=== PATIENT | male | born 1985 | race Native Hawaiian/Other Pacific Islander ===

== ENCOUNTER 2020-07-07 00:59 | Emergency (ER) | payer OTHER, SELFPAY ==
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
[2020-07-07 01:24] VITALS: BP 185/101; PULSE 97; RESP 20; TEMP 35.7; O2SAT 96; BMI 64.2
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
[2020-07-07] MEDS: Cyclobenzaprine HCl 10 MG TABLET PO (02:06)
[2020-07-07] MEDS: Ibuprofen 600 MG TABLET PO (02:06)
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
== END 2020-07-07 04:29 | disposition home or self-care (01) ==
PROVIDERS: Emergency Provider Emergency Medicine; PCP Internal Medicine
DX: S39.012A Strain of muscle, fascia and tendon of lower back, initial encounter (principal); M54.6 Pain in thoracic spine; M79.604 Pain in right leg; M25.551 Pain in right hip; V43.52XA Car driver injured in collision with other type car in traffic accident, initial encounter; Y93.9 Activity, unspecified; Y92.410 Unspecified street and highway as the place of occurrence of the external cause; Z79.899 Other long term (current) drug therapy
CPT/HCPCS: 71101; 72100; 73030; 73502; 99283

== ENCOUNTER 2021-08-22 18:08 | Emergency (ER) | payer OTHER, SELFPAY ==
--- NOTE | ~2021-08-22 | XR_ITS ---
EXAMINATION: XR KNEE, LEFT CLINICAL INFORMATION: Injury COMPARISON: None TECHNIQUE: 2 views submitted of the left knee. FINDINGS: There is seen. Possible trace effusion. There is no acute fracture or dislocation. Prepatellar soft tissue increase Dystrophic calcification anterior to the patella. XR/XR knee LT 2V IMPRESSION: No acute bony finding.
[2021-08-22 18:13] VITALS: BP 154/78; BP 157/72; PULSE 72; PULSE 74; RESP 18; TEMP 36.6; O2SAT 95; O2SAT 96; BMI 91.5
--- NOTE | 2021-08-22 23:08 | ED.LOWEXIN ---
HPI - Extremity Injury (Lower) General Chief Complaint: Extremity Injury, Lower Stated Complaint: l leg pain xweeks Time Seen by Provider: 08/22/21 23:03 Source: patient and EMS Mode of arrival: EMS Limitations: no limitations History of Present Illness HPI Narrative: 36 y/o male with history of morbid obesity, plaque psoriasis, ZAINA who presents to the ER with 2 months of left knee pain that comes and goes. It started after he fell outside [employer] [employer] 2 months ago. He never was evaluated and the pain improved with rest and time. He reports today when he was trying to ambulate he had immediate pain in his left knee any could have any pressure on his foot without extreme pain in the knee. Happy like his knee was going to give out. No new injury since the last 1 2 months ago. No swelling of the knee. No numbness or tingling. No weakness in the leg but just severe pain when trying to walk. MD complaint: knee injury Onset (ago): week(s) (8) Injury: Left: knee Type of Injury: blunt Place: street/outdoors Severity: severe Severity scale (1-10): 10 Relieving factors: immobilization and rest Exacerbating factors: weight bearing Context: fall Associated symptoms: able to partially bear weight Other symptoms: none Related Data Previous Rx's Medication Instructions Recorded cyclobenzaprine 10 mg tablet 10 mg PO TID PRN #14 tab 07/07/20 ibuprofen 600 mg tablet 600 mg PO Q6H PRN #30 tab 07/07/20 lidocaine 4 % topical patch 1 patch TOPICAL DAILY PRN #10 ea 07/07/20 naproxen 500 mg tablet 500 mg PO BID #20 tab 08/22/21 Allergies Allergy/AdvReac Type Severity Reaction Status Date / Time No Known Allergies Allergy Verified 07/07/20 01:26 Review of Systems Review of Systems: Constitutional: No Fever, No Chills Cardiovascular: No Chest Pain, No SOB Respiratory: No Cough, No Sputum Gastrointestinal: No Nausea, No Vomiting, No abdominal Pain Genitourinary: No Dysuria, No Urinary Frequency, No Hematuria Musculoskeletal: + joint pain, + Myalgias Skin: z= Skin Lesions, No rash Neuro: No Weakness, No Numbness Psych: + Anxiety/Panic, + Depression Heme/Lymph: No Bruising PMFSH Past Medical History Medical History (Updated 08/22/21 @ 23:37 by ADOLPH Sawyer) Obesity Social History Social History (Updated 07/07/20 @ 01:32 by Ashlee Calderón DO) Advance Directives: No Advance Directives Information Provided: Yes Physical Exam Vital Signs: Vital Signs: Last Vital Signs Temp 98 F 08/22/21 18:13 Pulse 74 08/22/21 18:13 Resp 18 08/22/21 18:13 BP 157/72 H 08/22/21 18:13 Pulse Ox 96 08/22/21 18:13 BMI result Body Mass Index 91.5 Appearance: Alert. Oriented X3. No acute distress. Morbidly obese HEENT: normal inspection CVS: Normal heart rate and rhythm. Pulses normal. Respiratory: No respiratory distress. Skin: Skin warm and dry. Normal skin color. Normal skin turgor. Multiple large plaques consistent with psoriasis Extremities: White scaly plaques scattered on the lower and upper extremities. Normal inspection of the left knee with normal active and passive range of motion. Difficult to assess joint laxity due to body habitus. No erythema or warmth of the knee. Neurovascularly intact distally. Neuro: Oriented X 3. No motor deficit. No sensory deficit. Ambulates with a limping gait. Course Course Course Narrative: 36 y/o male with history of morbid obesity, untreated plaque psoriasis who presents to with left knee pain after he fell about 8 weeks ago. He reports being unable to ambulate or put any pressure on the leg but he was seen taking a few steps here in the emergency room and EMS reports he was able to walk down a flight of stairs to get to the ambulance. He has been taking no medications for the pain. He has full range of motion on examination and pain is with weight-bearing. His x-ray is normal. Will plan to start him on NSAID for inflammation and refer to both Orthopedics Rheumatology for further workup. Crutches provided. Patient agreeable with plan. Critical Care Time Critical Care Time Critical Care Time: No Discharge Plan Discharge Clinical Impression: Left knee pain Qualifiers: Chronicity: chronic Qualified Code(s): M25.562 - Pain in left knee Patient Disposition: Home, Self-Care Instructions: Knee Pain (ED) Additional Instructions: Your knee x-ray was normal. Rest your knee and elevate your leg when possible. Recommend CHAPIS wrap for support and compression. Use ice several times per day for the next 48 hours. You may bear weight as tolerated. If pain is too severe, use crutches until better. Take the prescribed anti-inflammatory pain medication (with food) for the next 7 days. Recommend following up with orthopedics for further evaluation. Also recommend following up with rheumatology for further evaluation. Follow up with your doctor this week as well Prescriptions: New naproxen 500 mg tablet 500 mg PO BID Qty: 20 RF: 0 No Action cyclobenzaprine 10 mg tablet 10 mg PO TID PRN (Reason: muscle spasm) Qty: 14 RF: 0 lidocaine 4 % adhesive patch,medicated 1 patch topical DAILY PRN (Reason: pain) Qty: 10 RF: 0 ibuprofen 600 mg tablet 600 mg PO Q6H PRN (Reason: pain) Qty: 30 RF: 0 Referrals: Hyun Oakley PA-C [Physician Prop Sawyer] - 2 days (Left knee pain status post injury vs question psoriatic arthritis) Bobbi Bianchi NP [Nurse Practitioner] - 2 days (Psoriatic arthritis )
[2021-08-22] MEDS: Ibuprofen 800 MG TABLET PO (23:50)
[2021-08-22] MEDS: oxyCODONE HCl Immed Release 5 MG TABLET PO (23:51)
== END 2021-08-22 23:55 | disposition home or self-care (01) ==
PROVIDERS: Emergency Provider Emergency Medicine; PCP Internal Medicine
DX: M25.562 Pain in left knee (principal); L40.0 Psoriasis vulgaris; E66.01 Morbid (severe) obesity due to excess calories; Z68.45 Body mass index [BMI] 70 or greater, adult
CPT/HCPCS: 73560; 99283; 99284

== ENCOUNTER 2022-08-13 00:23 | Emergency (ER) | payer OTHER, SELFPAY ==
--- NOTE | ~2022-08-13 | XR_ITS ---
EXAMINATION: XR ANKLE, LEFT CLINICAL INFORMATION: Pain. COMPARISON: None TECHNIQUE: AP, lateral, and mortise views of the left ankle. FINDINGS: The cutaneous marker is directed towards the lateral malleolus. The talar dome is intact. Several well-corticated, chronic appearing ossific bodies measuring up to 2 mm diameter noted adjacent to the medial malleolus. Soft tissue prominence is present adjacent to the lateral malleolus. The base of the fifth metatarsal appears intact. The subtalar joints are normal in appearance. No soft tissue emphysematous changes. XR/XR ankle LT 2V IMPRESSION: 1. Soft tissue inflammatory changes adjacent to the lateral malleolus. 2. No acute fractures identified. 3. Chronic-appearing ossific bodies adjacent to the medial malleolus which may represent the sequela of remote trauma.
[2022-08-13 00:42] VITALS: BP 143/94; PULSE 90; RESP 16; TEMP 36.7; O2SAT 98; BMI 58.8
[2022-08-13 01:54] VITALS: BP 141/83; PULSE 73; RESP 18; TEMP 36.4; O2SAT 100
--- NOTE | 2022-08-13 02:10 | PC.NURSE ---
MD to bedside for primary eval.
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
[2022-08-13] MEDS: Ibuprofen 600 MG TABLET PO (02:25)
== END 2022-08-13 02:26 | disposition home or self-care (01) ==
PROVIDERS: Emergency Provider Emergency Medicine
DX: S93.402A Sprain of unspecified ligament of left ankle, initial encounter (principal); M25.572 Pain in left ankle and joints of left foot; W01.0XXA Fall on same level from slipping, tripping and stumbling without subsequent striking against object, initial encounter; Y93.9 Activity, unspecified; Y92.9 Unspecified place or not applicable; Y99.9 Unspecified external cause status
CPT/HCPCS: 73600; 99283; 99284

== ENCOUNTER 2022-09-07 08:34 | Inpatient (IN) | payer OTHER, SELFPAY ==
--- NOTE | ~2022-09-07 | CT_ITS ---
EXAMINATION: CT ABDOMEN AND PELVIS WITHOUT CONTRAST CLINICAL INFORMATION: Left lower quadrant abdominal pain radiating to testicle. History of stones. COMPARISON: None TECHNIQUE: Multidetector volumetric imaging was performed from the superior aspect of the liver through the pubic symphysis. Sagittal and coronal reformatted images were obtained on the technologist's workstation. This CT examination was performed using dose optimization techniques as appropriate, variously including the following: *Automated exposure control *Adjustment of mA and/or kV according to patient size (this includes techniques or standardized protocols for targeted exams where dose is matched to indication/reason for exam; i.e. extremities or head) *Use of iterative reconstruction technique DLP: 1469 mGy-cm FINDINGS: There are limitations to the scanning related to very large body habitus. LUNG BASES: The visualized lung bases are unremarkable. No pleural pericardial effusion. Heart normal size. LIVER, GALLBLADDER, AND BILIARY TREE: There is a small amount of increased density adjacent to the gallbladder with what appears to be some degree of fatty infiltration of the liver. No hepatomegaly.. No focal hepatic lesion or biliary ductal dilatation is present. The gallbladder is unremarkable with no evidence of radiopaque gallstones, gallbladder wall thickening, or obvious pericholecystic inflammatory changes. PANCREAS: Unremarkable. No abnormal mass or peripancreatic inflammatory change. There is some fatty involution seen involving the head of the pancreas. SPLEEN: Unremarkable. ADRENAL GLANDS: Unremarkable. KIDNEYS AND URETERS: Right kidney: 3 right renal calculi are seen which are nonobstructive. The largest is in the lower pole measuring 6 mm in diameter. No focal masses appreciated. No cortical thinning is seen. Visualized portions of the right ureter appear unremarkable. Left kidney: There appears be mild hydronephrosis of the left kidney with perinephric stranding being present. There are at least 2 renal calculi being seen with largest one in the area of the renal pelvis measuring 8 mm in diameter. There is some fat streaking seen adjacent to the left ureter which is mildly prominent down to the level of a 4 mm calculus at the left ureterovesical junction. BLADDER: Decompressed GASTROINTESTINAL TRACT: No dilated loops of large or small bowel are evident. No free air or free fluid is appreciated. No pericolonic inflammatory change. No evidence of acute appendicitis. ABDOMINAL WALL: No significant hernia is appreciated. LYMPH NODES: No lymphadenopathy appreciated. VASCULAR: Unremarkable. PELVIC VISCERA: Unremarkable. OSSEOUS STRUCTURES: No suspicious destructive bony lesion. CT/CT abdomen pelvis wo IV con IMPRESSION: Bilateral nephrolithiasis. Left ureteral obstructing 4 mm calculus at the ureterovesical junction. Fleischner guidelines were followed.
--- NOTE | ~2022-09-07 | FL_ITS ---
EXAMINATION: XR FLUOROSCOPY WITH IMAGES CLINICAL INFORMATION: Renal calculi. COMPARISON: None. TECHNIQUE: Fluoroscopy Supervised By: Dr. Fran Montoya. Fluoroscopy Time: 46.5. Cumulative Dose: 42.59 mGy. Images: 4. FINDINGS: Several digital images obtained reveal a left retrograde urogram in OR with contrast opacifying the left kidney pelvis and left distal ureter. No intraluminal filling defect seen. The final image reveals a left ureteral stent in place. FL/FL guidance in OR IMPRESSION: Fluoroscopy guidance was provided in OR to referring physician for cystoscopy and retrograde pyelogram.
[2022-09-07 08:39] VITALS: BP 151/68; PULSE 88; RESP 22; TEMP 36.2; O2SAT 99; BMI 57.5
--- NOTE | 2022-09-07 08:51 | ED.ABDPAIN ---
HPI - Abdominal Pain General Chief Complaint: Abdominal Pain Stated Complaint: kidney stones Time Seen by Provider: 09/07/22 08:47 Source: patient History of Present Illness HPI narrative: 37-year-old male with a past medical history of obesity, renal stones, presenting to the ED complaining of left-sided abdominal pain radiating to left groin/testicle with associated urinary hesitancy since 03:00AM. Reports similar symptoms in the past with his kidney stones. Admits to associated lightheadedness. Denies known fever, chills, nausea/vomiting, dysuria, hematuria MD elicited complaint: abdominal pain and flank pain Onset (ago): day(s) Related Data Home Medications Medication Instructions Recorded Confirmed albuterol sulfate 2.5 mg/3 mL 1 vial inhalation Q4H PRN wheezing 09/07/22 09/23/22 (0.083 %) solution for nebulization albuterol sulfate 90 mcg/actuation 2 puff inhalation Q4-6H PRN 09/07/22 09/23/22 aerosol inhaler (ProAir HFA) Shortness Of Breath Or Wheezing omeprazole 40 mg capsule,delayed 1 cap PO DAILY@0630 09/07/22 09/23/22 release ustekinumab 90 mg/mL subcutaneous See Rx Instructions .Route .COMPLEX 09/07/22 09/23/22 syringe (Stelara) cetirizine 10 mg tablet (Zyrtec) 10 mg PO DAILY 09/23/22 09/23/22 gabapentin 100 mg capsule 100 mg PO TID 09/26/22 lisinopril 10 mg tablet 10 mg PO DAILY 09/26/22 loratadine 10 mg tablet 10 mg PO DAILY 09/26/22 oxybutynin chloride 5 mg 5 mg PO DAILY PRN bladder muscle 09/26/22 tablet,extended release 24 hr dysfunction Previous Rx's Medication Instructions Recorded hydrocodone 5 mg-acetaminophen 325 1 tab PO Q4H PRN pain 7 days #8 09/23/22 mg tablet tabs phenazopyridine 100 mg tablet 100 mg PO TID PRN Spasm 4 days #12 09/23/22 (Pyridium) tabs sulfamethoxazole 400 1 tab PO DAILY #10 tabs 09/23/22 mg-trimethoprim 80 mg tablet (Bactrim) tamsulosin 0.4 mg capsule 0.4 mg PO BEDTIME 14 days #14 caps 09/23/22 hydrocodone 5 mg-acetaminophen 325 1 tab PO Q8H PRN pain #2 tabs 09/25/22 mg tablet oxybutynin chloride 5 mg 5 mg PO DAILY PRN bladder spasms 7 09/26/22 tablet,extended release 24 hr days #7 tabs Allergies Allergy/AdvReac Type Severity Reaction Status Date / Time ibuprofen [From Advil] Allergy Shortness Verified 09/26/22 11:00 of Breath aspirin AdvReac Headache Verified 09/26/22 11:00 etanercept [From Enbrel] AdvReac Dizziness Verified 09/26/22 11:00 NSAIDS (Non-Steroidal AdvReac Palpitation Verified 09/26/22 11:00 Anti-Inflamma s Review of Systems Review of Systems Constitutional: No Fever, No Chills, No Fatigue, No Malaise ENT/Mouth: No Hearing loss, No Ear Pain, No Nasal Congestion, No Sinus Pain, No Hoarseness, No sore throat, No Rhinorrhea, No Swallowing Difficulty Eyes: No Eye Pain, No Swelling, No Redness, No Vision Changes Cardiovascular: No Chest Pain, No SOB, No Edema, No Palpitations Respiratory: No Cough, No Sputum, No Dyspnea Gastrointestinal: No Nausea, No Vomiting, No Diarrhea, No Constipation, + Abdominal pain Genitourinary:No Dysuria, No Urinary Frequency, No Hematuria, No Urinary Incontinence/retention, No Urgency, No Flank Pain, No Urinary Flow Changes, + Hesitancy Musculoskeletal: No joint pain, No Myalgias, No Joint Swelling Skin: No Skin Lesions, No rash Neuro: No Weakness, No Dizziness, No Headache, +lightheaded Yes all other systems are reviewed and are negative Constitutional: Reports as per [facility] Past Medical History Attestation statement: The following information was validated with the patient. Medical History Asthma Habitual snoring Hx of fracture of femur Obesity Renal and ureteric calculus Sleep apnea Surgical History History of cystoscopy History of surgery on lower extremity S/P cystoscopy with ureteral stent placement [place] teeth extracted Social History Social History Household Members: Spouse Housing: House Do you presently have visiting nurse or other home services: No Patient Tobacco Use Status: Former Tobacco user Tobacco use type: Cigarette e-Cigarette/Vaping Use: Former Use Physical Exam ED Vital Signs: Vital Signs - 24 hr 09/07/22 08:39 09/07/22 10:04 09/07/22 12:00 Temperature 97.1 F 98.1 F 98.9 F Pulse Rate 88 70 110 H Respiratory Rate 22 H 18 18 Blood Pressure 151/68 H 150/87 H 144/87 H Pulse Oximetry 99 99 98 Oxygen Delivery Method Room Air Room Air Room Air BMI result Body Mass Index 57.5 Const General: cooperative, healthy appearing and no acute distress Orientation/consciousness: patient oriented x3 Limitations: no limitations HENMT Head: Yes normal to inspection and Yes atraumatic Ears: hearing grossly normal bilaterally General nose exam: Normal external nose present Face and sinus: Yes normal facial exam Eyes General: appearance normal, both eyes and all related structures EOM: EOMs intact bilaterally Neck Neck: Yes normal visual inspection and Yes no meningeal signs Resp Effort & Inspection: normal respiratory effort and no respiratory distress Cardio Rate: regular rate Heart sounds: S1 normal heart sound present and S2 normal heart sound present GI Inspection: Yes normal to inspection Palpation (GI): Soft to palpation, Tenderness to palpation present (GI) in the LLQ; with no rebound tenderness, no guarding, not rigid and no hernias General: Yes no CVA tenderness Testes: no epidiymal tenderness and no testicular swelling Back/Spine/Pelvis Back: no CVA tenderness Skin Rashes: no rashes Wounds: no wounds Neuro General: patient oriented x3, tone normal and no meningeal signs Gait exam (Neuro): Normal gait present Extrem General: Yes normal to inspection Course Course Course Narrative: -1040-leukocytosis of 14.7 likely reactive from pain. Low suspicion for severe sepsis at this time. Labs otherwise reassuring CT abdomen pelvis wo IV con IMPRESSION: Bilateral nephrolithiasis. ? Left ureteral obstructing 4 mm calculus at the ureterovesical junction. ? Fleischner guidelines were followed. 1106--patient is still in significant amount of pain and re-evaluation. Will consult Urology -spoke with Dr. Augustin recommended 2-3 L IVF, Toradol, and Flomax. Patient with allergy to Toradol. -patient's still without pain control after 0.5mg of Dilaudid > 1mg ordered -1248--on re-evaluation patient calm and comfortable, reports symptomatic relief after 1 mg of Dilaudid. Will give 3 L IVF and continue to reassess -1400--patient's pain relief was brief, now lying in stretcher, moaning in pain. Re- consulted urology > they will admit for pain control Medical Decision Making Medical Decision Making [facility] Narrative: 37-year-old male with a past medical history of obesity, renal stones, presenting to the ED complaining of left-sided abdominal pain radiating to left groin/testicle with associated urinary hesitancy since 03:00AM. On exam tachypneic, writhing around in pain, abdomen soft with +LLQ ttp, left testicle nontender without swelling, no appreciable CVA tenderness. Concern for renal stone vs diverticulitis vs UTI/pyelo. Lower suspicion for testicular torsion/epididymitis/orchitis Low suspicion for severe sepsis Plan: Labs, UA, IVF, pain control, CT AP Please refer to course for remaining clinical decision making, interpretation of labs/imaging results, and discussions with consultants and/or family members. Differential Diagnosis Differential Diagnoses: The differential diagnosis associated with the presentation includes as above Admission/Observation Consideration of admission/observation: Escalation of care including admission/observation considered Consult Healthcare Provider Management of the patient was discussed with: Licensed Investment Sales Assistant Lab Data [facility] Lab Attestation statement: I reviewed the patient's lab results. 09/08/22 06:25 09/08/22 06:25 Labs: Lab Results 09/07/22 09/07/22 09/07/22 Range/Units 09:07 09:07 09:07 WBC 14.7 H (4.8-10.8) X10*3/uL RBC 4.43 L (4.60-5.80) X10*6/uL Hgb 12.0 L (14.0-18.0) g/dl Hct 38.0 L (42.0-52.0) % MCV 85.8 (80.0-98.0) fL MCH 27.1 (27.0-33.0) pg MCHC 31.6 (31.0-36.0) g/dl RDW 15.1 (11.0-16.0) % Plt Count 348 (160-400) X10*3/uL MPV 9.7 (9.4-12.4) fL Immature Gran % (Auto) 0.7 H (0.0-0.4) % Neut % (Auto) 78.1 H (45-73) % Lymph % (Auto) 13.4 L (20-40) % [place] % (Auto) 6.4 (2-11) % Eos % (Auto) 1.1 (0-4) % Baso % (Auto) 0.3 (0-2) % Lymph # (Auto) 2.0 (1.2-4.9) X10*3/uL [place] # (Auto) 0.9 (0.1-1.2) X10*3/uL Eos # (Auto) 0.2 (0.0-0.4) X10*3/uL Baso # (Auto) 0.1 (0.0-0.2) X10*3/uL Abs Immat Gran (auto) 0.10 H (0.00-0.03) X10*3/uL Absolute Neuts (auto) 11.5 H (2.0-8.3) x10*3/uL Absolute Nucleated RBC 0.000 (0.0-0.012) X10*3/uL Nucleated RBC % (auto) 0.0 (0.0-0.2) /100WBC PT 12.0 (10.0-13.1) SEC INR 1.0 (0.9-1.1) Sodium 139 (135-145) mmol/L Potassium 4.1 (3.3-5.1) mmol/L Chloride 105 (96-108) mmol/L Carbon Dioxide 25 (22-29) mmol/L Anion Gap 13 (12-20) BUN 13 (9-16) mg/dL Creatinine 0.82 (0.5-1.4) mg/dL Estim Creat Clear Calc 232.2 Estimated GFR > 60 Random Glucose 132 H (60-115) mg/dL Calcium 8.8 (8.4-10.2) mg/dL Magnesium 1.8 (1.6-2.6) mg/dL Total Bilirubin 0.8 (0.0-1.0) mg/dL Direct Bilirubin 0.2 (0.0-0.5) mg/dL AST 17 (5-37) U/L ALT 26 (0-40) U/L Alkaline Phosphatase 91 (39-117) U/L Total Protein 6.8 (6.5-8.0) g/dL Albumin 3.8 (3.5-5.0) g/dL Lipase 6 L (8-78) U/L Urine Color Urine Appearance Urine pH (5.0-9.0) Ur Specific [place] (1.005-1.025) Urine Protein (Neg-Trace) mg/dL Urine Glucose (UA) (Negative) mg/dL Urine Ketones (Negative) mg/dL Urine Blood (Negative) Urine Nitrite (Negative) Ur Leukocyte Esterase (Negative) COVID-19 (KOREY) (Negative) COVID-19 Clin Com 09/07/22 09/07/22 Range/Units 09:07 13:31 WBC (4.8-10.8) X10*3/uL RBC (4.60-5.80) X10*6/uL Hgb (14.0-18.0) g/dl Hct (42.0-52.0) % MCV (80.0-98.0) fL MCH (27.0-33.0) pg MCHC (31.0-36.0) g/dl RDW (11.0-16.0) % Plt Count (160-400) X10*3/uL MPV (9.4-12.4) fL Immature Gran % (Auto) (0.0-0.4) % Neut % (Auto) (45-73) % Lymph % (Auto) (20-40) % [place] % (Auto) (2-11) % Eos % (Auto) (0-4) % Baso % (Auto) (0-2) % Lymph # (Auto) (1.2-4.9) X10*3/uL [place] # (Auto) (0.1-1.2) X10*3/uL Eos # (Auto) (0.0-0.4) X10*3/uL Baso # (Auto) (0.0-0.2) X10*3/uL Abs Immat Gran (auto) (0.00-0.03) X10*3/uL Absolute Neuts (auto) (2.0-8.3) x10*3/uL Absolute Nucleated RBC (0.0-0.012) X10*3/uL Nucleated RBC % (auto) (0.0-0.2) /100WBC PT (10.0-13.1) SEC INR (0.9-1.1) Sodium (135-145) mmol/L Potassium (3.3-5.1) mmol/L Chloride (96-108) mmol/L Carbon Dioxide (22-29) mmol/L Anion Gap (12-20) BUN (9-16) mg/dL Creatinine (0.5-1.4) mg/dL Estim Creat Clear Calc Estimated GFR Random Glucose (60-115) mg/dL Calcium (8.4-10.2) mg/dL Magnesium (1.6-2.6) mg/dL Total Bilirubin (0.0-1.0) mg/dL Direct Bilirubin (0.0-0.5) mg/dL AST (5-37) U/L ALT (0-40) U/L Alkaline Phosphatase (39-117) U/L Total Protein (6.5-8.0) g/dL Albumin (3.5-5.0) g/dL Lipase (8-78) U/L Urine Color Yellow Urine Appearance Clear Urine pH 6.5 (5.0-9.0) Ur Specific [place] 1.015 (1.005-1.025) Urine Protein Negative (Neg-Trace) mg/dL Urine Glucose (UA) Negative (Negative) mg/dL Urine Ketones Negative (Negative) mg/dL Urine Blood Negative (Negative) Urine Nitrite Negative (Negative) Ur Leukocyte Esterase Negative (Negative) COVID-19 (KOREY) Negative (Negative) COVID-19 Clin Com See Note Radiology Impression Discussion of test interpretation with radiology: I have reviewed the radiologist's reading. Prescription Management I considered prescription management with: Pain Medication and Antibiotic Medications Administered Discontinued Medications Generic Name Dose Route Start Last Admin Trade Name Freq PRN Reason Stop Dose Admin Acetaminophen 650 mg 09/07/22 14:47 09/10/22 08:51 Acetaminophen 325 Mg Tablet PO 650 mg Q6H PRN Administration Pain, Mild (Pain Scale 1-3) Albuterol Sulfate 2.5 mg 09/07/22 14:55 09/09/22 16:09 Albuterol Sulfate (0.083%) 2.5 Mg/3 Ml Vial.Neb INHALE 2.5 mg Q4H PRN Administration wheezing Docusate Sodium 100 mg 09/07/22 21:00 09/10/22 08:51 Docusate Sodium 100 Mg Capsule PO 100 mg BID SHANNA Administration Hydromorphone HCl 0.5 mg 09/07/22 11:08 09/07/22 11:25 Hydromorphone Hcl 0.5 Mg/0.5 Ml Syringe IVPUSH 09/07/22 11:09 0.5 mg ONCE ONE Administration Protocol Hydromorphone HCl 1 mg 09/07/22 12:05 09/07/22 12:28 Hydromorphone Hcl 1 Mg/Ml Syringe IVPUSH 09/07/22 12:06 1 mg ONCE ONE Administration Protocol Hydromorphone HCl 0.5 mg 09/07/22 14:47 09/10/22 08:50 Hydromorphone Hcl 1 Mg/Ml Syringe IVPUSH 0.5 mg Q3H PRN Administration Pain, Severe (Pain Scale 7-10) Protocol Sodium Chloride 1,000 mls @ 999 mls/hr 09/07/22 09:00 09/07/22 09:51 Ns IV 09/07/22 10:00 Infused .Q1H1M SHANNA Infusion Sodium Chloride 1,000 mls @ 999 mls/hr 09/07/22 11:30 09/07/22 12:28 Ns IV 09/07/22 12:30 Infused .Q1H1M SHANNA Infusion Sodium Chloride 1,000 mls @ 999 mls/hr 09/07/22 13:00 09/07/22 13:22 Ns IV 09/07/22 14:00 Infused .Q1H1M SHANNA Infusion Sodium Chloride 1,000 mls @ 125 mls/hr 09/07/22 15:00 09/09/22 17:42 Ns IVCONT Infused .Q8H SHANNA Infusion Cefazolin Sodium/Dextrose 2 gm in 50 mls @ 100 mls/hr 09/09/22 14:04 09/09/22 15:43 Ancef IV 09/09/22 14:33 Not Given PREOP ONE Acetaminophen 1,000 mg in 100 mls @ 400 mls/hr 09/09/22 14:44 09/09/22 15:43 Ofirmev IV 09/09/22 14:58 Not Given ONCE ONE Sodium Chloride 1,000 mls @ 100 mls/hr 09/09/22 19:15 09/10/22 04:54 Ns IVCONT 100 mls/hr .Q10H SHANNA Administration Morphine Sulfate 4 mg 09/07/22 08:55 09/07/22 09:07 Morphine Sulfate 4 Mg/Ml Cartridge IVPUSH 09/07/22 08:56 4 mg ONCE ONE Administration Protocol Morphine Sulfate 4 mg 09/07/22 09:43 09/07/22 09:51 Morphine Sulfate 2 Mg/Ml Cartridge IVPUSH 09/07/22 09:44 4 mg ONCE ONE Administration Protocol Omeprazole 40 mg 09/08/22 06:30 09/10/22 06:46 Omeprazole 40 Mg Capsule.Dr PO 40 mg DAILY@0630 SHANNA Administration Ondansetron HCl 4 mg 09/07/22 08:55 09/07/22 09:07 Ondansetron Hcl 4 Mg/2 Ml Vial IVPUSH 09/07/22 08:56 4 mg ONCE ONE Administration Ondansetron HCl 4 mg 09/09/22 14:44 09/09/22 16:25 Ondansetron Hcl 4 Mg/2 Ml Vial IVPUSH 4 mg ONCE PRN Administration Nausea and Vomiting Oxycodone HCl 5 mg 09/07/22 14:47 09/07/22 23:12 Oxycodone Hcl Immed Release 5 Mg Tablet PO 5 mg Q6H PRN Administration Pain, Moderate (Pain Scale 4-6 Sodium Chloride 3 ml 09/07/22 16:00 09/10/22 09:02 0.9 % Sodium Chloride Flush 3 Ml Syringe IVFLUSH 3 ml QSMNFT SHANNA Administration Sodium Chloride 3 ml 09/10/22 00:00 09/10/22 08:51 0.9 % Sodium Chloride Flush 3 Ml Syringe IVFLUSH 3 ml QSHIFT SHANNA Administration Tamsulosin HCl 0.4 mg 09/07/22 11:09 09/07/22 11:25 Tamsulosin Hcl 0.4 Mg Capsule PO 09/07/22 11:10 0.4 mg ONCE ONE Administration Tamsulosin HCl 0.4 mg 09/08/22 09:00 09/10/22 08:51 Tamsulosin Hcl 0.4 Mg Capsule PO 0.4 mg DAILY SHANNA Administration Critical Care Time Critical Care Time Critical Care Time: Yes Total Critical Care Time: 40 Attestation: I have personally provided critical care time exclusive of time spent on separately billable procedures. Time includes review of lab data, radiology results, discussion with consultants, and monitoring for potential decompensation. Intervention performed as documented. Discharge Plan Discharge Clinical Impression: Calculus of ureterovesical junction (UVJ) Patient Disposition: Admitted As Inpatient Interventions: Admission Worksheet (ED) Last Done: 09/08/22 16:51 Discharge Date/Time: 09/08/22 16:52
[2022-09-07] MEDS: Morphine Sulfate 4 MG/ML CARTRIDGE IVPUSH (09:07)
[2022-09-07] MEDS: 0.9 % Sodium Chloride 1,000 ML 999 ML IV ×3 (09:07→12:50)
[2022-09-07] MEDS: ondansetron HCL 4 MG/2 ML VIAL IVPUSH (09:07)
[2022-09-07 09:11] LABS: MANUAL DIFF FLAG NO
[2022-09-07 09:12] LABS: Basophils Absolute Auto 0.1 X10*3/uL (0.0-0.2); Basophils Percent Auto 0.3 % (0-2); Eosinophils Absolute Auto 0.2 X10*3/uL (0.0-0.4); Eosinophils Percent Auto 1.1 % (0-4); Imm Gran Pct Auto 0.7 % (0.0-0.4); Lymphocytes Percent Auto 13.4 % (20-40); Mean Corpuscular HGB Conc 31.6 g/dl (31.0-36.0); Mean Corpuscular Hemoglobin 27.1 pg (27.0-33.0); Mean Corpuscular Volume 85.8 fL (80.0-98.0); Mean Platelet Volume 9.7 fL (9.4-12.4); Monocytes Absolute Auto 0.9 X10*3/uL (0.1-1.2); Monocytes Percent Auto 6.4 % (2-11); Neutrophils Absolute Auto 11.5 x10*3/uL (2.0-8.3); Neutrophils Percent Auto 78.1 % (45-73); Platelet Count 348 X10*3/uL (160-400); Red Blood Count 4.43 X10*6/uL (4.60-5.80); Red Cell Distribution Width 15.1 % (11.0-16.0); White Blood Count 14.7 X10*3/uL (4.8-10.8)
--- NOTE | 2022-09-07 09:15 | PC.NURSE ---
37 y/o M pw severe abdominal pain 06/17. pt has had kidney stones in the past x2 and states that this feels similar. pt unable to sit still d/t pain. 18G IV in place, all labs drawn and sent, pt given IV morphine for pain and IV Zofran for nausea. plan for urology c/s and pain management.
[2022-09-07 09:30] LABS: Alanine Aminotransferase 26 U/L (0-40); Albumin Level 3.8 g/dL (3.5-5.0); Alkaline Phosphatase 91 U/L (39-117); Anion Gap 13 (12-20); Aspartate Amino Transferase 17 U/L (5-37); Bilirubin Direct 0.2 mg/dL (0.0-0.5); Bilirubin Total 0.8 mg/dL (0.0-1.0); Blood Urea Nitrogen 13 mg/dL (9-16); COVID-19 Test Negative (Negative); Calcium 8.8 mg/dL (8.4-10.2); Carbon Dioxide 25 mmol/L (22-29); Chloride 105 mmol/L (96-108); Creatinine Clr Calc Pharmacy 232.2; Estimated Glomerular Filt Rate > 60; Glucose Random 132 mg/dL (60-115); IDNOW Serial# 16C4AD1C; Lipase 6 U/L (8-78); Magnesium 1.8 mg/dL (1.6-2.6); Potassium 4.1 mmol/L (3.3-5.1); Sodium 139 mmol/L (135-145); Total Protein 6.8 g/dL (6.5-8.0)
[2022-09-07] MEDS: Morphine Sulfate 2 MG/ML CARTRIDGE 4 MG IVPUSH (09:51)
[2022-09-07 10:04] VITALS: BP 150/87; PULSE 70; RESP 18; TEMP 36.7; O2SAT 99
[2022-09-07] MEDS: Tamsulosin HCL 0.4 MG CAPSULE PO (11:25)
[2022-09-07] MEDS: HYDROmorphone HCl 0.5 MG/0.5 ML SYRINGE IVPUSH (11:25)
[2022-09-07 12:00] VITALS: BP 144/87; PULSE 110; RESP 18; TEMP 37.2; O2SAT 98
[2022-09-07] MEDS: HYDROmorphone HCl 1 MG/ML SYRINGE IVPUSH (12:28)
[2022-09-07 13:41] LABS: Appearance Urine Clear; Color Urine Yellow; Glucose Urine UA Negative (Negative); Leukocyte Esterase Urine Negative (Negative); Nitrite Urine Negative (Negative); PH 6.5 (5.0-9.0); Specific Gravity - Urine 1.015 (1.005-1.025); Urine Blood Negative (Negative); Urine Ketones Negative (Negative); Urine Protein Negative (Neg-Trace)
--- NOTE | 2022-09-07 14:56 | P.HPGS_ITS ---
History of Present Illness History of Present Illness Date of Service: 09/08/22 Chief complaint: pain, ureteral stone Narrative: Michael Ramirez is a 37 year old male with a past medical history of obesity, renal stones, presenting to the ED complaining of left-sided abdominal pain radiating to left groin/testicle with associated urinary hesitancy since 03:00AM.? Reports similar symptoms in the past with his kidney stones.? Admits to associated lightheadedness.? Denies known fever, chills, nausea/vomiting, dysuria, hematuria Review of Systems Review of Systems: 10 point ROS negative other than stated in the [facility] Past Medical History Medical History Obesity Social History Social History Household Members: Spouse Housing: House Do you presently have visiting nurse or other home services: No Patient Tobacco Use Status: Former Tobacco user Tobacco use type: Cigarette Smoked in Last 30 Days: No e-Cigarette/Vaping Use: Former Use Use of substances other than those prescribed or required for medical reasons: No Have you been hit, kicked, punched, or otherwise hurt by someone within the past year? If so, by whom?: No Do you feel safe in your current relationship?: Yes Is there a partner from a previous relationship who is making you feel unsafe now?: No Are you made to feel afraid or neglected: No Advance Directives: No Advance Directives Information Provided: No (Declined) Advance Directives on File: No Do you have thoughts of harming others: None Do you have a plan to hurt others: No Plan Recently lost weight without trying: No How much weight loss: Not applicable Eating poorly because of decreased appetite: No Nutrition screen score: 0 Nutrition Risks: No Nutritional Risk Poor oral hygiene: No Meds Allergies Allergy/AdvReac Type Severity Reaction Status Date / Time ibuprofen [From Advil] Allergy Shortness Verified 09/07/22 08:42 of Breath Active Medications: Current Medications Acetaminophen (Acetaminophen 325 Mg Tablet) 650 mg PO Q6H PRN PRN Reason: Pain, Mild (Pain Scale 1-3) Albuterol Sulfate (Albuterol Sulfate (0.083%) 2.5 Mg/3 Ml Vial.Neb) mg INHALE Q4H PRN PRN Reason: wheezing Albuterol Sulfate (Albuterol Sulfate 90 Mcg 8 Gm Inhaler) 2 puff INHALE Q4-6H PRN PRN Reason: Shortness Of Breath Or Wheezing Docusate Sodium (Docusate Sodium 100 Mg Capsule) 100 mg PO BID SHANNA Hydromorphone HCl (Hydromorphone Hcl 1 Mg/Ml Syringe) 0.5 mg IVPUSH Q3H PRN; Protocol PRN Reason: Pain, Severe (Pain Scale 7-10) Sodium Chloride (Ns) 1,000 mls @ 125 mls/hr IVCONT .Q8H SHANNA Magnesium Hydroxide (Milk Of Magnesia 30 Ml Oral.Susp) 30 ml PO DAILY PRN PRN Reason: Constipation Omeprazole (Omeprazole 40 Mg Capsule.Dr) 40 mg PO DAILY@06 [facility] Oxycodone HCl (Oxycodone Hcl Immed Release 5 Mg Tablet) 5 mg PO Q6H PRN PRN Reason: Pain, Moderate (Pain Scale 4-6 Pharmacy Consult (Consult Rx Perform Med Rec) 1 each MISCELLANE ONCE STA Stop: 09/07/22 14:00 Sodium Chloride (0.9 % Sodium Chloride Flush 3 Ml Syringe) 3 ml IVFLUSH QSHIFT [facility] Home Medications Medication Instructions Recorded Confirmed Last Taken Type albuterol sulfate 2.5 mg/3 mL 1 vial inhalation Q4H PRN wheezing 09/07/22 09/07/22 09/06/22 History (0.083 %) solution for nebulization albuterol sulfate 90 mcg/actuation 2 puff inhalation Q4-6H PRN 09/07/22 09/07/22 09/06/22 History aerosol inhaler (ProAir HFA) Shortness Of Breath Or Wheezing omeprazole 40 mg capsule,delayed 1 cap PO DAILY@0630 09/07/22 09/07/22 08/10/22 History release ustekinumab 90 mg/mL subcutaneous See Rx Instructions .Route .COMPLEX 09/07/22 09/07/22 09/05/22 History syringe (Stelara) Physical Exam Vital Signs: Vital Signs: Last Vital Signs Temp 98.9 F 09/07/22 12:00 Pulse 110 H 09/07/22 12:00 Resp 18 09/07/22 12:00 BP 144/87 H 09/07/22 12:00 Pulse Ox 98 09/07/22 12:00 O2 Del Method 09/07/22 12:00 BMI result Body Mass Index 57.5 Const: General: no acute distress Orientation/consciousness: patient oriented x3 HEENT: Head: Yes normocephalic and Yes atraumatic Eyes: Conjunctivae: conjunctivae normal Neck: Neck: Yes normal visual inspection Chest: Chest palpation & inspection: normal inspection of the chest Resp: Effort & Inspection: normal respiratory effort Cardio: Rate: regular rate GI: Inspection: Yes normal to inspection Palpation (GI): Soft to palpation : General: Yes CVA tenderness (left) Back/Spine/Pelvis: Back: CVA tenderness (left) Skin: General skin exam: no rashes or lesions noted Neuro: General: patient oriented x3 Extrem: General: No pedal edema Psych: Appearance: grossly normal Affect: normal affect Results Results Labs: Short CBC 09/07/22 Range/Units 09:07 WBC 14.7 H (4.8-10.8) X10*3/uL Hgb 12.0 L (14.0-18.0) g/dl Hct 38.0 L (42.0-52.0) % Plt Count 348 (160-400) X10*3/uL BMP 09/07/22 09:07 Sodium 139 Potassium 4.1 Chloride 105 Carbon Dioxide 25 BUN 13 Creatinine 0.82 Calcium 8.8 Liver Function 09/07/22 Range/Units 09:07 Total Bilirubin 0.8 (0.0-1.0) mg/dL Direct Bilirubin 0.2 (0.0-0.5) mg/dL AST 17 (5-37) U/L ALT 26 (0-40) U/L Alkaline Phosphatase 91 (39-117) U/L Albumin 3.8 (3.5-5.0) g/dL Urine 09/07/22 Range/Units 13:31 Urine Color Yellow Urine Appearance Clear Urine pH 6.5 (5.0-9.0) Ur Specific [place] 1.015 (1.005-1.025) Urine Protein Negative (Neg-Trace) mg/dL Urine Glucose (UA) Negative (Negative) mg/dL Additional studies: Date of Service: 09/07/22 EXAMINATION: CT ABDOMEN AND PELVIS WITHOUT CONTRAST? CLINICAL INFORMATION: Left lower quadrant abdominal pain radiating to testicle. History of stones.? COMPARISON: None? FINDINGS: There are limitations to the scanning related to very large body habitus. LUNG BASES: The visualized lung bases are unremarkable. No pleural pericardial effusion. Heart normal size. LIVER, GALLBLADDER, AND BILIARY TREE: There is a small amount of increased density adjacent to the gallbladder with what appears to be some degree of fatty infiltration of the liver. No hepatomegaly.. No focal hepatic lesion or biliary ductal dilatation is present. The gallbladder is unremarkable with no evidence of radiopaque gallstones, gallbladder wall thickening, or obvious pericholecystic inflammatory changes.? PANCREAS: Unremarkable. No abnormal mass or peripancreatic inflammatory change. There is some fatty involution seen involving the head of the pancreas. SPLEEN: Unremarkable.? ADRENAL GLANDS: Unremarkable.? KIDNEYS AND URETERS: Right kidney: 3 right renal calculi are seen which are nonobstructive. The largest is in the lower pole measuring 6 mm in diameter. No focal masses appreciated. No cortical thinning is seen. Visualized portions of the right ureter appear unremarkable. Left kidney: There appears be mild hydronephrosis of the left kidney with perinephric stranding being present. There are at least 2 renal calculi being seen with largest one in the area of the renal pelvis measuring 8 mm in diameter. There is some fat streaking seen adjacent to the left ureter which is mildly prominent down to the level of a 4 mm calculus at the left ureterovesical junction. BLADDER: Decompressed? GASTROINTESTINAL TRACT: No dilated loops of large or small bowel are evident. No free air or free fluid is appreciated. No pericolonic inflammatory change. No evidence of acute appendicitis.? ABDOMINAL WALL: No significant hernia is appreciated.? LYMPH NODES: No lymphadenopathy appreciated. VASCULAR: Unremarkable. PELVIC VISCERA: Unremarkable.? OSSEOUS STRUCTURES: No suspicious destructive bony lesion.? IMPRESSION: Bilateral nephrolithiasis.? Left ureteral obstructing 4 mm calculus at the ureterovesical junction. Assessment and Plan (1) Calculus of ureterovesical junction (UVJ): Status: Acute (2) Renal stones: Status: Acute (3) Renal and ureteric calculus: Status: Acute (4) Left flank pain: Status: Acute Plan Pain management IVF Hydration strain urine Time Spent With Patient Time: Total time managing care of this patient today ____ minutes. Quality Stroke Does the patient have a stroke diagnosis?: No VTE Prior VTE?: No VTE Risk Level:: Medical - low VTE Device Contraindication: Treatment Not Indicated VTE Drug Contraindication: Treatment Not Indicated Procedures Date of Service Date of Service: 09/07/22
--- NOTE | 2022-09-07 14:57 | PHA.MEDREC ---
Pharmacy Consult ? Medication Reconciliation Pharmacy has completed the medication reconciliation. Patient reports to have stopped taking alclometasone dipro cream and triamcinolone cream because they didn't work. Patient reports to have stopped taking lisinopril 10mg 2 months ago because of heart palpitations when taking them . Patient reports stopping gabapentin 100mg 2 months ago because it made them numb . Patient stopped taking loratadine 10mg because it gave them diarrhea .
[2022-09-07] MEDS: Acetaminophen 325 MG TABLET 650 MG PO ×2 (15:07→23:11)
[2022-09-07] MEDS: oxyCODONE HCl Immed Release 5 MG TABLET PO ×2 (15:07→23:12)
[2022-09-07] MEDS: 0.9 % Sodium Chloride 1,000 ML 125 ML IVCONT ×2 (15:08→22:51)
[2022-09-07 18:58] VITALS: BP 121/64; PULSE 74; RESP 20; O2SAT 96
[2022-09-07] MEDS: Docusate Sodium 100 MG CAPSULE PO (21:48)
[2022-09-07 21:54] VITALS: RESP 25
[2022-09-07] MEDS: HYDROmorphone HCl 1 MG/ML SYRINGE 0.5 MG IVPUSH (21:54)
[2022-09-07 22:11] VITALS: BP 149/77; PULSE 91; RESP 16; TEMP 36.8; O2SAT 94
[2022-09-08 00:28] VITALS: BP 173/68; PULSE 77; RESP 17; TEMP 36.4; O2SAT 96
[2022-09-08 05:51] VITALS: RESP 16
[2022-09-08] MEDS: Omeprazole 40 MG CAPSULE.DR PO (05:51)
[2022-09-08] MEDS: HYDROmorphone HCl 1 MG/ML SYRINGE 0.5 MG IVPUSH ×4 (05:51→22:28)
[2022-09-08 06:39] LABS: MANUAL DIFF FLAG NO
[2022-09-08 07:00] LABS: Anion Gap 9 (12-20); Blood Urea Nitrogen 10 mg/dL (9-16); Calcium 8.4 mg/dL (8.4-10.2); Carbon Dioxide 29 mmol/L (22-29); Chloride 107 mmol/L (96-108); Creatinine Clr Calc Pharmacy 183.1; Estimated Glomerular Filt Rate > 60; Glucose Random 117 mg/dL (60-115); Potassium 4.1 mmol/L (3.3-5.1); Sodium 141 mmol/L (135-145)
[2022-09-08] MEDS: 0.9 % Sodium Chloride 1,000 ML 125 ML IVCONT ×2 (07:15→17:21)
[2022-09-08 07:19] LABS: Basophils Percent Auto 0.3 % (0-2); Eosinophils Absolute Auto 0.2 X10*3/uL (0.0-0.4); Eosinophils Percent Auto 1.8 % (0-4); Hematocrit 35.5 % (42.0-52.0); Hemoglobin 11.3 g/dl (14.0-18.0); Imm Gran Abs Auto 0.09 X10*3/uL (0.00-0.03); Imm Gran Pct Auto 0.8 % (0.0-0.4); Lymphocytes Absolute Auto 1.6 X10*3/uL (1.2-4.9); Lymphocytes Percent Auto 13.6 % (20-40); Mean Corpuscular HGB Conc 31.8 g/dl (31.0-36.0); Mean Corpuscular Hemoglobin 27.5 pg (27.0-33.0); Mean Corpuscular Volume 86.4 fL (80.0-98.0); Monocytes Percent Auto 8.5 % (2-11); Neutrophils Absolute Auto 8.8 x10*3/uL (2.0-8.3); Platelet Count 323 X10*3/uL (160-400); Red Blood Count 4.11 X10*6/uL (4.60-5.80); Red Cell Distribution Width 15.2 % (11.0-16.0); White Blood Count 11.7 X10*3/uL (4.8-10.8)
[2022-09-08 08:29] VITALS: BP 173/81; PULSE 80; RESP 16; TEMP 36; O2SAT 95
[2022-09-08] MEDS: Tamsulosin HCL 0.4 MG CAPSULE PO (08:44)
[2022-09-08] MEDS: Docusate Sodium 100 MG CAPSULE PO ×2 (08:44→20:07)
--- NOTE | 2022-09-08 10:03 | PC.NURSE ---
pt alert and oriented, denies pain, vss. pt reported that he will be having surgery today per a doctor that spoke to him in the er yesterday around 2 pm . this rn clarified with Dr. Montoya, no surgery scheduled for today, he will be in to see the pt sometime today. pt updated with plan. no complaints, pt's sister at his bedside.
--- NOTE | 2022-09-08 11:58 | PM.UROPN ---
Subjective Subjective Date of Service: 09/08/22 Patient reports: still having pain Interval history: 37 year old male with left flank pain secondary to obstructive left ureteral stone, the patient continues to have pain Physical Exam Vital Signs: Vital Signs: Last Vital Signs Temp 96.8 F 09/08/22 08:29 Pulse 80 09/08/22 08:29 Resp 16 09/08/22 08:29 BP 173/81 H 09/08/22 08:29 Pulse Ox 95 09/08/22 08:29 O2 Del Method 09/08/22 08:29 BMI result Body Mass Index 57.5 Const: General: no acute distress Orientation/consciousness: patient oriented x3 HEENT: Head: Yes normocephalic and Yes atraumatic Eyes: Conjunctivae: conjunctivae normal Neck: Neck: Yes normal visual inspection Chest: Chest palpation & inspection: normal inspection of the chest Resp: Effort & Inspection: normal respiratory effort Cardio: Rate: regular rate GI: Inspection: Yes normal to inspection Palpation (GI): Soft to palpation : General: Yes CVA tenderness (left) Back/Spine/Pelvis: Back: CVA tenderness (left) Skin: General skin exam: no rashes or lesions noted Neuro: General: patient oriented x3 Extrem: General: No pedal edema Psych: Appearance: grossly normal Affect: normal affect Urology Results Labs CBC & Chem 7: 09/08/22 06:25 09/08/22 06:25 Labs: Laboratory Results - last 24 hr 09/07/22 09/08/22 09/08/22 13:31 06:25 06:25 WBC 11.7 H RBC 4.11 L Hgb 11.3 L Hct 35.5 L MCV 86.4 MCH 27.5 MCHC 31.8 RDW 15.2 Plt Count 323 MPV 10.0 Immature Gran % (Auto) 0.8 H Neut % (Auto) 75.0 H Lymph % (Auto) 13.6 L [place] % (Auto) 8.5 Eos % (Auto) 1.8 Baso % (Auto) 0.3 Lymph # (Auto) 1.6 [place] # (Auto) 1.0 Eos # (Auto) 0.2 Baso # (Auto) 0.0 Abs Immat Gran (auto) 0.09 H Absolute Neuts (auto) 8.8 H Absolute Nucleated RBC 0.000 Nucleated RBC % (auto) 0.0 Sodium 141 Potassium 4.1 Chloride 107 Carbon Dioxide 29 Anion Gap 9 L BUN 10 Creatinine 1.04 Estim Creat Clear Calc 183.1 Estimated GFR > 60 Random Glucose 117 H Calcium 8.4 Urine Color Yellow Urine Appearance Clear Urine pH 6.5 Ur Specific [place] 1.015 Urine Protein Negative Urine Glucose (UA) Negative Urine Ketones Negative Urine Blood Negative Urine Nitrite Negative Ur Leukocyte Esterase Negative Progress Note: A&P Assessment and plan (1) Left flank pain: Status: Acute (2) Renal and ureteric calculus: Status: Acute (3) Renal stones: Status: Acute (4) Calculus of ureterovesical junction (UVJ): Status: Acute Plan Left flank pain - persistent pt has not passed stone Cont IVF flomax NPO past MN Plan for Cystoscopy, Left ureteroscopy, possible laser lithotripsy, possible ureteral stent. Risks discussed included but not limited to, possible need to repeat procedure if stone is not completely fragmented, Irritative voiding symptoms, bladder spasms, urgency, blood in urine. Time Spent With Patient Time: Total time managing care of this patient today ____ minutes.
[2022-09-08 16:57] VITALS: BP 142/71; PULSE 79; RESP 18; TEMP 36.9; O2SAT 98; BMI 61.9
[2022-09-08 17:20] VITALS: RESP 20
[2022-09-08 20:00] VITALS: BP 139/68; PULSE 91; RESP 18; TEMP 36.7; O2SAT 98
[2022-09-08] MEDS: 0.9 % Sodium Chloride Flush 3 ML SYRINGE IVFLUSH (22:29)
[2022-09-09] VITALS (13 sets, daily range): BP systolic 136–180; BP diastolic 58–99; PULSE 67–99; RESP 15–22; TEMP 36.3–37.3; O2SAT 82–99
[2022-09-09] MEDS: 0.9 % Sodium Chloride 1,000 ML 125 ML IVCONT ×2 (00:23→08:59)
[2022-09-09] MEDS: Omeprazole 40 MG CAPSULE.DR PO (05:45)
[2022-09-09] MEDS: Tamsulosin HCL 0.4 MG CAPSULE PO (09:21)
[2022-09-09] MEDS: Docusate Sodium 100 MG CAPSULE PO ×2 (09:21→20:04)
[2022-09-09] MEDS: HYDROmorphone HCl 1 MG/ML SYRINGE 0.5 MG IVPUSH ×2 (11:49→17:33)
--- NOTE | 2022-09-09 14:05 | MHC.SHP ---
Pre-Procedural Eval Section A Date of Service: 09/09/22 The patient is an INPATIENT: Yes Section B Chief Complaint: pain, ureteral stone Allergies: Allergies Allergy/AdvReac Type Severity Reaction Status Date / Time ibuprofen [From Advil] Allergy Shortness Verified 09/07/22 08:42 of Breath Plan Diagnosis/Plan: Unchanged I have reviewed the history and physical and performed a pertinent physical examination on my patient. No changes have occurred unless specified. Plan for Cystoscopy, Left ureteroscopy, possible laser lithotripsy, possible ureteral stent. Risks discussed included but not limited to, possible need to repeat procedure if stone is not completely fragmented, Irritative voiding symptoms, bladder spasms, urgency, blood in urine. Time Spent With Patient Time: Total time managing care of this patient today ____ minutes.
--- NOTE | 2022-09-09 14:42 | HO.ANESPROP2 ---
[facility] Active Problems Active Problems: All Active Problems (Updated 09/07/22 @ 15:01 by Fran Montoya MD) Left flank pain (Acute) Renal and ureteric calculus (Acute) Renal stones (Acute) Calculus of ureterovesical junction (UVJ) (Acute) Past Medical History Medical History Obesity Family History Family history of problems with anesthesia: No Surgical History History of Problems with Anesthesia: No Social History Social History Household Members: Spouse Housing: House Do you presently have visiting nurse or other home services: No Patient Tobacco Use Status: Former Tobacco user Tobacco use type: Cigarette Smoked in Last 30 Days: No e-Cigarette/Vaping Use: Former Use Use of substances other than those prescribed or required for medical reasons: No Currently Displaying Signs/Symptoms of Drug Intoxication Withdrawal: No Have you been hit, kicked, punched, or otherwise hurt by someone within the past year? If so, by whom?: No Do you feel safe in your current relationship?: Yes Is there a partner from a previous relationship who is making you feel unsafe now?: No Are you made to feel afraid or neglected: No Advance Directives: No Advance Directives Information Provided: No Advance Directives on File: No Do you have thoughts of harming others: None Do you have a plan to hurt others: No Plan Recently lost weight without trying: No How much weight loss: Not applicable Eating poorly because of decreased appetite: No Nutrition screen score: 0 Nutrition Risks: No Nutritional Risk Poor oral hygiene: No Meds Allergies Allergy/AdvReac Type Severity Reaction Status Date / Time ibuprofen [From Advil] Allergy Shortness Verified 09/07/22 08:42 of Breath Active Medications: Current Medications Acetaminophen (Acetaminophen 325 Mg Tablet) 650 mg PO Q6H PRN PRN Reason: Pain, Mild (Pain Scale 1-3) Last Admin: 09/07/22 23:11 Dose: 650 mg Albuterol Sulfate (Albuterol Sulfate (0.083%) 2.5 Mg/3 Ml Vial.Neb) 2.5 mg INHALE Q4H PRN PRN Reason: wheezing Albuterol Sulfate (Albuterol Sulfate 90 Mcg 8 Gm Inhaler) 2 puff INHALE Q4H PRN PRN Reason: Shortness Of Breath Or Wheezing Docusate Sodium (Docusate Sodium 100 Mg Capsule) 100 mg PO BID [facility] Last Admin: 09/09/22 09:21 Dose: 100 mg Hydromorphone HCl (Hydromorphone Hcl 1 Mg/Ml Syringe) 0.5 mg IVPUSH Q3H PRN; Protocol PRN Reason: Pain, Severe (Pain Scale 7-10) Last Admin: 09/09/22 11:49 Dose: 0.5 mg Sodium Chloride (Ns) 1,000 mls @ 125 mls/hr IVCONT .Q8H [facility] Last Admin: 09/09/22 08:59 Dose: 125 mls/hr Magnesium Hydroxide (Milk Of Magnesia 30 Ml Oral.Susp) 30 ml PO DAILY PRN PRN Reason: Constipation Omeprazole (Omeprazole 40 Mg Capsule.Dr) 40 mg PO DAILY@0630 [facility] Last Admin: 09/09/22 05:45 Dose: 40 mg Oxycodone HCl (Oxycodone Hcl Immed Release 5 Mg Tablet) 5 mg PO Q6H PRN PRN Reason: Pain, Moderate (Pain Scale 4-6 Last Admin: 09/07/22 23:12 Dose: 5 mg Sodium Chloride (0.9 % Sodium Chloride Flush 3 Ml Syringe) 3 ml IVFLUSH QSHIFT [facility] Last Admin: 09/09/22 09:08 Dose: Not Given Tamsulosin HCl (Tamsulosin Hcl 0.4 Mg Capsule) 0.4 mg PO DAILY [facility] Last Admin: 09/09/22 09:21 Dose: 0.4 mg Home Medications Medication Instructions Recorded Confirmed Last Taken Type albuterol sulfate 2.5 mg/3 mL 1 vial inhalation Q4H PRN wheezing 09/07/22 09/07/22 09/06/22 History (0.083 %) solution for nebulization albuterol sulfate 90 mcg/actuation 2 puff inhalation Q4-6H PRN 09/07/22 09/07/22 09/06/22 History aerosol inhaler (ProAir HFA) Shortness Of Breath Or Wheezing omeprazole 40 mg capsule,delayed 1 cap PO DAILY@0630 09/07/22 09/07/22 08/10/22 History release ustekinumab 90 mg/mL subcutaneous See Rx Instructions .Route .COMPLEX 09/07/22 09/07/22 09/05/22 History syringe ([place]) Exam Exam Date and Time: September 09, 2022 144 Height,Weight and Vital Signs: Height 6 ft 2 in Weight 219 kg Last Vital Signs Temp 98.6 F 09/09/22 07:59 Pulse 67 09/09/22 07:59 Resp 20 09/09/22 07:59 BP 137/81 09/09/22 07:59 Pulse Ox 95 09/09/22 07:59 O2 Del Method 09/09/22 07:59 Pertinent Lab Results Pertinent Lab Results: Laboratory Tests 09/07/22 09/07/22 09/07/22 09:07 09:07 09:07 WBC 14.7 H RBC 4.43 L Hgb 12.0 L Hct 38.0 L MCV 85.8 MCH 27.1 MCHC 31.6 RDW 15.1 Plt Count 348 MPV 9.7 Immature Gran % (Auto) 0.7 H Neut % (Auto) 78.1 H Lymph % (Auto) 13.4 L [place] % (Auto) 6.4 Eos % (Auto) 1.1 Baso % (Auto) 0.3 Lymph # (Auto) 2.0 [place] # (Auto) 0.9 Eos # (Auto) 0.2 Baso # (Auto) 0.1 Abs Immat Gran (auto) 0.10 H Absolute Neuts (auto) 11.5 H Absolute Nucleated RBC 0.000 Nucleated RBC % (auto) 0.0 PT 12.0 INR 1.0 Sodium 139 Potassium 4.1 Chloride 105 Carbon Dioxide 25 Anion Gap 13 BUN 13 Creatinine 0.82 Estim Creat Clear Calc 232.2 Estimated GFR > 60 Random Glucose 132 H Calcium 8.8 Magnesium 1.8 Total Bilirubin 0.8 Direct Bilirubin 0.2 AST 17 ALT 26 Alkaline Phosphatase 91 Total Protein 6.8 Albumin 3.8 Lipase 6 L Urine Color Urine Appearance Urine pH Ur Specific [place] Urine Protein Urine Glucose (UA) Urine Ketones Urine Blood Urine Nitrite Ur Leukocyte Esterase COVID-19 ([facility]) COVID-19 Clin Com 09/07/22 09/07/22 09/08/22 09:07 13:31 06:25 WBC 11.7 H RBC 4.11 L Hgb 11.3 L Hct 35.5 L MCV 86.4 MCH 27.5 MCHC 31.8 RDW 15.2 Plt Count 323 MPV 10.0 Immature Gran % (Auto) 0.8 H Neut % (Auto) 75.0 H Lymph % (Auto) 13.6 L [place] % (Auto) 8.5 Eos % (Auto) 1.8 Baso % (Auto) 0.3 Lymph # (Auto) 1.6 [place] # (Auto) 1.0 Eos # (Auto) 0.2 Baso # (Auto) 0.0 Abs Immat Gran (auto) 0.09 H Absolute Neuts (auto) 8.8 H Absolute Nucleated RBC 0.000 Nucleated RBC % (auto) 0.0 PT INR Sodium Potassium Chloride Carbon Dioxide Anion Gap BUN Creatinine Estim Creat Clear Calc Estimated GFR Random Glucose Calcium Magnesium Total Bilirubin Direct Bilirubin AST ALT Alkaline Phosphatase Total Protein Albumin Lipase Urine Color Yellow Urine Appearance Clear Urine pH 6.5 Ur Specific [place] 1.015 Urine Protein Negative Urine Glucose (UA) Negative Urine Ketones Negative Urine Blood Negative Urine Nitrite Negative Ur Leukocyte Esterase Negative COVID-19 ([facility]) Negative COVID-19 [facility] Com See Note 09/08/22 06:25 WBC RBC Hgb Hct MCV MCH MCHC RDW Plt Count MPV Immature Gran % (Auto) Neut % (Auto) Lymph % (Auto) [place] % (Auto) Eos % (Auto) Baso % (Auto) Lymph # (Auto) [place] # (Auto) Eos # (Auto) Baso # (Auto) Abs Immat Gran (auto) Absolute Neuts (auto) Absolute Nucleated RBC Nucleated RBC % (auto) PT INR Sodium 141 Potassium 4.1 Chloride 107 Carbon Dioxide 29 Anion Gap 9 L BUN 10 Creatinine 1.04 Estim Creat Clear Calc 183.1 Estimated GFR > 60 Random Glucose 117 H Calcium 8.4 Magnesium Total Bilirubin Direct Bilirubin AST ALT Alkaline Phosphatase Total Protein Albumin Lipase Urine Color Urine Appearance Urine pH Ur Specific [place] Urine Protein Urine Glucose (UA) Urine Ketones Urine Blood Urine Nitrite Ur Leukocyte Esterase COVID-19 ([facility]) COVID-19 Clin Com Airway Mallampati Class: IV TM Dist: >3cm Neck ROM: Full Assessment and Plan Assessment Anesthesia Assessment: Anesthesia Plan Discussed and Chart Reviewed Final Anesthetic Review Family History of Problems with Anesthesia: No History of Problems with Anesthesia: No NPO: Yes ASA Class: III Final Preanesthetic Review: No Changes in Pt Med Stat, Meds/Allgs Chart Reviewed, Consent Obtained/Reviewed and Anes Risks/Benef Reviewed Patient Risk: Intermediate Procedure Risk: Low Anesthetic Plan Anesthetic Plan: GA Disposition: Standard PACU
--- NOTE | 2022-09-09 15:45 | W.PM.OPN ---
Operative Note Operative Note Date of Service: 09/09/22 Narrative: PreOperative Diagnosis:?? Left ureteral stone left hydronephrosis Post Operative Diagnosis:?? Left ureteral stone left hydronephrosis Procedure: - cystoscopy, left retrograde, left ureteroscopy, 6 [place] by 26 cm Surgeon:?Dr Fran Montoya Anesthesia:? General Indications for procedure: Clifton wray is a 37-year-old gentleman with nephrolithiasis admitted with intractable left flank pain secondary to obstructing left distal ureteral stone 4 mm, he was given IV fluid hydration and pain management orders to strain urine with no reports of passing the stone. The patient continued to complain of pain. He is being brought in for further evaluation. Procedure: After informed consent was verified the patient was brought to the operating placed on the OR table in supine position.? General Anesthesia was administered per protocol.? The patient was placed in lithotomy position, prepped and draped in the usual sterile fashion.? Safety pause time-out and side of surgery confirmed.? Antibiotics confirmed. A 22 [place]ic cystoscope was inserted transurethrally, the bulbous urethra was within normal limits. The prostatic urethra was nonobstructive. The bladder was visualized.? Both ureteric orifices were in normal position. The left ureteral orifice was edematous. An open-ended ureteral catheter was passed into the left ureteral orifice and a retrograde examination was performed. There was dilatation of the distal and mid ureter. A guidewire was passed through the ureteral catheter into the kidney. The balloon dilator 15 fr with passed over the guide - the balloon was dilated in the intramural ureter to 8 mmHg for 45 seconds. The balloon was deflated and removed. After removing the balloon dilator a 2nd guidewire was then passed into the kidney to use as a safety. The cystoscope was removed, leaving both guidewires in place. One guidewire was used as the safety and was attached to the draping. The semi rigid ureteroscope was passed over one of the guidewires, the distal, mid to proximal ureter was visualized no stone was seen. The ureteroscope was removed. The cystoscope was passed over the safety guidewire. A? 6 [place] by 26 cm stent was placed into the ureter and renal pelvis under a combination of fluoroscopy and direct visualization. The bladder was emptied.? The rigid cystoscope was removed. ? 2% lidocaine jelly 10 mL was passed transurethrally. The patient tolerated the procedure well and was brought to the recovery room in stable condition. Complications: None Drains: Ureteral stent as dictated above
[2022-09-09] MEDS: Albuterol Sulfate (0.083%) 2.5 MG/3 ML VIAL.NEB INHALE (16:09)
[2022-09-09] MEDS: ondansetron HCL 4 MG/2 ML VIAL IVPUSH (16:25)
[2022-09-09] MEDS: 0.9 % Sodium Chloride Flush 3 ML SYRINGE IVFLUSH (19:29)
[2022-09-09] MEDS: 0.9 % Sodium Chloride 1,000 ML 100 ML IVCONT (19:30)
[2022-09-10] MEDS: HYDROmorphone HCl 1 MG/ML SYRINGE 0.5 MG IVPUSH ×2 (01:58→08:50)
[2022-09-10 04:00] VITALS: BP 148/71; PULSE 57; RESP 18; TEMP 36.8; O2SAT 95
[2022-09-10] MEDS: 0.9 % Sodium Chloride 1,000 ML 100 ML IVCONT (04:54)
[2022-09-10] MEDS: Omeprazole 40 MG CAPSULE.DR PO (06:46)
[2022-09-10 07:55] VITALS: BP 154/86; PULSE 58; RESP 19; TEMP 37; O2SAT 98
[2022-09-10] MEDS: Tamsulosin HCL 0.4 MG CAPSULE PO (08:51)
[2022-09-10] MEDS: Docusate Sodium 100 MG CAPSULE PO (08:51)
[2022-09-10] MEDS: Acetaminophen 325 MG TABLET 650 MG PO (08:51)
[2022-09-10] MEDS: 0.9 % Sodium Chloride Flush 3 ML SYRINGE IVFLUSH ×2 (08:51→09:02)
--- NOTE | 2022-09-10 09:17 | P.CDIC_ITS ---
CDI Concurrent Query Documentation Clarification: PHYSICIAN'S DOCUMENTATION REQUEST Date of Query: 09/10/22 0917 Patient Name: Michael Ramirez Admit Date: 09/07/22 Dear Doctor, A review of the medical record indicates additional documentation may be needed. Please review below and update the documentation accordingly. Clinical Indicators: A diagnosis of obesity was documented in the patient's PMH. Is there further specificity that correlates with the findings below: Risk Factors/Clinical Indicators/Treatments -BMI: 62.0 -Height: 6ft 2in -Weight: 219kg -PMH of obesity -Patient experiencing poor oxygenation a nd requiring supplemental O2 If possible, please provide an associated diagnosis related to the abnormal BMI, such as: For a BMI >= 40: * Severe or Morbid Obesity * With alveolar hypoventilation * Without alveolar hypoventilation Or: * BMI is not significant * Other (please specify) * Unable to determine Use of terms such as suspected, likely, concern for, or probable (associated with a specific diagnosis that is being evaluated, monitored, or treated as if it exists) are acceptable and can be coded in the inpatient setting, when do cumented at the time of discharge. Thank you, Shila Calderon MS, RN, CCRN Extension: [phone] Please use your independent medical judgment in providing your response. THIS QUERY IS PART OF THE PERMANENT MEDICAL RECORD Provider Response: Other Other Diagnosis: BMI >40, Severe or Morbid Obesity
--- NOTE | 2022-09-10 09:23 | P.CDIC_ITS ---
CDI Concurrent Query Documentation Clarification: PHYSICIAN'S DOCUMENTATION REQUEST Date of Query: 09/10/2224 Patient Name: Michael Ramirez Admit Date: 09/07/22 Dear Doctor, A review of the medical record indicates additional documentation may be needed. Please review below and update the documentation accordingly. Clinical Indicators: Is there a diagnosis that correlates with the findings below: Risk Factors/Clinical Indicators/Treatments Vitals & labs: -Patient with tachypnea RR on 09/08: 25 RR on 09/09: 22 -Patient requiring supplemental O2 (NC & CPAP) O2 on 09/09: 82% Other indicators: -Patient requiring albuterol nebulizers Clarify which of the following accurately represents the patient's respiratory status: * Acute respiratory failure * Other (please specify) * Unable to determine Please include type if known: * Hypoxic * Hypercapnic * Hypoxic and hypercapnic * Unable to determine Use of terms such as suspected, likely, concern for, or probable (associated with a specific diagnosis that is being evaluated, monitored, or treated as if it exists) are acceptable and can be coded in the inpatient setting, when documented at the time of discharge. Thank you, Shila Calderon MS, RN, CCRN Extension: [phone] Please use your independent medical judgment in providing your response. THIS QUERY IS PART OF THE PERMANENT MEDICAL RECORD Provider Response: Other Other Diagnosis: Unable to determine
--- NOTE | 2022-09-10 09:49 | P.CDIC_ITS ---
CDI Concurrent Query Documentation Clarification: PHYSICIAN'S DOCUMENTATION REQUEST Date of Query: 09/10/22 0950 Patient Name: Michael Ramirez Admit Date: 09/07/22 Dear Doctor, A review of the medical record indicates additional documentation may be needed. Please review below and update the documentation accordingly. Clinical Indicators: Is there a diagnosis that correlates with the findings below: Risk Factors/Clinical Indicators/Treatments POA/RESOLVED/TREAT/RULE OUT Labs & vitals: -Patient with tachypnea RR on 09/08: 25 RR on 09/09: 22 -Patient with tachycardia HR on 09/07: 110 -Patient with leukocytosis WBCs on 09/07: 14.7 Other indicators: -Patient requiring supplemental O2 albut ronak nebulizers (NC & CPAP) O2 on 09/09: 82% Recognized standard criteria for this condition and other infectious definitions includes: Sepsis Systemic manifestations of infection, with 2 or more SIRS criteria which include: * Fever > 100.4?F or hypothermia < 96.8?F * Leukocytosis ? WBC > 12,000 or leukopenia, WBC < 4,000, or > 10% bands * Tachycardia- > 90 beats/minute * Tachypnea- RR > 20 breaths/minute or PaCO2 < 32mmHg Source: Merck Manual 2013 Documentation should include the known or suspected organism, and the underlying infection, such as UTI or pneumonia Severe Sepsis Sepsis with associated acute organ dysfunction, such as renal or respiratory failure Documentation should indicate the association between the sepsis and the organ dysfunction Septic Shock Severe sepsis with associated with circulatory failure, evidenced by hypotension and hypoperfusion Based on the above information and the recognized standard for sepsis, could you please clarify in the Progress Notes if this diagnoses is still accurate and reflective of the patient's condition to ensure quality of the medical record. * Sepsis is/was present and is a clinical diagnosis based on (please include this additional support in the medical record) * After study (the condition) has been ruled out * Other (please specify) * Unable to determine Use of terms such as suspected, likely, concern for, or probable (associated with a specific diagnosis that is being evaluated, monitored, or treated as if it exists) are acceptable and can be coded in the inpatient setting, when documented at the time of discharge. Thank you, Shila Calderon MS, RN, CCRN Extension: [phone] Please use your independent medical judgment in providing your response. THIS QUERY IS PART OF THE PERMANENT MEDICAL RECORD Provider Response: Other Other Diagnosis: After study the condition has been ruled out
--- NOTE | 2022-09-10 10:14 | PM.DS ---
DS: Providers Provider Date of Service: 09/10/22 Date of admission: 09/07/22 14:42 Date of discharge: 09/10/22 Primary care physician: Unknown Physician Admitting clinician: Fran Montoya Attending physician on admission: Fran Montoya Attending physician on discharge: Fran Montoya Discharging clinician: Fran Montoya DS: Diagnosis Discharge Diagnosis (1) Left flank pain: Status: Acute (2) Renal and ureteric calculus: Status: Acute (3) Renal stones: Status: Acute (4) Calculus of ureterovesical junction (UVJ): Status: Acute DS: Summary Hospital Course Hospital Course: Michael is a 37 year old male admitted with left flank pain secondary to left ureteral stone. CT Abd/pelvis - findings: Nonobstructive renal stones, 4 mm left distal ureteral stone with hydronephrosis. The patient was treated with IVF hydration and pain management, s/p left ureteral stent 09/09/2022. Status at Discharge Cognitive/behavioral status at discharge: at baseline Functional status at discharge: independent ambulation Time Spent with Patient Time attestation: Total time managing care of this patient today ____ minutes. Discharge coordination time: Greater than 30 minutes Quality: Safe Use of Opioids Does Pt have an Active Cancer Diagnosis on the Problem List?: No Quality: Stroke Does the patient have a stroke diagnosis?: No Physical Exam Vital Signs: Vital Signs: Last Vital Signs Temp 98.6 F 09/10/22 07:55 Pulse 58 09/10/22 07:55 Resp 19 09/10/22 07:55 BP 154/86 H 09/10/22 07:55 Pulse Ox 98 09/10/22 07:55 O2 Del Method 09/10/22 07:55 O2 Flow Rate 3 09/09/22 18:36 BMI result Body Mass Index 61.9 DS: Data Imaging CT scan - abdomen: Radiologist's impression: ITS Impressions Abdomen/Pelvis CT 09/07/22 09:40 IMPRESSION: Bilateral nephrolithiasis. Left ureteral obstructing 4 mm calculus at the ureterovesical junction. Fleischner guidelines were followed. Discharge Plan Discharge Anticipated Discharge Date/Time: 09/10/22 15:06 Patient Disposition: Home, Self-Care Discharge Diagnosis: left ureteral stone, left hydronephrosis Referrals: Physician,Unknown J [Primary Care Provider] - 1 Week Discharge Medications: New hydrocodone-acetaminophen 7.5-325 mg tablet 1 tab PO Q8H PRN (Reason: pain) Qty: 10 0RF Rx Instructions: Partial Fill upon patient request. cephalexin 500 mg capsule 500 mg PO BID PRN (Reason: prophylaxis, prevent urinary infection) 3 Days Qty: 6 0RF No Action omeprazole 40 mg capsule,delayed release(DR/EC) 1 cap PO DAILY@0630 albuterol sulfate 2.5 mg /3 mL (0.083 %) solution for nebulization 1 vial inhalation Q4H PRN (Reason: wheezing) albuterol sulfate [ProAir HFA] 90 mcg/actuation HFA aerosol inhaler 2 puff INHALATION Q4-6H PRN (Reason: Shortness Of Breath Or Wheezing) Stelara 90 mg/mL syringe See Rx Instructions .ROUTE .COMPLEX Rx Instructions: 90 mg subcutaneously on WEEK 0, WEEK 4, AND THEN EVERY 12 WEEKS THEREAFTER. WEEK 0 - Starts 09/05/22 Discharge Orders: Discharge Order (Routine); Ordered 09/10/22 Ordered By: Fran Montoya Diet: Advance to usual diet Activity on Discharge: As tolerated Stand Alone Forms: Patient Portal Discharge page Care Plan Goals: Follow up with urology office to have left ureteral stent removed in 5-7 days Health Concerns: Drink 6-8 glasses of eight ounces of water, lower the sodium in your diet Plan of Treatment: Follow up with Urology out patient Assessment: Stable
--- NOTE | 2022-09-10 11:58 | HO.POSTANES ---
Post Anesthesia Evaluation Post Anesthesia Evaluation Vital Signs: Vital Signs Temp Pulse Resp BP Pulse Ox O2 Del Method 09/10/22 07:55 98.6 F 58 19 154/86 H 98 Room Air 09/10/22 04:00 98.2 F 57 18 148/71 H 95 Room Air Anesthesia: General Mental Status: Awake Pain Control: Satisfactory Nausea/Vomiting: None Hydration: Adequate Anesthesia-Related Issues: No Anes. Related Issues
== END 2022-09-10 12:21 | disposition home or self-care (01) | DRG 463 ==
LOC: HO.ED 14:02 → HO.EDOVER 18:33 → HO.S3 09-08 15:44
PROVIDERS: Physician Assistant; Admitting Provider Urology; Emergency Provider Emergency Medicine; Visit Provider Urology
PROC: 0T778DZ Dilation of Left Ureter with Intraluminal Device, Via Natural or Artificial Opening Endoscopic (ICD-10-PCS; principal; 2022-09-09 12:30)
DX: N13.6 Pyonephrosis (principal); Z68.44 Body mass index [BMI] 60.0-69.9, adult; E66.01 Morbid (severe) obesity due to excess calories; Z20.822 Contact with and (suspected) exposure to COVID-19; Z87.442 Personal history of urinary calculi; Z87.891 Personal history of nicotine dependence; Z88.6 Allergy status to analgesic agent; Z79.899 Other long term (current) drug therapy
CPT/HCPCS: 36415; 74176; 80048; 80076; 81003; 83690; 83735; 85025; 85610; 87635; 94660; 99285; C1726; C1769; C2617; J1100; J1170; J2250; J2270; J2405; J3010; Q9967

== ENCOUNTER → 2022-09-13 15:19 | Outpatient (BNVA) | payer OTHER, SELFPAY ==
--- NOTE | 2022-09-16 10:17 | P.CDIR_ITS ---
Documented by User: Shila Calderon RN 09/16/22 10:19 Retrospective Query PHYSICIAN'S DOCUMENTATION REQUEST Date of Query: 09/16/22 1018 Patient Name: Michael Ramirez Admit Date: Dear Doctor, A review of the medical record indicates additional documentation may be needed. Please review below and?update the documentation accordingly. Clinical Indicators: A diagnosis of obesity was documented in the patient's PMH. Is there further specificity that correlates with the findings below: Risk Factors/Clinical Indicators/Treatments -BMI:?62.0 -Height:?6ft 2in -Weight:?219kg -PMH of obesity -Patient experiencing poor oxygenation a ndrequiring supplemental O2 ? If possible, please provide an associated diagnosis related to the abnormal BMI, such as: ? For a BMI >= 40: * Severe or Morbid Obesity * With alveolar hypoventilation * Without alveolar hypoventilation Or: * BMI is not significant * Other?(please specify) * Unable to determine? Use of terms such as suspected, likely, concern for, or probable (associated with a specific diagnosis that is being evaluated, monitored, or treated as if it exists) are acceptable and can be coded in the inpatient setting, when documented at the time of discharge. Thank you, Shila Calderon, , RN, CCRN Extension: [phone] Please use your independent medical judgment in providing your response. THIS QUERY IS PART OF THE PERMANENT MEDICAL RECORD Documented by User: Fran Montoya MD 10/18/22 09:06 Retrospective Query Provider Response: Morbid Obesity
--- NOTE | 2022-09-16 10:19 | P.CDIR_ITS ---
Retrospective Query PHYSICIAN'S DOCUMENTATION REQUEST Date of Query: 09/16/22 1019 Patient Name: Michael Ramirez Admit Date: Dear Doctor, A review of the medical record indicates additional documentation may be needed. Please review below and?update the documentation accordingly. Clinical Indicators: Is there a diagnosis that correlates with the findings below: Risk Factors/Clinical Indicators/Treatments Vitals & labs: -Patient with tachypnea RR on 09/08: 25 RR on 09/09: 22 -Patient requiring supplemental O2 (NC & CPAP) O2 on 09/09: 82% Other indicators: -Patient requiring albuterol nebulizers ? Clarify which of the following accurately represents the patient's respiratory status: ? * Acute respiratory failure * Other?(please specify) * Unable to determine? Please include type if known: * Hypoxic * Hypercapnic * Hypoxic and hypercapnic * Unable to determine? Use of terms such as suspected, likely, concern for, or probable (associated with a specific diagnosis that is being evaluated, monitored, or treated as if it exists) are acceptable and can be coded in the inpatient setting, when documented at the time of discharge. Thank you, Shila Calderon MS, RN, CCRN Extension: [phone] Please use your independent medical judgment in providing your response. THIS QUERY IS PART OF THE PERMANENT MEDICAL RECORD
--- NOTE | 2022-09-16 10:20 | P.CDIR_ITS ---
Retrospective Query PHYSICIAN'S DOCUMENTATION REQUEST Date of Query: 09/16/22 1020 Patient Name: Michael Ramirez Admit Date: Dear Doctor, A review of the medical record indicates additional documentation may be needed. Please review below and?update the documentation accordingly. Clinical Indicators: Is there a diagnosis that correlates with the findings below: Risk Factors/Clinical Indicators/Treatments G ?? ? POA/RESOLVED/TREAT/RULE OUT Labs & vitals: -Patient with tachypnea RR on 09/08: 25 RR on 09/09: 22 -Patient with tachycardia HR on 09/07: 110 -Patient with leukocytosis WBCs on 09/07: 14.7 Other indicators: -Patient requiring supplemental O2 albut erolnebulizers (NC & CPAP) O2 on 09/09: 82% ? Recognized standard criteria for this condition and other infectious definitions includes: Sepsis ?? Systemic manifestations of infection, with 2 or more SIRS criteria which include: * Fever > 100.4?F or hypothermia < 96.8?F * Leukocytosis ? WBC > 12,000 or leukopenia, WBC < 4,000, or > 10% bands * Tachycardia- > 90 beats/minute * Tachypnea- RR > 20 breaths/minute or PaCO2 < 32mmHg Source: Merck Manual 2013 ?? Documentation should include the known or suspected organism, and the underlying ? ? infection, such as UTI or pneumonia N Severe Sepsis ?? Sepsis with associated acute organ dysfunction, such as renal or respiratory failure ?? Documentation should indicate the association between the sepsis and the organ dysfunction Septic Shock ?? Severe sepsis with associated with circulatory failure, evidenced by hypotension and hypoperfusion Based on the above information and the recognized standard for sepsis, could you please clarify?in the Progress Notes? if this diagnoses is still accurate and reflective of the patient's condition to ensure quality of the medical record. ? * Sepsis is/was present and is a clinical diagnosis based on (please include this additional support in the medical record) * After study (the condition) has been ruled out * Other?(please specify) * Unable to determine? Use of terms such as suspected, likely, concern for, or probable (associated with a specific diagnosis that is being evaluated, monitored, or treated as if it exists) are acceptable and can be coded in the inpatient setting, when documented at the time of discharge. Thank you, Shila Calderon MS, RN, CCRN Extension: [phone] Please use your independent medical judgment in providing your response. THIS QUERY IS PART OF THE PERMANENT MEDICAL RECORD
== END ==
PROVIDERS: Visit Provider Urology
DX: N20.2 Calculus of kidney with calculus of ureter (principal)
CPT/HCPCS: 52310; 99212

== ENCOUNTER 2022-09-23 11:18 | Day surgery (SDC) | payer OTHER, SELFPAY ==
[2022-09-23] VITALS (9 sets, daily range): BP systolic 132–168; BP diastolic 60–92; PULSE 81–101; RESP 16–20; TEMP 36.3–36.9; O2SAT 95–98; BMI 61.6
--- NOTE | ~2022-09-23 | FL_ITS ---
EXAMINATION: XR FL WITH IMAGES CLINICAL INFORMATION: Cystoscopy with ureteroscopy. COMPARISON: CT abdomen of 09/07/2022. TECHNIQUE: Fluoroscopy Supervised By: Dr. Nirav Juarez. Fluoroscopy Time: 19.8 seconds. Cumulative Dose: 19.58 mGy. Images: 3. FINDINGS: Three C-arm images demonstrate superior portion of a left ureteral stent. FL/FL guidance in OR IMPRESSION: Intraoperative fluoroscopy for urologic procedure.
[2022-09-23] MEDS: Lactated Ringers 1,000 ML 50 ML IVCONT (13:36)
[2022-09-23] MEDS: Acetaminophen 325 MG TABLET 975 MG PO (15:12)
--- NOTE | 2022-09-23 15:50 | MHC.SHP ---
Pre-Procedural Eval Section A Date of Service: 09/23/22 The patient is an INPATIENT: No Changes since office visit: No Cold of Flu in the past 2 weeks, No New Medical Problems, No Changes in Medication and No Patient answered all questions The History & Physical has been completed within 30 days and I have reviewed it.: Yes Section B Chief Complaint: Calculus of kidney Allergies: Allergies Allergy/AdvReac Type Severity Reaction Status Date / Time ibuprofen [From Advil] Allergy Shortness Verified 09/07/22 08:42 of Breath aspirin AdvReac Headache Verified 09/23/22 13:18 etanercept [From Enbrel] AdvReac Dizziness Verified 09/23/22 13:03 NSAIDS (Non-Steroidal AdvReac Palpitation Verified 09/23/22 13:19 Anti-Inflamma s Plan Diagnosis/Plan: Unchanged ( cystoscopy, left retrograde, left flexible ureteroscopy with laser lithotripsy and stent placed) I have reviewed the history and physical and performed a pertinent physical examination on my patient. No changes have occurred unless specified. Time Spent With Patient Time: Total time managing care of this patient today ____ minutes.
--- NOTE | 2022-09-23 16:36 | HO.ANESPROP2 ---
HPI - Anesthesia Eval Consult details Narrative: 37 yo male patient PMFSH Active Problems Active Problems: All Active Problems (Updated 09/23/22 @ 13:30 by Tereza Barahona RN) Renal stones (Acute) Left flank pain (Acute) Past Medical History Medical History Asthma Habitual snoring Hx of fracture of femur Obesity Renal and ureteric calculus Sleep apnea Family History Family history of problems with anesthesia: No Surgical History Surgical History History of cystoscopy History of surgery on lower extremity S/P cystoscopy with ureteral stent placement [place] teeth extracted History of Problems with Anesthesia: No Social History Social History Household Members: Spouse Housing: House Do you presently have visiting nurse or other home services: No Patient Tobacco Use Status: Former Tobacco user Tobacco use type: Cigarette e-Cigarette/Vaping Use: Former Use Are you DNR?: No Advance Directives: No Advance Directives Information Provided: Yes Recently lost weight without trying: No Nutrition Risks: No Nutritional Risk Meds Allergies Allergy/AdvReac Type Severity Reaction Status Date / Time ibuprofen [From Advil] Allergy Shortness Verified 09/07/22 08:42 of Breath aspirin AdvReac Headache Verified 09/23/22 13:18 etanercept [From Enbrel] AdvReac Dizziness Verified 09/23/22 13:03 NSAIDS (Non-Steroidal AdvReac Palpitation Verified 09/23/22 13:19 Anti-Inflamma s Active Medications: Current Medications Lactated Ringer's (Lr) 1,000 mls @ 50 mls/hr IVCONT .Q20H SHANNA Last Admin: 09/23/22 13:36 Dose: 50 mls/hr Home Medications Medication Instructions Recorded Confirmed Last Taken Type albuterol sulfate 2.5 mg/3 mL 1 vial inhalation Q4H PRN wheezing 09/07/22 09/23/22 09/21/22 History (0.083 %) solution for nebulization albuterol sulfate 90 mcg/actuation 2 puff inhalation Q4-6H PRN 09/07/22 09/23/22 09/23/22 History aerosol inhaler (ProAir HFA) Shortness Of Breath Or Wheezing omeprazole 40 mg capsule,delayed 1 cap PO DAILY@0630 09/07/22 09/23/22 09/22/22 History release ustekinumab 90 mg/mL subcutaneous See Rx Instructions .Route .COMPLEX 09/07/22 09/23/22 09/05/22 History syringe (Stelara) cetirizine 10 mg tablet (Zyrtec) 10 mg PO DAILY 09/23/22 09/23/22 09/22/22 History Exam Exam Date and Time: September 23, 2022 1636 Height,Weight and Vital Signs: Height 6 ft 2 in Weight 217.765 kg Last Vital Signs Temp 97.4 F 09/23/22 13:16 Pulse 81 09/23/22 13:16 Resp 18 09/23/22 13:16 BP 139/60 09/23/22 13:16 Pulse Ox 97 09/23/22 13:16 O2 Del Method 09/23/22 13:16 Airway Mallampati Class: IV TM Dist: >3cm Neck ROM: Full (Short fat neck. Bearded) Loose/Missing/Broken Teeth: No (Denies broken, loose teeth. Missing wisdom teeth) Heart: RRR. Distant Lungs: CTAB. Distant Assessment and Plan Assessment Anesthesia Assessment: Anesthesia Plan Discussed and Chart Reviewed Final Anesthetic Review Family History of Problems with Anesthesia: No History of Problems with Anesthesia: No NPO: Yes ASA Class: IV Final Preanesthetic Review: No Changes in Pt Med Stat, Meds/Allgs Chart Reviewed, Consent Obtained/Reviewed and Anes Risks/Benef Reviewed Patient Risk: High Procedure Risk: Low Assessment/Block/Sedation in SS: Assess/Block/Sedation-SS Anesthetic Plan Anesthetic Plan: GA Disposition: Standard PACU
--- NOTE | 2022-09-23 17:37 | P.OP_ITS ---
Operative Note Operative Note Date of Service: 09/23/22 Narrative: PreOperative Diagnosis: left lower pole stone Post Operative Diagnosis: left lower pole kidney stone Procedure: - cystoscopy, dilatation of mid urethral stricture - left retrograde - left dilatation of ureteric orifice under fluoroscopy - left ureteroscopy, laser lithotripsy, stone basketing - left stent placement Surgeon: Dr Nirav Juarez Anesthesia: General Indications for procedure: left lower pole kidney stone. Also noted to have weakness of stream at urination. 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 Height 6 ft 2 weight 480 lb Procedure: After informed consent was verified patient was brought to the operating placed in supine position. Anesthesia was administered per protocol. Patient was placed in modified dorsal lithotomy position and prepped and draped in a sterile fashion. Safety pause time-out and side of surgery confirmed. Antibiotics confirmed. Cystoscopy was performed. We were unable to advance a 22 [place] cystoscope beyond the midportion of the urethra. There was a tight stricture approximately 1 cm cm long that was present. Sensor guidewire was placed into the pelvis. The urethral dilator set was then used to dilate the urethra up to 24 Gu[place]ian. 22 [place]ian cystoscope was inserted per urethra. Bladder was normal in its entirety. Both ureteric orifices were in normal position. The Left ureteric orifice was cannulated and a retrograde examination was performed. no filling defect was seen of the left ureter or within the left renal pelvis that was clearly visible.. A Sensor guidewire was placed up to the level of the renal pelvis under fluoroscopy. The rigid cystoscope was removed and the inner cannula of ureteric access sheath was used under fluoroscopy to dilate the ureteric orifice. The ureteric access sheath was placed and the inner cannula with access wire removed. The digital flexible ureteral scope was placed. The flexible ureteral scope was passed. A stone was encountered in the mid lower pole region. A 272 micron holmium laser fiber was used. The stone was broken into small fragments. The largest fragment was then encircled with the 0 tip basket and brought out for analysis. All other calices were examined. At the completion of the stone procedure a Sensor wire was placed back into the renal pelvis. The rigid cystoscope was backloaded over the wire and advanced into the bladder. A 6 [place]ian by variable length 32 cm double-J stent was placed into the renal pelvis and bladder under a combination of fluoroscopy and direct visualization. The bladder was emptied. The patient tolerated the procedure well and was extubated in the operating room, and transferred in stable condition to the recovery area. Pathology: stone Drains: stents above
[2022-09-23] MEDS: Phenazopyridine HCL 100 MG TABLET PO (18:15)
[2022-09-23] MEDS: oxyCODONE HCl Immed Release 5 MG TABLET PO (18:23)
[2022-09-30 14:48] LABS: Stone Source LEFT URETERAL STONE
== END 2022-09-23 17:50 | disposition home or self-care (01) ==
PROVIDERS: Visit Provider Urology
PROC: (CPT 52356; principal; 2022-09-23 13:40)
DX: N20.2 Calculus of kidney with calculus of ureter (principal); J45.909 Unspecified asthma, uncomplicated; G47.30 Sleep apnea, unspecified; E66.9 Obesity, unspecified; Z88.8 Allergy status to other drugs, medicaments and biological substances; Z87.891 Personal history of nicotine dependence; Z79.899 Other long term (current) drug therapy
CPT/HCPCS: 52356; 82365; 88300; C1758; C1769; C2617; J0330; J1100; J1956; J2250; J2405; J3010; Q9967

== ENCOUNTER 2022-09-25 11:18 | Emergency (ER) | payer OTHER, SELFPAY ==
[2022-09-25 11:27] VITALS: BP 148/68; PULSE 78; RESP 18; TEMP 36.7; O2SAT 97; BMI 66.3
[2022-09-25 11:39] VITALS: PULSE 79; RESP 18; O2SAT 97
[2022-09-25] MEDS: HYDROcodone Bit/Acetam 7.5/325 TABLET 1 TAB PO (14:20)
[2022-09-25] MEDS: Acetaminophen 325 MG TABLET 650 MG PO (14:20)
--- NOTE | 2022-09-25 14:24 | ED_ITS ---
HPI - Abdominal Pain General Chief Complaint: Abdominal Pain Stated Complaint: LOW ABD/BACK PAIN,S/P KIDNEY STONE SURGERY PER EMS Time Seen by Provider: 09/25/22 12:29 Source: patient and family Mode of arrival: ambulatory Limitations: no limitations History of Present Illness HPI narrative: 37-year-old past medical history of renal stones, recent cystoscopy with stent placement, and laser lithotripsy done on 09/23/2022 presents the emergency department with complaints of left flank pain extending into his left abdomen. He states he had laser lithotripsy under anesthesia, on Friday and was discharged home with antibiotics,Pyridium, Flomax, and a 2 day supply of hydrocodone /acetaminophen. Patient describes his pain as sharp and feels similar to when he was passing a kidney stone, 8/ pain. He reports no improvement with prescribed medication. He denies any fever, chills, hematuria, difficulty with urination, nausea, vomiting, diarrhea, constipation. MD elicited complaint: abdominal pain and flank pain Pertinent past history: kidney stones and other ( lithotripsy and ureteral stent) Onset (ago): minute(s) Pain Consistency: constant Location: L flank Severity: similar to previous episodes Quality: sharp Radiation: LLQ Migration to: no migration Exacerbating factors: movement Relieving factors: nothing Associated symptoms: denies other symptoms Related Data Home Medications Medication Instructions Recorded Confirmed albuterol sulfate 2.5 mg/3 mL 1 vial inhalation Q4H PRN wheezing 09/07/22 09/23/22 (0.083 %) solution for nebulization albuterol sulfate 90 mcg/actuation 2 puff inhalation Q4-6H PRN 09/07/22 09/23/22 aerosol inhaler (ProAir HFA) Shortness Of Breath Or Wheezing omeprazole 40 mg capsule,delayed 1 cap PO DAILY@0630 09/07/22 09/23/22 release ustekinumab 90 mg/mL subcutaneous See Rx Instructions .Route .COMPLEX 09/07/22 09/23/22 syringe (Stelara) cetirizine 10 mg tablet (Zyrtec) 10 mg PO DAILY 09/23/22 09/23/22 Previous Rx's Medication Instructions Recorded hydrocodone 5 mg-acetaminophen 325 1 tab PO Q4H PRN pain 7 days #8 09/23/22 mg tablet tabs phenazopyridine 100 mg tablet 100 mg PO TID PRN Spasm 4 days #12 09/23/22 (Pyridium) tabs sulfamethoxazole 400 1 tab PO DAILY #10 tabs 09/23/22 mg-trimethoprim 80 mg tablet (Bactrim) tamsulosin 0.4 mg capsule 0.4 mg PO BEDTIME 14 days #14 caps 09/23/22 hydrocodone 5 mg-acetaminophen 325 1 tab PO Q8H PRN pain #2 tabs 09/25/22 mg tablet Allergies Allergy/AdvReac Type Severity Reaction Status Date / Time ibuprofen [From Advil] Allergy Shortness Verified 09/07/22 08:42 of Breath aspirin AdvReac Headache Verified 09/23/22 13:18 etanercept [From Enbrel] AdvReac Dizziness Verified 09/23/22 13:03 NSAIDS (Non-Steroidal AdvReac Palpitation Verified 09/23/22 13:19 Anti-Inflamma s Review of Systems Review of Systems In addition to documented HPI above, the additional ROS was obtained: Constitutional: No Weight loss, No Fever, No Chills ENT/Mouth: No Ear Pain, No Nasal Congestion, No Sinus Pain, No Hoarseness, No sore throat, No Rhinorrhea, No Swallowing Difficulty Cardiovascular: No Chest Pain, No SOB Respiratory: No Cough, No Sputum, No Wheezing Gastrointestinal: No Nausea, No Vomiting, No Diarrhea, No Constipation, No Abdominal pain Genitourinary: No Dysuria, No Urinary Frequency, No Hematuria, No Urinary Incontinence/retention, No Urgency Musculoskeletal: No joint pain, No Myalgias, No Joint Swelling Skin: No Skin Lesions, No rash Neuro: No Weakness, No Numbness, No Paresthesias Yes all other systems are reviewed and are negative [facility] Past Medical History Attestation statement: The following information was validated with the patient. Source: old records reviewed and obtained from family Medical History Asthma Habitual snoring Hx of fracture of femur Obesity Renal and ureteric calculus Sleep apnea Surgical History History of cystoscopy History of surgery on lower extremity S/P cystoscopy with ureteral stent placement [place] teeth extracted Social History Social History Household Members: Spouse Housing: House Do you presently have visiting nurse or other home services: No Patient Tobacco Use Status: Former Tobacco user Tobacco use type: Cigarette Smoked in Last 30 Days: Yes e-Cigarette/Vaping Use: Former Use Advance Directives: No Advance Directives Information Provided: Yes Physical Exam ED Vital Signs: Vital Signs - 24 hr 09/25/22 11:27 09/25/22 11:39 Temperature 98.0 F Pulse Rate 78 79 Respiratory Rate 18 18 Blood Pressure 148/68 H Pulse Oximetry 97 97 Oxygen Delivery Method Room Air Room Air BMI result Body Mass Index 66.3 Nursing notes and vital signs reviewed. GENERAL APPEARANCE: A&0 x 4, generally well appearing, appears uncomfortable HENMT: Normal to inspection, atraumatic, face symmetrical. Normal external ears, nose, and oropharynx clear. EYE: PERRLA, EOM intact, structures appear normal NECK: Supple without lymphadenopathy. No stiffness or restricted ROM. CHEST: Normal to inspection HEART: Normal rate and regular rhythm, normal S1/S2, no M/R/G LUNGS: LS CTA, moving air well. Able to speak in complete sentences. No crackles, wheezes, or rhonchi auscultated ABDOMEN: Soft, nontender, nondistended. Normal bowel sounds noted BACK: Lt CVA tenderness, no obvious deformity EXTREMITIES: Moving all extremities without difficulty. No cyanosis, clubbing, or edema. Normal capillary refill. NEUROLOGICAL: Alert and oriented, moving all 4 extremities with equal strength. CN not formally tested but appearing grossly intact. Observed to ambulate with normal gait. Cognition normal SKIN: Warm and dry without any lesions, rash, or visible sores PSYCH: Cooperative, normal affect, normal thought process Course Course Course Narrative: 1315: Spoke with Dr Juarez regarding pt. Plan for pain managment as pt is scheduled for ureteral stent removal tomorrow. Medical Decision Making Medical Decision Making MDM Narrative: 37-year-old past medical history of renal stones, recent cystoscopy with stent placement, and laser lithotripsy done on 09/23/2022 presents the emergency department with complaints of left flank pain extending into his left abdomen. Patient able to urinate without issue, with orange urine due to Pyridium, and tolerating PO fluids. Hydrocodone/ acetaminophen provided in the emergency department for treatment left flank/abdominal pain. Spoke with patient's urologist, Dr. Juarez, with recommendation for pain management as patient's ureteral stent is being removed in office tomorrow. Patient's presentation consistent with pain related to laser lithotripsy and stent spasm. Low suspicion for hydronephrosis, renal obstruction. Patient is safe for discharge at this time with plan to manage discomfort with prescribe narcotic, [id number] Tylenol, and NSAIDs with dosing as per packaging. HPI, PE, diagnostics, and plan discussed with patient and family with no unanswered questions at this time. Patient educated to return to the emergency department with new, worsening, or concerning emergent symptoms. Recommended to follow-up with his primary care provider and urologist for further treatment and management. *Refer to Course for additional information on consultations, diagnostic interpretation, consultations, emergency department stay, conversations with patient and family, shared decision making with patient, and more information on medical decision making* Medications Administered Discontinued Medications Generic Name Dose Route Start Last Admin Trade Name Freq PRN Reason Stop Dose Admin Acetaminophen 650 mg 09/25/22 13:17 09/25/22 14:20 Acetaminophen 325 Mg Tablet PO 09/25/22 13:18 650 mg ONCE ONE Administration Hydrocodone Bitart/Acetaminophen 1 tab 09/25/22 13:17 09/25/22 14:20 Hydrocodone Bit/Acetam 7.5/325 Tablet PO 09/25/22 13:18 1 tab ONCE ONE Administration Discharge Plan Discharge Clinical Impression: Ureteral stent present, Left flank pain, Renal stones Patient Disposition: Home, Self-Care Instructions: Acute Low Back Pain (ED), How to Strain Your Urine (ED) Additional Instructions: You have been given 2 additional doses of pain medication. You last dose was taken at 1:30 p.m. Your next dose to be due after 9:30 p.m. You may take 1-2 325 mg tablets of Tylenol every 8 hours in addition to the narcotic pain medication. Please take medicines as directed. Do not take more than 4000 mg of Tylenol in a 24 hour period. You have an appointment scheduled tomorrow with Dr. Juarez to remove your stent which is the cause of your discomfort. Prescriptions: New hydrocodone-acetaminophen 5-325 mg tablet 1 tab PO Q8H PRN (Reason: pain) Qty: 2 0RF Rx Instructions: Partial Fill upon patient request. Last dose given at 1:30 p.m. on 09/25/2021. Next dose due after 9:30 p.m. No Action omeprazole 40 mg capsule,delayed release(DR/EC) 1 cap PO DAILY@0630 albuterol sulfate 2.5 mg /3 mL (0.083 %) solution for nebulization 1 vial inhalation Q4H PRN (Reason: wheezing) albuterol sulfate [ProAir HFA] 90 mcg/actuation HFA aerosol inhaler 2 puff INHALATION Q4-6H PRN (Reason: Shortness Of Breath Or Wheezing) Stelara 90 mg/mL syringe See Rx Instructions .ROUTE .COMPLEX Rx Instructions: 90 mg subcutaneously on WEEK 0, WEEK 4, AND THEN EVERY 12 WEEKS THEREAFTER. WEEK 0 - Starts 09/05/22 cetirizine [Zyrtec] 10 mg Tablet 10 mg PO DAILY sulfamethoxazole-trimethoprim [Bactrim] 400-80 mg tablet 1 tab PO DAILY Qty: 10 0RF hydrocodone-acetaminophen 5-325 mg tablet 1 tab PO Q4H PRN (Reason: pain) 7 Days Qty: 8 0RF Rx Instructions: Partial Fill upon patient request. tamsulosin 0.4 mg capsule 0.4 mg PO BEDTIME 14 Days Qty: 14 0RF phenazopyridine [Pyridium] 100 mg tablet 100 mg PO TID PRN (Reason: Spasm) 4 Days Qty: 12 0RF Referrals: Nirav Juarez MD [Physician] - Kevin Lake MD [Primary Care Provider] - Interventions: ED Discharge Assessment Last Done: 09/25/22 14:29 Discharge Date/Time: 09/25/22 14:42 Print Language: Divehi
== END 2022-09-25 14:42 | disposition home or self-care (01) ==
PROVIDERS: Emergency Provider Emergency Medicine; PCP Internal Medicine
DX: R10.9 Unspecified abdominal pain (principal); N20.0 Calculus of kidney; Z96.0 Presence of urogenital implants; E66.9 Obesity, unspecified; Z68.44 Body mass index [BMI] 60.0-69.9, adult
CPT/HCPCS: 99283; 99284

== ENCOUNTER → 2022-09-26 10:46 | Outpatient (BNVA) | payer OTHER, SELFPAY | PROVIDERS: PCP Internal Medicine; Visit Provider Urology | DX: N20.0 Calculus of kidney (principal) | CPT/HCPCS: 52310; 99212 ==

== ENCOUNTER 2022-11-12 02:18 | Inpatient (IN) | payer OTHER, SELFPAY ==
[2022-11-12] VITALS (7 sets, daily range): BP systolic 110–147; BP diastolic 54–88; PULSE 67–125; RESP 15–20; TEMP 36.6–37.1; O2SAT 95–99; BMI 57.5
--- NOTE | 2022-11-12 | ECG_ITS ---
Test Reason : CHEST PAIN Blood Pressure : / mmHG Vent. Rate : 070 BPM Atrial Rate : 070 BPM P-R Int : 134 ms QRS Dur : 086 ms QT Int : 376 ms P-R-T Axes : 070 054 054 degrees QTc Int : 406 ms Normal sinus rhythm Normal ECG When compared with ECG of 12-NOV-2022 04:39, No significant change was found Referred By: Shruthi Em Electronically Signed By:SAE MORGAN
--- NOTE | ~2022-11-12 | CT_ITS ---
EXAMINATION: CT ANGIOGRAM OF THE CHEST WITH CONTRAST (CT PULMONARY ANGIOGRAM FOR PE) CT ABDOMEN/PELVIS WITHOUT CONTRAST CLINICAL INFORMATION: Reason for Exam flank pain COMPARISON: CT abdomen/pelvis dated 09/07/2022 TECHNIQUE: Prior to contrast administration, noncontrast localization images were obtained. Separate CT acquisitions of the chest, abdomen and pelvis performed. The CT examination of the abdomen was performed initially, without intravenous contrast. Subsequently, CT pulmonary angiogram of the chest was performed after the administration of 100 mL Omnipaque 350 intravenous contrast. No contrast reaction reported Sagittal, coronal, and MIP oblique sagittal reformatted images were obtained on the CT workstation, uploaded to PACS, and reviewed. This CT examination was performed using dose optimization techniques as appropriate, variously including the following: *Automated exposure control *Adjustment of mA and/or kV according to patient size (this includes techniques or standardized protocols for targeted exams where dose is matched to indication/reason for exam; i.e. extremities or head) *Use of iterative reconstruction technique Total exam dose-length product 1941 mGy-cm FINDINGS: QUALITY OF STUDY/CONTRAST BOLUS: Satisfactory. PULMONARY ARTERIES: No central or segmental pulmonary emboli. THORACIC AORTA: No aneurysm or dissection. LUNG: No focal consolidation, nodules or masses. Diffuse mild bronchial thickening without bronchiectasis. PLEURA: No pleural effusion or pneumothorax. MEDIASTINUM: Normal heart size. No pericardial effusion. No hilar or mediastinal lymphadenopathy. No evidence of septal bowing or right heart strain. CHEST WALL/AXILLA: No axillary or internal mammary lymphadenopathy. HEPATOBILIARY: Liver normal in size, contour and morphology. No suspicious lesions. No intra or extrahepatic biliary dilation. Gallbladder unremarkable. PANCREAS: Unremarkable. SPLEEN: Unremarkable. ADRENAL GLANDS: Unremarkable. morphology. There are at least 3 nonobstructing calculi in the right kidney measuring between 3 and 6 mm. No suspicious renal cysts or masses. No hydronephrosis or perinephric abnormality.. GASTROINTESTINAL TRACT: No bowel related abnormalities. PELVIC VISCERA: Unremarkable. LYMPH NODES: No lymphadenopathy. PERITONEUM/BODY WALL: Unremarkable. VASCULAR STRUCTURES: Unremarkable. OSSEOUS STRUCTURES: No acute or suspicious osseous abnormalities. CT/CT abdomen pelvis wo IV con IMPRESSION: * No evidence of pulmonary embolism. * No aortic aneurysm or dissection. * No pneumonitis or parenchymal consolidation. * Diffuse mild bronchial thickening suggestive of bronchitis or asthma. * Nonobstructive right intrarenal calculi. * No ureteral calculi or hydronephrosis VTE: negative
--- NOTE | 2022-11-12 02:25 | ECG_ITS ---
Test Reason : chest pain Blood Pressure : / mmHG Vent. Rate : 124 BPM Atrial Rate : 000 BPM P-R Int : 000 ms QRS Dur : 088 ms QT Int : 314 ms P-R-T Axes : 000 042 038 degrees QTc Int : 451 ms Atrial fibrillation with rapid ventricular response Abnormal ECG No previous ECGs available Referred By: Karina Layton Electronically Signed By:SAE MORGAN
[2022-11-12] MEDS: Metoprolol Tartrate 5 MG/5 ML VIAL IVPUSH (02:53)
--- NOTE | 2022-11-12 02:54 | ED.ARRPALP ---
HPI - Arrhythmia/Palpitations General Chief Complaint: Arrhythmia/Palpitations Stated Complaint: chest palpations Time Seen by Provider: 11/12/22 02:24 Source: patient Mode of arrival: EMS History of Present Illness HPI narrative: 37-year-old male presents via EMS with an unusual feeling in this chest, palpitations and shortness of breath and when he checked his heart with his watch it noted that he had atrial fibrillation with a fast heart rate. Patient states that since his last urologic intervention he has had intermittent shortness of breath with strange feeling in his chest?. He otherwise denies any fever, chills, nausea, vomiting but states he has continued to have intermittent flank pain. Related Data Home Medications Medication Instructions Recorded Confirmed albuterol sulfate 2.5 mg/3 mL 1 vial inhalation Q4H PRN wheezing 09/07/22 09/23/22 (0.083 %) solution for nebulization albuterol sulfate 90 mcg/actuation 2 puff inhalation Q4-6H PRN 09/07/22 09/23/22 aerosol inhaler (ProAir HFA) Shortness Of Breath Or Wheezing omeprazole 40 mg capsule,delayed 1 cap PO DAILY@0630 09/07/22 09/23/22 release ustekinumab 90 mg/mL subcutaneous See Rx Instructions .Route .COMPLEX 09/07/22 09/23/22 syringe (Stelara) cetirizine 10 mg tablet (Zyrtec) 10 mg PO DAILY 09/23/22 09/23/22 gabapentin 100 mg capsule 100 mg PO TID 09/26/22 lisinopril 10 mg tablet 10 mg PO DAILY 09/26/22 loratadine 10 mg tablet 10 mg PO DAILY 09/26/22 oxybutynin chloride 5 mg 5 mg PO DAILY PRN bladder muscle 09/26/22 tablet,extended release 24 hr dysfunction Previous Rx's Medication Instructions Recorded hydrocodone 5 mg-acetaminophen 325 1 tab PO Q4H PRN pain 7 days #8 09/23/22 mg tablet tabs phenazopyridine 100 mg tablet 100 mg PO TID PRN Spasm 4 days #12 09/23/22 (Pyridium) tabs sulfamethoxazole 400 1 tab PO DAILY #10 tabs 09/23/22 mg-trimethoprim 80 mg tablet (Bactrim) tamsulosin 0.4 mg capsule 0.4 mg PO BEDTIME 14 days #14 caps 09/23/22 hydrocodone 5 mg-acetaminophen 325 1 tab PO Q8H PRN pain #2 tabs 09/25/22 mg tablet oxybutynin chloride 5 mg 5 mg PO DAILY PRN bladder spasms 7 09/26/22 tablet,extended release 24 hr days #7 tabs Allergies Allergy/AdvReac Type Severity Reaction Status Date / Time ibuprofen [From Advil] Allergy Shortness Verified 09/26/22 11:00 of Breath aspirin AdvReac Headache Verified 09/26/22 11:00 etanercept [From Enbrel] AdvReac Dizziness Verified 09/26/22 11:00 NSAIDS (Non-Steroidal AdvReac Palpitation Verified 09/26/22 11:00 Anti-Inflamma s Review of Systems Review of Systems: Pertinent positives and negatives as stated in [facility] Past Medical History Source: nursing notes reviewed Medical History Asthma Habitual snoring Hx of fracture of femur Obesity Renal and ureteric calculus Sleep apnea Surgical History History of cystoscopy History of surgery on lower extremity S/P cystoscopy with ureteral stent placement [place] teeth extracted Social History Social History Household Members: Spouse Housing: House Do you presently have visiting nurse or other home services: No Patient Tobacco Use Status: Former Tobacco user Tobacco use type: Cigarette e-Cigarette/Vaping Use: Former Use Advance Directives: No Advance Directives Information Provided: Yes Physical Exam Vital Signs: Vital Signs: Last Vital Signs Temp 97.8 F 11/12/22 03:08 Pulse 106 H 11/12/22 03:08 Resp 16 11/12/22 03:08 BP 127/65 11/12/22 03:08 Pulse Ox 99 11/12/22 03:08 O2 Del Method 11/12/22 03:08 BMI result Body Mass Index 57.5 VITAL SIGNS: Reviewed. GENERAL: Elevated BMI, Well developed, well nourished, in no acute distress. HEAD: Normocephalic/atraumatic EYES: PERRLA, EOMI LUNGS: Normal breath sounds. No adventitious sounds or accessory muscle use. SpO2<99> room air CARDIOVASCULAR: IRR/IRR tachycardic rate and rhythm without noted murmurs ABDOMEN: Soft, non-tender, non-distended with bowel sounds. MUSCULOSKELETAL: No tenderness, deformities, or effusions noted on gross inspection. EXTREMITIES: No cyanosis, clubbing or edema. SKIN: Inspection of the skin reveals no rashes NEUROLOGIC: Alert and oriented x 4. Strength and sensation to light touch were grossly intact x 4. Medications Administered Discontinued Medications Generic Name Dose Route Start Last Admin Trade Name Christen PRN Reason Stop Dose Admin Iohexol 100 ml 11/12/22 04:05 11/12/22 04:05 Iohexol 350 Mg/Ml 100 Ml Infus..Btl IV 11/12/22 04:06 100 ml ONCE ONE Administration Metoprolol Tartrate 5 mg 11/12/22 02:47 11/12/22 02:53 Metoprolol Tartrate 5 Mg/5 Ml Vial IVPUSH 11/12/22 02:48 5 mg ONCE ONE Administration Medical Decision Making Medical Decision Making MDM Narrative: 37-year-old male with atrial fibrillation with RVR, new onset atrial fibrillation and will evaluate for etiologies. I reviewed all investigations and my interpretation is that patient is likely going in out of atrial fibrillation, although there is a noted leukocytosis, there is no identifiable source at this time. There is no significant electrolyte abnormalities, and at 04:39 12 lead EKG demonstrates normal sinus rhythm. I discussed all results and findings at the bedside with the patient. Differential Diagnosis Please see the discussion above Consult Healthcare Provider Management of the patient was discussed with: Hospitalist I discussed the case with the inpatient hospitalist who accepts admission. Lab Data Please see the discussion above 11/12/22 03:01 11/12/22 03:01 Labs: Lab Results 11/12/22 11/12/22 11/12/22 Range/Units 03:01 03:01 03:01 WBC 13.9 H (4.8-10.8) X10*3/uL RBC 4.37 L (4.60-5.80) X10*6/uL Hgb 12.0 L (14.0-18.0) g/dl Hct 37.3 L (42.0-52.0) % MCV 85.4 (80.0-98.0) fL MCH 27.5 (27.0-33.0) pg MCHC 32.2 (31.0-36.0) g/dl RDW 14.7 (11.0-16.0) % Plt Count 324 (160-400) X10*3/uL MPV 9.6 (9.4-12.4) fL Immature Gran % (Auto) 0.5 H (0.0-0.4) % Neut % (Auto) 67.6 (45-73) % Lymph % (Auto) 22.5 (20-40) % [place] % (Auto) 6.0 (2-11) % Eos % (Auto) 3.1 (0-4) % Baso % (Auto) 0.3 (0-2) % Lymph # (Auto) 3.1 (1.2-4.9) X10*3/uL [place] # (Auto) 0.8 (0.1-1.2) X10*3/uL Eos # (Auto) 0.4 (0.0-0.4) X10*3/uL Baso # (Auto) 0.0 (0.0-0.2) X10*3/uL Abs Immat Gran (auto) 0.07 H (0.00-0.03) X10*3/uL Absolute Neuts (auto) 9.4 H (2.0-8.3) x10*3/uL Absolute Nucleated RBC 0.000 (0.0-0.012) X10*3/uL Nucleated RBC % (auto) 0.0 (0.0-0.2) /100WBC PT 13.3 H (10.0-13.1) SEC INR 1.2 H (0.9-1.1) APTT 35.3 (26.0-36.4) SEC Sodium 140 (135-145) mmol/L Potassium 3.7 (3.3-5.1) mmol/L Chloride 104 (96-108) mmol/L Carbon Dioxide 26 (22-29) mmol/L Anion Gap 14 (12-20) BUN 10 (9-16) mg/dL Creatinine 0.69 (0.5-1.4) mg/dL Estim Creat Clear Calc 276.0 Estimated GFR > 60 Random Glucose 130 H (60-115) mg/dL Calcium 8.7 (8.4-10.2) mg/dL Total Bilirubin 0.6 (0.0-1.0) mg/dL AST 14 (5-37) U/L ALT 21 (0-40) U/L Alkaline Phosphatase 95 (39-117) U/L Total Protein 6.2 L (6.5-8.0) g/dL Albumin 3.5 (3.5-5.0) g/dL Urine Color Urine Appearance Urine pH (5.0-9.0) Ur Specific [place] (1.005-1.025) Urine Protein (Neg-Trace) mg/dL Urine Glucose (UA) (Negative) mg/dL Urine Ketones (Negative) mg/dL Urine Blood (Negative) Urine Nitrite (Negative) Ur Leukocyte Esterase (Negative) 11/12/22 Range/Units 04:12 WBC (4.8-10.8) X10*3/uL RBC (4.60-5.80) X10*6/uL Hgb (14.0-18.0) g/dl Hct (42.0-52.0) % MCV (80.0-98.0) fL MCH (27.0-33.0) pg MCHC (31.0-36.0) g/dl RDW (11.0-16.0) % Plt Count (160-400) X10*3/uL MPV (9.4-12.4) fL Immature Gran % (Auto) (0.0-0.4) % Neut % (Auto) (45-73) % Lymph % (Auto) (20-40) % [place] % (Auto) (2-11) % Eos % (Auto) (0-4) % Baso % (Auto) (0-2) % Lymph # (Auto) (1.2-4.9) X10*3/uL [place] # (Auto) (0.1-1.2) X10*3/uL Eos # (Auto) (0.0-0.4) X10*3/uL Baso # (Auto) (0.0-0.2) X10*3/uL Abs Immat Gran (auto) (0.00-0.03) X10*3/uL Absolute Neuts (auto) (2.0-8.3) x10*3/uL Absolute Nucleated RBC (0.0-0.012) X10*3/uL Nucleated RBC % (auto) (0.0-0.2) /100WBC PT (10.0-13.1) SEC INR (0.9-1.1) APTT (26.0-36.4) SEC Sodium (135-145) mmol/L Potassium (3.3-5.1) mmol/L Chloride (96-108) mmol/L Carbon Dioxide (22-29) mmol/L Anion Gap (12-20) BUN (9-16) mg/dL Creatinine (0.5-1.4) mg/dL Estim Creat Clear Calc Estimated GFR Random Glucose (60-115) mg/dL Calcium (8.4-10.2) mg/dL Total Bilirubin (0.0-1.0) mg/dL AST (5-37) U/L ALT (0-40) U/L Alkaline Phosphatase (39-117) U/L Total Protein (6.5-8.0) g/dL Albumin (3.5-5.0) g/dL Urine Color Yellow Urine Appearance Clear Urine pH 6.0 (5.0-9.0) Ur Specific [place] 1.015 (1.005-1.025) Urine Protein Negative (Neg-Trace) mg/dL Urine Glucose (UA) Negative (Negative) mg/dL Urine Ketones Negative (Negative) mg/dL Urine Blood Negative (Negative) Urine Nitrite Negative (Negative) Ur Leukocyte Esterase Negative (Negative) Independent Interpretation I performed an independent interpretation of an: EKG Interpretation: Atrial fibrillation with RVR, HR-124, no STEMI, QRS/QTC is within normal limits 0439: Of sinus rhythm, HR-82, no STEMI, NH/QRS/QTC is within normal limits. External Record Review External record reviewed: Outpatient record and Prior outpatient labs Critical Care Time Critical Care Time Critical Care Time: Yes Total Critical Care Time: 30 Attestation: I personally attest to this time spent taking care of the patient. Discharge Plan Discharge Clinical Impression: New onset a-fib, Atrial fibrillation with RVR Patient Disposition: Admitted As Inpatient Prescriptions: No Action oxybutynin chloride 5 mg tablet extended release 24hr 5 mg PO DAILY PRN (Reason: bladder spasms) 7 Days Qty: 7 0RF omeprazole 40 mg capsule,delayed release(DR/EC) 1 cap PO DAILY@0630 albuterol sulfate 2.5 mg /3 mL (0.083 %) solution for nebulization 1 vial inhalation Q4H PRN (Reason: wheezing) albuterol sulfate [ProAir HFA] 90 mcg/actuation HFA aerosol inhaler 2 puff INHALATION Q4-6H PRN (Reason: Shortness Of Breath Or Wheezing) Stelara 90 mg/mL syringe See Rx Instructions .ROUTE .COMPLEX Rx Instructions: 90 mg subcutaneously on WEEK 0, WEEK 4, AND THEN EVERY 12 WEEKS THEREAFTER. WEEK 0 - Starts 09/05/22 cetirizine [Zyrtec] 10 mg Tablet 10 mg PO DAILY sulfamethoxazole-trimethoprim [Bactrim] 400-80 mg tablet 1 tab PO DAILY Qty: 10 0RF hydrocodone-acetaminophen 5-325 mg tablet 1 tab PO Q4H PRN (Reason: pain) 7 Days Qty: 8 0RF Rx Instructions: Partial Fill upon patient request. tamsulosin 0.4 mg capsule 0.4 mg PO BEDTIME 14 Days Qty: 14 0RF phenazopyridine [Pyridium] 100 mg tablet 100 mg PO TID PRN (Reason: Spasm) 4 Days Qty: 12 0RF hydrocodone-acetaminophen 5-325 mg tablet 1 tab PO Q8H PRN (Reason: pain) Qty: 2 0RF Rx Instructions: Partial Fill upon patient request. Last dose given at 1:30 p.m. on 09/25/2021. Next dose due after 9:30 p.m. loratadine 10 mg tablet 10 mg PO DAILY gabapentin 100 mg capsule 100 mg PO TID lisinopril 10 mg tablet 10 mg PO DAILY oxybutynin chloride 5 mg tablet extended release 24hr 5 mg PO DAILY PRN (Reason: bladder muscle dysfunction)
[2022-11-12 03:06] LABS: Basophils Percent Auto 0.3 % (0-2); Eosinophils Absolute Auto 0.4 X10*3/uL (0.0-0.4); Eosinophils Percent Auto 3.1 % (0-4); Hematocrit 37.3 % (42.0-52.0); Imm Gran Abs Auto 0.07 X10*3/uL (0.00-0.03); Imm Gran Pct Auto 0.5 % (0.0-0.4); Lymphocytes Absolute Auto 3.1 X10*3/uL (1.2-4.9); Lymphocytes Percent Auto 22.5 % (20-40); MANUAL DIFF FLAG NO; Mean Corpuscular HGB Conc 32.2 g/dl (31.0-36.0); Mean Corpuscular Hemoglobin 27.5 pg (27.0-33.0); Mean Corpuscular Volume 85.4 fL (80.0-98.0); Mean Platelet Volume 9.6 fL (9.4-12.4); Monocytes Absolute Auto 0.8 X10*3/uL (0.1-1.2); Neutrophils Absolute Auto 9.4 x10*3/uL (2.0-8.3); Neutrophils Percent Auto 67.6 % (45-73); Platelet Count 324 X10*3/uL (160-400); Red Blood Count 4.37 X10*6/uL (4.60-5.80); Red Cell Distribution Width 14.7 % (11.0-16.0); White Blood Count 13.9 X10*3/uL (4.8-10.8)
[2022-11-12 03:12] LABS: INTERNATIONAL NORM RATIO 1.2 (0.9-1.1); Prothrombin Time 13.3 SEC (10.0-13.1)
[2022-11-12 03:15] LABS: Partial Thromboplastin Time 35.3 SEC (26.0-36.4)
[2022-11-12 03:28] LABS: Alanine Aminotransferase 21 U/L (0-40); Albumin Level 3.5 g/dL (3.5-5.0); Alkaline Phosphatase 95 U/L (39-117); Anion Gap 14 (12-20); Aspartate Amino Transferase 14 U/L (5-37); Bilirubin Total 0.6 mg/dL (0.0-1.0); Blood Urea Nitrogen 10 mg/dL (9-16); Calcium 8.7 mg/dL (8.4-10.2); Carbon Dioxide 26 mmol/L (22-29); Chloride 104 mmol/L (96-108); Estimated Glomerular Filt Rate > 60; Glucose Random 130 mg/dL (60-115); Potassium 3.7 mmol/L (3.3-5.1); Sodium 140 mmol/L (135-145); Total Protein 6.2 g/dL (6.5-8.0)
[2022-11-12] MEDS: iohexoL 350 MG/ML 100 ML INFUS..BTL IV (04:05)
[2022-11-12 04:18] LABS: Appearance Urine Clear; Color Urine Yellow; Glucose Urine UA Negative (Negative); Leukocyte Esterase Urine Negative (Negative); Nitrite Urine Negative (Negative); Specific Gravity - Urine 1.015 (1.005-1.025); Urine Blood Negative (Negative); Urine Ketones Negative (Negative); Urine Protein Negative (Neg-Trace)
--- NOTE | 2022-11-12 04:38 | ECG_ITS ---
Test Reason : afib Blood Pressure : / mmHG Vent. Rate : 082 BPM Atrial Rate : 082 BPM P-R Int : 144 ms QRS Dur : 084 ms QT Int : 346 ms P-R-T Axes : 062 039 045 degrees QTc Int : 404 ms Normal sinus rhythm Normal ECG When compared with ECG of 12-NOV-2022 02:29, Sinus rhythm has replaced Atrial fibrillation Vent. rate has decreased BY 42 BPM Referred By: Karina Layton Electronically Signed By:SAE MORGAN
--- NOTE | 2022-11-12 04:52 | PM.IMHP ---
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 pt mentions that while he was driving; he noticed palpitations associated with chest tightness and SOB; lasted for some time and not improving; hence presented to ER for eval. Reports that he still feels Palpitations at the time of my interview but chest tightness and SOB resolved. Denies any signs of infection. Denies Long travel but his work involves driving more often. denies leg pain. ROS negative. ER course: per ER physician : pt was noted to be in Afib with RVR in presentation with HR in 140s; Received Metoprolol IV; BP stable. EKG non ischemic; Troponin negative. CT PE - negative study. After some time in ER- pt converted to Sinus. Admitted for observation. [facility] Medical History Asthma Habitual snoring Hx of fracture of femur Obesity Renal and ureteric calculus Sleep apnea Surgical History History of cystoscopy History of surgery on lower extremity S/P cystoscopy with ureteral stent placement [place] teeth extracted Social History Household Members: Spouse Housing: House Do you presently have visiting nurse or other home services: No Patient Tobacco Use Status: Former Tobacco user Tobacco use type: Cigarette e-Cigarette/Vaping Use: Former Use Advance Directives: No Advance Directives Information Provided: Yes Meds Allergies Allergy/AdvReac Type Severity Reaction Status Date / Time ibuprofen [From Advil] Allergy Shortness Verified 09/26/22 11:00 of Breath aspirin AdvReac Headache Verified 09/26/22 11:00 etanercept [From Enbrel] AdvReac Dizziness Verified 09/26/22 11:00 NSAIDS (Non-Steroidal AdvReac Palpitation Verified 09/26/22 11:00 Anti-Inflamma s Home Medications Medication Instructions Recorded Confirmed Last Taken Type albuterol sulfate 2.5 mg/3 mL 1 vial inhalation Q4H PRN wheezing 09/07/22 09/23/22 09/21/22 History (0.083 %) solution for nebulization albuterol sulfate 90 mcg/actuation 2 puff inhalation Q4-6H PRN 09/07/22 09/23/22 09/23/22 History aerosol inhaler (ProAir HFA) Shortness Of Breath Or Wheezing omeprazole 40 mg capsule,delayed 1 cap PO DAILY@0630 09/07/22 09/23/22 09/22/22 History release ustekinumab 90 mg/mL subcutaneous See Rx Instructions .Route .COMPLEX 09/07/22 09/23/22 09/05/22 History syringe (Stelara) cetirizine 10 mg tablet (Zyrtec) 10 mg PO DAILY 09/23/22 09/23/22 09/22/22 History gabapentin 100 mg capsule 100 mg PO TID 09/26/22 Unknown History lisinopril 10 mg tablet 10 mg PO DAILY 09/26/22 Unknown History loratadine 10 mg tablet 10 mg PO DAILY 09/26/22 Unknown History oxybutynin chloride 5 mg 5 mg PO DAILY PRN bladder muscle 09/26/22 Unknown History tablet,extended release 24 hr dysfunction Physical Exam Vital Signs and Narrative: Vital Signs: Last Vital Signs Temp 97.8 F 11/12/22 03:08 Pulse 106 H 11/12/22 03:08 Resp 16 11/12/22 03:08 BP 127/65 11/12/22 03:08 Pulse Ox 99 11/12/22 03:08 O2 Del Method 11/12/22 03:08 BMI result Body Mass Index 57.5 GENERAL:? Elevated BMI, Well developed, well nourished, in no acute distress. LUNGS: Clear CVS: normal s1,s2 Abd: sfot, non-tender, non-distended with bowel sounds. EXT: No cyanosis, clubbing or edema. SKIN: Inspection of the skin reveals no rashes PRODUCTION FLOATER: Alert and oriented x 2. Strength and sensation to light touch were grossly intact. Results Labs 11/12/22 03:01 11/12/22 03:01 Labs: Laboratory Results - last 24 hr 11/12/22 11/12/22 11/12/22 03:01 03:01 03:01 MCV 85.4 MCH 27.5 MCHC 32.2 RDW 14.7 Plt Count 324 MPV 9.6 Immature Gran % (Auto) 0.5 H Neut % (Auto) 67.6 Lymph % (Auto) 22.5 [facility] % (Auto) 6.0 Eos % (Auto) 3.1 Baso % (Auto) 0.3 Lymph # (Auto) 3.1 [facility] # (Auto) 0.8 Eos # (Auto) 0.4 Baso # (Auto) 0.0 Abs Immat Gran (auto) 0.07 H Absolute Neuts (auto) 9.4 H Absolute Nucleated RBC 0.000 Nucleated RBC % (auto) 0.0 PT 13.3 H INR 1.2 H APTT 35.3 Anion Gap 14 Estim Creat Clear Calc 276.0 Estimated GFR > 60 Random Glucose 130 H Calcium 8.7 Total Bilirubin 0.6 AST 14 ALT 21 Alkaline Phosphatase 95 Total Protein 6.2 L Albumin 3.5 Urine Color Urine Appearance Urine pH Ur Specific [place] Urine Protein Urine Glucose (UA) Urine Ketones Urine Blood Urine Nitrite Ur Leukocyte Esterase 11/12/22 04:12 MCV MCH MCHC RDW Plt Count MPV Immature Gran % (Auto) Neut % (Auto) Lymph % (Auto) [facility] % (Auto) Eos % (Auto) Baso % (Auto) Lymph # (Auto) [facility] # (Auto) Eos # (Auto) Baso # (Auto) Abs Immat Gran (auto) Absolute Neuts (auto) Absolute Nucleated RBC Nucleated RBC % (auto) PT INR APTT Anion Gap Estim Creat Clear Calc Estimated GFR Random Glucose Calcium Total Bilirubin AST ALT Alkaline Phosphatase Total Protein Albumin Urine Color Yellow Urine Appearance Clear Urine pH 6.0 Ur Specific [place] 1.015 Urine Protein Negative Urine Glucose (UA) Negative Urine Ketones Negative Urine Blood Negative Urine Nitrite Negative Ur Leukocyte Esterase Negative Imaging Radiologist's Impressions: Impressions Abdomen/Pelvis CT 11/12/22 04:00 IMPRESSION: * No evidence of pulmonary embolism. * No aortic aneurysm or dissection. * No pneumonitis or parenchymal consolidation. * Diffuse mild bronchial thickening suggestive of bronchitis or asthma. * Nonobstructive right intrarenal calculi. * No ureteral calculi or hydronephrosis VTE: negative Chest CTA 11/12/22 04:00 IMPRESSION: * No evidence of pulmonary embolism. * No aortic aneurysm or dissection. * No pneumonitis or parenchymal consolidation. * Diffuse mild bronchial thickening suggestive of bronchitis or asthma. * Nonobstructive right intrarenal calculi. 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 New Onset Afib with RVR: Received metoprolol in ER. Now converted to Sinus CT chest: negative for PE or acute lung pathology. Troponin pending. TSH pending Cardiology consult Echocardiogram. Telemetry Elevated BMI: Recommended out pt wt mngt clinic follow up. HTN: reports lately his BP is on normal side and he has not been taking lisinopril for few days. Hx Poriatic arthritis: pt on Stelara DVT ppx: lovenox BID Full code. Time Spent With Patient Time: Total time managing care of this patient today ____ minutes. Quality Stroke Does the patient have a stroke diagnosis?: No VTE Prior VTE?: No VTE Risk Level:: Medical - moderate - high VTE Device Contraindication: Treatment Not Indicated VTE Drug Contraindication: N/A - Med Ordered
[2022-11-12 06:01] LABS: Alanine Aminotransferase 19 U/L (0-40); Albumin Level 3.3 g/dL (3.5-5.0); Alkaline Phosphatase 81 U/L (39-117); Anion Gap 12 (12-20); Aspartate Amino Transferase 13 U/L (5-37); Bilirubin Total 0.5 mg/dL (0.0-1.0); Blood Urea Nitrogen 10 mg/dL (9-16); Calcium 8.2 mg/dL (8.4-10.2); Carbon Dioxide 28 mmol/L (22-29); Chloride 105 mmol/L (96-108); Creatinine Clr Calc Pharmacy 284.2; Estimated Glomerular Filt Rate > 60; Glucose Random 126 mg/dL (60-115); Potassium 3.8 mmol/L (3.3-5.1); Sodium 141 mmol/L (135-145); Total Protein 5.9 g/dL (6.5-8.0)
[2022-11-12 06:08] LABS: Troponin-I High Sensitivity < 3.5 ng/L (<3.5-35.0)
[2022-11-12] MEDS: Enoxaparin Sodium 40 MG/0.4 ML SYRINGE SUBCUT (06:19)
[2022-11-12 06:22] LABS: Thyroid Stimulating Hormone 1.74 uIU/mL (0.32-4.0)
--- NOTE | 2022-11-12 06:23 | PC.NURSE ---
pt alert and oriented, skin appropriate for ethnicity, respirations even and unlabored, pt has a intermittent dry cough, pt sneezed few mins ago and since then he reports midsternal chest pain and some sob, pain at 7/10. pt is currently in ns on the monitor with a rate of low 80'.
[2022-11-12 06:26] LABS: COVID-19 Test Negative (Negative); IDNOW Serial# 16C4AD1C
--- NOTE | 2022-11-12 07:00 | CA_ITS ---
Transthoracic Echocardiogram Patient (Last, First, Middle): Michael Ramirez A Gender: Male Date of : 1985 Age: 37 Procedure Date: 11/12/2022 Procedure Type: Transthoracic Echocardiogram Location: [facility] Height: 187.96 cm Weight: 203.21 kg BSA: 3.06 m2 Heart Rate: bpm BP: 127 / 54 mmHg Campaign Marketing Manager: Referring MD: Hermann Marcos MD Symptoms: afib Study Quality: Adequate, good with Definity ECG Rhythm: Sinus Conclusions: - The left ventricular systolic function is normal. The calculated ejection fraction is 67% by biplane method. - No obvious valvular pathology seen on this study. Findings Left Ventricle Normal left ventricular cavity size. There is moderately increased left ventricular wall thickness. The left ventricular systolic function is normal. The calculated ejection fraction is 67% by biplane method. There is no evidence of regional wall motion abnormalities. Diastolic function is normal for age. Right Ventricle Normal right ventricular cavity size and systolic function. Atria Both atria are normal in size. Aortic Valve There is a normal trileaflet aortic valve. There is no aortic valve stenosis. There is no aortic valve regurgitation. Mitral Valve The mitral valve appears normal. There is trace mitral valve regurgitation. There is no mitral valve stenosis. Pulmonic Valve The pulmonic valve is likely normal. Tricuspid Valve There is trace tricuspid valve regurgitation. There is no evidence of pulmonary hypertension. Great Vessels The asc aorta is normal in size. Venous The inferior vena cava was not well visualized. The inferior vena cava is normal in size. Pericardium/Pleural There is no evidence of pericardial effusion. Prior Study Comparison No prior study available for comparison. Recommendations, Care & Conclusions No obvious valvular pathology seen on this study. Measurements 2D Linear Measurements IVSd: 1.56 0.6-0.9/0.6-1.0 cm LVIDd: 5.64 3.9-5.3/4.2-5.9 cm LVIDd Index: 1.84 2.4-3.2/2.2-3.1 cm/m2 LVIDs: 3.43 2.0-3.6 cm LVPWd: 1.57 0.7-1.1 cm Ao Root: 3.40 2.1-3.5 cm LA Diam: 4.50 2.7-3.8/3.0-4.0 cm LAIDs Index: 1.47 1.5-2.3 cm/m2 LV Mass: 514.92 67-162/88-224 g LV Mass Index: 168.28 43-95/49-115 g/m2 LVOT Diam: 2.50 3.0+(-)1.3 cm 2D Systolic Function EF 4C: 70.90 >55% EF 2C: 64.00 >55% EF BiP: 66.90 >55% Mitral Valve MV Pk E: 1.05 MV PK A: 0.63 MV Decel Time: 142.00 E/A: 1.70 E'Lateral: 12.70 E'Medial: 11.90 E/E' Med: 8.80 E/E' Lat: 8.30 PHT: 42.00 MVA PHT: 5.24 Decel Dawson: 7.34 Aortic Valve AoV Pk Jerod: 1.73 AoV Mn Jerod: 1.10 AoV VTI: 0.32 AoV Pk Grad: 12.00 Aov Mn Grad: 6.00 CHULA Cont.VTI: 3.44 LVOT LVOT Pk Jerod: 1.17 LVOT Mn Jerod: 0.72 LVOT VTI: 0.22 LVOT Pk Grad: 5.00 LVOT Mn Grad: 3.00 LVOT Diam: 2.50 LVOT Area: 4.91 Diastolic Function MV Pk E: 1.05 MV Pk A: 0.63 E/A: 1.70 E'Medial: 11.90 E/E' Med: 8.80 E' Laterial: 12.70 E/E' Lat: 8.30 Right Ventricle TAPSE (mm): 33.00 TVS' Jerod: 19.00 Tricuspid Valve TR Pk Jerod: 2.65 TR Pk Grad: 28.00 RA Press: 3.00 RVSP: 31.00 Great Vessels Aorta Ao Root-2D: 3.40 2.0-3.7 cm Ao Asc: 3.40 2.1-3.4 cm Pulmonary Valve PV Pk Jerod: 1.14 Peak PV Grad: 5.00 Updated in Other Vendor System with Status of Final Emanuel Toscano MD electronically signed on 11/12/2022 3:40:57 PM with status of Final
--- NOTE | 2022-11-12 07:31 | PC.NURSE ---
report given to imc rn
--- NOTE | 2022-11-12 08:08 | PHA.MEDREC ---
Pharmacy Consult ? Medication Reconciliation Pharmacy has completed the medication reconciliation. Patient stated that he takes his gabapentin only as needed as he does not like the side effects. He also stated he switches around his allergy medications as they dont always work .
[2022-11-12] MEDS: 0.9 % Sodium Chloride Flush 3 ML SYRINGE IVFLUSH (08:23)
--- NOTE | 2022-11-12 09:34 | PM.CNCAR ---
History of Present Illness History of Present Illness Date of Service: 11/12/22 Chief complaint: Afib Narrative: This is a cardiology consultation regarding atrial fibrillation. Patient is morbidly obese. He states that he was even more obese the past reaching as much as 600 lb. Then with exercise, he was able to lose a lot of weight. He denies any history of coronary disease, myocardial infarction or in fact any other cardiac issues at all. 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 Patient states that yesterday he was lying down in bed and at that time, he did not feel good. Sensations of heart racing and some discomfort. He also has needs to apparently and after that developed chest discomfort. Then he was evaluated in the ER and that showed atrial fibrillation and he was subsequently admitted. Per admission documentation, had IV metoprolol. Then converted to sinus rhythm. He is remaining in sinus rhythm. He states he is feeling okay. Generally healthy according to him apart from weight. He also has obstructive sleep apnea on CPAP. Review of Systems Review of Systems: Yes all other systems are reviewed and are negative Constitutional: Constitutional: Reports as per HPI and Reports no additional constitutional complaints Eyes: Eyes: Reports as per HPI and Denies no additional eye complaints ENT: Denies system reviewed and no additional complaints, except as documented and Reports as per HPI Cardiovascular: Cardiovascular: Reports as per HPI, Reports no additional cardiovascular complaints, Denies acrocyanosis, Denies cool extremities, Denies chest pain, Denies leg edema, Denies lightheadedness, Denies palpitations and Denies dyspnea Respiratory: Respiratory: Reports as per HPI, Denies no additional respiratory complaints and Denies dyspnea Gastrointestinal: Gastrointestinal: Reports as per HPI and Denies no additional gastrointestinal complaints Genitourinary: Genitourinary: Reports no additional male genitourinary complaints and Reports as per HPI Musculoskeletal: Musculoskeletal: Reports no additional musculoskeletal complaints and Reports as per HPI Integumentary/Breasts: Skin/Breast: Reports system reviewed and no additional complaints, except as docu Neurologic: Reports system reviewed and no additional complaints, except as documented and Reports as per HPI Psychiatric: Psychiatric: Reports no additional psychiatric complaints and Reports as per HPI Endocrine: Endocrine: Reports no additional endocrine complaints, Reports as per HPI and Denies palpitations Hematologic/Lymphatic: Hematologic/Lymphatic: Reports no additional hematologic/lymphatic complaints and Reports as per HPI Allergic/Immunologic: Allergic/Immunologic: Reports no additional allergic/immunologic complaints and Reports as per HPI [facility] Past Medical History Medical History Asthma Habitual snoring Hx of fracture of femur Obesity Renal and ureteric calculus Sleep apnea Family History Family History (Updated 11/12/22 @ 09:38 by Emanuel Toscano MD) Mother Family history of thyroid problem Surgical History Surgical History History of cystoscopy History of surgery on lower extremity S/P cystoscopy with ureteral stent placement [place] teeth extracted Social History Social History Household Members: Spouse and Family Housing: House Do you presently have visiting nurse or other home services: No Patient Tobacco Use Status: Former Tobacco user Tobacco use type: Cigarette Smoked in Last 30 Days: Yes e-Cigarette/Vaping Use: Former Use Use of substances other than those prescribed or required for medical reasons: No Currently Displaying Signs/Symptoms of Drug Intoxication Withdrawal: No Any prior treatment program specific to substance use: No Have you been hit, kicked, punched, or otherwise hurt by someone within the past year? If so, by whom?: No Do you feel safe in your current relationship?: Yes Is there a partner from a previous relationship who is making you feel unsafe now?: No Are you made to feel afraid or neglected: No Advance Directives: No Advance Directives Information Provided: Yes Do you have thoughts of harming others: None Do you have a plan to hurt others: No Plan Recently lost weight without trying: No Nutrition Risks: No Nutritional Risk Meds Allergies Allergy/AdvReac Type Severity Reaction Status Date / Time ibuprofen [From Advil] Allergy Shortness Verified 09/26/22 11:00 of Breath aspirin AdvReac Headache Verified 09/26/22 11:00 etanercept [From Enbrel] AdvReac Dizziness Verified 09/26/22 11:00 NSAIDS (Non-Steroidal AdvReac Palpitation Verified 09/26/22 11:00 Anti-Inflamma s Active Medications: Current Medications Acetaminophen (Acetaminophen 325 Mg Tablet) 650 mg PO Q6H PRN PRN Reason: Pain, Mild (Pain Scale 1-3) Enoxaparin Sodium (Enoxaparin Sodium 40 Mg/0.4 Ml Syringe) 40 mg SUBCUT Q12H [facility] Last Admin: 11/12/22 06:19 Dose: 40 mg Melatonin (Melatonin 3 Mg Tablet) 6 mg PO BEDTIME PRN PRN Reason: Insomnia Nitroglycerin (Nitroglycerin 0.4 Mg Tab.Subl) 0.4 mg SUBLINGUAL Q5MX3 PRN PRN Reason: Chest Pain Pharmacy Consult (Consult Rx Perform Med Rec) 1 each MISCELLANE ONCE PRN PRN Reason: Consult order Sodium Chloride (0.9 % Sodium Chloride Flush 3 Ml Syringe) 3 ml IVFLUSH QSHIFT [facility] Last Admin: 11/12/22 08:23 Dose: 3 ml Home Medications Medication Instructions Recorded Confirmed Last Taken Type albuterol sulfate 2.5 mg/3 mL 1 vial inhalation Q4H PRN wheezing 09/07/22 11/12/22 09/21/22 History (0.083 %) solution for nebulization albuterol sulfate 90 mcg/actuation 2 puff inhalation Q4-6H PRN 09/07/22 11/12/22 09/23/22 History aerosol inhaler (ProAir HFA) Shortness Of Breath Or Wheezing omeprazole 40 mg capsule,delayed 1 cap PO DAILY@0630 PRN Heartburn 09/07/22 11/12/22 09/22/22 History release ustekinumab 90 mg/mL subcutaneous See Rx Instructions .Route .COMPLEX 09/07/22 11/12/22 09/05/22 History syringe (Stelara) gabapentin 100 mg capsule 100 mg PO TID PRN Pain 09/26/22 11/12/22 Unknown History alclometasone 0.05 % topical cream 1 appl topical DAILY 11/12/22 11/12/22 Unknown History cetirizine 5 mg tablet 5 mg PO DAILY PRN Allergic Reaction 11/12/22 11/12/22 Unknown History ferrous sulfate 325 mg (65 mg 1 tab PO DAILY 11/12/22 11/12/22 Unknown History iron) tablet folic acid 1 mg tablet 1 tab PO DAILY 11/12/22 11/12/22 Unknown History loratadine 10 mg tablet 1 tab PO DAILY PRN Allergy Symptoms 11/12/22 11/12/22 Unknown History tramadol 50 mg tablet 1 tab PO DAILY PRN pain 11/12/22 11/12/22 Unknown History triamcinolone acetonide 0.1 % 1 appl topical DAILY 11/12/22 11/12/22 Unknown History topical cream Physical Exam Vital Signs: Vital Signs: Last Vital Signs Temp 98.0 F 11/12/22 07:59 Pulse 72 11/12/22 07:59 Resp 20 11/12/22 07:59 BP 131/88 11/12/22 07:59 Pulse Ox 96 11/12/22 07:59 O2 Del Method 11/12/22 07:59 BMI result Body Mass Index 57.5 Const: General: comfortable and no acute distress Orientation/consciousness: patient oriented x3 HEENT: Other: Unremarkable Head: Yes normal to inspection Neck: Neck: Yes normal visual inspection Chest: Chest palpation & inspection: normal inspection of the chest Resp: Auscultation: clear to auscultation bilaterally Cardio: Palpation: normal PMI Heart sounds: S1 normal heart sound present, S2 normal heart sound present, no gallops, no murmurs and no rubs GI: Palpation (GI): Soft to palpation Back/Spine/Pelvis: Other: unremarkable Skin: General skin exam: no rashes or lesions noted Neuro: General: patient oriented x3 Extrem: General: Yes normal to inspection Psych: Mental Status: mental status grossly normal Objective Labs and Meds 11/12/22 03:01 11/12/22 05:31 Lab results: Laboratory Results - last 24 hr 11/12/22 11/12/22 11/12/22 03:01 03:01 03:01 WBC 13.9 H RBC 4.37 L Hgb 12.0 L Hct 37.3 L MCV 85.4 MCH 27.5 MCHC 32.2 RDW 14.7 Plt Count 324 MPV 9.6 Immature Gran % (Auto) 0.5 H Neut % (Auto) 67.6 Lymph % (Auto) 22.5 [place] % (Auto) 6.0 Eos % (Auto) 3.1 Baso % (Auto) 0.3 Lymph # (Auto) 3.1 [place] # (Auto) 0.8 Eos # (Auto) 0.4 Baso # (Auto) 0.0 Abs Immat Gran (auto) 0.07 H Absolute Neuts (auto) 9.4 H Absolute Nucleated RBC 0.000 Nucleated RBC % (auto) 0.0 PT 13.3 H INR 1.2 H APTT 35.3 Sodium 140 Potassium 3.7 Chloride 104 Carbon Dioxide 26 Anion Gap 14 BUN 10 Creatinine 0.69 Estim Creat Clear Calc 276.0 Estimated GFR > 60 Random Glucose 130 H Calcium 8.7 Total Bilirubin 0.6 AST 14 ALT 21 Alkaline Phosphatase 95 Troponin I High Sens Total Protein 6.2 L Albumin 3.5 TSH Urine Color Urine Appearance Urine pH Ur Specific Bond Urine Protein Urine Glucose (UA) Urine Ketones Urine Blood Urine Nitrite Ur Leukocyte Esterase COVID-19 ([facility]) COVID-19 Clin Com 11/12/22 11/12/22 11/12/22 04:12 05:31 05:31 WBC RBC Hgb Hct MCV MCH MCHC RDW Plt Count MPV Immature Gran % (Auto) Neut % (Auto) Lymph % (Auto) [place] % (Auto) Eos % (Auto) Baso % (Auto) Lymph # (Auto) [place] # (Auto) Eos # (Auto) Baso # (Auto) Abs Immat Gran (auto) Absolute Neuts (auto) Absolute Nucleated RBC Nucleated RBC % (auto) PT INR APTT Sodium 141 Potassium 3.8 Chloride 105 Carbon Dioxide 28 Anion Gap 12 BUN 10 Creatinine 0.67 Estim Creat Clear Calc 284.2 Estimated GFR > 60 Random Glucose 126 H Calcium 8.2 L Total Bilirubin 0.5 AST 13 ALT 19 Alkaline Phosphatase 81 Troponin I High Sens Total Protein 5.9 L Albumin 3.3 L TSH 1.74 Urine Color Yellow Urine Appearance Clear Urine pH 6.0 Ur Specific Bond 1.015 Urine Protein Negative Urine Glucose (UA) Negative Urine Ketones Negative Urine Blood Negative Urine Nitrite Negative Ur Leukocyte Esterase Negative COVID-19 ([facility]) COVID-19 Clin Com 11/12/22 11/12/22 05:31 06:07 WBC RBC Hgb Hct MCV MCH MCHC RDW Plt Count MPV Immature Gran % (Auto) Neut % (Auto) Lymph % (Auto) [place] % (Auto) Eos % (Auto) Baso % (Auto) Lymph # (Auto) [place] # (Auto) Eos # (Auto) Baso # (Auto) Abs Immat Gran (auto) Absolute Neuts (auto) Absolute Nucleated RBC Nucleated RBC % (auto) PT INR APTT Sodium Potassium Chloride Carbon Dioxide Anion Gap BUN Creatinine Estim Creat Clear Calc Estimated GFR Random Glucose Calcium Total Bilirubin AST ALT Alkaline Phosphatase Troponin I High Sens < 3.5 Total Protein Albumin TSH Urine Color Urine Appearance Urine pH Ur Specific Bond Urine Protein Urine Glucose (UA) Urine Ketones Urine Blood Urine Nitrite Ur Leukocyte Esterase COVID-19 ([facility]) Negative COVID-19 Clin Com See Note ECG Interpretation: EKG with atrial fibrillation with rate of 124/Min. Repeat with sinus rhythm. Telemetry shows sinus rhythm. Imaging Radiologist's impression: Impressions Abdomen/Pelvis CT 11/12/22 04:00 IMPRESSION: * No evidence of pulmonary embolism. * No aortic aneurysm or dissection. * No pneumonitis or parenchymal consolidation. * Diffuse mild bronchial thickening suggestive of bronchitis or asthma. * Nonobstructive right intrarenal calculi. * No ureteral calculi or hydronephrosis VTE: negative Chest CTA 11/12/22 04:00 IMPRESSION: * No evidence of pulmonary embolism. * No aortic aneurysm or dissection. * No pneumonitis or parenchymal consolidation. * Diffuse mild bronchial thickening suggestive of bronchitis or asthma. * Nonobstructive right intrarenal calculi. * No ureteral calculi or hydronephrosis VTE: negative Assessment and Plan (1) Atrial fibrillation with RVR: Status: Acute (2) Severe obesity (BMI >= 40): Status: Acute Plan Troponin less than 3.5. Thyroid function is okay. Atrial fibrillation rapid rate likely related to his morbid obesity and obstructive sleep apnea. Can start him on a small dose of diltiazem. Due to asthma, we will hold off on beta-blockers. No absolute need for anticoagulation at this time. Echocardiogram can be obtained. His obesity will be a major issue leading to recurrent arrhythmias. Hence weight loss strongly recommended and we had a long discussion about this. Consider bariatric surgery consultation. Otherwise, regular CPAP use for his ZAINA. Discussed with Dr. Salinas. Time Spent With Patient Time: Total time managing care of this patient today ____ minutes. Procedures Date of Service Date of Service: 11/12/22
--- NOTE | 2022-11-12 09:47 | MHC.CM.PN ---
CM MET WITH PT AT BEDSIDE. PT LIVES IN A [facility] WITH FAMILY. 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 NO COVID VAX. NO HCP BUT WILLING TO COMPLETE ONE WHILE HERE. PCP AT [facility] IN [place]. DP: HOME, NO SERVICES ANTICIPATED. FAMILY WILL TRANSPORT. CM WILL CONTINUE TO FOLLOW.
[2022-11-12] MEDS: Nitroglycerin 0.4 MG TAB.SUBL SUBLINGUAL (10:47)
[2022-11-12 11:38] LABS: Troponin-I High Sensitivity 3.5 ng/L (<3.5-35.0)
--- NOTE | 2022-11-12 11:59 | P.DS_ITS ---
DS: Providers Provider Date of Service: 11/12/22 Date of admission: 11/12/22 04:50 Primary care physician: Kevin Lake MD Consults: 11/12/22 04:50 Consult to Cardiology Routine Consulting Provider: [facility] Cardiovascular Services Reason for consultation: afib Attending physician on discharge: Jose Ramon Nicolas Discharging clinician: Shruthi Em DS: Diagnosis Discharge Diagnosis (1) Atrial fibrillation with RVR: Status: Acute (2) Severe obesity (BMI >= 40): Status: Acute DS: Summary Hospital Course Hospital Course: History and physical as per admitting provider 37 M with HX Psoriatic arthritis; Elevated BMI; 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 pt mentions that while he was driving; he noticed palpitations associated with chest tightness and SOB; lasted for some time and not improving; hence presented to ER for eval. Reports that he still feels Palpitations at the time of my interview but chest tightness and SOB resolved. Denies any signs of infection. Denies Long travel but his work involves driving more often. denies leg pain. ROS negative. ER course: per ER physician pt was noted to be in Afib with RVR in presentation with HR in 140s; Received Metoprolol IV; BP stable. EKG non ischemic; Troponin negative. CT PE - negative study. After some time in ER- pt converted to Sinus.?Admitted for observation . New Onset Afib with RVR Likely secondary to obesity and ZAINA Received metoprolol in ER. converted to Sinus rhythm CT chest: negative for PE or acute lung pathology. Troponin normal TSH 1.74 seen evaluated by Cardiology normal echocardiogram Home with diltiazem 120 mg daily No need for anticoagulation at this time, no beta-chica with history of asthma Morbid obesity Encouraged to follow-up with a weight management provider for consideration of bariatric surgery Obstructive sleep apnea Continue CPAP Hypertension Continue home medications Hx Poriatic arthritis pt on Stelara Time Spent with Patient Time attestation: Total time managing care of this patient today ____ minutes. Discharge coordination time: Greater than 30 minutes Quality: Safe Use of Opioids Does Pt have an Active Cancer Diagnosis on the Problem List?: No Quality: Stroke Does the patient have a stroke diagnosis?: No Physical Exam Vital Signs: Vital Signs: Last Vital Signs Temp 98.1 F 11/12/22 11:04 Pulse 67 11/12/22 11:04 Resp 20 11/12/22 11:04 BP 125/62 11/12/22 11:04 Pulse Ox 97 11/12/22 11:04 O2 Del Method 11/12/22 11:04 BMI result Body Mass Index 57.5 Appearing in no acute distress head is normocephalic atraumatic eyes pupils are PERRLA sclera is anicteric mouth throat mucous membranes are intact and moist neck is supple no lymphadenopathy, no JVD noted lung sounds are clear to auscultation heart regular rate rhythm, clear S1, S2 positive bowel sounds, abdomen is soft, nontender neuro patient is alert x3, no focal deficits obesity DS: Data Data Completed and Pending Completed studies during hospitalization [Text1]: Procedures Dilation of Left Ureter with Intraluminal Device, Via Natural or Artificial Opening Endoscopic (09/07/22) Fluoroscopy of Left Kidney, Ureter and Bladder (09/07/22) Labs on day of discharge: Laboratory Results - last 24 hr 11/12/22 11/12/22 11/12/22 03:01 03:01 03:01 WBC 13.9 H RBC 4.37 L Hgb 12.0 L Hct 37.3 L MCV 85.4 MCH 27.5 MCHC 32.2 RDW 14.7 Plt Count 324 MPV 9.6 Immature Gran % (Auto) 0.5 H Neut % (Auto) 67.6 Lymph % (Auto) 22.5 [place] % (Auto) 6.0 Eos % (Auto) 3.1 Baso % (Auto) 0.3 Lymph # (Auto) 3.1 [place] # (Auto) 0.8 Eos # (Auto) 0.4 Baso # (Auto) 0.0 Abs Immat Gran (auto) 0.07 H Absolute Neuts (auto) 9.4 H Absolute Nucleated RBC 0.000 Nucleated RBC % (auto) 0.0 PT 13.3 H INR 1.2 H APTT 35.3 Sodium 140 Potassium 3.7 Chloride 104 Carbon Dioxide 26 Anion Gap 14 BUN 10 Creatinine 0.69 Estim Creat Clear Calc 276.0 Estimated GFR > 60 Random Glucose 130 H Calcium 8.7 Total Bilirubin 0.6 AST 14 ALT 21 Alkaline Phosphatase 95 Troponin I High Sens Total Protein 6.2 L Albumin 3.5 TSH Urine Color Urine Appearance Urine pH Ur Specific [place] Urine Protein Urine Glucose (UA) Urine Ketones Urine Blood Urine Nitrite Ur Leukocyte Esterase COVID-19 ([facility]) COVID-19 [place] [employer] [facility] 11/12/22 11/12/22 11/12/22 04:12 05:31 05:31 WBC RBC Hgb Hct MCV MCH MCHC RDW Plt Count MPV Immature Gran % (Auto) Neut % (Auto) Lymph % (Auto) [place] % (Auto) Eos % (Auto) Baso % (Auto) Lymph # (Auto) [place] # (Auto) Eos # (Auto) Baso # (Auto) Abs Immat Gran (auto) Absolute Neuts (auto) Absolute Nucleated RBC Nucleated RBC % (auto) PT INR APTT Sodium 141 Potassium 3.8 Chloride 105 Carbon Dioxide 28 Anion Gap 12 BUN 10 Creatinine 0.67 Estim Creat Clear Calc 284.2 Estimated GFR > 60 Random Glucose 126 H Calcium 8.2 L Total Bilirubin 0.5 AST 13 ALT 19 Alkaline Phosphatase 81 Troponin I High Sens Total Protein 5.9 L Albumin 3.3 L TSH 1.74 Urine Color Yellow Urine Appearance Clear Urine pH 6.0 Ur Specific [place] 1.015 Urine Protein Negative Urine Glucose (UA) Negative Urine Ketones Negative Urine Blood Negative Urine Nitrite Negative Ur Leukocyte Esterase Negative COVID-19 ([facility]) COVID-19 [facility] 11/12/22 11/12/22 11/12/22 05:31 06:07 11:10 WBC RBC Hgb Hct MCV MCH MCHC RDW Plt Count MPV Immature Gran % (Auto) Neut % (Auto) Lymph % (Auto) [place] % (Auto) Eos % (Auto) Baso % (Auto) Lymph # (Auto) [place] # (Auto) Eos # (Auto) Baso # (Auto) Abs Immat Gran (auto) Absolute Neuts (auto) Absolute Nucleated RBC Nucleated RBC % (auto) PT INR APTT Sodium Potassium Chloride Carbon Dioxide Anion Gap BUN Creatinine Estim Creat Clear Calc Estimated GFR Random Glucose Calcium Total Bilirubin AST ALT Alkaline Phosphatase Troponin I High Sens < 3.5 3.5 Total Protein Albumin TSH Urine Color Urine Appearance Urine pH Ur Specific [place] Urine Protein Urine Glucose (UA) Urine Ketones Urine Blood Urine Nitrite Ur Leukocyte Esterase COVID-19 ([facility]) Negative COVID-19 [facility] See Note Discharge Plan Discharge Anticipated Discharge Date/Time: 11/12/22 11:39 Patient Disposition: Home, Self-Care Discharge Diagnosis: Afib RVR Referrals: Kevin Lake MD [Primary Care Provider] - 1 Week En Lim MD [Physician] - 1 Week (weight loss surgeon ) Emanuel Toscano MD [Physician] - 1 Week Discharge Medications: New diltiazem HCl 120 mg capsule,extended release 24hr 120 mg PO DAILY Qty: 30 0RF Continued omeprazole 40 mg capsule,delayed release(DR/EC) 1 cap PO DAILY@0630 PRN (Reason: Heartburn) albuterol sulfate 2.5 mg /3 mL (0.083 %) solution for nebulization 1 vial inhalation Q4H PRN (Reason: wheezing) albuterol sulfate [ProAir HFA] 90 mcg/actuation HFA aerosol inhaler 2 puff INHALATION Q4-6H PRN (Reason: Shortness Of Breath Or Wheezing) Stelara 90 mg/mL syringe See Rx Instructions .ROUTE .COMPLEX Rx Instructions: 90 mg subcutaneously on WEEK 0, WEEK 4, AND THEN EVERY 12 WEEKS THEREAFTER. WEEK 0 - Starts 09/05/22 ferrous sulfate 325 mg (65 mg iron) tablet 1 tab PO DAILY folic acid 1 mg tablet 1 tab PO DAILY alclometasone 0.05 % cream 1 appl topical DAILY triamcinolone acetonide 0.1 % cream 1 appl topical DAILY cetirizine 5 mg Tablet 5 mg PO DAILY PRN (Reason: Allergic Reaction) tramadol 50 mg tablet 1 tab PO DAILY PRN (Reason: pain) loratadine 10 mg tablet 1 tab PO DAILY PRN (Reason: Allergy Symptoms) gabapentin 100 mg capsule 100 mg PO TID PRN (Reason: Pain) Discharge Orders: Discharge Order (Routine); Ordered 11/12/22 Ordered By: Shruthi Em Diet: Advance to usual diet Activity on Discharge: As tolerated Stand Alone Forms: Patient Portal Discharge page Care Plan Goals: complete resolution of symptoms Health Concerns: new onset atrial fibrillation Plan of Treatment: Follow-up with primary care provider as needed Take all medications as prescribed Follow-up with bariatric surgery for consideration of weight loss surgery Assessment: see discharge summary
== END 2022-11-12 17:35 | disposition home or self-care (01) | DRG 201 ==
LOC: HO.ED 04:57 → HO.EDOVER 05:09 → HO.IMC 07:09
PROVIDERS: Admitting Provider Hospitalist; Emergency Provider Student in an Organized Health Care Education/Training Program; PCP Internal Medicine; Visit Provider Nurse Practitioner Acute Care
DX: I48.91 Unspecified atrial fibrillation (principal); L40.50 Arthropathic psoriasis, unspecified; G47.33 Obstructive sleep apnea (adult) (pediatric); I10 Essential (primary) hypertension; E66.01 Morbid (severe) obesity due to excess calories; Z68.43 Body mass index [BMI] 50.0-59.9, adult; Z20.822 Contact with and (suspected) exposure to COVID-19; Z87.442 Personal history of urinary calculi; Z87.891 Personal history of nicotine dependence; Z88.6 Allergy status to analgesic agent; Z88.8 Allergy status to other drugs, medicaments and biological substances; Z79.899 Other long term (current) drug therapy
CPT/HCPCS: 36415; 71275; 74176; 80053; 81003; 84443; 84484; 85025; 85610; 85730; 87635; 93005; 93306; 96374; 99222; 99285; J1650; Q9957; Q9967

== ENCOUNTER 2023-12-11 21:51 | Emergency (ER) | payer MEDICAID, SELFPAY ==
--- NOTE | ~2023-12-11 | XR_ITS ---
EXAMINATION: XR CHEST CLINICAL INFORMATION: Shortness of breath. COMPARISON: 07/07/2020. TECHNIQUE: 2 views of the chest were obtained. FINDINGS: No significant abnormality is noted involving the heart, lungs, mediastinum, bony thorax or soft tissues. XR/XR chest 2V IMPRESSION: Unremarkable examination.
--- NOTE | 2023-12-11 21:54 | ECG_ITS ---
Test Reason : CHEST PAIN Blood Pressure : / mmHG Vent. Rate : 093 BPM Atrial Rate : 093 BPM P-R Int : 136 ms QRS Dur : 086 ms QT Int : 358 ms P-R-T Axes : 055 041 044 degrees QTc Int : 445 ms Normal sinus rhythm Normal ECG When compared with ECG of 12-NOV-2022 11:30, No significant change was found Referred By: Generic ED Physician Electronically Signed By:TORI KIM MD
[2023-12-11 22:00] VITALS: BP 177/68; PULSE 81; RESP 20; TEMP 36.5; O2SAT 97; BMI 69.2
[2023-12-11 22:07] LABS: MANUAL DIFF FLAG NO
[2023-12-11 22:08] LABS: Basophils Percent Auto 0.2 % (0-2); Eosinophils Absolute Auto 0.2 X10*3/uL (0.0-0.4); Eosinophils Percent Auto 1.5 % (0-4); Hematocrit 37.9 % (42.0-52.0); Hemoglobin 12.2 g/dl (14.0-18.0); Imm Gran Abs Auto 0.09 X10*3/uL (0.00-0.03); Imm Gran Pct Auto 0.6 % (0.0-0.4); Lymphocytes Absolute Auto 2.9 X10*3/uL (1.2-4.9); Lymphocytes Percent Auto 19.7 % (20-40); Mean Corpuscular HGB Conc 32.2 g/dl (31.0-36.0); Mean Corpuscular Hemoglobin 27.3 pg (27.0-33.0); Mean Corpuscular Volume 84.8 fL (80.0-98.0); Mean Platelet Volume 9.9 fL (9.4-12.4); Monocytes Percent Auto 6.6 % (2-11); Neutrophils Absolute Auto 10.4 x10*3/uL (2.0-8.3); Neutrophils Percent Auto 71.4 % (45-73); Platelet Count 360 X10*3/uL (160-400); Red Blood Count 4.47 X10*6/uL (4.60-5.80); Red Cell Distribution Width 15.4 % (11.0-16.0); White Blood Count 14.6 X10*3/uL (4.8-10.8)
[2023-12-11 22:23] LABS: Alanine Aminotransferase 23 U/L (0-40); Albumin Level 3.7 g/dL (3.5-5.0); Alkaline Phosphatase 84 U/L (39-117); Anion Gap 13 (12-20); Aspartate Amino Transferase 13 U/L (5-37); Bilirubin Total 0.7 mg/dL (0.0-1.0); Blood Urea Nitrogen 11 mg/dL (9-16); Carbon Dioxide 26 mmol/L (22-29); Chloride 107 mmol/L (96-108); Creatinine Clr Calc Pharmacy 262.2; Estimated Glomerular Filt Rate > 60; Glucose Random 113 mg/dL (60-115); Potassium 3.5 mmol/L (3.3-5.1); Sodium 142 mmol/L (135-145); Total Protein 7.2 g/dL (6.5-8.0)
[2023-12-11 22:30] LABS: Troponin-I High Sensitivity 3.5 ng/L (<3.5-35.0)
[2023-12-11 23:51] VITALS: BP 134/52; PULSE 75; RESP 20; TEMP 36.6; O2SAT 98
--- NOTE | 2023-12-11 23:52 | MHC.EDTECH ---
THIS PCT JUST ASSUMED CARE OF PATIENT ,VITALS TAKEN ,AND PATIENT WAS HOOKED UP TO FIRESTOP/CONTAINMENT WORKER ,PT DAUGHTER AT BEDSIDE .
[2023-12-12 00:02] VITALS: PULSE 82
[2023-12-12 00:15] VITALS: BP 126/64; PULSE 79
[2023-12-12 00:17] VITALS: BP 138/57; PULSE 84
[2023-12-12 00:18] VITALS: BP 179/114; PULSE 89
--- NOTE | 2023-12-12 00:32 | MHC.EDTECH ---
PATIENT 2ND TROP DRAWN AND SENT TO LAB ,ORTHOSTATICS VITALS TAKEN .
[2023-12-12 00:40] LABS: Troponin-I High Sensitivity < 2.7 ng/L (<3.5-35.0)
--- NOTE | 2023-12-12 00:53 | ED_ITS ---
HPI - Chest Pain General Chief Complaint: Chest Pain Stated Complaint: fell lightheaded sob chest pain Time Seen by Provider: 12/12/23 00:06 Source: patient Limitations: no limitations History of Present Illness HPI narrative: Patient comes to the emergency room complaining of 3 days of shortness of breath, chest pressure. Patient states that he has history of atrial fibrillation, believes he has been in and out of AFib. At this time, patient has no chest pain, no shortness of breath, no dizziness or lightheadedness, no palpitations. Patient states that he has noted over the last few weeks that when he stands up or urinates, he is palpitations and sometimes feels dizzy, patient does not experience chest pain or shortness of breath. Related Data Home Medications ?Medication ?Instructions ?Recorded ?Confirmed albuterol sulfate 2.5 mg/3 mL 1 vial inhalation Q4H PRN wheezing 09/07/22 11/12/22 (0.083 %) solution for nebulization albuterol sulfate 90 mcg/actuation 2 puff inhalation Q4-6H PRN 09/07/22 11/12/22 aerosol inhaler (ProAir HFA) Shortness Of Breath Or Wheezing omeprazole 40 mg capsule,delayed 1 cap PO DAILY@0630 PRN Heartburn 09/07/22 11/12/22 release ustekinumab 90 mg/mL subcutaneous See Rx Instructions .Route .COMPLEX 09/07/22 11/12/22 syringe (Rosara) gabapentin 100 mg capsule 100 mg PO TID PRN Pain 09/26/22 11/12/22 alclometasone 0.05 % topical cream 1 appl topical DAILY 11/12/22 11/12/22 cetirizine 5 mg tablet 5 mg PO DAILY PRN Allergic Reaction 11/12/22 11/12/22 ferrous sulfate 325 mg (65 mg 1 tab PO DAILY 11/12/22 11/12/22 iron) tablet folic acid 1 mg tablet 1 tab PO DAILY 11/12/22 11/12/22 loratadine 10 mg tablet 1 tab PO DAILY PRN Allergy Symptoms 11/12/22 11/12/22 tramadol 50 mg tablet 1 tab PO DAILY PRN pain 11/12/22 11/12/22 triamcinolone acetonide 0.1 % 1 appl topical DAILY 11/12/22 11/12/22 topical cream Previous Rx's ?Medication ?Instructions ?Recorded diltiazem HCl 120 mg 120 mg PO DAILY #30 caps 11/12/22 capsule,extended release 24 hr Allergies Allergy/AdvReac Type Severity Reaction Status Date / Time ibuprofen [From Advil] Allergy Shortness Verified 12/11/23 22:05 of Breath aspirin AdvReac Headache Verified 12/11/23 22:05 etanercept [From Enbrel] AdvReac Dizziness Verified 12/11/23 22:05 NSAIDS (Non-Steroidal AdvReac Palpitation Verified 12/11/23 22:05 Anti-Inflamma s Review of Systems 2 Review of Systems: Constitutional : No Weight loss, No Fever, No Chills, No Night Sweats, No Fatigue, No Malaise ENT/Mouth : No Hearing loss, No Ear Pain, No Nasal Congestion, No Sinus Pain, No Hoarseness, No sore throat, No Rhinorrhea, No Swallowing Difficulty Eyes: No Eye Pain, No Swelling, No Redness, No Foreign Body, No Discharge, No Vision Changes Cardiovascular : Complaining of chest pressure for 3 days, No Chest Pain, No SOB, No Dyspnea on Exertion, No Orthopnea, No Edema, complaining of Palpitations Respiratory : No Cough, No Sputum, No Wheezing, No Smoke Exposure, No Dyspnea Gastrointestinal : No Nausea, No Vomiting, No Diarrhea, No Constipation, No abdominal Pain, No Hematochezia, No Melena Genitourinary : no irregular bleeding, No Dysuria, No Urinary Frequency, No Hematuria, No Urinary Incontinence, No Urgency, No Flank Pain, No Urinary Flow Changes, No Hesitancy Musculoskeletal : No joint pain, No Myalgias, No Joint Swelling Skin : No Skin Lesions, No rash Neuro : No Weakness, No Numbness, No Paresthesias, No Loss of Consciousness, No Dizziness, No Headache Psych : No Anxiety/Panic, No Depression, No SI/HI/AH/VH, No Social Issues, Heme/Lymph: No Bruising, No Bleeding,No Lymphadenopathy Endocrine : No Polyuria, No Polydipsia, No Temperature Intolerance [facility] Past Medical History Medical History Severe obesity (BMI >= 40) New onset a-fib Hx of fracture of femur Sleep apnea Habitual snoring Asthma Renal and ureteric calculus Obesity Surgical History History of cystoscopy History of surgery on lower extremity S/P cystoscopy with ureteral stent placement [place] teeth extracted Family History Family History (Updated 11/12/22 @ 09:38 by Emanuel Toscano MD) Mother Family history of thyroid problem Social History Social History Household Members: Spouse and Family Housing: House Do you presently have visiting nurse or other home services: No Patient Tobacco Use Status: Former Tobacco user Tobacco use type: Cigarette e-Cigarette/Vaping Use: Former Use service: No Current occupational status: employed Physical Exam 2 Vital Signs: Vital Signs: Last Vital Signs Temp 97.9 F 12/11/23 23:51 Pulse 89 12/12/23 00:18 Resp 20 12/11/23 23:51 BP 179/114 H 12/12/23 00:18 Pulse Ox 98 12/11/23 23:51 O2 Del Method Room Air 12/11/23 23:51 BMI result Body Mass Index 69.2 Const: Other: Appearance: Alert. Oriented X3. No acute distress. Well-appearing, morbidly obese, 244 kg, BMI 69.2 Eyes: Pupils equal, round and reactive to light. ENT: Pharynx normal. Neck: Normal inspection. Neck supple. No lymph nodes noted. No crepitus CVS: Normal heart rate and rhythm. Pulses normal. Normal S1 and S2 Respiratory: No respiratory distress. Breath sounds normal. No Wheezing. No rales Abdomen: Soft and nontender. No rigidity. No distention. Skin: Skin warm and dry. Normal skin color. Normal skin turgor. Extremities: No lower extremity edema. No Lacerations. No Rash, walks with a walker Neuro: Oriented X 3. No motor deficit. No sensory deficit. Moving all extremities. No slurred speech. CN 2 through 12 grossly intact Psych: calm, cooperative, normal affect Medical Decision Making Medical Decision Making MDM Narrative: -my interpretation of EKG: Normal sinus rhythm, heart rate 93, no ST segment depression or elevation, no T-wave inversion, QTC 445 -my interpretation of chest x-ray: No acute abnormalities. -my interpretation: Hematology at baseline, chemistry within normal limits, LFTs normal, troponin x2 negative -orthostatic vitals negative -I discussed with the patient that given that he has history of atrial fibrillation, he may be going in and out of AFib. Since patient has been here in the emergency room, patient has been in sinus rhythm. Patient no longer symptomatic. Patient states that his insurance just started after being without insurance for several months. Patient waiting to be seen by Cardiology. Patient states that he has several appointments pending including weight management, nutrition, and Cardiology Differential Diagnosis Differential Diagnoses: The differential diagnosis associated with the presentation includes (Atrial fibrillation, atrial flutter, anxiety, orthostatic hypotension, vasovagal near-syncope) Admission/Observation Consideration of admission/observation: Escalation of care including admission/observation considered (Given patient's symptoms and past medical history, admission was considered) Lab Data MDM Lab Attestation statement: I reviewed the patient's lab results. 12/11/23 21:59 12/11/23 21:59 Labs: Lab Results 12/11/23 12/12/23 Range/Units 21:59 00:11 WBC 14.6 H (4.8-10.8) X10*3/uL RBC 4.47 L (4.60-5.80) X10*6/uL Hgb 12.2 L (14.0-18.0) g/dl Hct 37.9 L (42.0-52.0) % MCV 84.8 (80.0-98.0) fL MCH 27.3 (27.0-33.0) pg MCHC 32.2 (31.0-36.0) g/dl RDW 15.4 (11.0-16.0) % Plt Count 360 (160-400) X10*3/uL MPV 9.9 (9.4-12.4) fL Immature Gran % (Auto) 0.6 H (0.0-0.4) % Neut % (Auto) 71.4 (45-73) % Lymph % (Auto) 19.7 L (20-40) % [place] % (Auto) 6.6 (2-11) % Eos % (Auto) 1.5 (0-4) % Baso % (Auto) 0.2 (0-2) % Lymph # (Auto) 2.9 (1.2-4.9) X10*3/uL [place] # (Auto) 1.0 (0.1-1.2) X10*3/uL Eos # (Auto) 0.2 (0.0-0.4) X10*3/uL Baso # (Auto) 0.0 (0.0-0.2) X10*3/uL Abs Immat Gran (auto) 0.09 H (0.00-0.03) X10*3/uL Absolute Neuts (auto) 10.4 H (2.0-8.3) x10*3/uL Absolute Nucleated RBC 0.000 (0.0-0.012) X10*3/uL Nucleated RBC % (auto) 0.0 (0.0-0.2) /100WBC Sodium 142 (135-145) mmol/L Potassium 3.5 (3.3-5.1) mmol/L Chloride 107 (96-108) mmol/L Carbon Dioxide 26 (22-29) mmol/L Anion Gap 13 (12-20) BUN 11 (9-16) mg/dL Creatinine 0.81 (0.5-1.4) mg/dL Estim Creat Clear Calc 262.2 Estimated GFR > 60 Random Glucose 113 (60-115) mg/dL Calcium 9.0 D (8.4-10.2) mg/dL Total Bilirubin 0.7 (0.0-1.0) mg/dL AST 13 (5-37) U/L ALT 23 (0-40) U/L Alkaline Phosphatase 84 (39-117) U/L Troponin I High Sens 3.5 < 2.7 (<3.5-35.0) ng/L Total Protein 7.2 (6.5-8.0) g/dL Albumin 3.7 (3.5-5.0) g/dL Independent Interpretation I performed an independent interpretation of an: EKG and Plain X-Ray Radiology Impression Discussion of test interpretation with radiology: I have reviewed the radiologist's reading. Radiologist Impression: FINDINGS: No significant abnormality is noted involving the heart, lungs, mediastinum, bony thorax or soft tissues. XR/XR chest 2V IMPRESSION: Unremarkable examination. Chronic Conditions Patient?s care impacted by: Other (Morbid obesity) Critical Care Time Critical Care Time Critical Care Time: Yes Total Critical Care Time: 35 Attestation: I have personally provided critical care time. Time includes review of lab data, radiology results, discussion with consultants, and monitoring for potential decompensation. Intervention performed as documented. Discharge Plan Discharge Clinical Impression: Dizziness, Palpitations Patient Disposition: Home, Self-Care Instructions: Heart Palpitations (ED), Dizziness (ED) Additional Instructions: Please follow-up with your primary care physician tomorrow. If you have any worsening or new symptoms, please return to the emergency room or call 911 Prescriptions: No Action omeprazole 40 mg capsule,delayed release(DR/EC) 1 cap PO DAILY@0630 PRN (Reason: Heartburn) albuterol sulfate 2.5 mg /3 mL (0.083 %) solution for nebulization 1 vial inhalation Q4H PRN (Reason: wheezing) albuterol sulfate [ProAir HFA] 90 mcg/actuation HFA aerosol inhaler 2 puff INHALATION Q4-6H PRN (Reason: Shortness Of Breath Or Wheezing) Stelara 90 mg/mL syringe See Rx Instructions .ROUTE .COMPLEX Rx Instructions: 90 mg subcutaneously on WEEK 0, WEEK 4, AND THEN EVERY 12 WEEKS THEREAFTER. WEEK 0 - Starts 09/05/22 ferrous sulfate 325 mg (65 mg iron) tablet 1 tab PO DAILY folic acid 1 mg tablet 1 tab PO DAILY alclometasone 0.05 % cream 1 appl topical DAILY triamcinolone acetonide 0.1 % cream 1 appl topical DAILY cetirizine 5 mg Tablet 5 mg PO DAILY PRN (Reason: Allergic Reaction) tramadol 50 mg tablet 1 tab PO DAILY PRN (Reason: pain) loratadine 10 mg tablet 1 tab PO DAILY PRN (Reason: Allergy Symptoms) diltiazem HCl 120 mg capsule,extended release 24hr 120 mg PO DAILY Qty: 30 0RF gabapentin 100 mg capsule 100 mg PO TID PRN (Reason: Pain) Referrals: León James MD [Physician] - 12/15/23 (Atrial fibrillation, morbid obesity) Print Language: Israeli
[2023-12-12 01:28] VITALS: BP 108/75; PULSE 76; RESP 16; TEMP 36.6; O2SAT 98
== END 2023-12-12 01:30 | disposition home or self-care (01) ==
PROVIDERS: Emergency Provider Emergency Medicine; PCP Internal Medicine
DX: R42 Dizziness and giddiness (principal); R00.2 Palpitations; I48.91 Unspecified atrial fibrillation; J45.909 Unspecified asthma, uncomplicated
CPT/HCPCS: 36415; 71046; 80053; 84484; 85025; 93005; 99283; 99285

== ENCOUNTER → 2023-12-11 21:54 | Outpatient (BNV) | payer MEDICAID, SELFPAY | PROVIDERS: Emergency Provider Emergency Medicine; PCP Internal Medicine; Visit Provider Internal Medicine Cardiovascular Disease | DX: R07.9 Chest pain, unspecified (principal) | CPT/HCPCS: 93010 ==

== ENCOUNTER 2024-01-05 12:45 | Outpatient (AMB) | payer OTHER, SELFPAY ==
--- NOTE | 2024-01-05 12:46 | A.OFFVIS_ITS ---
Vital Signs 01/05/24 12:49 Height 6 ft 2 in Weight 535 lb BMI 68.7 BMI Reason not done Patient refused/unable BP 140/78 H Blood Pressure Location Lt brachial Position Sitting Pulse 89 Pulse Source Pulse Oximeter Pulse Oximetry (%) 99 Oxygen Delivery Method Room Air Intake Visit Reasons: [facility] [facility] fu- afib Allergies ibuprofen [From Advil] Allergy (Verified 12/11/23 22:05) Shortness of Breath aspirin Adverse Reaction (Verified 12/11/23 22:05) Headache etanercept [From Enbrel] Adverse Reaction (Verified 12/11/23 22:05) Dizziness NSAIDS (Non-Steroidal Anti-Inflamma Adverse Reaction (Verified 12/11/23 22:05) Palpitations Medication List - Last Reconciled 01/05/24 by Emanuel Toscano MD acetaminophen 160 mg PO Q6H PRN albuterol sulfate 1 vial inhalation Q4H PRN albuterol sulfate 90 mcg/actuation (ProAir HFA) 2 puffs inhalation Q4-6H PRN alclometasone 0.05% 1 appl topical DAILY bupropion HCl XL 150 mg PO QAM cetirizine 5 mg PO DAILY PRN cholecalciferol (vitamin D3) 1,250 mcg PO QWEEK clonidine HCl 0.1 mg PO BID cyclobenzaprine 10 mg PO BID PRN cyclobenzaprine 7.5 mg PO TID PRN dextroamphetamine-amphetamine 20 mg 1 tab PO DAILY dicyclomine 10 mg PO TID PRN diltiazem HCl CD 120 mg PO DAILY ergocalciferol (vitamin D2) 1,250 mcg PO QWEEK ferrous sulfate 1 tab PO DAILY folic acid 1 tab PO DAILY gabapentin 100 mg PO TID PRN hydroxyzine HCl 12.5 - 25 mg PO BID PRN lidocaine 5% 1 patch topical DIRECTED loratadine 1 tab PO DAILY PRN meclizine 25 mg PO BID PRN melatonin 5 mg PO BEDTIME PRN mirtazapine 3.75 - 7.5 mg PO BEDTIME PRN omeprazole 1 cap PO DAILY@0630 PRN prednisone mg PO sennosides-docusate sodium 8.6-50 mg (Senexon-S) 1 tab PO BID PRN tramadol 1 tab PO DAILY PRN trazodone 50 - 100 mg PO BEDTIME PRN triamcinolone acetonide 0.1% 1 appl topical DAILY ustekinumab (Stelara) 90 mg subcutaneously on WEEK 0, WEEK 4, AND THEN EVERY 12 WEEKS THEREAFTER. WEEK 0 - Starts 09/05/22 HPI Comments Details: Michael is here for evaluation regarding atrial fibrillation. He was seen in consultation about an year ago but did not keep any follow-up. Morbidly obese. In the past, almost more than 600 lb. He still quite obese at well over 500 lb. About 1 year ago, he was admitted to the hospital with atrial fibrillation that resolved with beta-blockers. He was discharged on diltiazem. Not on any anticoagulation. After that episode, we have not seen him. He states that he still gets some chest fluttering off and on but not clear what that is. He also gets short of breath with activity. Has obstructive sleep apnea on CPAP. He seems to be on polypharmacy as listed, but he can not clarify any of them. Also call the pharmacy and they state that he has not picked up medications for a long time. Hence not clear. [facility] Medical History Severe obesity (BMI >= 40) New onset a-fib Hx of fracture of femur Sleep apnea Habitual snoring Asthma Renal and ureteric calculus Obesity Surgical History History of surgery on lower extremity S/P cystoscopy with ureteral stent placement History of cystoscopy [place] teeth extracted Family History (Updated 11/12/22 @ 09:38 by Emanuel Toscano MD) Mother Family history of thyroid problem Social History Household Members: Spouse and Family Housing: House Do you presently have visiting nurse or other home services: No Patient Tobacco Use Status: Former Tobacco user Tobacco use type: Cigarette e-Cigarette/Vaping Use: Former Use service: No Current occupational status: employed Review of Systems Const Denies weakness ENT Denies dizziness Card Denies chest pain, Denies chest pain with activity, Denies syncope, Denies rapid heart rate, Denies pedal edema, Denies edema, Denies leg edema, Denies lightheadedness, Denies palpitations, Denies dyspnea, Denies dyspnea on exertion and Denies orthopnea Resp Denies cough, Denies dyspnea and Denies dyspnea on exertion GI Denies hematochezia and Denies change in stool character Musc Denies abnormal gait, Denies muscle cramps, Denies muscle weakness, Denies numbness, Denies radiating pain into limb and Denies tingling Neuro Denies abnormal gait, Denies dizziness, Denies syncope, Denies numbness, Denies tingling and Denies weakness Endo Denies palpitations Physical Exam Vital Signs: Last Vital Signs Pulse 89 01/05/24 12:49 BP 140/78 H 01/05/24 12:49 Pulse Ox 99 01/05/24 12:49 Oxygen Delivery Method Room Air 01/05/24 12:49 BMI result Body Mass Index 68.7 Const General: comfortable and no acute distress Orientation/consciousness: patient oriented x3 HEENT Other: Unremarkable Head: Yes normal to inspection Neck Neck: Yes normal visual inspection Chest Chest palpation & inspection: normal inspection of the chest Resp Auscultation: clear to auscultation bilaterally Cardio Palpation: normal PMI Heart sounds: S1 normal heart sound present, S2 normal heart sound present, no gallops, no murmurs and no rubs GI Palpation (GI): Soft to palpation Back/Spine/Pelvis Other: unremarkable Skin General skin exam: no rashes or lesions noted Neuro General: patient oriented x3 Extrem General: Yes normal to inspection Psych Mental Status: mental status grossly normal Assessment & Plan Assessment & Plan (1) PAF (paroxysmal atrial fibrillation): Code(s): I48.0 - Paroxysmal atrial fibrillation Category: Medical Plan: In the most recent EKG from earlier this month, normal sinus rhythm. Otherwise, unremarkable. Last year, EKG showed atrial fibrillation with rapid rate. Unclear with the palpitations he is having is atrial fibrillation or something else like ectopy. Recommend getting Holter monitor. Repeat echocardiogram. In the past, preserved LVEF. (2) Morbid obesity: Code(s): E66.01 - Morbid (severe) obesity due to excess calories Category: Medical Plan: His weight will be a major source of recurrent atrial fibrillation, other arrhythmias as well as overall cardiovascular morbidity/mortality. Discussed this in detail and recommend seeing bariatric. He is willing. Orders: Orders CA echo transthorac w con Today I48.0 - Paroxysmal atrial fibrillation, R06.02 - Shortness of breath ECG 14 day holter monitor Today I48.0 - Paroxysmal atrial fibrillation, R00.2 - Palpitations Referrals Bariatric Surgery Referral E66.01 - Morbid (severe) obesity due to excess calories Coding Level of Care Code Est Pt Level 4 (34316) Diagnoses PAF (paroxysmal atrial fibrillation) I48.0 Morbid obesity E66.01
[2024-01-05 12:49] VITALS: BP 140/78; PULSE 89; O2SAT 99; BMI 68.7
== END 2024-01-05 13:11 | disposition home or self-care (01) ==
PROVIDERS: PCP Internal Medicine; Visit Provider Internal Medicine
DX: I48.0 Paroxysmal atrial fibrillation (principal); E66.01 Morbid (severe) obesity due to excess calories
CPT/HCPCS: 99214

== ENCOUNTER → 2024-01-05 12:45 | Outpatient (BNVA) | payer OTHER, SELFPAY | PROVIDERS: PCP Internal Medicine; Visit Provider Internal Medicine | DX: I48.0 Paroxysmal atrial fibrillation (principal); E66.9 Obesity, unspecified; R06.02 Shortness of breath; R00.2 Palpitations; E66.01 Morbid (severe) obesity due to excess calories | CPT/HCPCS: 99212 ==

== ENCOUNTER → 2024-01-23 10:08 | Outpatient (REF) | payer OTHER, SELFPAY ==
--- NOTE | 2024-01-23 10:18 | HM_ITS ---
Conclusion: 1. Patient was monitored for total period of 2 days and 20 hours 2. Baseline was normal sinus rhythm with average heart rate of 77 beats per minute 3. No significant pauses noted 4. Rare ectopy noted 5. No patient reported events MTDD
--- NOTE | 2024-01-23 10:18 | CA_ITS ---
Transthoracic Echocardiogram Patient (Last, First, Middle): Michael Ramirez A Gender: Male Date of : 1985 Age: 38 Procedure Date: 01/23/2024 Procedure Type: Transthoracic Echocardiogram Location: OP Height: 187.96 cm Weight: 247.21 kg BSA: 3.33 m2 Heart Rate: bpm BP: 130 / 70 mmHg Communication Spec: TO Referring MD: Emanuel Toscano MD Lap Runner: León James MD Symptoms: R06.02 - Shortness of breath Study Quality: Technically Difficult/Contrast ECG Rhythm: Sinus Conclusions: - 1. Technically limited study 2. Normal LV ejection fraction 55-60% with mild LVH with impaired relaxation filling pattern 3. Limited visualization of cardiac valve with normal cardiac valvular Doppler 4. Upper limits of normal ascending aortic size 5. No gross pericardial effusion Findings Procedure Information Contrast agent, definity, is being given per protocol without apparent complications. Left Ventricle Normal left ventricular size and systolic function. There is mildly increased left ventricular wall thickness. The visually estimated ejection fraction is between 55-60%. Spectral Doppler is indicative of an impaired relaxation filling pattern. E/E prime ratio is between 8 and 15 consistent with indeterminate filling pressures. Right Ventricle The right ventricle was not well visualized. Atria The left atrium is mildly dilated. Interatrial shunt cannot be excluded. The right atrium was not well visualized. Aortic Valve The aortic valve was not well visualized. There is no aortic valve stenosis. There is no aortic valve regurgitation. Mitral Valve The mitral valve was not well visualized. There is no mitral valve regurgitation. There is no mitral valve stenosis. Pulmonic Valve The pulmonic valve was not well visualized. Tricuspid Valve The tricuspid valve was not well visualized. Tricuspid regurgitation envelope is inadequate for calculation of right ventricular systolic pressure. Normal right atrial pressure. Great Vessels The aorta was not well visualized. The pulmonary artery was not well visualized. Venous The inferior vena cava is normal in size and collapses greater than 50% with inspiration. Pericardium/Pleural The pericardium was not well visualized. Measurements 2D Linear Measurements IVSd: 1.39 0.6-0.9/0.6-1.0 cm LVIDd: 5.94 3.9-5.3/4.2-5.9 cm LVIDd Index: 1.78 2.4-3.2/2.2-3.1 cm/m2 LVIDs: 3.75 2.0-3.6 cm LVPWd: 1.25 0.7-1.1 cm LA Diam: 4.90 2.7-3.8/3.0-4.0 cm LAIDs Index: 1.47 1.5-2.3 cm/m2 LV Mass: 438.93 67-162/88-224 g LV Mass Index: 131.81 43-95/49-115 g/m2 LVOT Diam: 2.40 3.0+(-)1.3 cm 2D Systolic Function EF 4C: 56.90 >55% Mitral Valve MV Pk E: 0.95 MV PK A: 0.35 MV Decel Time: 218.00 E/A: 2.70 E'Lateral: 11.90 E'Medial: 7.40 E/E' Med: 12.90 E/E' Lat: 8.00 PHT: 64.00 MVA PHT: 3.44 Decel Bailey: 4.37 Aortic Valve AoV Pk Jerod: 1.40 AoV Mn Jerod: 1.01 AoV VTI: 0.30 AoV Pk Grad: 8.00 Aov Mn Grad: 5.00 CHLUA Cont.VTI: 2.69 LVOT LVOT Pk Jerod: 0.85 LVOT Mn Jerod: 0.53 LVOT VTI: 0.18 LVOT Pk Grad: 3.00 LVOT Mn Grad: 1.00 LVOT Diam: 2.40 LVOT Area: 4.52 Diastolic Function MV Pk E: 0.95 MV Pk A: 0.35 E/A: 2.70 E'Medial: 7.40 E/E' Med: 12.90 E' Laterial: 11.90 E/E' Lat: 8.00 Right Ventricle TAPSE (mm): 24.60 TVS' Jerod: 13.30 Great Vessels Aorta Sinus of Valsalva: 3.43 2.0-3.5 cm Ao Asc: 3.50 2.1-3.4 cm Updated in Other Vendor System with Status of Final León James MD electronically signed on 01/24/2024 3:52:59 PM with status of Final
== END ==
LOC: HO.CARD 10:08
PROVIDERS: PCP Internal Medicine; Visit Provider Internal Medicine
DX: R06.02 Shortness of breath (principal); R00.2 Palpitations; I48.0 Paroxysmal atrial fibrillation
CPT/HCPCS: 93246; 93306; Q9957

== ENCOUNTER → 2024-01-23 10:18 | Outpatient (BNV) | payer OTHER, SELFPAY | PROVIDERS: PCP Internal Medicine; Visit Provider Internal Medicine Cardiovascular Disease | DX: I48.0 Paroxysmal atrial fibrillation (principal) | CPT/HCPCS: 93244; 93306 ==

== ENCOUNTER 2024-03-04 09:32 | Outpatient (AMB) | payer OTHER, SELFPAY ==
--- NOTE | 2024-03-04 09:33 | A.OFFVIS_ITS ---
Vital Signs 03/04/24 09:34 Height 6 ft 2 in Weight 541 lb 14.339 oz BMI 69.6 BP 140/80 H Blood Pressure Location Lt radial Position Sitting Pulse 78 Pulse Source Pulse Oximeter Intake Visit Reasons: 2 mth f/up echo/ holter/ HS Electrical Line Splicer Required: No Accompanied by: Self / Same As Patient Allergies ibuprofen [From Advil] Allergy (Verified 12/11/23 22:05) Shortness of Breath aspirin Adverse Reaction (Verified 12/11/23 22:05) Headache etanercept [From Enbrel] Adverse Reaction (Verified 12/11/23 22:05) Dizziness NSAIDS (Non-Steroidal Anti-Inflamma Adverse Reaction (Verified 12/11/23 22:05) Palpitations Medication List - Last Reconciled 03/04/24 by OLGA LIDIA Peñaloza acetaminophen 160 mg PO Q6H PRN albuterol sulfate 1 vial inhalation Q4H PRN albuterol sulfate 90 mcg/actuation (ProAir HFA) 2 puffs inhalation Q4-6H PRN alclometasone 0.05% 1 appl topical DAILY bupropion HCl XL 150 mg PO QAM cetirizine 5 mg PO DAILY PRN cholecalciferol (vitamin D3) 1,250 mcg PO QWEEK clonidine HCl 0.1 mg PO BID cyclobenzaprine 10 mg PO BID PRN cyclobenzaprine 7.5 mg PO TID PRN dextroamphetamine-amphetamine 20 mg 1 tab PO DAILY dicyclomine 10 mg PO TID PRN diltiazem HCl CD 120 mg PO DAILY ergocalciferol (vitamin D2) 1,250 mcg PO QWEEK ferrous sulfate 1 tab PO DAILY folic acid 1 tab PO DAILY gabapentin 100 mg PO TID PRN hydroxyzine HCl 12.5 - 25 mg PO BID PRN lidocaine 5% 1 patch topical DIRECTED loratadine 1 tab PO DAILY PRN meclizine 25 mg PO BID PRN melatonin 5 mg PO BEDTIME PRN mirtazapine 3.75 - 7.5 mg PO BEDTIME PRN omeprazole 1 cap PO DAILY@0630 PRN prednisone mg PO sennosides-docusate sodium 8.6-50 mg (Senexon-S) 1 tab PO BID PRN tramadol 1 tab PO DAILY PRN trazodone 50 - 100 mg PO BEDTIME PRN triamcinolone acetonide 0.1% 1 appl topical DAILY HPI HPI 2 mth f/up echo/ holter/ HS: Details: Michael is a 38-year-old male with past medical history of super morbid obesity, obstructive sleep apnea with CPAP use, paroxysmal atrial fibrillation who presents for follow-up after recent echocardiogram and Holter monitor. Today he reports that he will feel heart palpitations proximally every other day lasting seconds to minutes. He describes it as a more rapid, strong, irregular beating pattern that occurs randomly. He will notice some discomfort in his chest at that time. No chest discomfort at other times. He does get short of breath with activity which he relates to his weight. He has sleep apnea and reports compliance with his mask. No dizziness, presyncope, syncope, falls. He has chronic issues with back pain and left leg pain from a prior accident. He ambulates with a cane. Admits to taking multiple medications daily to help manage his discomfort. He is not able to work. He tells me he is interested in the bariatric program however the referrals have never gone through. He has not received any calls from that department. [facility] Medical History (Updated 03/04/24 @ 10:21 by Urszula May NP-C) Severe obesity (BMI >= 40) New onset a-fib Hx of fracture of femur Sleep apnea Habitual snoring Asthma Renal and ureteric calculus Obesity Surgical History History of surgery on lower extremity S/P cystoscopy with ureteral stent placement History of cystoscopy [place] teeth extracted Family History Mother Family history of thyroid problem Social History Household Members: Spouse and Family Housing: House Do you presently have visiting nurse or other home services: No Patient Tobacco Use Status: Former Tobacco user Tobacco use type: Cigarette e-Cigarette/Vaping Use: Former Use service: No Current occupational status: employed Review of Systems Const All systems reviewed & are unremarkable except as noted in HPI and below Denies chills, Denies fatigue, Denies fever(s), Denies frequent falls, Denies weakness, Reports weight gain and Denies weight loss ENT Denies dizziness Card Details: heart palpitations Denies chest pain, Reports rapid heart rate, Reports irregular heart rhythm, Denies leg edema, Denies lightheadedness, Denies palpitations, Denies dyspnea and Reports dyspnea on exertion Resp Denies cough, Denies dyspnea and Reports dyspnea on exertion GI Reports abdominal pain (upper abdominal discomfort - he relates to possible gall stones) and Denies hematochezia Musc Details: Chronic low back/ hip discomfort Reports abnormal gait (uses cane), Reports back pain, Reports myalgias, Denies muscle weakness, Denies numbness, Denies radiating pain into limb and Denies tingling Neuro Reports abnormal gait (uses cane), Denies dizziness, Denies frequent falls, Denies numbness, Denies tingling and Denies weakness Endo Denies fatigue and Denies palpitations Physical Exam Vital Signs: Last Vital Signs Pulse 78 03/04/24 09:34 BP 140/80 H 03/04/24 09:34 BMI result Body Mass Index 69.6 Const Other: super mobid obesity General: cooperative and no acute distress Orientation/consciousness: patient oriented x3 Resp Other: lung sounds diminished Effort & Inspection: normal respiratory effort Auscultation: clear to auscultation bilaterally, no rales, no rhonchi and no wh eezes Cardio Other: heart tones distant Rate: regular rate Rhythm: regular rhythm Heart sounds: S1 normal heart sound present, S2 normal heart sound present, no murmurs and no rubs Neuro General: patient oriented x3 Extrem Other: 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 He was put on low-dose diltiazem for heart rate control. He was not put on anticoagulation as CHADS- VASc score was 0. He was seen in cardiology consultation but did not present for follow-up again until recently. He does report having heart palpitations lasting seconds to minutes approximately every other day, with a discomfort in his chest causing concern. Holter monitor was done on 01/23/2024 for 3 days showing sinus rhythm with average heart rate 77, rare ectopy. An echocardiogram done 01/23/2024 shows technically limited study, EF 55-60%, mild LVH. His blood pressure today is mildly elevated. He does have sleep apnea and reports co mpliance with his mask. His description of palpitations do sound like PAF. His super morbid obesity is likely a contributing factor to his AFib. He would benefit from significant weight loss. His BMI is currently 69.6. He says he is interested in the bariatric program but referrals have not gone through for unclear reason. His PCP is outside of our system. I will take the liberty to refer him [place] [facility] at his request. His blood pressure is mildly elevated. With his age, weight and symptoms of palpitations I will increase his diltiazem dose up to 240 mg daily from 120 mg daily with the intent of improving blood pressure and heart palpitations. Instructed to call if he has any new or concerning symptoms. Emergency care if ever needed for sustained rapid heart palpitations. Cardiology follow-up 3 months, sooner if needed. (2) Palpitations: Code(s): R00.2 - Palpitations Category: Medical Plan: As above (3) Severe obesity (BMI >= 40): Code(s): E66.01 - Morbid (severe) obesity due to excess calories Category: Medical Plan: Referring to bariatric program (4) Sleep apnea: Comment: emanuel uses cpap Code(s): G47.30 - Sleep apnea, unspecified Category: Medical Plan: As above Plan Time spent on chart review, documentation, interview and assessment Orders: Referrals Bariatric Surgery Referral E66.01 - Morbid (severe) obesity due to excess calories Medications: New diltiazem HCl CD Dose increase 240 mg PO DAILY 30 caps 5RF Discontinued diltiazem HCl CD Discontinued Reason: Doctor's Order 120 mg PO DAILY 30 caps 0RF Coding Level of Care Code Est Pt Level 4 (00208) Diagnoses PAF (paroxysmal atrial fibrillation) I48.0 Palpitations R00.2 Severe obesity (BMI >= 40) E66.01 Sleep apnea G47.30 Time Spent (min) 30
[2024-03-04 09:34] VITALS: BP 140/80; PULSE 78; BMI 69.6
== END 2024-03-04 10:02 | disposition home or self-care (01) ==
PROVIDERS: PCP Internal Medicine; Visit Provider Nurse Practitioner Family
DX: I48.0 Paroxysmal atrial fibrillation (principal); R00.2 Palpitations; E66.01 Morbid (severe) obesity due to excess calories; G47.30 Sleep apnea, unspecified
CPT/HCPCS: 99214

== ENCOUNTER → 2024-03-04 09:32 | Outpatient (BNVA) | payer OTHER, SELFPAY | PROVIDERS: PCP Internal Medicine; Visit Provider Nurse Practitioner Family | DX: I48.0 Paroxysmal atrial fibrillation (principal); R00.2 Palpitations; G47.30 Sleep apnea, unspecified; E66.01 Morbid (severe) obesity due to excess calories; Z68.44 Body mass index [BMI] 60.0-69.9, adult | CPT/HCPCS: 99212 ==

== ENCOUNTER → 2024-03-10 08:07 | Outpatient (BNVA) | payer OTHER, SELFPAY | PROVIDERS: PCP Internal Medicine; Visit Provider Surgery ==

== ENCOUNTER 2024-04-22 09:07 | Outpatient (AMB) | payer OTHER, SELFPAY ==
--- NOTE | 2024-04-22 09:09 | A.OFFVIS_ITS ---
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: No Allergies ibuprofen [From Advil] Allergy (Verified 04/22/24 09:21) Shortness of Breath aspirin Adverse Reaction (Verified 04/22/24 09:21) Headache etanercept [From Enbrel] Adverse Reaction (Verified 04/22/24 09:21) Dizziness NSAIDS (Non-Steroidal Anti-Inflamma Adverse Reaction (Verified 04/22/24 09:21) Palpitations Medication List - Last Reconciled 04/22/24 by ADOLPH Rooney acetaminophen ER 650 mg PO Q8H albuterol sulfate 1 vial inhalation Q4H PRN albuterol sulfate 90 mcg/actuation (ProAir HFA) 2 puffs inhalation Q4-6H PRN alclometasone 0.05% 1 appl topical DAILY bupropion HCl XL 150 mg PO QAM cholecalciferol (vitamin D3) 1,250 mcg PO QWEEK clonidine HCl 0.1 mg PO BID cyclobenzaprine 10 mg PO BID PRN cyclobenzaprine 7.5 mg PO TID PRN dexamethasone 4 mg PO DAILY dextroamphetamine-amphetamine 10 mg (Adderall) 10 mg PO DAILY dextroamphetamine-amphetamine 15 mg ER (Adderall XR) 1 cap PO DAILY dextroamphetamine-amphetamine 20 mg 1 tab PO DAILY dextroamphetamine-amphetamine 20 mg ER (Adderall XR) 1 cap PO QAM dicyclomine 10 mg PO TID PRN diltiazem HCl CD 240 mg PO DAILY ergocalciferol (vitamin D2) 1,250 mcg PO QWEEK famotidine 20 mg PO DAILY ferrous sulfate 1 tab PO DAILY folic acid 1 tab PO DAILY hydrochlorothiazide 12.5 mg PO DAILY hydroxyzine HCl 12.5 - 25 mg PO BID PRN lidocaine 5% 1 patch topical DIRECTED loratadine 1 tab PO DAILY PRN meclizine 25 mg PO BID PRN melatonin 5 mg PO BEDTIME PRN metoprolol succinate ER 25 mg PO DAILY mirtazapine 3.75 - 7.5 mg PO BEDTIME PRN omeprazole 1 cap PO DAILY@0630 PRN sennosides-docusate sodium 8.6-50 mg (Senexon-S) 1 tab PO BID PRN tramadol 1 tab PO DAILY PRN trazodone 50 - 100 mg PO BEDTIME PRN triamcinolone acetonide 0.1% 1 appl topical DAILY HPI Comments Details: Pt is here to start the [facility] Weight Management surgical weight loss program. His goal is to lose weight and achieve a healthy lifestyle as well as to improve, if not resolve, obesity related medical conditions, including emanuel, htn. He reports first being concerned about his weight 10 + years, highest weight to date was 545. Current weight is 545 pounds with a BMI of 70. He has tried multiple methods of weight loss including fad diets without permanent results. He lives with his and kids. He does not work. He wakes at:?5 am, and goes to bed at?10 pm. Dinner is at 6 pm. Breakfast: egg and bread, coffee 3 sugar, 3 cream, 3 pump caramel AM snack: donut Lunch: HB eggs, sandwich PM snack: salad Dinner: rice beans, meat, mac and cheese, pork shoulder, mashed potato After dinner: chips, Other snacks: little daniela Liquids: 160 oz water, 36 oz fadia preet, or orange, jody, or marina, 24 oz juice Alcohol/marijuana/tobacco intake: rare etoh, no cannabis, no tobacco Exercise: [employer] swimming 1 x per week GERD score: 45 CHAPIS score: 24 ESS score: 0 QOL score: 111 PFSH Medical History Severe obesity (BMI >= 40) New onset a-fib Hx of fracture of femur Sleep apnea Habitual snoring Asthma Renal and ureteric calculus Obesity Surgical History History of surgery on lower extremity S/P cystoscopy with ureteral stent placement History of cystoscopy [place] teeth extracted Family History Mother Family history of thyroid problem Social History Household Members: Spouse and Family Housing: House Do you presently have visiting nurse or other home services: No Alcohol intake: never Patient Tobacco Use Status: Former Tobacco user Tobacco use type: Cigarette e-Cigarette/Vaping Use: Former Use service: No Current occupational status: employed Physical Exam Const General: cooperative, healthy appearing and no acute distress Orientation/consciousness: patient oriented x3 HEENT Head: Yes normal to inspection Ears: hearing grossly normal bilaterally General nose exam: Normal external nose present Face and sinus: Yes normal facial exam Eyes General: appearance normal, both eyes and all related structures Resp Effort & Inspection: normal respiratory effort Auscultation: clear to auscultation bilaterally Cardio Rate: regular rate Rhythm: regular rhythm Heart sounds: S1 normal heart sound present and S2 normal heart sound present GI Inspection: Yes normal to inspection, No distended and Yes obesity Palpation (GI): Soft to palpation, nontender and no guarding Auscultation: normal bowel sounds Skin General skin exam: no rashes or lesions noted Neuro General: patient oriented x3 Extrem General: Yes edema and Yes venous stasis dermatitis Psych Appearance: grossly normal Mental Status: mental status grossly normal Speech and movement: Normal speech and movement present Affect: normal affect Attitude: cooperative Assessment & Plan Assessment & Plan (1) Morbid obesity: Code(s): E66.01 - Morbid (severe) obesity due to excess calories Category: Medical Plan: This is a?38 yo male who will start our SWL program to prepare for bariatric surgery.? Blood work, CXR, ECG, Abd US and UGI have been ordered. She is being scheduled for initial consultations. She will start SWL classes and watch the first three videos before her next appointment. 1. You have been given a paper with a link to our software brown (The [employer]) to generate an individualized nutritional and exercise plan specific for you. Please send me a screenshot of the plans you will generate Meal to include lean meat (beef, fish, pork, turkey, chicken), or azeri yogurt, or egg whites, or beans with a salad with olive oil and fruits (berries, pears, apples, kiwi). Avoid salt, breads, potatoes, rice, pasta, desserts. 2. If you choose shakes, each shake would be drunk slowly, like coffee over a period of 2 hours. 3. If you choose bars, cut each bar in 4 pieces and eat each piece in 30 min to make each bar last 2 hours. 4. I emphasized the importance of measuring accurately the food portion and measure it when serving the food on a plate 5. The meal portions include a specific number of forks of meat (protein) and salad. You always eat the meat portion but you can replace up to half of salad/vegetables portion with rice, potatoes or pasta, or a fruit ?if you like. The less you do it the better weight loss will be. 6. One full-size fork is what can be scooped on the fork without falling aside and not what can be bit with the fork. Use regular forks like those you find in a typical restaurant. 7.? Please call the office to arrange for a time to come in to get weighed once every 2 weeks. 8. The best choice for exercise would be walking in the pool and treadmill at [facility]. Alternatively start walking outside daily, tracking calories with a goal of 300 calories per day, daily. You can download the brown [employer] which can track your time, distance and calories while walking outside. You press start in the brown when you start and then stop when you are finished. 9.?Goal is to lose at least 2-3 lbs per week, and about 145 pounds before surgery. 10. Please follow the diet plan exactly without any change. If you don't like something about the plan or you feel hungry you need to communicate with me so I can help you revise the plan. My cell phone number to communicate with me by text is [phone] Patient is morbidly obese and is not considered stable at this time.?I spent a total of 70 minutes reviewing/updating records, examining the patient and counseling the patient on weight management as detailed above. Orders: Orders Insulin Today E66.01 - Morbid (severe) obesity due to excess calories, I10 - Essential (primary) hypertension Complete Blood Count Auto Diff Today E66.01 - Morbid (severe) obesity due to excess calories, I10 - Essential (primary) hypertension IRON PROFILE Today E66.01 - Morbid (severe) obesity due to excess calories, I10 - Essential (primary) hypertension Zinc Today E66.01 - Morbid (severe) obesity due to excess calories, I10 - Essential (primary) hypertension Vitamin B1 Today E66.01 - Morbid (severe) obesity due to excess calories, I10 - Essential (primary) hypertension Vitamin A Today E66.01 - Morbid (severe) obesity due to excess calories, I10 - Essential (primary) hypertension TSH reflex Free T4 Today E66.01 - Morbid (severe) obesity due to excess calories, I10 - Essential (primary) hypertension Vitamin D 25-OH Total Today E66.01 - Morbid (severe) obesity due to excess calories, I10 - Essential (primary) hypertension US abdomen comp w elastography Today E66.01 - Morbid (severe) obesity due to excess calories, I10 - Essential (primary) hypertension XR chest 2V Today E66.01 - Morbid (severe) obesity due to excess calories, I10 - Essential (primary) hypertension ECG 12 lead EKG Today E66.01 - Morbid (severe) obesity due to excess calories, I10 - Essential (primary) hypertension Hemoglobin A1c Today E66.01 - Morbid (severe) obesity due to excess calories, I10 - Essential (primary) hypertension H Pylori Breath Test Today E66.01 - Morbid (severe) obesity due to excess calories, I10 - Essential (primary) hypertension Lipid Panel Today E66.01 - Morbid (severe) obesity due to excess calories, I10 - Essential (primary) hypertension Comprehensive Met. Panel Today E66.01 - Morbid (severe) obesity due to excess calories, I10 - Essential (primary) hypertension Vitamin B12 and Folate Today E66.01 - Morbid (severe) obesity due to excess calories, I10 - Essential (primary) hypertension C Reactive Protein Today E66.01 - Morbid (severe) obesity due to excess calories, I10 - Essential (primary) hypertension Ferritin Today E66.01 - Morbid (severe) obesity due to excess calories, I10 - Essential (primary) hypertension FL upper GI w air Today E66.01 - Morbid (severe) obesity due to excess calories, I10 - Essential (primary) hypertension Referrals Behavioral Health Referral E66.01 - Morbid (severe) obesity due to excess calories, I10 - Essential (primary) hypertension
[2024-04-22 09:19] VITALS: PULSE 83; TEMP 35.7; O2SAT 91; BMI 70.0
== END 2024-04-22 09:57 | disposition home or self-care (01) ==
PROVIDERS: PCP Internal Medicine; Visit Provider Physician Assistant Surgical
DX: E66.01 Morbid (severe) obesity due to excess calories (principal); Z68.45 Body mass index [BMI] 70 or greater, adult
CPT/HCPCS: 99205

== ENCOUNTER 2024-04-22 09:07 | Outpatient (REF) | payer OTHER, SELFPAY ==
--- NOTE | ~2024-04-22 | XR_ITS ---
EXAMINATION: XR CHEST 2 VIEWS CLINICAL INFORMATION: Morbid obesity. COMPARISON: Chest radiographs dated 12/11/2023; CTA chest dated 11/12/2022. TECHNIQUE: Frontal and lateral views of the chest were obtained. FINDINGS: The heart, great vessels, pulmonary vasculature and mediastinum are normal. The lungs show no focal infiltrate, effusion or pneumothorax. There is no acute osseous abnormality. XR/XR chest 2V IMPRESSION: No active cardiopulmonary disease. Electronically signed by: Drew Ndiaye MD 05/19/2024 02:59 PM EDT
--- NOTE | 2024-04-22 10:04 | ECG_ITS ---
Test Reason : e66.01 Blood Pressure : / mmHG Vent. Rate : 061 BPM Atrial Rate : 061 BPM P-R Int : 130 ms QRS Dur : 086 ms QT Int : 370 ms P-R-T Axes : 064 050 048 degrees QTc Int : 372 ms Normal sinus rhythm Normal ECG When compared with ECG of 11-DEC-2023 21:55, Vent. rate has decreased BY 32 BPM QT has shortened Referred By: Julio Sidhu Electronically Signed By:SAE MORGAN
[2024-04-22 10:17] LABS: MANUAL DIFF FLAG NO
[2024-04-22 10:51] LABS: Basophils Percent Auto 0.3 % (0-2); Eosinophils Absolute Auto 0.3 X10*3/uL (0.0-0.4); Hematocrit 36.2 % (42.0-52.0); Hemoglobin 11.5 g/dl (14.0-18.0); Imm Gran Abs Auto 0.09 X10*3/uL (0.00-0.03); Imm Gran Pct Auto 0.7 % (0.0-0.4); Lymphocytes Absolute Auto 2.6 X10*3/uL (1.2-4.9); Lymphocytes Percent Auto 21.3 % (20-40); Mean Corpuscular HGB Conc 31.8 g/dl (31.0-36.0); Monocytes Absolute Auto 0.8 X10*3/uL (0.1-1.2); Monocytes Percent Auto 6.5 % (2-11); Neutrophils Absolute Auto 8.6 x10*3/uL (2.0-8.3); Neutrophils Percent Auto 69.2 % (45-73); Platelet Count 317 X10*3/uL (160-400); Red Blood Count 4.26 X10*6/uL (4.60-5.80); Red Cell Distribution Width 15.5 % (11.0-16.0); White Blood Count 12.4 X10*3/uL (4.8-10.8)
[2024-04-22 11:11] LABS: Estimated Average Glucose 111 mg/dL; Hemoglobin A1c % 5.5 % (<6.0)
[2024-04-22 12:01] LABS: Alanine Aminotransferase 23 U/L (0-40); Albumin Level 3.6 g/dL (3.5-5.0); Alkaline Phosphatase 85 U/L (39-117); Anion Gap 10 (12-20); Aspartate Amino Transferase 12 U/L (5-37); Bilirubin Total 0.6 mg/dL (0.0-1.0); Blood Urea Nitrogen 13 mg/dL (9-16); C Reactive Protein 5.01 mg/dL (< or = 0.50); Carbon Dioxide 28 mmol/L (22-29); Chloride 108 mmol/L (96-108); Cholesterol 155 mg/dL (<200); Estimated Glomerular Filt Rate > 60; Glucose Random 117 mg/dL (60-115); HDL Cholesterol 48 mg/dL (>40); Iron 37 mcg/dL (45-160); LDL Cholesterol Calculated 94 mg/dL (<100); Percent Iron Saturation 15 % (15-50); Potassium 3.9 mmol/L (3.3-5.1); Sodium 142 mmol/L (135-145); Total Iron Binding Capacity 243 mcg/dL (228-428); Total Protein 7.1 g/dL (6.5-8.0); Triglycerides 66 mg/dL (<150); Unsaturated Iron Binding 206 ug/dL
[2024-04-22 12:25] LABS: Ferritin 221 ng/mL (20-250); TSH reflex Free T4 1.43 uIU/mL (0.32-4.0); Vitamin D 25-OH Total 11.6 ng/mL (>30)
[2024-04-22 12:30] LABS: Folate 4.2 ng/mL (> or = 4.0); Vitamin B12 390 pg/mL (200-900)
[2024-04-22 12:41] LABS: Insulin 72 uU/mL (2-29)
[2024-04-27 09:29] LABS: Zinc 55 mcg/dL (60-130)
== END 2024-04-22 09:08 | disposition home or self-care (01) ==
LOC: HO.XRAY 09:07
PROVIDERS: PCP Internal Medicine; Visit Provider Physician Assistant Surgical
DX: Z01.818 Encounter for other preprocedural examination (principal); E66.01 Morbid (severe) obesity due to excess calories; I10 Essential (primary) hypertension
CPT/HCPCS: 36415; 71046; 80053; 80061; 82306; 82607; 82728; 82746; 83036; 83525; 83540; 84425; 84443; 84590; 84630; 85025; 86140; 93005; 99202

== ENCOUNTER → 2024-04-22 10:04 | Outpatient (BNV) | payer OTHER, SELFPAY | PROVIDERS: PCP Internal Medicine; Visit Provider Internal Medicine | DX: E66.01 Morbid (severe) obesity due to excess calories (principal) | CPT/HCPCS: 93010 ==

== ENCOUNTER → 2024-05-11 10:27 | Outpatient (BNVA) | payer OTHER, SELFPAY | PROVIDERS: PCP Internal Medicine; Visit Provider Physician Assistant Surgical ==

== ENCOUNTER 2024-05-11 13:11 | Outpatient (AMB) | payer OTHER, SELFPAY ==
--- NOTE | 2024-05-11 13:12 | A.OFFWM_ITS ---
Intake Intake Visit Reasons: VIDEO Intake Allergies ibuprofen [From Advil] Allergy (Verified 04/22/24 09:21) Shortness of Breath aspirin Adverse Reaction (Verified 04/22/24 09:21) Headache etanercept [From Enbrel] Adverse Reaction (Verified 04/22/24 09:21) Dizziness NSAIDS (Non-Steroidal Anti-Inflamma Adverse Reaction (Verified 04/22/24 09:21) Palpitations PFSH Medical History Severe obesity (BMI >= 40) New onset a-fib Hx of fracture of femur Sleep apnea Habitual snoring Asthma Renal and ureteric calculus Obesity Surgical History History of surgery on lower extremity S/P cystoscopy with ureteral stent placement History of cystoscopy [place] teeth extracted Family History Mother Family history of thyroid problem Social History Household Members: Spouse and Family Housing: House Do you presently have visiting nurse or other home services: No Alcohol intake: never Patient Tobacco Use Status: Former Tobacco user Tobacco use type: Cigarette e-Cigarette/Vaping Use: Former Use service: No Current occupational status: employed Behavioral Health Assessment Weight Management Therapy Therapy Notes Details PT is a 38 years old male, who presents for a visit to complete assessment as part of surgical weight loss program. PT reports he is interested in weight-loss surgery as this is the biggest he has been and in 2022 he injured while working and since then he is dealing with limited mobility due to pain, leading to more weight gain and more medical issues. He hopes to get his life back by accessing bariatric surgery surgery, and physical functioning and to be and feel healthier. PT not cleared today, as assessment was not finished. Presenting Concerns Referral Source P Provider. Reason for referral Completion of behavioral health assessment as part of process for weight-loss surgery. Precipitating Event Obesity and mobility impaired due to back injury that might need surgery but doctor won't operate due to weight. Living Situation Current Living Situation Rent At risk of losing current housing? No Satisfied with current living situation? No Comments PT lives with his and 5 children. Social History Family history and relationship PT is for 18 years. They have 5 children. Parents alive. PT has 4 sisters. PT reports good communication but not a relationship with them. 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 Developmental history and status Diagnosed with ADHD in childhood. He had an IEP for behavioral issues. Social support , children. 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 Cultural/Ethnic information PT was both in [place]. Moved [place] at age 9. Legal Involvement and History Current or historical involvement with the legal system? None reported. Education Highest grade completed HS Preferred learning style Auditory, Verbal, Written, Learn by doing and Visual Currently enrolled in educational program? No Interested in further educational program? 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 Employment Employment Status Unemployed (Injured in February/2023 and has been unemployeed since them. ) Wants help to find employment? No Meaningful activities Fishing, going out with friends/family, outdoor activities, video games and board games with family. Financial Situation Describe current financial situation Often struggles with finance (Applied for SSDI due to injury and physical issues. ) Financial assistance? Food [place] and Other ([employer] Service Service? No Mental Health and Addiction Treatment Current/Past substance abuse? No Comments Alcohol: None Cigarettes/Tobacco: None Cannabis/Edibles: None. Current/Past addictive behavior concerns? No Psychiatric history PT attended counseling while in school as he had an IEP for ADHD and was prescribed Adderall, Risperdal and other meds. Then, since he injured in 2022, he had a concussion and after that he has a hard time concentrating and has been forgetful. HE has been diagnosed with adult ADHD, anxiety and depression. He sees a therapist on a weekly basis and prescriber every month at [facility]. Symptom presentation ADHD: memory loss, unable to focus, feeling lost an unable to do things Anxiety: build up angry, being around people, has had panic-like symptoms, sensation of being overwhelmed. Pt states his symptoms and emotional health worsened after getting injured and had to be out of work. Current/active Psych meds: Melatonin 5mg, for sleep. Hydroxyzine 25mg for anxiety Adderall XR 20mg 1 in the morning for ADHD Adderall 20mg 1 in the afternoon. Klonopin 1mg 1 at day as needed. (unsure of dosage) PT denies ever been in crisis or inpatient for . Denies any risk concern aroind self-harm and/or other-harm. Pain Screening Current pain? Yes Pain in the last few months? Yes Comments PT has back and leg pain. Pain is from the time he wakes up until bedtime. Has a hard time to standing and with personal care due to pain and his weight. Assessment & Plan Assessment & Plan (1) Adjustment disorder with anxious mood: Code(s): F43.22 - Adjustment disorder with anxiety (2) ADHD (attention deficit hyperactivity disorder): Code(s): F90.9 - Attention-deficit hyperactivity disorder, unspecified type Plan Meet again on 05/31/24 at 1pm to continue assessment. PT will need a letter from providers with list of medication, diagnosis and prognosis as he was not sure of this. Telehealth Telehealth Telehealth Platform: [facility] Location of provider rendering services: other (home office. [place], [place]) Location of patient: address on file Patient Identification confirmed using: Name, : Yes Telehealth method: video Patient verbally consented to treatment: Yes Patient verbally consented to billing insurance company: Yes Patient informed of any privacy concerns related to visit: No Minutes spent on Phone/Video with Pt.: 65 Coding Level of Care Code New Pt Tele Psy Diag Russell ([id number]) Patient Type New Diagnoses Adjustment disorder with anxious mood F43.22 ADHD (attention deficit hyperactivity disorder) F90.9 Time Spent (min) 65
== END 2024-05-11 15:14 | disposition home or self-care (01) ==
LOC: HO.HBST 13:12
PROVIDERS: PCP Internal Medicine; Visit Provider Counselor Mental Health
DX: F43.22 Adjustment disorder with anxiety (principal); F90.9 Attention-deficit hyperactivity disorder, unspecified type
CPT/HCPCS: 90791

== ENCOUNTER 2024-05-28 10:00 | Outpatient (AMB) | payer OTHER, SELFPAY ==
--- NOTE | 2024-05-28 10:20 | A.OFFVIS_ITS ---
Intake Visit Reasons: TV F/U SWL Allergies ibuprofen [From Advil] Allergy (Verified 04/22/24 09:21) Shortness of Breath aspirin Adverse Reaction (Verified 04/22/24 09:21) Headache etanercept [From Enbrel] Adverse Reaction (Verified 04/22/24 09:21) Dizziness NSAIDS (Non-Steroidal Anti-Inflamma Adverse Reaction (Verified 04/22/24 09:21) Palpitations HPI Comments Details: Patient is a 38-year-old male who returns to the office in follow-up for surgical weight loss management. He was initially seen on 04/22/2024 with a weight of 545 lb and a BMI of 70. Weight today is 522.8 lb with a BMI of 67.2. This corresponds to 22.2 lb weight loss or 4.07% total body weight loss. Using [employer] BMI brown, he has been using celebrate 4 in 1. shakes and a meal 4 shakes with celebrate 4 in 1, 2.5 scoops in 8 oz of low-fat coconut milk Meal with 20 forks protein and 20 forks veggies Another shake Exercise, walking w use of walker and cane going to driveway and then back into house 3 x per day swim at [facility] Medical History Severe obesity (BMI >= 40) New onset a-fib Hx of fracture of femur Sleep apnea Habitual snoring Asthma Renal and ureteric calculus Obesity Surgical History History of surgery on lower extremity S/P cystoscopy with ureteral stent placement History of cystoscopy [place] teeth extracted Family History Mother Family history of thyroid problem Social History Household Members: Spouse and Family Housing: House Do you presently have visiting nurse or other home services: No Alcohol intake: never Patient Tobacco Use Status: Former Tobacco user Tobacco use type: Cigarette e-Cigarette/Vaping Use: Former Use service: No Current occupational status: employed Telehealth Telehealth Telehealth Platform: Telephone Location of provider rendering services: practice address Location of patient: address on file Patient Identification confirmed using: Name, : Yes Telehealth method: voice only Patient verbally consented to treatment: Yes Patient verbally consented to billing insurance company: Yes Patient informed of any privacy concerns related to visit: Yes Minutes spent on Phone/Video with Pt.: 15 Assessment & Plan Assessment & Plan (1) Morbid obesity: Code(s): E66.01 - Morbid (severe) obesity due to excess calories Category: Medical Plan: Discussed not using celebrate 4 in 1 as he is having too much product given the vitamins and minerals that are in the supplement. Recommend switching to either celebrate rebuild or Premier protein or Atkins + ready to drink shakes. He states that he will look into this. At the very least switching away from the celebrate 4 in . Additionally, discussed the importance of increasing exercise. He is using his cane or walker to go from his house to his driveway and back, 3 times daily. Recommend increasing this to at least 6 times daily. He additionally reports going to the [facility] to swim. He has only done this twice this week as he has not been feeling very well. Encouraged to increase this time and frequency. We will have him follow-up in the office in approximately 3-4 weeks
== END 2024-05-28 13:50 | disposition home or self-care (01) ==
LOC: HO.HBS 10:30
PROVIDERS: PCP Internal Medicine; Visit Provider Physician Assistant Surgical
DX: E66.01 Morbid (severe) obesity due to excess calories (principal)
CPT/HCPCS: 99213

== ENCOUNTER → 2024-05-28 10:00 | Outpatient (BNVA) | payer OTHER, SELFPAY | PROVIDERS: PCP Internal Medicine; Visit Provider Physician Assistant Surgical ==

== ENCOUNTER 2024-06-08 07:03 | Day surgery (SDC) | payer OTHER, SELFPAY ==
--- NOTE | 2024-06-04 14:17 | HO.ANESPROP2 ---
Documented by User: Anupama Conner NP 06/04/24 14:23 HPI - Anesthesia Eval Consult details Narrative: 38yo M for Upper Endoscopy BMI 70 Hx afib, no OAC - seen as new patient to [facility] cardiology 12/2023 with testing done [facility] Active Problems Active Problems: All Active Problems Adjustment disorder with anxious mood (Acute) HTN (hypertension) (Acute) Sleep apnea (Acute) Severe obesity (BMI >= 40) (Acute) Morbid obesity (Acute) PAF (paroxysmal atrial fibrillation) (Acute) Renal stones (Acute) Left flank pain (Acute) Past Medical History Medical History Severe obesity (BMI >= 40) New onset a-fib Hx of fracture of femur Sleep apnea Habitual snoring Asthma Renal and ureteric calculus Obesity Family History Family History Mother Family history of thyroid problem Family history of problems with anesthesia: No Surgical History Surgical History History of surgery on lower extremity S/P cystoscopy with ureteral stent placement History of cystoscopy [place] teeth extracted History of Problems with Anesthesia: No Social History Social History Household Members: Spouse and Family Housing: House Are you a primary memory care program director to a significant other at home: No Do you presently have visiting nurse or other home services: No Alcohol intake: never Patient Tobacco Use Status: Former Tobacco user Tobacco use type: Cigarette Cigarette Packs Per Day: 1 Cigarettes Per Day: 20.0 Smoked in Last 30 Days: No e-Cigarette/Vaping Use: Former Use Use of substances other than those prescribed or required for medical reasons: No Have you been hit, kicked, punched, or otherwise hurt by someone within the past year? If so, by whom?: No Are you DNR?: No Advance Directives: No Advance Directives Information Provided: Yes Recently lost weight without trying: No How much weight loss: Not applicable Eating poorly because of decreased appetite: No Nutrition screen score: 0 Nutrition Risks: No Nutritional Risk Poor oral hygiene: No service: No Current occupational status: employed Meds Allergies Allergy/AdvReac Type Severity Reaction Status Date / Time ibuprofen [From Advil] Allergy Shortness Verified 06/08/24 07:39 of Breath aspirin AdvReac Headache Verified 06/08/24 07:39 etanercept [From Enbrel] AdvReac Dizziness Verified 06/08/24 07:39 NSAIDS (Non-Steroidal AdvReac Palpitation Verified 06/08/24 07:39 Anti-Inflamma s Home Medications ?Medication ?Instructions ?Recorded ?Confirmed ?Last Taken ?Type albuterol sulfate 2.5 mg/3 mL 1 vial inhalation Q4H PRN wheezing 09/07/22 06/08/24 09/21/22 History (0.083 %) solution for nebulization albuterol sulfate 90 mcg/actuation 2 puff inhalation Q4-6H PRN 09/07/22 06/08/24 09/23/22 History aerosol inhaler (ProAir HFA) Shortness Of Breath Or Wheezing omeprazole 40 mg capsule,delayed 1 cap PO DAILY@0630 PRN Heartburn 09/07/22 06/08/24 09/22/22 History release alclometasone 0.05 % topical cream 1 appl topical DAILY 11/12/22 06/08/24 Unknown History folic acid 1 mg tablet 1 tab PO DAILY 11/12/22 06/08/24 Unknown History loratadine 10 mg tablet 1 tab PO DAILY PRN Allergy Symptoms 11/12/22 06/08/24 Unknown History triamcinolone acetonide 0.1 % 1 appl topical DAILY 11/12/22 06/08/24 Unknown History topical cream bupropion HCl 150 mg 24 hr tablet, 150 mg PO QAM depressive disorder 01/05/24 06/08/24 Unknown History extended release clonidine HCl 0.1 mg tablet 0.1 mg PO BID anxiety 01/05/24 06/08/24 Unknown History cyclobenzaprine 5 mg tablet 10 mg PO BID PRN muscle spasm 01/05/24 06/08/24 Unknown History cyclobenzaprine 7.5 mg tablet 7.5 mg PO TID PRN muscle spasm 01/05/24 06/08/24 Unknown History dextroamphetamine-amphetamine 20 1 tab PO DAILY 01/05/24 06/08/24 Unknown History mg tablet dicyclomine 10 mg capsule 10 mg PO TID PRN abdominal pain 01/05/24 06/08/24 Unknown History ergocalciferol (vitamin D2) 1,250 1,250 mcg PO QWEEK 01/05/24 06/08/24 Unknown History mcg (50,000 unit) capsule hydroxyzine HCl 25 mg tablet 12.5 - 25 mg PO BID PRN anxiety 01/05/24 06/08/24 Unknown History lidocaine 5 % topical patch 1 patch topical DIRECTED 01/05/24 06/08/24 Unknown History meclizine 25 mg tablet 25 mg PO BID PRN dizziness 01/05/24 06/08/24 Unknown History melatonin 5 mg tablet 5 mg PO BEDTIME PRN insomnia 01/05/24 06/08/24 Unknown History sennosides 8.6 mg-docusate sodium 1 tab PO BID PRN constipation 01/05/24 06/08/24 Unknown History 50 mg tablet (Senexon-S) acetaminophen 650 mg 650 mg PO Q8H 03/10/24 06/08/24 Unknown History tablet,extended release dexamethasone 4 mg tablet 4 mg PO DAILY 03/10/24 06/08/24 Unknown History dextroamphetamine-amphetamine 10 10 mg PO DAILY 03/10/24 06/08/24 Unknown History mg tablet (Adderall) dextroamphetamine-amphetamine ER 1 cap PO DAILY 03/10/24 06/08/24 Unknown History 15 mg 24hr capsule,extend release (Adderall XR) dextroamphetamine-amphetamine ER 1 cap PO QAM 03/10/24 06/08/24 Unknown History 20 mg 24hr capsule,extend release (Adderall XR) famotidine 20 mg tablet 20 mg PO DAILY 03/10/24 06/08/24 Unknown History hydrochlorothiazide 12.5 mg tablet 12.5 mg PO DAILY 03/10/24 06/08/24 05/10/24 History metoprolol succinate 25 mg 25 mg PO DAILY 03/10/24 06/08/24 Unknown History tablet,extended release 24 hr oxycodone 06/08/24 06/08/24 Unknown History Exam Pertinent Lab Results Pertinent Lab Results: Laboratory Tests 04/22/24 10:15 WBC 12.4 H Hgb 11.5 L Hct 36.2 L Plt Count 317 Sodium 142 Potassium 3.9 Chloride 108 Carbon Dioxide 28 BUN 13 Creatinine 0.77 Narrative Narrative: EKG 02/2024 Vent. Rate : 061 BPM Atrial Rate : 061 BPM P-R Int : 130 ms QRS Dur : 086 ms QT Int : 370 ms P-R-T Axes : 064 050 048 degrees QTc Int : 372 ms Normal sinus rhythm Normal ECG When compared with ECG of 11-DEC-2023 21:55, Vent. rate has decreased BY 32 BPM QT has shortened ECHO 01/2024 Conclusions: - 1. Technically limited study 2. Normal LV ejection fraction 55-60% with mild LVH with impaired relaxation filling pattern 3. Limited visualization of cardiac valve with normal cardiac valvular Doppler 4. Upper limits of normal ascending aortic size 5. No gross pericardial effusion Holter 01/2024 1. Patient was monitored for total period of 2 days and 20 hours 2. Baseline was normal sinus rhythm with average heart rate of 77 beats per minute 3. No significant pauses noted 4. Rare ectopy noted 5. No patient reported events Assessment and Plan Assessment Anesthesia Assessment: Chart Reviewed Final Anesthetic Review Family History of Problems with Anesthesia: No History of Problems with Anesthesia: No Documented by User: Karina Tony MD 06/08/24 07:59 PMFSH Past Medical History Medical History Severe obesity (BMI >= 40) New onset a-fib Hx of fracture of femur Sleep apnea Habitual snoring Asthma Renal and ureteric calculus Obesity Family History Family History Mother Family history of thyroid problem Surgical History Surgical History History of surgery on lower extremity S/P cystoscopy with ureteral stent placement History of cystoscopy [place] teeth extracted Social History Social History Household Members: Spouse and Family Housing: House Are you a primary memory care program director to a significant other at home: No Do you presently have visiting nurse or other home services: No Alcohol intake: never Patient Tobacco Use Status: Former Tobacco user Tobacco use type: Cigarette Cigarette Packs Per Day: 1 Cigarettes Per Day: 20.0 Smoked in Last 30 Days: No e-Cigarette/Vaping Use: Former Use Use of substances other than those prescribed or required for medical reasons: No Have you been hit, kicked, punched, or otherwise hurt by someone within the past year? If so, by whom?: No Are you DNR?: No Advance Directives: No Advance Directives Information Provided: Yes Recently lost weight without trying: No How much weight loss: Not applicable Eating poorly because of decreased appetite: No Nutrition screen score: 0 Nutrition Risks: No Nutritional Risk Poor oral hygiene: No service: No Current occupational status: employed Meds Allergies Allergy/AdvReac Type Severity Reaction Status Date / Time ibuprofen [From Advil] Allergy Shortness Verified 06/08/24 07:39 of Breath aspirin AdvReac Headache Verified 06/08/24 07:39 etanercept [From Enbrel] AdvReac Dizziness Verified 06/08/24 07:39 NSAIDS (Non-Steroidal AdvReac Palpitation Verified 06/08/24 07:39 Anti-Inflamma s Home Medications ?Medication ?Instructions ?Recorded ?Confirmed ?Last Taken ?Type albuterol sulfate 2.5 mg/3 mL 1 vial inhalation Q4H PRN wheezing 09/07/22 06/08/24 09/21/22 History (0.083 %) solution for nebulization albuterol sulfate 90 mcg/actuation 2 puff inhalation Q4-6H PRN 09/07/22 06/08/24 09/23/22 History aerosol inhaler (ProAir HFA) Shortness Of Breath Or Wheezing omeprazole 40 mg capsule,delayed 1 cap PO DAILY@0630 PRN Heartburn 09/07/22 06/08/24 09/22/22 History release alclometasone 0.05 % topical cream 1 appl topical DAILY 11/12/22 06/08/24 Unknown History folic acid 1 mg tablet 1 tab PO DAILY 11/12/22 06/08/24 Unknown History loratadine 10 mg tablet 1 tab PO DAILY PRN Allergy Symptoms 11/12/22 06/08/24 Unknown History triamcinolone acetonide 0.1 % 1 appl topical DAILY 11/12/22 06/08/24 Unknown History topical cream bupropion HCl 150 mg 24 hr tablet, 150 mg PO QAM depressive disorder 01/05/24 06/08/24 Unknown History extended release clonidine HCl 0.1 mg tablet 0.1 mg PO BID anxiety 01/05/24 06/08/24 Unknown History cyclobenzaprine 5 mg tablet 10 mg PO BID PRN muscle spasm 01/05/24 06/08/24 Unknown History cyclobenzaprine 7.5 mg tablet 7.5 mg PO TID PRN muscle spasm 01/05/24 06/08/24 Unknown History dextroamphetamine-amphetamine 20 1 tab PO DAILY 01/05/24 06/08/24 Unknown History mg tablet dicyclomine 10 mg capsule 10 mg PO TID PRN abdominal pain 01/05/24 06/08/24 Unknown History ergocalciferol (vitamin D2) 1,250 1,250 mcg PO QWEEK 01/05/24 06/08/24 Unknown History mcg (50,000 unit) capsule hydroxyzine HCl 25 mg tablet 12.5 - 25 mg PO BID PRN anxiety 01/05/24 06/08/24 Unknown History lidocaine 5 % topical patch 1 patch topical DIRECTED 01/05/24 06/08/24 Unknown History meclizine 25 mg tablet 25 mg PO BID PRN dizziness 01/05/24 06/08/24 Unknown History melatonin 5 mg tablet 5 mg PO BEDTIME PRN insomnia 01/05/24 06/08/24 Unknown History sennosides 8.6 mg-docusate sodium 1 tab PO BID PRN constipation 01/05/24 06/08/24 Unknown History 50 mg tablet (Senexon-S) acetaminophen 650 mg 650 mg PO Q8H 03/10/24 06/08/24 Unknown History tablet,extended release dexamethasone 4 mg tablet 4 mg PO DAILY 03/10/24 06/08/24 Unknown History dextroamphetamine-amphetamine 10 10 mg PO DAILY 03/10/24 06/08/24 Unknown History mg tablet (Adderall) dextroamphetamine-amphetamine ER 1 cap PO DAILY 03/10/24 06/08/24 Unknown History 15 mg 24hr capsule,extend release (Adderall XR) dextroamphetamine-amphetamine ER 1 cap PO QAM 03/10/24 06/08/24 Unknown History 20 mg 24hr capsule,extend release (Adderall XR) famotidine 20 mg tablet 20 mg PO DAILY 03/10/24 06/08/24 Unknown History hydrochlorothiazide 12.5 mg tablet 12.5 mg PO DAILY 03/10/24 06/08/24 05/10/24 History metoprolol succinate 25 mg 25 mg PO DAILY 03/10/24 06/08/24 Unknown History tablet,extended release 24 hr oxycodone 06/08/24 06/08/24 Unknown History Exam Airway Mallampati Class: IV TM Dist: >3cm Neck ROM: Limited Loose/Missing/Broken Teeth: No Heart: RRR Lungs: CTA Assessment and Plan Assessment Anesthesia Assessment: Anesthesia Plan Discussed Final Anesthetic Review NPO: Yes ASA Class: IV Final Preanesthetic Review: Meds/Allgs Chart Reviewed, Consent Obtained/Reviewed and Anes Risks/Benef Reviewed Patient Risk: High Procedure Risk: Intermediate Anesthetic Plan Anesthetic Plan: GA Disposition: Standard PACU
[2024-06-08 07:29] VITALS: BP 146/69; PULSE 64; RESP 16; TEMP 37.2; O2SAT 97; BMI 67.0
--- NOTE | 2024-06-08 07:40 | MHC.SHP ---
Pre-Procedural Eval Section A - 24 Hr Update-Section A only Date of Service: 06/08/24 The patient is an INPATIENT: No The patient has been examined within 24 hours of the surgical procedure. The History & Physical has been completed within 30 days and I have reviewed it.: Yes Section B - Complete if H&P > 30 days Chief Complaint: Morbid (severe) obesity due to excess calories Relevant Family History (Specify if Yes): No Relevant Social History: None Present Medications: None Medical History: No relevant PMH History of Previous Operations: No relevant previous surgery Allergies: Allergies Allergy/AdvReac Type Severity Reaction Status Date / Time ibuprofen [From Advil] Allergy Shortness Verified 06/08/24 07:39 of Breath aspirin AdvReac Headache Verified 06/08/24 07:39 etanercept [From Enbrel] AdvReac Dizziness Verified 06/08/24 07:39 NSAIDS (Non-Steroidal AdvReac Palpitation Verified 06/08/24 07:39 Anti-Inflamma s Review of Systems Sugical H&P ROS: Negative: Constitution, Cardiovascular, Respiratory, Neurological, Psychiatric, Hem-Onc, Allergic/Immunologic, Gastrointestinal, Genitourinary, Musculoskeletal, Integumentary, Endocrine and Eyes/Ears/Nose/Throat Exam Surgical H&P Exam: Normal: HEENT, Normal: Heart, Normal: Lungs, Normal: Extremities, Normal: Abdomen, Normal: Skin and Normal: Neurological Plan Diagnosis/Plan: Unchanged (EGD to assess etiology of anemia. Risks of bleeding and perforation were discussed with the patient and he is in agreement with the plan.) I have reviewed the history and physical and performed a pertinent physical examination on my patient. No changes have occurred unless specified. Time Spent With Patient Time: Total time managing care of this patient today ____ minutes.
[2024-06-08] MEDS: Lactated Ringers 1,000 ML 80 ML IVCONT (07:54)
[2024-06-08] MEDS: Albuterol Sulfate (0.083%) 2.5 MG/3 ML VIAL.NEB INHALE (07:59)
--- NOTE | 2024-06-08 08:11 | PC.NURSE ---
Patient in preop. During med rec patient states he stopped most meds, including cardiac meds, about a week ago. Per him he was told by [facility] pharmacy they interfere with oxycodone so he stopped taking them . Dr. Tony at bedside and made aware. VSS. Okay to proceed per her.
--- NOTE | 2024-06-08 08:20 | P.BOP_ITS ---
Brief Operative Note Date of Service: 06/08/24 Pre-op diagnosis: Anemia Post-op diagnosis: same Procedure: PROCEDURE DATE: 06/08/2024 PREOPERATIVE DIAGNOSIS: GERD POSTOPERATIVE DIAGNOSIS: ?Same as above. 1) normal endoscopy PROCEDURE: [id number] with biopsies Surgeon: Rao Lim M.D.. Ph.D. Pressure Supervisor: None ? Anesthesia: IV sedation Estimated blood loss: ?Minimal FINDINGS AND PROCEDURE: ? OPERATIVE INDICATIONS: ?The patient is a 38 year old male known to me who is interested in bariatric surgery. The patient has anemia. Based on this information I recommended an upper endoscopy to evaluate the patient's anemia. Risks and complications of the surgery were discussed with the patient in advance particularly the possibility of perforation or bleeding that may require surgical intervention. The patient understood the risks and was in agreement with the plan. ? PROCEDURE: After informed consent was obtained by the patient, the patient was ?transferred to the Operating Room and was placed in the supine position.? After successful induction of IV sedation, a mouth block was inserted and the patient was placed in the left lateral decubitus position. An upper endoscopy was performed next, the oropharynx and esophagus appeared within the normal limits. There was no hiatal hernia. The z-line was smooth. Two biopsies were obtained from the distal esophagus 2-3 cm proximal to the GE junction and two additional biopsies from the GE junction. The stomach was entered and it appeared to be of normal size. There was no gastritis. There was no stricture or ulcer. A biopsy was obtained from the gastric fundus and antrum. No significant bleeding was noted from any of the biopsy sites. Retroflexion of the scope revealed a normal GE junction. The scope was then advanced into the duodenum which appeared to be normal as well. At that point the duodenum ?and the stomach were decompressed and the scope was withdrawn from the patient's mouth. The patient extubated and was transferred in stable condition to the Recovery Room for further care. I was present and performed all steps of the procedure. There were no residents to assist with this case. Ousmane Lim M.D., Ph.D. Surgeon: En Lim MD Anesthesia: GETA Was an Pressure Supervisor used for this Procedure?: No Estimated blood loss (mL): 0 IV fluids (mL): 400 Urine output (mL): 0 (No Fermin to record output) Pathology: other (1) antrum x1, 2) fundus x1, 3) GE junction x2, 4) distal esophagus x2) Condition: stable Disposition: PACU
[2024-06-08 08:54] VITALS: BP 152/77; PULSE 99; RESP 16; TEMP 36.6; O2SAT 98
[2024-06-08 08:59] VITALS: BP 148/81; PULSE 98; RESP 16; O2SAT 97
[2024-06-08 09:04] VITALS: BP 146/83; PULSE 95; RESP 18; O2SAT 95
[2024-06-08 09:09] VITALS: BP 164/82; PULSE 91; RESP 18; O2SAT 94
[2024-06-08] MEDS: Acetaminophen 1,000 MG/100 ML PIGGYBACK 400 MG IV (09:23)
[2024-06-08 09:24] VITALS: BP 163/88; PULSE 83; RESP 20; TEMP 36.3; O2SAT 94
== END 2024-06-08 10:02 | disposition home or self-care (01) ==
PROVIDERS: PCP Internal Medicine; Visit Provider Surgery
PROC: 0DJ08ZZ Inspection of Upper Intestinal Tract, Via Natural or Artificial Opening Endoscopic (ICD-10-PCS; CPT 43235; principal; 2024-06-08 08:10)
DX: D64.9 Anemia, unspecified (principal); E66.01 Morbid (severe) obesity due to excess calories; Z68.44 Body mass index [BMI] 60.0-69.9, adult; I10 Essential (primary) hypertension; I48.91 Unspecified atrial fibrillation; K21.9 Gastro-esophageal reflux disease without esophagitis; G47.30 Sleep apnea, unspecified; J45.909 Unspecified asthma, uncomplicated; N20.0 Calculus of kidney; Z79.899 Other long term (current) drug therapy; Z88.6 Allergy status to analgesic agent; Z88.8 Allergy status to other drugs, medicaments and biological substances; Z98.890 Other specified postprocedural states; Z87.891 Personal history of nicotine dependence
CPT/HCPCS: 43239; 88305; 88313; 88342; J0131; J0330; J1100; J1596; J2704

== ENCOUNTER → 2024-06-08 07:03 | Outpatient (BNV) | payer OTHER, SELFPAY | PROVIDERS: PCP Internal Medicine; Visit Provider Surgery | DX: K21.9 Gastro-esophageal reflux disease without esophagitis (principal) | CPT/HCPCS: 43239 ==

== ENCOUNTER 2024-06-11 14:04 | Outpatient (AMB) | payer OTHER, SELFPAY ==
--- NOTE | 2024-06-11 14:06 | MHC.OFFVIS ---
Vital Signs 06/11/24 14:07 Height 6 ft 2 in Weight 520 lb 4.655 oz BMI 66.8 BP 138/68 Blood Pressure Location Lt brachial Position Sitting Pulse 88 Pulse Source Pulse Oximeter Intake Visit Reasons: 3 mnth f/up Allergies ibuprofen [From Advil] Allergy (Verified 06/08/24 07:39) Shortness of Breath aspirin Adverse Reaction (Verified 06/08/24 07:39) Headache etanercept [From Enbrel] Adverse Reaction (Verified 06/08/24 07:39) Dizziness NSAIDS (Non-Steroidal Anti-Inflamma Adverse Reaction (Verified 06/08/24 07:39) Palpitations Medication List - Last Reconciled 06/11/24 by OLGA LIDIA Peñaloza albuterol sulfate 1 vial inhalation Q4H PRN albuterol sulfate 90 mcg/actuation (ProAir HFA) 2 puffs inhalation Q4-6H PRN alclometasone 0.05% 1 appl topical DAILY bupropion HCl XL 150 mg PO QAM cholecalciferol (vitamin D3) 125 mcg PO DAILY 90 days clonidine HCl 0.1 mg PO BID cyclobenzaprine 10 mg PO BID PRN cyclobenzaprine 7.5 mg PO TID PRN dexamethasone 4 mg PO DAILY dextroamphetamine-amphetamine 10 mg (Adderall) 10 mg PO DAILY dextroamphetamine-amphetamine 15 mg ER (Adderall XR) 1 cap PO DAILY dextroamphetamine-amphetamine 20 mg ER (Adderall XR) 1 cap PO QAM dicyclomine 10 mg PO TID PRN diltiazem HCl CD 240 mg PO DAILY ergocalciferol (vitamin D2) 1,250 mcg PO QWEEK famotidine 20 mg PO DAILY ferrous sulfate 325 mg PO DAILY 90 days folic acid 1 tab PO DAILY hydrochlorothiazide 12.5 mg PO DAILY hydroxyzine HCl 12.5 - 25 mg PO BID PRN lidocaine 5% 1 patch topical DIRECTED loratadine 1 tab PO DAILY PRN meclizine 25 mg PO BID PRN melatonin 5 mg PO BEDTIME PRN metoprolol succinate ER 25 mg PO DAILY omeprazole 1 cap PO DAILY@0630 PRN [oxycodone ] sennosides-docusate sodium 8.6-50 mg (Senexon-S) 1 tab PO BID PRN triamcinolone acetonide 0.1% 1 appl topical DAILY zinc gluconate 30 mg PO DAILY HPI HPI 3 mnth f/up: Details: Michael is a 38-year-old male with past medical history of super morbid obesity, obstructive sleep apnea with CPAP use, paroxysmal atrial fibrillation who presents for follow-up. Today he reports that he has been following the bariatric program and is starting to lose weight. He is very motivated to get his body in shape as he has lots of back and leg discomfort. He has not felt any recent heart palpitations. He does get short of breath with activity which he relates to his weight. He has sleep apnea and reports compliance with his mask. No dizziness, presyncope, syncope, falls. He ambulates with a cane. Admits to taking multiple medications daily to help manage his discomfort. He is not able to work. He says he has to lose about 100 lb and then he may be able to undergo bariatric surgery. [facility] Medical History Severe obesity (BMI >= 40) New onset a-fib Hx of fracture of femur Sleep apnea Habitual snoring Asthma Renal and ureteric calculus Obesity Surgical History History of surgery on lower extremity S/P cystoscopy with ureteral stent placement History of cystoscopy [place] teeth extracted Family History Mother Family history of thyroid problem Social History Household Members: Spouse and Family Housing: House Are you a primary hearing healthcare practitioner to a significant other at home: No Do you presently have visiting nurse or other home services: No Alcohol intake: never Patient Tobacco Use Status: Former Tobacco user Tobacco use type: Cigarette Cigarette Packs Per Day: 1 Cigarettes Per Day: 20.0 e-Cigarette/Vaping Use: Former Use service: No Current occupational status: employed Review of Systems Const All systems reviewed & are unremarkable except as noted in HPI and below Denies weakness ENT Denies dizziness Card Details: No palpitations Denies chest pain, Denies chest pain with activity, Denies syncope, Denies rapid heart rate, Denies pedal edema, Denies edema, Reports leg edema, Denies lightheadedness, Denies palpitations, Reports dyspnea, Reports dyspnea on exertion and Reports orthopnea Resp Denies cough, Reports dyspnea and Reports dyspnea on exertion GI Denies hematochezia and Denies change in stool character Musc Reports abnormal gait (uses cane), Reports back pain, Reports myalgias, Denies muscle weakness, Denies numbness, Denies radiating pain into limb and Denies tingling Neuro Reports abnormal gait (uses cane), Denies dizziness, Denies syncope, Denies numbness, Denies tingling and Denies weakness Endo Denies palpitations Physical Exam Vital Signs: Last Vital Signs Pulse 88 06/11/24 14:07 BP 138/68 06/11/24 14:07 BMI result Body Mass Index 66.8 Const Other: super mobid obesity General: cooperative and no acute distress Orientation/consciousness: patient oriented x3 Resp Other: lung sounds diminished Effort & Inspection: normal respiratory effort Auscultation: clear to auscultation bilaterally, no rales, no rhonchi and no wheezes Cardio Other: heart tones distant Rate: regular rate Rhythm: regular rhythm Heart sounds: S1 normal heart sound present, S2 normal heart sound present, no murmurs and no rubs Neuro General: patient oriented x3 Extrem Other: 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 He was put on diltiazem for heart rate control. He was not put on anticoagulation as CHADS-VASc score was 0. Holter monitor was done on 01/23/2024 for 3 days showing sinus rhythm with average heart rate 77, rare ectopy. An echocardiogram done 01/23/2024 shows technically limited study, EF 55-60%, mild LVH. On last visit he reported heart palpitations and his diltiazem dose was increased. He does have known sleep apnea and reports compliance with his mask. He is currently enrolled in the bariatric program. Today he denies any recent heart palpitations. His pulse is regular on examination. Diagnosis of paroxysmal AFib reviewed with him. Emergency care if ever needed for sustained rapid heart palpitations. Cardiology follow-up 6 months, sooner if needed. (2) Severe obesity (BMI >= 40): Code(s): E66.01 - Morbid (severe) obesity due to excess calories Category: Medical Plan: He is now following with the bariatric program. He says he has to lose approximately 100 lb and he may be cleared for bariatric surgery. At present his activity level is likely less than 4 Mets. As he loses weight and is able to increase his activity will be able to better determine his cardiac risk for surgery. Unable to do any stress test at this time as he can not walk on a treadmill effectively and our scanner will not accommodate his size. Plan to readdress next visit. (3) Sleep apnea: Comment: emanuel uses cpap Code(s): G47.30 - Sleep apnea, unspecified Category: Medical Plan: As above Plan Time spent on chart review, documentation, interview and assessment Coding Level of Care Code Est Pt Level 4 (08795) Complex EM visit Add On G2211 Diagnoses PAF (paroxysmal atrial fibrillation) I48.0 Severe obesity (BMI >= 40) E66.01 Sleep apnea G47.30 Time Spent (min) 32
[2024-06-11 14:07] VITALS: BP 138/68; PULSE 88; BMI 66.8
== END 2024-06-11 14:44 | disposition home or self-care (01) ==
PROVIDERS: PCP Internal Medicine; Visit Provider Nurse Practitioner Family
DX: I48.0 Paroxysmal atrial fibrillation (principal); E66.01 Morbid (severe) obesity due to excess calories; G47.30 Sleep apnea, unspecified
CPT/HCPCS: 99214; G2211

== ENCOUNTER → 2024-06-11 14:04 | Outpatient (BNVA) | payer OTHER, SELFPAY | PROVIDERS: PCP Internal Medicine; Visit Provider Nurse Practitioner Family | DX: I48.0 Paroxysmal atrial fibrillation (principal); E66.09 Other obesity due to excess calories; G47.33 Obstructive sleep apnea (adult) (pediatric); Z99.89 Dependence on other enabling machines and devices; Z87.891 Personal history of nicotine dependence; Z68.44 Body mass index [BMI] 60.0-69.9, adult | CPT/HCPCS: 99212 ==

== ENCOUNTER → 2024-06-18 14:46 | Outpatient (BNVA) | payer OTHER, SELFPAY | PROVIDERS: PCP Internal Medicine; Visit Provider Physician Assistant Surgical ==

== ENCOUNTER 2024-07-02 11:30 | Outpatient (AMB) | payer OTHER, SELFPAY ==
--- NOTE | 2024-07-02 11:10 | A.OFFVIS_ITS ---
Intake Visit Reasons: TV F/U SWL [employer] Required: No Allergies ibuprofen [From Advil] Allergy (Verified 06/08/24 07:39) Shortness of Breath aspirin Adverse Reaction (Verified 06/08/24 07:39) Headache etanercept [From Enbrel] Adverse Reaction (Verified 06/08/24 07:39) Dizziness NSAIDS (Non-Steroidal Anti-Inflamma Adverse Reaction (Verified 06/08/24 07:39) Palpitations Medication List - Last Reconciled 07/02/24 by ADOLPH Rooney albuterol sulfate 1 vial inhalation Q4H PRN albuterol sulfate 90 mcg/actuation (ProAir HFA) 2 puffs inhalation Q4-6H PRN alclometasone 0.05% 1 appl topical DAILY bupropion HCl XL 150 mg PO QAM cholecalciferol (vitamin D3) 125 mcg PO DAILY 90 days clonidine HCl 0.1 mg PO BID cyclobenzaprine 10 mg PO BID PRN cyclobenzaprine 7.5 mg PO TID PRN dexamethasone 4 mg PO DAILY dextroamphetamine-amphetamine 10 mg (Adderall) 10 mg PO DAILY dextroamphetamine-amphetamine 15 mg ER (Adderall XR) 1 cap PO DAILY dextroamphetamine-amphetamine 20 mg ER (Adderall XR) 1 cap PO QAM dicyclomine 10 mg PO TID PRN diltiazem HCl CD 240 mg PO DAILY ergocalciferol (vitamin D2) 1,250 mcg PO QWEEK famotidine 20 mg PO DAILY ferrous sulfate 325 mg PO DAILY 90 days folic acid 1 tab PO DAILY hydrochlorothiazide 12.5 mg PO DAILY hydroxyzine HCl 12.5 - 25 mg PO BID PRN lidocaine 5% 1 patch topical DIRECTED loratadine 1 tab PO DAILY PRN meclizine 25 mg PO BID PRN melatonin 5 mg PO BEDTIME PRN metoprolol succinate ER 25 mg PO DAILY omeprazole 1 cap PO DAILY@0630 PRN [oxycodone ] sennosides-docusate sodium 8.6-50 mg (Senexon-S) 1 tab PO BID PRN triamcinolone acetonide 0.1% 1 appl topical DAILY zinc gluconate 30 mg PO DAILY HPI Comments Details: Patient is a 38-year-old male who returns to the office in follow-up for surgical weight loss management. He was initially seen on 04/22/2024 with a weight of 545 lb and a BMI of 70. Weight today is 509.8 lb with a BMI of 65.4. This corresponds to 35.2 lb weight loss or 6.4% total body weight loss. Using [employer] brown, he has been using shakes and a meal 4 shakes with premier protein, 2 scoops in 8 oz of low-fat coconut milk Meal with 7 forks protein and 7 forks veggies Another shake Exercise, walking w use of walker and cane going to driveway and then back into house 4-5 x per day swim at [facility] 1-2 days [facility] Medical History Severe obesity (BMI >= 40) New onset a-fib Hx of fracture of femur Sleep apnea Habitual snoring Asthma Renal and ureteric calculus Obesity Surgical History History of surgery on lower extremity S/P cystoscopy with ureteral stent placement History of cystoscopy [place] teeth extracted Family History Mother Family history of thyroid problem Social History Household Members: Spouse and Family Housing: House Are you a primary child care cook to a significant other at home: No Do you presently have visiting nurse or other home services: No Alcohol intake: never Patient Tobacco Use Status: Former Tobacco user Tobacco use type: Cigarette Cigarette Packs Per Day: 1 Cigarettes Per Day: 20.0 e-Cigarette/Vaping Use: Former Use service: No Current occupational status: employed Telehealth Telehealth Telehealth Platform: Telephone Location of provider rendering services: practice address Location of patient: address on file Patient Identification confirmed using: Name, : Yes Telehealth method: voice only Patient verbally consented to treatment: Yes Patient verbally consented to billing insurance company: Yes Patient informed of any privacy concerns related to visit: Yes Minutes spent on Phone/Video with Pt.: 15 Assessment & Plan Assessment & Plan (1) Morbid obesity: Code(s): E66.01 - Morbid (severe) obesity due to excess calories Category: Medical Plan: Patient is making steady progress. He has lost 35 lb. He has increased his ambulatory frequency although still can not increase his distance. I have encouraged him to increase swimming at the [facility] as this will have no significant impact on his joints. Additionally, try to continue to increase his ambulation distance and frequency. Continue to follow the recommendations on the right BMI brown. Encouraged to update the brown with his new weight. Encouraged to continue to text weekly and follow-up in 1 month.
== END 2024-07-02 12:10 | disposition home or self-care (01) ==
LOC: HO.HBS 11:42
PROVIDERS: PCP Internal Medicine; Visit Provider Physician Assistant Surgical
DX: E66.813 Obesity, class 3 (principal); Z68.44 Body mass index [BMI] 60.0-69.9, adult
CPT/HCPCS: 99213; G2211

== ENCOUNTER → 2024-07-02 11:30 | Outpatient (BNVA) | payer OTHER, SELFPAY | PROVIDERS: PCP Internal Medicine; Visit Provider Physician Assistant Surgical | DX: E66.01 Morbid (severe) obesity due to excess calories (principal) ==

== ENCOUNTER 2024-07-07 09:17 | Outpatient (REF) | payer OTHER, SELFPAY ==
--- NOTE | ~2024-07-07 | FL_ITS ---
EXAMINATION: XR FLUOROSCOPY UPPER GI WITH AIR CLINICAL INFORMATION: Preoperative evaluation prior to bariatric surgery. COMPARISON: None TECHNIQUE: Fluoroscopic air contrast upper GI examination was performed utilizing standard techniques with thin and thick barium and effervescent granules. Numerous spot images were obtained. FINDINGS: Dual and single contrast images of the esophagus demonstrate normal caliber, contour, and mucosal pattern. No evidence of stricture, mass, or ulcerations identified. Esophageal peristalsis is mildly disorganized. A very small type I hiatal hernia is present. No significant gastroesophageal reflux was seen during the course of the examination and on reflux views. Dual contrast and single contrast images of the stomach demonstrated a normal contour. Evaluation of the gastric mucosa is limited due to patient's body habitus. No obvious masses or ulcerations are seen. Contrast freely passed into the gastric antrum and duodenal bulb without delay. Single and air-contrast images of the duodenal bulb demonstrate no abnormality. The duodenal sweep has a normal appearance, course, and mucosal fold appearance. The imaged proximal jejunum has a normal fold pattern and caliber. FLUOROSCOPY TIME: 4 minutes 11 seconds Number of Spot Images: 4 Number of Cine: 11 DOSE AREA PRODUCT: [id number] uGy-m2 (microgray-meter squared) FL/FL upper GI w air IMPRESSION: 1. Mildly organized esophageal peristalsis. 2. Very small type I hiatal hernia. 3. Limited evaluation of the gastric mucosa due to the patient's body habitus. No obvious masses or ulcerations are seen. This procedure was performed by Nathan Valdez PA-C, and supervised by Dr. Art Electronically signed by: Linden Art MD 07/08/2024 04:25 PM EDT
== END 2024-07-07 09:18 | disposition home or self-care (01) ==
LOC: HO.XRAY 09:17
PROVIDERS: PCP Internal Medicine; Visit Provider Physician Assistant Surgical
DX: E66.01 Morbid (severe) obesity due to excess calories (principal); I10 Essential (primary) hypertension
CPT/HCPCS: 74246

== ENCOUNTER → 2024-07-07 09:20 | Outpatient (BNV) | payer OTHER, SELFPAY | PROVIDERS: PCP Internal Medicine; Visit Provider Physician Assistant Surgical | DX: E66.01 Morbid (severe) obesity due to excess calories (principal); Z01.818 Encounter for other preprocedural examination | CPT/HCPCS: 74246 ==

== ENCOUNTER → 2024-07-27 11:10 | Outpatient (BNVA) | payer OTHER, SELFPAY | PROVIDERS: PCP Internal Medicine; Visit Provider Physician Assistant Surgical ==

== ENCOUNTER 2024-08-02 11:28 | Outpatient (AMB) | payer OTHER, SELFPAY ==
--- NOTE | 2024-08-02 11:44 | A.OFFVIS_ITS ---
VS Expanded 08/02/24 11:51 BP 175/84 H Blood Pressure Location Rt radial Blood Pressure Position Sitting Pulse 78 Pulse Source Pulse Oximeter Temp 95.8 F L Temperature Source Temporal Artery Scan Pulse Oximetry 96 Oxygen Delivery Method Room Air Height 6 ft 2 in Weight 501 lb BMI 64.3 Body Fat % 51.8 Body Fat Mass 259.4 Fat Free Mass 241.4 Visceral Fat Rating 44.0 Body Water % 37.9 Body Water Mass 189.8 Muscle Mass/Score 229.8 Basal Metabolic Rate/Score 3,729 Intake Visit Reasons: OV Follow Up SWL/Consult Julio Allergies ibuprofen [From Advil] Allergy (Verified 08/02/24 14:11) Shortness of Breath aspirin Adverse Reaction (Verified 08/02/24 14:11) Headache etanercept [From Enbrel] Adverse Reaction (Verified 08/02/24 14:11) Dizziness NSAIDS (Non-Steroidal Anti-Inflamma Adverse Reaction (Verified 08/02/24 14:11) Palpitations Medication List - Last Reconciled 08/02/24 by En Lim MD albuterol sulfate 1 vial inhalation Q4H PRN albuterol sulfate 90 mcg/actuation (ProAir HFA) 2 puffs inhalation Q4-6H PRN alclometasone 0.05% 1 appl topical DAILY bupropion HCl XL 150 mg PO QAM cholecalciferol (vitamin D3) 125 mcg PO DAILY 90 days clonidine HCl 0.1 mg PO BID cyclobenzaprine 10 mg PO BID PRN cyclobenzaprine 7.5 mg PO TID PRN dexamethasone 4 mg PO DAILY dextroamphetamine-amphetamine 10 mg (Adderall) 10 mg PO DAILY dextroamphetamine-amphetamine 15 mg ER (Adderall XR) 1 cap PO DAILY dextroamphetamine-amphetamine 20 mg ER (Adderall XR) 1 cap PO QAM dicyclomine 10 mg PO TID PRN diltiazem HCl CD 240 mg PO DAILY ergocalciferol (vitamin D2) 1,250 mcg PO QWEEK famotidine 20 mg PO DAILY ferrous sulfate 325 mg PO DAILY 90 days folic acid 1 tab PO DAILY hydrochlorothiazide 12.5 mg PO DAILY hydroxyzine HCl 12.5 - 25 mg PO BID PRN lidocaine 5% 1 patch topical DIRECTED loratadine 1 tab PO DAILY PRN meclizine 25 mg PO BID PRN melatonin 5 mg PO BEDTIME PRN metoprolol succinate ER 25 mg PO DAILY omeprazole 1 cap PO DAILY@0630 PRN [oxycodone ] sennosides-docusate sodium 8.6-50 mg (Senexon-S) 1 tab PO BID PRN tirzepatide (weight loss) (Zepbound) 2.5 mg (0.5 mL) subcut QWEEK triamcinolone acetonide 0.1% 1 appl topical DAILY zinc gluconate 30 mg PO DAILY HPI Comments Details: Overall weight loss: 44lbs, or 8.1% TBWL Using Right BMI brown, he has been using shakes and a meal 4 shakes with premier protein, 2 scoops in 8 oz of low-fat coconut milk Meal with 7 forks protein and 7 forks veggies Another shake Exercise, walking w use of walker and cane going to driveway and then back into house 4-5 x per day swim [facility]-2 days [facility] Medical History Severe obesity (BMI >= 40) New onset a-fib Hx of fracture of femur Sleep apnea Habitual snoring Asthma Renal and ureteric calculus Obesity Surgical History History of surgery on lower extremity S/P cystoscopy with ureteral stent placement History of cystoscopy [place] teeth extracted Family History Mother Family history of thyroid problem Social History Household Members: Spouse and Family Housing: House Are you a primary healthcare liaison to a significant other at home: No Do you presently have visiting nurse or other home services: No Alcohol intake: never Patient Tobacco Use Status: Former Tobacco user Tobacco use type: Cigarette Cigarette Packs Per Day: 1 Cigarettes Per Day: 20.0 e-Cigarette/Vaping Use: Former Use service: No Current occupational status: employed Physical Exam Vital Signs: Last Vital Signs Temp 95.8 F L 08/02/24 11:51 Pulse 78 08/02/24 11:51 BP 175/84 H 08/02/24 11:51 Pulse Ox 96 11/25/24 11:51 Oxygen Delivery Method Room Air 08/02/24 11:51 BMI result Body Mass Index 64.3 GI Inspection: Yes normal to inspection and Yes obesity Palpation (GI): Firmness to palpation present (GI) Extrem Right lower extremity: normal to inspection (psoriasis) and edema Left lower extremity: normal to inspection (psoriasis) and edema Assessment & Plan Assessment & Plan (1) Morbid obesity: Code(s): E66.01 - Morbid (severe) obesity due to excess calories Category: Medical Plan: 1.? Plan for lap sleeve gastrectomy. If diaphragmatic or ventral hernias are present at time of surgery, these will be repaired laparoscopically as well. Risks and complications include possible conversion to an open procedure, anastomotic leak, bleeding requiring transfusion, small bowel obstruction, , DVT and pulmonary embolism, cardiac, or pulmonary complications, as correction complications such as anastomotic ulcer, insufficient weight loss and vitamin deficiencies. I emphasized the importance of close follow-up, adherence to instructions and good communication. 2. I ordered a medication to help you with the weight loss which is called Zepbound. My office will try to authorize it. Please let me know when you receive it so I can give you a meal and exercise plan. 3. Continue using the [employer] brown for your meal and exercise plan 4. Send me your weight measurements weekly Medications: New tirzepatide (weight loss) (Zepbound) for 4 weeks 2.5 mg (0.5 mL) subcut QWEEK 2 mL 0RF E66.01 - Morbid (severe) obesity due to excess calories
[2024-08-02 11:51] VITALS: BP 175/84; PULSE 78; TEMP 35.4; O2SAT 96; BMI 64.3
== END 2024-08-02 14:26 | disposition home or self-care (01) ==
PROVIDERS: PCP Internal Medicine; Visit Provider Surgery
DX: E66.01 Morbid (severe) obesity due to excess calories (principal); E66.813 Obesity, class 3; Z68.44 Body mass index [BMI] 60.0-69.9, adult
CPT/HCPCS: 99214

== ENCOUNTER → 2024-08-02 11:28 | Outpatient (BNVA) | payer OTHER, SELFPAY | PROVIDERS: PCP Internal Medicine; Visit Provider Surgery | DX: E66.01 Morbid (severe) obesity due to excess calories (principal); Z68.44 Body mass index [BMI] 60.0-69.9, adult | CPT/HCPCS: 99212 ==

== ENCOUNTER 2024-08-18 08:35 | Outpatient (REF) | payer OTHER, SELFPAY | END 2024-08-18 08:36 | disposition home or self-care (01) | LOC: HO.US 08:35 | PROVIDERS: PCP Internal Medicine; Visit Provider Physician Assistant Surgical | DX: E66.01 Morbid (severe) obesity due to excess calories (principal); I10 Essential (primary) hypertension | CPT/HCPCS: 76700; 76981 ==

== ENCOUNTER → 2024-08-20 11:13 | Outpatient (AMB) | payer OTHER, MEDICAID, SELFPAY ==
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
== END ==
PROVIDERS: PCP Internal Medicine; Visit Provider Counselor Mental Health
DX: F43.22 Adjustment disorder with anxiety (principal); F90.9 Attention-deficit hyperactivity disorder, unspecified type
CPT/HCPCS: 90834

== ENCOUNTER → 2024-09-15 12:58 | Outpatient (BNVA) | payer OTHER, SELFPAY | PROVIDERS: PCP Internal Medicine; Visit Provider Surgery ==

== ENCOUNTER 2024-10-22 00:56 | Emergency (ER) | payer OTHER, SELFPAY ==
[2024-10-22 01:16] VITALS: BP 178/91; PULSE 61; RESP 18; TEMP 36.4; O2SAT 98; BMI 62.9
[2024-10-22 03:59] VITALS: BP 157/80; PULSE 75; RESP 18; TEMP 36.8; O2SAT 99
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
[2024-10-22] MEDS: Cyclobenzaprine HCl 10 MG TABLET PO (05:50)
[2024-10-22] MEDS: oxyCODONE HCl Immed Release 5 MG TABLET 10 MG PO (05:55)
[2024-10-22 06:00] VITALS: BP 173/86; PULSE 72; RESP 18; TEMP 36.3; O2SAT 94
[2024-10-22 06:31] VITALS: BP 173/86; PULSE 72; RESP 18; TEMP 36.3; O2SAT 94
== END 2024-10-22 06:32 | disposition home or self-care (01) ==
PROVIDERS: Emergency Provider Emergency Medicine
DX: S16.1XXA Strain of muscle, fascia and tendon at neck level, initial encounter (principal); V43.52XA Car driver injured in collision with other type car in traffic accident, initial encounter; Y93.89 Activity, other specified; Y92.481 Parking lot as the place of occurrence of the external cause; Y99.9 Unspecified external cause status
CPT/HCPCS: 90471; 96372; 99283; 99284

== ENCOUNTER → 2024-11-10 13:10 | Outpatient (BNVA) | payer OTHER, SELFPAY | PROVIDERS: Visit Provider Surgery ==

== ENCOUNTER 2024-11-11 10:14 | Outpatient (AMB) | payer OTHER, SELFPAY ==
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
--- OUTSIDE RECORDS SUMMARY | 2024-11-11 12:04 | XMS_ITS | Encounter Summary ---
Author Organization [facility] Address [address] [place] [address] Care Team Providers Care Fine Jewelry Sales Associate Name Role Phone Kevin Lake MD Primary Care Provider [phone]- [phone] Reason for Visit * Reason Onset Date Comments Fitting for DME 11/02/2024 Faxed request fr [facility] for cpap supplies Encounter Details Date Type Department Care Team (Late st Contact Info) Description 11/02/2024 Telephone Adult Medicine [address] [phone] Annalisa Best LPN Fitting for DME (Faxed request from [facility] for cpap supplies /) Social History Tobacco Use Types Packs/Day Years Used Date Smoking Tobacco: Former Cigarettes Q uit: 11/03/2012 Smokeless Tobacco: Never Alcohol Use Standard Drinks/Week Comments No 0 (1 standard drink = 0.6 oz pur e alcohol) Sex and Gender Information Value Date Recorded Sex Assigned at Not on file Legal Sex Male 1:46 AM EST Gender Identity Not on file Sexual Orientation Not on file documented as of this encounter Progress Notes * Annalisa Best LPN - 11/02/2024 10:45 AM EST For cpap supplies A referral was placed to pulmonary on 12/10/2023 to pulmonary I called Dr Alvarez's office and he has not been seen there Called pt to see if he does see pulmonary provider He states that he was told by the pulmonary office that he needed a sleep study done before they would see him ,he had the sleep study done @ [facility] but no one ever got back to him I called sleep medicine services and they have a sleep study that was done on 2022 and was ordered by Mallika Thompson The sleep study is in old epic I called Dr Terrazas office to see if I can send over the referral to them Asked to fax over the referral ,demographics ,sleep study to [phone] And she will review and call pt Alsi faxed over the supplies request documented in this encounter Plan of Treatment Upcoming Encounters Date Type Department Care Team (Late st Contact Info) Description 12/01/2024 11:00 AM EDT Office Visit Adult Medicine [address] [phone] Kevin Lake MD [address] [place] [address] 12/03/2024 10:00 AM EDT Office Visit [facility] Hematology Oncology [address] [place] [phone] Danitza Storey PA [address] [place] [address] documented as of this encounter Visit Diagnoses Not on filedocumented in this encounter Additional Health Concerns Assessment Noted Time PHQ-9 Depression Total Score: 0 09/02/20 24 9:44 AM EST documented as of this encounter Care Teams Fine Jewelry Sales Associate Relationship Specialty Start Date End Date Kevin Lake MD [address] [place] [address] PCP - General Internal Medicine 11/16/21 documented as of this encounter
--- OUTSIDE RECORDS SUMMARY | 2024-11-11 12:04 | XMS_ITS | Patient Health Record ---
Author Organization Brody Willis MD Address [address] [facility] [address] [place] [address] Care Team Providers Care Solder Sprayer Name Role Phone Brody Willis Unavailable [phone] REASON FOR REFERRAL No Information Encounters Encounter Location Date Provider Diagnosis Brody Willis MD [address] [facility] [place] [address] [place] [address] 11/02/2024 Brody Willis PLAN OF TREATMENT No Information
--- OUTSIDE RECORDS SUMMARY | 2024-11-11 12:04 | XMS_ITS ---
Author Organization Brody Willis MD Address [address] [facility] [address] [place] [address] Care Team Providers Care Sales Service Supervisor Name Role Phone Brody Willis Unavailable [phone] REASON FOR VISIT JONES PADILLA Encounters Encounter Location Date Provider Diagnosis Brody Willis MD [address] [facility] [place] [address] [place] [address] 11/02/2024 Brody Willis PLAN OF TREATMENT No Information
--- OUTSIDE RECORDS SUMMARY | 2024-11-11 12:04 | XMS_ITS | Clinical Summary ---
Author Organization [facility] Address [address] [place] [address] Care Team Providers Care Perinatal Breastfeeding Assistant Name Role Phone Kevin Lake MD Primary Care Provider Allergies Active Allergy Reactions Criticality Noted Date Comments Dust 05/19/2024 Dust Mite Extract 05/19/2024 Gabapentin 05/20/2024 Naproxen 05/19/2024 Medications Medication Sig Dispensed Refills Start Date End Date Status amitriptyline (ELAVIL) 10 MG tablet Take 1 tablet (10 mg total) by mouth every night at bedtime. 0 Active cyclobenzaprine (FLEXERIL) 5 MG tablet Take 1 tablet (5 mg total) by mouth 3 (three) times a day as needed for muscle spasms. 0 Active dicyclomine (BENTYL) 10 MG capsule Take 1 capsule (10 mg total) by mouth 4 (four) times a day before meals and at bedtime. 0 Active traMADol (ULTRAM) 50 MG tablet Take 50 mg by mouth every 6 (six) hours as needed for pain. 0 Active hydroCHLOROthiazide (MICROZIDE) 12.5 MG capsule Take 1 capsule (12.5 mg total) by mouth daily. 0 Active bisacodyl (DULCOLAX) 5 MG EC tablet Take 1 tablet (5 mg total) by mouth daily as needed for constipation. 0 Active cyclobenzaprine (FLEXERIL) 10 MG tablet Take 1 tablet (10 mg total) by mouth 3 (three) times a day as needed for muscle spasms. 0 Active dexamethasone (DECADRON) 4 MG tablet Take 1 tablet (4 mg total) by mouth 2 (two) times a day with meals. 0 Active gabapentin (NEURONTIN) 100 MG capsule Take 1 capsule (100 mg total) by mouth 3 (three) times a day. 0 Active hydrOXYzine (ATARAX) 25 MG tablet Take 1 tablet (25 mg total) by mouth. 0 Active mirtazapine (REMERON) 7.5 MG tablet Take 1 tablet (7.5 mg total) by mouth every night at bedtime. 0 Active amphetamine-dextroamp hetamine (ADDERALL) 10 MG tablet Take 1 tablet (10 mg total) by mouth daily. 0 Active senna-docusate (PERICOLACE) 8.6-50 MG Take 1 tablet by mouth daily. 0 Active meclizine (ANTIVERT) 25 MG tablet Take 1 tablet (25 mg total) by mouth 3 (three) times a day as needed. 0 Active Loratadine 10 MG CAPS Take by mouth. 0 Active Melatonin 5 MG TABS Take by mouth. 0 A ctive acetaminophen (Acetaminophen 8 Hour) 650 MG CR tablet Take 1 tablet (650 mg total) by mouth every 8 (eight) hours as needed for pain. 0 Active Albuterol Sulfate 108 (90 Base) MCG/ACT AEPB Inhale into the lungs. 0 Active famotidine (PEPCID) 20 MG tablet Take 1 tablet (20 mg total) by mouth 2 (two) times a day. 0 Active Vitamin D, Cholecalciferol, 50 MCG (2000 UT) CAPS Take by mouth. 0 Ac tive amphetamine-dextroamp hetamine (ADDERALL, 20MG,) 20 MG tablet Take 1 tablet (20 mg total) by mouth daily. 0 Active cloNIDine (CATAPRES) tablet 0.1 mg Take 1 tablet (0.1 mg total) by mouth 2 (two) times a day. 0 Active metoprolol succinate (TOPROL-XL) 24 hr tablet 25 mg Take 1 tablet (25 mg total) by mouth daily. 0 Active omeprazole (PriLOSEC) 40 MG capsule Take 1 capsule (40 mg total) by mouth daily. 0 Active oxyCODONE (ROXICODONE) 5 MG immediate release tablet Take 1 tablet (5 mg total) by mouth every 12 (twelve) hours as needed for pain. 0 Active folic acid (FOLVITE) tablet 1 mg Take 1 tablet (1 mg total) by mouth daily. 90 tablet 0 06/04/2024 Active Social History Tobacco Use Types Packs/Day Years Used Date Smoking Tobacco: Former Cigarettes Q uit: 2022 Tobacco Cessation:Counseling Given: Not Answered Sex and Gender Information Value Date Recorded Sex Assigned at Not on file Gender Identity Not on file Sexual Orientation Not on file Job Start Date Occupation Industry Not on file Not on file Not on file Last Filed Vital Signs Vital Sign Reading Time Taken Comments Blood Pressure 174/80 06/04/2024 9:44 AM EDT Pulse 70 06/04/2024 9:44 AM EDT Temperature 36.6 ??C (97.9 ??F) 06/04/2024 9:44 AM ED T Respiratory Rate - - Oxygen Saturation 99% 06/04/2024 9:44 AM EDT Inhaled Oxygen Concentration - - Weight 240.4 kg (530 lb) 06/04/2024 9:44 AM EDT Height 188 cm (6' 2 ) 05/20/2024 8:34 AM EDT Body Mass Index 68.05 05/20/2024 8:34 AM EDT Plan of Treatment Health Maintenance Due Date Last Done Comments Hepatitis C Screening 1987 COVID-19 Vaccine (#1) 01/09/1988 Depression Screening 1999 Preventative Health Evaluation 2005 DTap / Tdap / Td (6 - Td or Tdap) 12/17/2023 12/16/2013, 10/24/1992, 08/08/1988, Additional history exists Influenza Vaccine (#1) 2024 08/08/2017 Hepatitis B Vaccines Completed 09/04/1998, 04/12/1998, 02/14/1998 Pneumococcal Vaccine Aged Out 08/08/2017 No long er eligible based on patient's age to complete this topic RSV Ped < 20 months Aged Out No longe r eligible based on patient's age to complete this topic Care Teams Perinatal Breastfeeding Assistant Relationship Specialty Start Date End Date Kevin Lake MD [address] [place] [id number] PCP - General Hospitalist Medicine 04/27/24
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
== END 2024-11-11 13:12 | disposition home or self-care (01) ==
LOC: HO.HBST 10:14
PROVIDERS: Visit Provider Counselor Mental Health
DX: F43.22 Adjustment disorder with anxiety (principal); F90.9 Attention-deficit hyperactivity disorder, unspecified type
CPT/HCPCS: 90837

== ENCOUNTER 2024-12-03 16:42 | Emergency (ER) | payer OTHER, SELFPAY ==
--- NOTE | ~2024-12-03 | XR_ITS ---
CLINICAL HISTORY: ? foreign body plantar surface 3 view left foot Comparison: None Findings: No fractures or dislocations. No significant arthritic change or erosions. No ankle effusion. No radiopaque foreign body. 8 mm achilles tendon enthesophyte. Diffuse dorsal soft tissue swelling. IMPRESSION: No radiopaque foreign body. This document has been electronically signed by: Jess To DO on 12/03/2024 18:06:50
[2024-12-03 17:15] VITALS: BP 163/93; PULSE 83; RESP 16; TEMP 36.6; O2SAT 95; BMI 61.5
--- NOTE | 2024-12-03 17:16 | ED_ITS ---
HPI - General Adult General Chief complaint: General Medical Stated complaint: [employer], sent from Time Seen by Provider: 12/03/24 19:51 Source: patient Limitations: no limitations History of Present Illness ED Provider: Yoli Fermin PA-C HPI narrative: 39-year-old morbidly obese male with a history of hypertension, sleep apnea, paroxysmal AFib, kidney stones, psoriasis, adjustment disorder who presents with left foot foreign body. Patient states he stepped on a piece of glass, he was seen at urgent Care, they could not remove it. He was sent here for further assessment. Related Data Home Medications ?Medication ?Instructions ?Recorded ?Confirmed albuterol sulfate 2.5 mg/3 mL 1 vial inhalation Q4H PRN wheezing 09/07/22 08/02/24 (0.083 %) solution for nebulization albuterol sulfate 90 mcg/actuation 2 puff inhalation Q4-6H PRN 09/07/22 08/02/24 aerosol inhaler (ProAir HFA) Shortness Of Breath Or Wheezing omeprazole 40 mg capsule,delayed 1 cap PO DAILY@0630 PRN Heartburn 09/07/22 08/02/24 release alclometasone 0.05 % topical cream 1 appl topical DAILY 11/12/22 08/02/24 folic acid 1 mg tablet 1 tab PO DAILY 11/12/22 08/02/24 loratadine 10 mg tablet 1 tab PO DAILY PRN Allergy Symptoms 11/12/22 08/02/24 triamcinolone acetonide 0.1 % 1 appl topical DAILY 11/12/22 08/02/24 topical cream bupropion HCl 150 mg 24 hr tablet, 150 mg PO QAM depressive disorder 01/05/24 08/02/24 extended release clonidine HCl 0.1 mg tablet 0.1 mg PO BID anxiety 01/05/24 08/02/24 cyclobenzaprine 5 mg tablet 10 mg PO BID PRN muscle spasm 01/05/24 08/02/24 dicyclomine 10 mg capsule 10 mg PO TID PRN abdominal pain 01/05/24 08/02/24 ergocalciferol (vitamin D2) 1,250 1,250 mcg PO QWEEK 01/05/24 08/02/24 mcg (50,000 unit) capsule hydroxyzine HCl 25 mg tablet 12.5 - 25 mg PO BID PRN anxiety 01/05/24 08/02/24 lidocaine 5 % topical patch 1 patch topical DIRECTED 01/05/24 08/02/24 meclizine 25 mg tablet 25 mg PO BID PRN dizziness 01/05/24 08/02/24 melatonin 5 mg tablet 5 mg PO BEDTIME PRN insomnia 01/05/24 08/02/24 sennosides 8.6 mg-docusate sodium 1 tab PO BID PRN constipation 01/05/24 08/02/24 50 mg tablet (Senexon-S) dexamethasone 4 mg tablet 4 mg PO DAILY 03/10/24 08/02/24 famotidine 20 mg tablet 20 mg PO DAILY 03/10/24 08/02/24 hydrochlorothiazide 12.5 mg tablet 12.5 mg PO DAILY 03/10/24 08/02/24 metoprolol succinate 25 mg 25 mg PO DAILY 03/10/24 08/02/24 tablet,extended release 24 hr acetaminophen 650 mg 650 mg PO TID 09/15/24 tablet,extended release amitriptyline 10 mg tablet mg PO 09/15/24 dextroamphetamine-amphetamine ER 1 cap PO QAM 09/15/24 30 mg 24hr capsule,extend release (Adderall XR) ixekizumab 80 mg/mL subcutaneous mg subcut 09/15/24 auto-injector (GelSighttz Autoinjector) oxycodone 5 mg tablet 5 mg PO BID PRN 09/15/24 dextroamphetamine-amphetamine 10 15 mg PO DAILY 11/04/24 mg tablet (Adderall) diazepam 2 mg tablet 2 mg PO DAILY PRN 11/10/24 Previous Rx's ?Medication ?Instructions ?Recorded zinc gluconate 30 mg tablet 30 mg PO DAILY #90 tabs 04/28/24 tirzepatide (weight loss) 2.5 2.5 mg (0.5 mL) subcut QWEEK #2 mL 08/02/24 mg/0.5 mL subcutaneous pen injector (Zepbound) diltiazem HCl 240 mg 240 mg PO DAILY #90 caps 08/30/24 capsule,extended release 24 hr ferrous sulfate 325 mg (65 mg 325 mg PO DAILY 90 days #90 tabs 09/14/24 iron) tablet tirzepatide (weight loss) 5 mg/0.5 5 mg (0.5 mL) subcut QWEEK #2 mL 09/18/24 mL subcutaneous pen injector (Zepbound) cholecalciferol (vitamin D3) 125 125 mcg PO DAILY #90 caps 10/14/24 mcg (5,000 unit) capsule cyclobenzaprine 10 mg tablet 10 mg PO TID PRN muscle spasm #14 10/22/24 tabs tirzepatide (weight loss) 7.5 7.5 mg (0.5 mL) subcut QWEEK #2 mL 10/27/24 mg/0.5 mL subcutaneous pen injector (Zepbound) Allergies Allergy/AdvReac Type Severity Reaction Status Date / Time gabapentin Allergy Mild Unknown Verified 12/03/24 17:16 pregabalin Allergy Mild Hives Verified 12/03/24 17:16 ibuprofen [From Advil] Allergy Shortness Verified 12/03/24 17:16 of Breath aspirin AdvReac Headache Verified 12/03/24 17:16 etanercept [From Enbrel] AdvReac Dizziness Verified 12/03/24 17:16 NSAIDS (Non-Steroidal AdvReac Palpitation Verified 12/03/24 17:16 Anti-Inflamma s Review of Systems Review of Systems: Yes all other systems are reviewed and are negative Constitutional: Constitutional: Denies fatigue and Denies fever(s) Musculoskeletal: Musculoskeletal: Denies arthralgias and Denies joint swelling Endocrine: Endocrine: Denies fatigue PMFSH Past Medical History Attestation statement: The following information was validated with the patient. Medical History Severe obesity (BMI >= 40) New onset a-fib Hx of fracture of femur Sleep apnea Habitual snoring Asthma Renal and ureteric calculus Obesity Surgical History History of surgery on lower extremity S/P cystoscopy with ureteral stent placement History of cystoscopy [place] teeth extracted Family History Family History Mother Family history of thyroid problem Social History Social History Household Members: Spouse and Family Housing: House Are you a primary child care cook to a significant other at home: No Do you presently have visiting nurse or other home services: No Alcohol intake: never Patient Tobacco Use Status: Former Tobacco user Tobacco use type: Cigarette Cigarette Packs Per Day: 1 Cigarettes Per Day: 20.0 e-Cigarette/Vaping Use: Former Use Advance Directives: No Advance Directives Information Provided: No service: No Current occupational status: employed Physical Exam ED Vital Signs: Vital Signs - 24 hr 12/03/24 17:15 12/03/24 20:03 Temperature 97.9 F 97.8 F Pulse Rate 83 66 Respiratory Rate 16 20 Blood Pressure 163/93 H 158/87 H Pulse Oximetry 95 100 Oxygen Delivery Method Room Air Room Air BMI result Body Mass Index 61.5 Const Other: Alert Orientation/consciousness: patient oriented x3 Resp Effort & Inspection: normal respiratory effort Cardio Other: Normal peripheral perfusion Skin Other: Warm dry no rash Neuro General: patient oriented x3, gait normal, no focal motor deficits and CN's II- XI intact bilaterally Extrem Other: No foreign body in the plantar surface of the left foot at the incision site made at urgent care Psych Other: Cooperative Course Course Course Narrative: RME, this is a rapid medical exam performed by Samir Brannon please refer to primary provider for complete H&P- 39-year-old male presents for evaluation of foreign body in his left foot. He reports that last night he walked into the bathroom and stepped on glass but accident. He went to urgent care and they were unable to remove the glass. He presents here for further evaluation. x-ray ordered Medications Administered Discontinued Medications Generic Name Dose Route Start Last Admin Trade Name Freq PRN Reason Stop Dose Admin Diphtheria/Tetanus/Acell Pertussis 0.5 ml 12/03/24 21:58 12/03/24 22:03 Diphth,Pertus(Acell),Tet Adult 0.5 Ml Syringe IM 12/03/24 21:59 0.5 ml .ONCE ONE Administration Medical Decision Making Medical Decision Making MDM Narrative: 39-year-old morbidly obese male with a history of hypertension, sleep apnea, paroxysmal AFib, kidney stones, psoriasis, adjustment disorder who presents with left foot foreign body. Patient states he stepped on a piece of glass, he was seen at urgent Care, they could not remove it. He was sent here for further assessment. No relevant chronic issues History: Per patient I have considered the following differential diagnoses: Cutaneous foreign body Plan: X-ray obtained from triage, no evidence of foreign body. I have viewed at bedside with ultrasound, can not detect foreign body. I further probed the region, there was nothing present. I have independently reviewed the following tests: X-ray left foot:Findings: No fractures or dislocations. No significant arthritic change or erosions. No ankle effusion. No radiopaque foreign body. 8 mm achilles tendon enthesophyte. Diffuse dorsal soft tissue swelling. IMPRESSION: No radiopaque foreign body. Patient left without the benefit of his discharge instructions Discharge Plan Discharge Clinical Impression: Foot pain, left Patient Disposition: Home, Self-Care Additional Instructions: Patient left without the benefit of his discharge instructions Prescriptions: No Action zinc gluconate 30 mg tablet 30 mg PO DAILY Qty: 90 0RF diltiazem HCl 240 mg capsule,extended release 24hr 240 mg PO DAILY Qty: 90 3RF ferrous sulfate 325 mg (65 mg iron) tablet 325 mg PO DAILY 90 Days Qty: 90 0RF Zepbound 5 mg/0.5 mL pen injector 5 mg subcut QWEEK Qty: 2 0RF cholecalciferol (vitamin D3) 125 mcg (5,000 unit) capsule 125 mcg PO DAILY Qty: 90 1RF Zepbound 7.5 mg/0.5 mL pen injector 7.5 mg subcut QWEEK Qty: 2 0RF omeprazole 40 mg capsule,delayed release(DR/EC) 1 cap PO DAILY@0630 PRN (Reason: Heartburn) albuterol sulfate 2.5 mg /3 mL (0.083 %) solution for nebulization 1 vial inhalation Q4H PRN (Reason: wheezing) albuterol sulfate [ProAir HFA] 90 mcg/actuation HFA aerosol inhaler 2 puff INHALATION Q4-6H PRN (Reason: Shortness Of Breath Or Wheezing) folic acid 1 mg tablet 1 tab PO DAILY alclometasone 0.05 % cream 1 appl topical DAILY triamcinolone acetonide 0.1 % cream 1 appl topical DAILY loratadine 10 mg tablet 1 tab PO DAILY PRN (Reason: Allergy Symptoms) cyclobenzaprine 10 mg tablet 10 mg PO TID PRN (Reason: muscle spasm) Qty: 14 0RF Zepbound 2.5 mg/0.5 mL pen injector 2.5 mg subcut QWEEK Qty: 2 0RF Rx Instructions: for 4 weeks hydroxyzine HCl 25 mg tablet 12.5 - 25 mg PO BID PRN (Reason: anxiety) clonidine HCl 0.1 mg tablet 0.1 mg PO BID cyclobenzaprine 5 mg tablet 10 mg PO BID PRN (Reason: muscle spasm) dicyclomine 10 mg capsule 10 mg PO TID PRN (Reason: abdominal pain) meclizine 25 mg tablet 25 mg PO BID PRN (Reason: dizziness) melatonin 5 mg tablet 5 mg PO BEDTIME PRN (Reason: insomnia) sennosides-docusate sodium [Senexon-S] 8.6-50 mg tablet 1 tab PO BID PRN (Reason: constipation) ergocalciferol (vitamin D2) 1,250 mcg (50,000 unit) capsule 1,250 mcg PO QWEEK bupropion HCl 150 mg tablet extended release 24 hr 150 mg PO QAM lidocaine 5 % adhesive patch,medicated 1 patch topical DIRECTED dexamethasone 4 mg tablet 4 mg PO DAILY hydrochlorothiazide 12.5 mg tablet 12.5 mg PO DAILY famotidine 20 mg tablet 20 mg PO DAILY metoprolol succinate 25 mg tablet extended release 24 hr 25 mg PO DAILY dextroamphetamine-amphetamine [Adderall] 10 mg tablet 15 mg PO DAILY dextroamphetamine-amphetamine [Adderall XR] 30 mg capsule,extended release 24hr 1 cap PO QAM oxycodone 5 mg tablet 5 mg PO BID PRN [employer]j Autoinjector 80 mg/mL auto-injector subcut amitriptyline 10 mg tablet PO acetaminophen 650 mg tablet extended release 650 mg PO TID diazepam 2 mg tablet 2 mg PO DAILY PRN Print Language: Nepali
[2024-12-03 20:03] VITALS: BP 158/87; PULSE 66; RESP 20; TEMP 36.6; O2SAT 100
[2024-12-03] MEDS: Diphth,Pertus(ACell),Tet Adult 0.5 ML SYRINGE IM (22:03)
--- NOTE | 2024-12-03 22:35 | PC.NURSE ---
pt right foot cleansed with betadine, patted dry, nonstick dressing applied-- followed by kerlix and tape- dressing change supplies provided. pt stated that his ride was here and could not wait for paperwork
== END 2024-12-04 10:47 | disposition home or self-care (01) ==
PROVIDERS: Emergency Provider Emergency Medicine Emergency Medical Services; PCP Internal Medicine
DX: M79.672 Pain in left foot (principal); E66.01 Morbid (severe) obesity due to excess calories; Z68.44 Body mass index [BMI] 60.0-69.9, adult; Z23 Encounter for immunization; I10 Essential (primary) hypertension; I48.0 Paroxysmal atrial fibrillation; Z79.899 Other long term (current) drug therapy
CPT/HCPCS: 73630; 90471; 90715; 99283; 99284

== ENCOUNTER → 2024-12-03 17:16 | Outpatient (BNV) | payer OTHER, SELFPAY | PROVIDERS: PCP Internal Medicine; Visit Provider Radiology Diagnostic Radiology | DX: M79.672 Pain in left foot (principal) | CPT/HCPCS: 73630 ==

== ENCOUNTER → 2024-12-07 11:05 | Outpatient (BNVA) | payer OTHER, SELFPAY | PROVIDERS: PCP Internal Medicine; Visit Provider Counselor Mental Health ==

== ENCOUNTER → 2024-12-07 11:05 | Outpatient (AMB) | payer OTHER, SELFPAY ==
--- NOTE | 2024-12-07 11:04 | A.OFFWM_ITS ---
Intake Intake Visit Reasons: VIDEO BH F/U Allergies gabapentin Allergy (Mild, Verified 12/03/24 17:16) Unknown pregabalin Allergy (Mild, Verified 12/03/24 17:16) Hives ibuprofen [From Advil] Allergy (Verified 12/03/24 17:16) Shortness of Breath aspirin Adverse Reaction (Verified 12/03/24 17:16) Headache etanercept [From Enbrel] Adverse Reaction (Verified 12/03/24 17:16) Dizziness NSAIDS (Non-Steroidal Anti-Inflamma Adverse Reaction (Verified 12/03/24 17:16) Palpitations PFSH Medical History Severe obesity (BMI >= 40) New onset a-fib Hx of fracture of femur Sleep apnea Habitual snoring Asthma Renal and ureteric calculus Obesity Surgical History History of surgery on lower extremity S/P cystoscopy with ureteral stent placement History of cystoscopy [place] teeth extracted Family History Mother Family history of thyroid problem Social History Household Members: Spouse and Family Housing: House Are you a primary field care advocate to a significant other at home: No Do you presently have visiting nurse or other home services: No Alcohol intake: never Patient Tobacco Use Status: Former Tobacco user Tobacco use type: Cigarette Cigarette Packs Per Day: 1 Cigarettes Per Day: 20.0 e-Cigarette/Vaping Use: Former Use service: No Current occupational status: employed Behavioral Health Assessment Weight Management Therapy Therapy Notes Details Subjective: The patient reports experiencing stomach issues following the administration of the Zeepbound shot, which has led to a decreased appetite. Despite this, he mentions that his mood has been stable and he feels less stressed overall. He recently purchased the Ren[employer]o scale but has noticed discrepancies in weight measurements. The patient now attends therapy twice a week. Objective: The patient presents for a follow-up visit via Telehealth. * Discussed current struggles with appetite and weight discrepancies related to the Renpho scale. * Explored strategies for improving eating habits and managing weight fluctuations using habit-building techniques. * Used cognitive-behavioral interventions focused on challenging negative thoughts about body image and weight, to increase the patient?s awareness of automatic thoughts related to stress and eating habits, and worked on reframing these thoughts to promote healthier behaviors. * Developed a plan to track eating patterns and physical activity to establish more consistent habits. Assessment/Response: * Mental Status: The patient is alert, oriented, and engaged in the conversation. His mood is described as good, with no signs of acute distress. Thought processes are logical, and there are no indications of cognitive impairment. * Risk: The patient denies any thoughts of self-harm or harm to others. No signs of suicidal or homicidal ideation were reported. Risk remains low at this time. Food/Weight/Diet Expectations of change Initial goal is to lose at least 2-3 lbs per week, and about 145 pounds before surgery. . PT reports he needs to be at 400 lbs to be considered for surgery. He started on 04/22/2024 at 545Lbs and his most recent weight is 501Lbs as of 08/02/2024. weight as of 10/27/2024: 484 Lbs Weight 11/10/24: 483Lbs Weight 11/17/24: 486Lbs Weight 11/26/24: 479Lbs . Meal plan: a combination of shakes and 1 meal per day. Exercise: attending the gym 3-4 days a week. Assessment & Plan Assessment & Plan (1) Adjustment disorder with anxious mood: Code(s): F43.22 - Adjustment disorder with anxiety (2) ADHD (attention deficit hyperactivity disorder): Code(s): F90.9 - Attention-deficit hyperactivity disorder, unspecified type Plan -Continue keeping his counseling visits 2x week. -Advised to share with RN or Dr. Hawkins about stomach issues he beliefs are related to zepbound. -We will Follow up in 2 weeks. Next appointment: 12/21/24 at 11:00 AM via Video. Telehealth Telehealth Telehealth Platform: [facility] Location of provider rendering services: other Location of patient: address on file Patient Identification confirmed using: Name, : Yes Telehealth method: video Patient verbally consented to treatment: Yes Patient verbally consented to billing insurance company: Yes Patient informed of any privacy concerns related to visit: Yes Minutes spent on Phone/Video with Pt.: 55 Coding Level of Care Code Established Pt Tele Psytx >53 mins ([id number]) Patient Type Established Diagnoses Adjustment disorder with anxious mood F43.22 ADHD (attention deficit hyperactivity disorder) F90.9 Time Spent (min) 55
--- OUTSIDE RECORDS SUMMARY | 2024-12-07 13:22 | XMS_ITS | Clinical Summary ---
Author Organization [facility] Address [address] [place] [address] Care Team Providers Care Corporate Communications Manager Name Role Phone Kevin Lake MD Primary [...] age to complete this topic Care Teams Corporate Communications Manager Relationship Specialty Start Date End Date Kevin Lake MD [address] [place] [id number] PCP - General Hospitalist Medicine 04/27/24
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
--- OUTSIDE RECORDS SUMMARY | 2024-12-07 13:22 | XMS_ITS ---
Author Organization Brody Willis MD Address [address] [facility] [address] [place] [address] Care Team Providers Care Broadcast Maintenance Engineer Name Role Phone Brody Willis Unavailable [phone] REASON FOR VISIT JONES PADILLA Encounters Encounter Location Date Provider Diagnosis Brody Willis MD [address] [facility] [place] [address] [place] [address] 11/02/2024 Brody Willis PLAN OF TREATMENT No Information
--- OUTSIDE RECORDS SUMMARY | 2024-12-07 13:23 | XMS_ITS | Patient Health Record ---
Author Organization Brody Willis MD Address [address] [facility] [address] [place] [address] Care Team Providers Care Environmental Health Officer Name Role Phone Brody Willis Unavailable [phone] REASON FOR REFERRAL No Information Encounters Encounter Location Date Provider Diagnosis Brody Willis MD [address] [facility] [place] [address] [place] [address] 11/02/2024 Brody Willis PLAN OF TREATMENT No Information
== END ==
PROVIDERS: PCP Internal Medicine; Visit Provider Counselor Mental Health
DX: F43.22 Adjustment disorder with anxiety (principal); F90.9 Attention-deficit hyperactivity disorder, unspecified type
CPT/HCPCS: 90837

== ENCOUNTER 2024-12-21 11:11 | Outpatient (AMB) | payer OTHER, SELFPAY ==
--- NOTE | 2024-12-21 11:05 | MHC.WMTHER ---
Intake Intake Visit Reasons: VIDEO BH F/U Allergies gabapentin Allergy (Mild, Verified 12/03/24 17:16) Unknown pregabalin Allergy (Mild, Verified 12/03/24 17:16) Hives ibuprofen [From Advil] Allergy (Verified 12/03/24 17:16) Shortness of Breath aspirin Adverse Reaction (Verified 12/03/24 17:16) Headache etanercept [From Enbrel] Adverse Reaction (Verified 12/03/24 17:16) Dizziness NSAIDS (Non-Steroidal Anti-Inflamma Adverse Reaction (Verified 12/03/24 17:16) Palpitations PFSH Medical History Severe obesity (BMI >= 40) New onset a-fib Hx of fracture of femur Sleep apnea Habitual snoring Asthma Renal and ureteric calculus Obesity Surgical History History of surgery on lower extremity S/P cystoscopy with ureteral stent placement History of cystoscopy Corinna teeth extracted Family History Mother Family history of thyroid problem Social History Household Members: Spouse and Family Housing: House Are you a primary healthcare marketer to a significant other at home: No Do you presently have visiting nurse or other home services: No Alcohol intake: never Patient Tobacco Use Status: Former Tobacco user Tobacco use type: Cigarette Cigarette Packs Per Day: 1 Cigarettes Per Day: 20.0 e-Cigarette/Vaping Use: Former Use service: No Current occupational status: employed Behavioral Health Assessment Weight Management Therapy Therapy Notes Details Subjective: The patient reports he has discontinued his weight-loss injections due to significant gastrointestinal issues, including difficulty with bowel movements. Additionally, he has recently been ill, which has impacted his ability to fully adhere to the preoperative diet plan. Objective: The patient attended the follow-up visit via Telehealth. He appeared engaged and open to discussion regarding his current challenges and goals related to bariatric surgery preparation. Used CBT-based techniques to: -Address the impact of recent illness on diet adherence and explored strategies to stay on track. -Reinforce the importance of long-term behavior change and breaking old patterns. -Encourage a mindset shift toward consistency and self-discipline. -Praise progress with gym access and discussed gradual return to routine. Assessment/Response: Mental status: WNL Risk reported/identified: None. Food/Weight/Diet Expectations of change Initial goal is to lose at least 2-3 lbs per week, and about 145 pounds before surgery. . PT reports he needs to be at 400 lbs to be considered for surgery. He started on 04/22/2024 at 545Lbs and his most recent weight is 501Lbs as of 08/02/2024. weight as of 10/27/2024: 484 Lbs Weight 11/10/24: 483Lbs Weight 11/17/24: 486Lbs Weight 11/26/24: 479Lbs . Meal plan: a combination of shakes and 1 meal per day. Exercise: attending the gym 3-4 days a week. Assessment & Plan Assessment & Plan (1) Adjustment disorder with anxious mood: Code(s): F43.22 - Adjustment disorder with anxiety (2) ADHD (attention deficit hyperactivity disorder): Code(s): F90.9 - Attention-deficit hyperactivity disorder, unspecified type Plan - Will continue to monitor readiness and compliance to determine appropriate timing for his clearance - This provider sent workload to program nurse about issues with zepbound. - PT to Keep weight check brown for 12/23 at 1:30 - F/up with me in 3 weeks - Next brown: 01/11/25 at 12, telehealth Telehealth Telehealth Telehealth Platform: [facility] Location of provider rendering services: other Location of patient: address on file Patient Identification confirmed using: Name, : Yes Telehealth method: video Patient verbally consented to treatment: Yes Patient verbally consented to billing insurance company: Yes Patient informed of any privacy concerns related to visit: Yes Minutes spent on Phone/Video with Pt.: 55 Coding Level of Care Code Established Pt Tele Psytx >53 mins (96807) Patient Type Established Diagnoses Adjustment disorder with anxious mood F43.22 ADHD (attention deficit hyperactivity disorder) F90.9 Time Spent (min) 55
--- OUTSIDE RECORDS SUMMARY | 2024-12-21 13:49 | XMS_ITS | Patient Health Record ---
Author Organization Brody Willis MD Address [address] [facility] [address] [place] [address] Care Team Providers Care Hospital Carrier Name Role Phone Brody Willis Unavailable [phone] REASON FOR REFERRAL No Information Encounters Encounter Location Date Provider Diagnosis Brody Willis MD [address] [facility] [place] [address] [place] [address] 11/02/2024 Brody Willis PLAN OF TREATMENT No Information
--- OUTSIDE RECORDS SUMMARY | 2024-12-21 13:49 | XMS_ITS ---
Author Organization Brody Willis MD Address [address] [facility] [address] [place] [address] Care Team Providers Care Kelly Machine Operator Name Role Phone Brody Willis Unavailable [phone] REASON FOR VISIT JONES PADILLA Encounters Encounter Location Date Provider Diagnosis Brody Willis MD 125 [facility] [place] [address] [place] [address] 11/02/2024 Brody Willis PLAN OF TREATMENT No Information
--- OUTSIDE RECORDS SUMMARY | 2024-12-21 13:49 | XMS_ITS | Clinical Summary ---
Author Organization [facility] Address [address] [place] [address] Care Team Providers Care Health And Physical Education Teacher Name Role Phone Kevin Lake MD Primary [...] age to complete this topic Care Teams Health And Physical Education Teacher Relationship Specialty Start Date End Date Kevin Lake MD [address] [place] [id number] PCP - General Hospitalist Medicine 04/27/24
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
== END 2024-12-21 12:09 | disposition home or self-care (01) ==
LOC: HO.HBST 11:11
PROVIDERS: PCP Internal Medicine; Visit Provider Counselor Mental Health
DX: F43.22 Adjustment disorder with anxiety (principal); F90.9 Attention-deficit hyperactivity disorder, unspecified type
CPT/HCPCS: 90837

== ENCOUNTER → 2024-12-21 11:11 | Outpatient (BNVA) | payer OTHER, SELFPAY | PROVIDERS: PCP Internal Medicine; Visit Provider Counselor Mental Health ==

== ENCOUNTER 2024-12-29 01:05 | Emergency (ER) | payer OTHER, SELFPAY ==
[2024-12-29 01:09] VITALS: BP 154/84; PULSE 88; RESP 20; TEMP 36.4; O2SAT 98; BMI 61.5
[2024-12-29 01:42] VITALS: BP 163/76; PULSE 80; RESP 16; TEMP 36.6; O2SAT 97
--- OUTSIDE RECORDS SUMMARY | 2024-12-29 01:45 | XMS_ITS ---
Author Organization Brody Willis MD Address [address] [facility] [address] [place] [address] Care Team Providers Care Car Shakeout Operator Name Role Phone Brody Willis Unavailable [phone] REASON FOR VISIT JONES PADILLA Encounters Encounter Location Date Provider Diagnosis Brody Willis MD [address] [facility] [place] [address] [place] [address] 11/02/2024 Brody Willis PLAN OF TREATMENT No Information
--- OUTSIDE RECORDS SUMMARY | 2024-12-29 01:46 | XMS_ITS | Patient Health Record ---
Author Organization Brody Willis MD Address [address] [facility] [address] [place] [address] Care Team Providers Care Rail Equipment Operator Name Role Phone Brody Willis Unavailable [phone] REASON FOR REFERRAL No Information Encounters Encounter Location Date Provider Diagnosis Brody Willis MD 125 [facility] [place] [address] [place] [address] 11/02/2024 Brody Willis PLAN OF TREATMENT No Information
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
[2024-12-29 02:47] VITALS: RESP 18
[2024-12-29] MEDS: Morphine Sulfate 4 MG/ML CARTRIDGE IM (02:47)
[2024-12-29] MEDS: dexAMETHasone 4 MG TABLET PO (02:47)
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
[2024-12-29 03:16] LABS: Appearance Urine Clear; Color Urine Yellow; Glucose Urine UA Negative (Negative); Leukocyte Esterase Urine Negative (Negative); Nitrite Urine Negative (Negative); Specific Gravity - Urine >= 1.030 (1.005-1.025); Urine Blood Negative (Negative); Urine Ketones Trace mg/dL (Negative); Urine Protein Negative (Neg-Trace)
[2024-12-29 03:18] LABS: Bacteria Urine None Seen (None Seen); Hyaline Casts Urine 0-2 /LPF (0-2); RBC Urine 0-2 /HPF (0-2); Squamous Epithelial Cell Urine 0-2 /HPF (0-2); WBC Urine 0-5 /HPF (0-5)
[2024-12-29 03:40] VITALS: BP 138/91; PULSE 88; RESP 15; TEMP 36.8; O2SAT 95
[2024-12-29] MEDS: Cyclobenzaprine HCl 10 MG TABLET PO (03:48)
== END 2024-12-29 03:40 | disposition home or self-care (01) ==
PROVIDERS: Emergency Provider Emergency Medicine; PCP Internal Medicine
DX: M54.40 Lumbago with sciatica, unspecified side (principal); I10 Essential (primary) hypertension; L40.9 Psoriasis, unspecified
CPT/HCPCS: 81001; 96372; 99284; J2270; J8540

== ENCOUNTER 2025-01-03 22:27 | Emergency (ER) | payer OTHER, SELFPAY ==
--- NOTE | 2025-01-03 | ECG_ITS ---
Test Reason : chest tightness Blood Pressure : */* mmHG Vent. Rate : 82 BPM Atrial Rate : 82 BPM P-R Int : 136 ms QRS Dur : 86 ms QT Int : 374 ms P-R-T Axes : 63 48 40 degrees QTcB Int : 436 ms Normal sinus rhythm Normal ECG When compared with ECG of 22-Apr-2024 10:48, QT has lengthened Referred By: Generic ED Physician Electronically Signed By: Vitor Gomez
--- NOTE | ~2025-01-03 | XR_ITS ---
CLINICAL HISTORY: dyspnea 1 view chest x-ray Comparison: DX/SR - XR CHEST 2V - 04/22/24 10:45 EDT Findings: No consolidation or effusion. Heart size is normal. No acute fracture. IMPRESSION: 1. No acute findings. This document has been electronically signed by: Nacho Cortez MD, PHD on 01/04/2025 00:02:35
[2025-01-03 22:37] VITALS: BP 150/108; PULSE 90; O2SAT 98
[2025-01-03 22:40] VITALS: BP 151/55; PULSE 87; RESP 16; TEMP 36.4; O2SAT 97; BMI 61.5
[2025-01-03 22:44] VITALS: BP 151/55; PULSE 87; RESP 16; TEMP 36.4; O2SAT 97
--- NOTE | 2025-01-03 23:14 | ED_ITS ---
HPI - General Adult General Chief complaint: General Medical Stated complaint: gen sickness, light headed, face numb, sinus issue Time Seen by Provider: 01/03/25 22:49 Source: patient, EMS and old records reviewed Mode of arrival: EMS Limitations: no limitations History of Present Illness ED Provider: ELKE SHOEMAKER narrative: 39 yo male with PMH of afib not on thinners, back pain, morbid obesity, ZAINA on CPAP who was recently seen here for sciatica and started on flexeril and dexamethasone since then for the past 2 days he feels shaky, he has chest tightness, he states his vision goes in and out in both eyes and his whole face is numb. He denies cough, fevers, n/v. He feels drunk when he tries to stand up and states he is dizzy. He has no GIB symptoms reported. He has not had sick contacts but recently went to [place] with family due to relatives . He takes no medications right now other than flexeril and dexamethasone. He did get his psoriasis injection today but he has had them before. He started to wonder if he was having an allergic reaction to the medications he was given. He states he is recovering from FLU B about 2 weeks ago. MD complaint: vision change, jittery, dizziness, entire face is numb Onset (ago): day(s) (2) Location: head and face Radiation: non-radiation Severity: mild Quality: other Relieving factors: none Exacerbating factors: movement (standing) Associated symptoms: shortness of breath Treatments prior to arrival: none Related Data Home Medications ?Medication ?Instructions ?Recorded ?Confirmed albuterol sulfate 2.5 mg/3 mL 1 vial inhalation Q4H PRN wheezing 09/07/22 08/02/24 (0.083 %) solution for nebulization albuterol sulfate 90 mcg/actuation 2 puff inhalation Q4-6H PRN 09/07/22 08/02/24 aerosol inhaler (ProAir HFA) Shortness Of Breath Or Wheezing omeprazole 40 mg capsule,delayed 1 cap PO DAILY@0630 PRN Heartburn 09/07/22 08/02/24 release alclometasone 0.05 % topical cream 1 appl topical DAILY 11/12/22 08/02/24 folic acid 1 mg tablet 1 tab PO DAILY 11/12/22 08/02/24 loratadine 10 mg tablet 1 tab PO DAILY PRN Allergy Symptoms 11/12/22 08/02/24 triamcinolone acetonide 0.1 % 1 appl topical DAILY 11/12/22 08/02/24 topical cream bupropion HCl 150 mg 24 hr tablet, 150 mg PO QAM depressive disorder 01/05/24 08/02/24 extended release clonidine HCl 0.1 mg tablet 0.1 mg PO BID anxiety 01/05/24 08/02/24 cyclobenzaprine 5 mg tablet 10 mg PO BID PRN muscle spasm 01/05/24 08/02/24 dicyclomine 10 mg capsule 10 mg PO TID PRN abdominal pain 01/05/24 08/02/24 ergocalciferol (vitamin D2) 1,250 1,250 mcg PO QWEEK 01/05/24 08/02/24 mcg (50,000 unit) capsule hydroxyzine HCl 25 mg tablet 12.5 - 25 mg PO BID PRN anxiety 01/05/24 08/02/24 lidocaine 5 % topical patch 1 patch topical DIRECTED 01/05/24 08/02/24 meclizine 25 mg tablet 25 mg PO BID PRN dizziness 01/05/24 08/02/24 melatonin 5 mg tablet 5 mg PO BEDTIME PRN insomnia 01/05/24 08/02/24 sennosides 8.6 mg-docusate sodium 1 tab PO BID PRN constipation 01/05/24 08/02/24 50 mg tablet (Senexon-S) dexamethasone 4 mg tablet 4 mg PO DAILY 03/10/24 08/02/24 famotidine 20 mg tablet 20 mg PO DAILY 03/10/24 08/02/24 hydrochlorothiazide 12.5 mg tablet 12.5 mg PO DAILY 03/10/24 08/02/24 metoprolol succinate 25 mg 25 mg PO DAILY 03/10/24 08/02/24 tablet,extended release 24 hr acetaminophen 650 mg 650 mg PO TID 09/15/24 tablet,extended release amitriptyline 10 mg tablet mg PO 09/15/24 dextroamphetamine-amphetamine ER 1 cap PO QAM 09/15/24 30 mg 24hr capsule,extend release (Adderall XR) ixekizumab 80 mg/mL subcutaneous mg subcut 09/15/24 auto-injector (Sentz Autoinjector) oxycodone 5 mg tablet 5 mg PO BID PRN 09/15/24 dextroamphetamine-amphetamine 10 15 mg PO DAILY 11/04/24 mg tablet (Adderall) diazepam 2 mg tablet 2 mg PO DAILY PRN 11/10/24 Previous Rx's ?Medication ?Instructions ?Recorded zinc gluconate 30 mg tablet 30 mg PO DAILY #90 tabs 04/28/24 tirzepatide (weight loss) 2.5 2.5 mg (0.5 mL) subcut QWEEK #2 mL 08/02/24 mg/0.5 mL subcutaneous pen injector (Zepbound) diltiazem HCl 240 mg 240 mg PO DAILY #90 caps 08/30/24 capsule,extended release 24 hr tirzepatide (weight loss) 5 mg/0.5 5 mg (0.5 mL) subcut QWEEK #2 mL 09/18/24 mL subcutaneous pen injector (Zepbound) cholecalciferol (vitamin D3) 125 125 mcg PO DAILY #90 caps 10/14/24 mcg (5,000 unit) capsule cyclobenzaprine 10 mg tablet 10 mg PO TID PRN muscle spasm #14 10/22/24 tabs tirzepatide (weight loss) 7.5 7.5 mg (0.5 mL) subcut QWEEK #2 mL 10/27/24 mg/0.5 mL subcutaneous pen injector (Zepbound) ferrous sulfate 325 mg (65 mg 325 mg PO DAILY 90 days #90 tabs 12/13/24 iron) tablet cyclobenzaprine 10 mg tablet 10 mg PO TID PRN muscle spasm #20 12/29/24 tabs dexamethasone 4 mg tablet 4 mg PO BID #6 tabs 12/29/24 Allergies Allergy/AdvReac Type Severity Reaction Status Date / Time gabapentin Allergy Mild Unknown Verified 01/03/25 22:42 pregabalin Allergy Mild Hives Verified 01/03/25 22:42 ibuprofen [From Advil] Allergy Shortness Verified 01/03/25 22:42 of Breath aspirin AdvReac Headache Verified 01/03/25 22:42 etanercept [From Enbrel] AdvReac Dizziness Verified 01/03/25 22:42 NSAIDS (Non-Steroidal AdvReac Palpitation Verified 01/03/25 22:42 Anti-Inflamma s Review of Systems 2 Review of Systems: Constitutional : No Fever, No Chills, No Fatigue ENT/Mouth : No sore throat, No Rhinorrhea Eyes: No Eye Pain, No Swelling, No Redness, pos blurry vision Cardiovascular : No Chest Pain, pos SOB, No Dyspnea on Exertion Respiratory : No Cough, No Sputum Gastrointestinal : No Nausea, No Vomiting, No Diarrhea, No abdominal Pain Genitourinary : No Dysuria, No Urinary Frequency, No Hematuria, Musculoskeletal : No joint pain, No Myalgias, No Joint Swelling Skin : No Skin Lesions, No rash Neuro : No Weakness, pos Numbness, pos Dizziness, no Headache All other systems reviewed and are negative [facility] Past Medical History Attestation statement: The following information was validated with the patient. Source: old records reviewed Medical History Severe obesity (BMI >= 40) New onset a-fib Hx of fracture of femur Sleep apnea Habitual snoring Asthma Renal and ureteric calculus Obesity Surgical History History of surgery on lower extremity S/P cystoscopy with ureteral stent placement History of cystoscopy [place] teeth extracted Family History Family History Mother Family history of thyroid problem Social History Social History Household Members: Spouse and Family Housing: House Are you a primary home health care respiratory therapist to a significant other at home: No Do you presently have visiting nurse or other home services: No Alcohol intake: never Patient Tobacco Use Status: Former Tobacco user Tobacco use type: Cigarette Cigarette Packs Per Day: 1 Cigarettes Per Day: 20.0 Smoked in Last 30 Days: No e-Cigarette/Vaping Use: Former Use Use of substances other than those prescribed or required for medical reasons: No Advance Directives: No Advance Directives Information Provided: No service: No Current occupational status: employed Physical Exam ED Vital Signs: Vital Signs - 24 hr 01/03/25 22:40 01/03/25 22:44 01/03/25 23:44 Temperature 97.5 F 97.5 F 98.4 F Pulse Rate 87 87 76 Respiratory Rate 16 16 16 Blood Pressure 151/55 H 151/55 H 122/54 L Pulse Oximetry 97 97 98 Oxygen Delivery Method Room Air Room Air Room Air 01/04/25 00:43 01/04/25 00:51 01/04/25 00:52 Temperature Pulse Rate 70 68 79 Respiratory Rate 18 Blood Pressure 141/62 H 142/63 H 153/82 H Pulse Oximetry 98 Oxygen Delivery Method Room Air 01/04/25 00:54 Temperature Pulse Rate 93 Respiratory Rate Blood Pressure 138/81 Pulse Oximetry Oxygen Delivery Method BMI result Body Mass Index 65.7 Appearance: Alert. Oriented X3. No acute distress. Eyes: Pupils equal, round and reactive to light. ENT: Pharynx normal. atraumatic Neck: Normal inspection. Neck supple. CVS: Normal heart rate and rhythm. Pulses normal. Respiratory: No respiratory distress. Breath sounds normal. Abdomen: Soft and nontender. Skin: Skin warm and dry. Normal skin color. Normal skin turgor. Extremities: No lower extremity edema. psoriasis plaques on both legs no signs of cellulitis Neuro: Oriented X 3. No motor deficit. No sensory deficit. CN2-12 intact Medications Administered Discontinued Medications Generic Name Dose Route Start Last Admin Trade Name Freq PRN Reason Stop Dose Admin Lactated Ringer's 1,000 mls @ 999 mls/hr 01/03/25 23:01 01/04/25 00:43 Lr IV 01/04/25 00:01 Infused .Q1H1M ONE Infusion Medical Decision Making Medical Decision Making [facility] Narrative: 39 yo male with PMH of afib not on thinners, back pain, morbid obesity, ZAINA on CPAP here with a number of symptoms 1. dizziness - will need labs for anemia, dehydration, 2 days of symptoms has no other obvious neuro symptoms it is worse with standing doubt posterior stroke 2. dyspnea - could be viral, URI, VTE 3. feeling his vision is blurry and entire face is numb - see above is not consistent with a stroke pattern and no severe headache to suggest hemorrhage Differential Diagnosis Differential Diagnoses: The differential diagnosis associated with the presentation includes VTE, viral syndrome, pneumonia his neuro symptoms of his entire face feeling numb would be unusual for stroke. I have no signs of deficits right now unclear if this is med reaction Admission/Observation Consideration of admission/observation: Escalation of care including admission/observation considered work up reassuring stable for DC feels much better after IVF Lab Data [facility] Lab Attestation statement: I reviewed the patient's lab results. ddimer negative with low to mod probability 01/03/25 23:41 01/03/25 23:41 Labs: Lab Results 01/03/25 01/03/25 01/04/25 Range/Units 23:40 23:41 00:59 WBC 15.3 H (4.8-10.8) X10*3/uL RBC 4.06 L (4.60-5.80) X10*6/uL Hgb 11.4 L (14.0-18.0) g/dl Hct 35.1 L (42.0-52.0) % MCV 86.5 (80.0-98.0) fL MCH 28.1 (27.0-33.0) pg MCHC 32.5 (31.0-36.0) g/dl RDW 16.2 H (11.0-16.0) % Plt Count 287 (160-400) X10*3/uL MPV 9.6 (9.4-12.4) fL Immature Gran % (Auto) 1.2 H (0.0-0.4) % Neut % (Auto) 64.5 (45-73) % Lymph % (Auto) 26.6 (20-40) % [place] % (Auto) 6.2 (2-11) % Eos % (Auto) 1.3 (0-4) % Baso % (Auto) 0.2 (0-2) % Lymph # (Auto) 4.1 (1.2-4.9) X10*3/uL [place] # (Auto) 0.9 (0.1-1.2) X10*3/uL Eos # (Auto) 0.2 (0.0-0.4) X10*3/uL Baso # (Auto) 0.0 (0.0-0.2) X10*3/uL Abs Immat Gran (auto) 0.19 H (0.00-0.03) X10*3/uL Absolute Neuts (auto) 9.9 H (2.0-8.3) x10*3/uL Absolute Nucleated RBC 0.000 (0.0-0.012) X10*3/uL Nucleated RBC % (auto) 0.0 (0.0-0.2) /100WBC D-Dimer High Sensitivty 172 NG/ML Sodium 143 (135-145) mmol/L Potassium 3.4 (3.3-5.1) mmol/L Chloride 106 (96-108) mmol/L Carbon Dioxide 28 (22-29) mmol/L Anion Gap 12 (12-20) BUN 14 (9-16) mg/dL Creatinine 0.67 (0.5-1.4) mg/dL Estim Creat Clear Calc 290.8 Estimated GFR > 60 Random Glucose 99 (60-115) mg/dL Calcium 8.1 L D (8.4-10.2) mg/dL Magnesium 2.0 (1.6-2.6) mg/dL Total Bilirubin 0.4 (0.0-1.0) mg/dL Direct Bilirubin 0.2 (0.0-0.5) mg/dL AST 21 (5-37) U/L ALT 33 (0-40) U/L Alkaline Phosphatase 89 (39-117) U/L Troponin I High Sens 4.0 (<3.5-35.0) ng/L B-Natriuretic Peptide 15 (<100) pg/mL Total Protein 6.2 L (6.5-8.0) g/dL Albumin 3.1 L (3.5-5.0) g/dL Urine Color Yellow Urine Appearance Clear Urine pH 6.0 (5.0-9.0) Ur Specific [place] 1.015 (1.005-1.025) Urine Protein Negative (Neg-Trace) mg/dL Urine Glucose (UA) Negative (Negative) mg/dL Urine Ketones Negative (Negative) mg/dL Urine Blood Negative (Negative) Urine Nitrite Negative (Negative) Ur Leukocyte Esterase Negative (Negative) Influenza Type A (PCR) NEGATIVE (Negative) Influenza Type B (PCR) NEGATIVE (Negative) RSV RNA Qual (PCR) NEGATIVE (Negative) SARS-CoV-2 RNA (RT-PCR) NEGATIVE (Negative) Independent Interpretation I performed an independent interpretation of an: EKG and Plain X-Ray (normal ) Interpretation: Rate: Rhythm: Alligator: Normal P waves. Normal ARPIT. Normal QRS complex. ST T wave : qTC: prior studies: The study has been interpreted contemporaneously by me. . Radiology Impression Discussion of test interpretation with radiology: I have reviewed the radiologist's reading. Independent Historian Clinical information obtained from an independent historian. History obtained from or confirmed by: EMS External Record Review External record reviewed: Outpatient record Tests considered The following testing was considered but not selected: CT head but with entire face being numb that does not correlate with stroke symptoms Discharge Plan Discharge Clinical Impression: Malaise and fatigue Medication adverse effect Qualifiers: Encounter type: initial encounter Qualified Code(s): T50.905A - Adverse effect of unspecified drugs, medicaments and biological substances, initial encounter Patient Disposition: Home, Self-Care Instructions: Fatigue (ED) Additional Instructions: labs reassuring EKG, heart tests and blood clot test normal chest xray normal please avoid the dexamethasone return for any worsening symptoms or concerns. Prescriptions: No Action zinc gluconate 30 mg tablet 30 mg PO DAILY Qty: 90 0RF diltiazem HCl 240 mg capsule,extended release 24hr 240 mg PO DAILY Qty: 90 3RF Zepbound 5 mg/0.5 mL pen injector 5 mg subcut QWEEK Qty: 2 0RF cholecalciferol (vitamin D3) 125 mcg (5,000 unit) capsule 125 mcg PO DAILY Qty: 90 1RF Zepbound 7.5 mg/0.5 mL pen injector 7.5 mg subcut QWEEK Qty: 2 0RF ferrous sulfate 325 mg (65 mg iron) tablet 325 mg PO DAILY 90 Days Qty: 90 0RF omeprazole 40 mg capsule,delayed release(DR/EC) 1 cap PO DAILY@0630 PRN (Reason: Heartburn) albuterol sulfate 2.5 mg /3 mL (0.083 %) solution for nebulization 1 vial inhalation Q4H PRN (Reason: wheezing) albuterol sulfate [ProAir HFA] 90 mcg/actuation HFA aerosol inhaler 2 puff INHALATION Q4-6H PRN (Reason: Shortness Of Breath Or Wheezing) folic acid 1 mg tablet 1 tab PO DAILY alclometasone 0.05 % cream 1 appl topical DAILY triamcinolone acetonide 0.1 % cream 1 appl topical DAILY loratadine 10 mg tablet 1 tab PO DAILY PRN (Reason: Allergy Symptoms) dexamethasone 4 mg tablet 4 mg PO BID Qty: 6 0RF cyclobenzaprine 10 mg tablet 10 mg PO TID PRN (Reason: muscle spasm) Qty: 20 0RF cyclobenzaprine 10 mg tablet 10 mg PO TID PRN (Reason: muscle spasm) Qty: 14 0RF Zepbound 2.5 mg/0.5 mL pen injector 2.5 mg subcut QWEEK Qty: 2 0RF Rx Instructions: for 4 weeks hydroxyzine HCl 25 mg tablet 12.5 - 25 mg PO BID PRN (Reason: anxiety) clonidine HCl 0.1 mg tablet 0.1 mg PO BID cyclobenzaprine 5 mg tablet 10 mg PO BID PRN (Reason: muscle spasm) dicyclomine 10 mg capsule 10 mg PO TID PRN (Reason: abdominal pain) meclizine 25 mg tablet 25 mg PO BID PRN (Reason: dizziness) melatonin 5 mg tablet 5 mg PO BEDTIME PRN (Reason: insomnia) sennosides-docusate sodium [Senexon-S] 8.6-50 mg tablet 1 tab PO BID PRN (Reason: constipation) ergocalciferol (vitamin D2) 1,250 mcg (50,000 unit) capsule 1,250 mcg PO QWEEK bupropion HCl 150 mg tablet extended release 24 hr 150 mg PO QAM lidocaine 5 % adhesive patch,medicated 1 patch topical DIRECTED dexamethasone 4 mg tablet 4 mg PO DAILY hydrochlorothiazide 12.5 mg tablet 12.5 mg PO DAILY famotidine 20 mg tablet 20 mg PO DAILY metoprolol succinate 25 mg tablet extended release 24 hr 25 mg PO DAILY dextroamphetamine-amphetamine [Adderall] 10 mg tablet 15 mg PO DAILY dextroamphetamine-amphetamine [Adderall XR] 30 mg capsule,extended release 24hr 1 cap PO QAM oxycodone 5 mg tablet 5 mg PO BID PRN [place]j Autoinjector 80 mg/mL auto-injector subcut amitriptyline 10 mg tablet PO acetaminophen 650 mg tablet extended release 650 mg PO TID diazepam 2 mg tablet 2 mg PO DAILY PRN Print Language: [place]
[2025-01-03] MEDS: Lactated Ringers 1,000 ML 999 ML IV (23:32)
[2025-01-03 23:44] VITALS: BP 122/54; PULSE 76; RESP 16; TEMP 36.9; O2SAT 98
--- NOTE | 2025-01-03 23:45 | MHC.EDTECH ---
Patient blood drawn and sent to lab .
[2025-01-03 23:46] LABS: Basophils Percent Auto 0.2 % (0-2); Eosinophils Absolute Auto 0.2 X10*3/uL (0.0-0.4); Eosinophils Percent Auto 1.3 % (0-4); Hematocrit 35.1 % (42.0-52.0); Hemoglobin 11.4 g/dl (14.0-18.0); Imm Gran Abs Auto 0.19 X10*3/uL (0.00-0.03); Imm Gran Pct Auto 1.2 % (0.0-0.4); Lymphocytes Absolute Auto 4.1 X10*3/uL (1.2-4.9); Lymphocytes Percent Auto 26.6 % (20-40); MANUAL DIFF FLAG NO; Mean Corpuscular HGB Conc 32.5 g/dl (31.0-36.0); Mean Corpuscular Hemoglobin 28.1 pg (27.0-33.0); Mean Corpuscular Volume 86.5 fL (80.0-98.0); Mean Platelet Volume 9.6 fL (9.4-12.4); Monocytes Absolute Auto 0.9 X10*3/uL (0.1-1.2); Monocytes Percent Auto 6.2 % (2-11); Neutrophils Absolute Auto 9.9 x10*3/uL (2.0-8.3); Neutrophils Percent Auto 64.5 % (45-73); Platelet Count 287 X10*3/uL (160-400); Red Blood Count 4.06 X10*6/uL (4.60-5.80); Red Cell Distribution Width 16.2 % (11.0-16.0); White Blood Count 15.3 X10*3/uL (4.8-10.8)
[2025-01-03 23:54] LABS: D Dimer High Sensitivity 172 NG/ML
[2025-01-04 00:06] LABS: Alanine Aminotransferase 33 U/L (0-40); Albumin Level 3.1 g/dL (3.5-5.0); Anion Gap 12 (12-20); Aspartate Amino Transferase 21 U/L (5-37); Calcium 8.1 mg/dL (8.4-10.2); Carbon Dioxide 28 mmol/L (22-29); Chloride 106 mmol/L (96-108); Glucose Random 99 mg/dL (60-115); Potassium 3.4 mmol/L (3.3-5.1); Sodium 143 mmol/L (135-145); Total Protein 6.2 g/dL (6.5-8.0)
[2025-01-04 00:07] LABS: B Type Natriuretic Peptide 15 pg/mL (<100)
[2025-01-04 00:09] LABS: Alkaline Phosphatase 89 U/L (39-117); Bilirubin Direct 0.2 mg/dL (0.0-0.5); Bilirubin Total 0.4 mg/dL (0.0-1.0); Blood Urea Nitrogen 14 mg/dL (9-16); Creatinine Clr Calc Pharmacy 290.8; Estimated Glomerular Filt Rate > 60
[2025-01-04 00:14] VITALS: BMI 65.7
[2025-01-04 00:22] LABS: Influenza A PCR NEGATIVE (Negative); Influenza B PCR NEGATIVE (Negative); Resp Syncy Virus RNA Qual PCR NEGATIVE (Negative); SARS COV2 PCR INHOUSE NEGATIVE (Negative)
[2025-01-04 00:43] VITALS: BP 141/62; PULSE 70; RESP 18; O2SAT 98
[2025-01-04 00:51] VITALS: BP 142/63; PULSE 68
[2025-01-04 00:52] VITALS: BP 153/82; PULSE 79
[2025-01-04 00:54] VITALS: BP 138/81; PULSE 93
[2025-01-04 01:07] LABS: Appearance Urine Clear; Color Urine Yellow; Glucose Urine UA Negative (Negative); Leukocyte Esterase Urine Negative (Negative); Nitrite Urine Negative (Negative); Specific Gravity - Urine 1.015 (1.005-1.025); Urine Blood Negative (Negative); Urine Ketones Negative (Negative); Urine Protein Negative (Neg-Trace)
[2025-01-04 01:51] VITALS: BP 128/65; PULSE 84; RESP 21; TEMP 36.6; O2SAT 97
== END 2025-01-04 01:52 | disposition home or self-care (01) ==
PROVIDERS: Emergency Provider Emergency Medicine; PCP Internal Medicine
DX: R42 Dizziness and giddiness (principal); R53.81 Other malaise; R20.0 Anesthesia of skin; R07.89 Other chest pain; R11.0 Nausea; Z79.899 Other long term (current) drug therapy; Z03.818 Encounter for observation for suspected exposure to other biological agents ruled out; Z87.891 Personal history of nicotine dependence; R53.83 Other fatigue
CPT/HCPCS: 0241U; 71045; 80048; 80076; 81003; 83735; 83880; 84484; 85025; 85379; 93005; 96360; 99284; 99285; J7120

== ENCOUNTER → 2025-01-03 22:47 | Outpatient (BNV) | payer OTHER, SELFPAY | PROVIDERS: Emergency Provider Emergency Medicine; PCP Internal Medicine; Visit Provider Internal Medicine Cardiovascular Disease | DX: R07.89 Other chest pain (principal) | CPT/HCPCS: 93010 ==

== ENCOUNTER → 2025-01-03 23:01 | Outpatient (BNV) | payer OTHER, SELFPAY | PROVIDERS: Emergency Provider Emergency Medicine; PCP Internal Medicine; Visit Provider General Practice | DX: R06.00 Dyspnea, unspecified (principal) | CPT/HCPCS: 71045 ==

== ENCOUNTER 2025-01-11 12:17 | Outpatient (AMB) | payer OTHER, SELFPAY ==
--- NOTE | 2025-01-11 12:10 | A.OFFWM_ITS ---
Intake Intake Visit Reasons: VIDEO BH F/U Allergies gabapentin Allergy (Mild, Verified 01/03/25 22:42) Unknown pregabalin Allergy (Mild, Verified 01/03/25 22:42) Hives ibuprofen [From Advil] Allergy (Verified 01/03/25 22:42) Shortness of Breath aspirin Adverse Reaction (Verified 01/03/25 22:42) Headache etanercept [From Enbrel] Adverse Reaction (Verified 01/03/25 22:42) Dizziness NSAIDS (Non-Steroidal Anti-Inflamma Adverse Reaction (Verified 01/03/25 22:42) Palpitations PFSH Medical History Severe obesity (BMI >= 40) New onset a-fib Hx of fracture of femur Sleep apnea Habitual snoring Asthma Renal and ureteric calculus Obesity Surgical History History of surgery on lower extremity S/P cystoscopy with ureteral stent placement History of cystoscopy [place] teeth extracted Family History Mother Family history of thyroid problem Social History Household Members: Spouse and Family Housing: House Are you a primary summer child caregiver to a significant other at home: No Do you presently have visiting nurse or other home services: No Alcohol intake: never Patient Tobacco Use Status: Former Tobacco user Tobacco use type: Cigarette Cigarette Packs Per Day: 1 Cigarettes Per Day: 20.0 e-Cigarette/Vaping Use: Former Use service: No Current occupational status: employed Behavioral Health Assessment Weight Management Therapy Therapy Notes Details Subjective: The patient reports ongoing struggles related to multiple recent life stressors, which have negatively impacted his health and adherence to his weight management plan. He shared that he has visited the emergency room twice since the last session and has deviated from his meal plan, however she started again today with the shakes. He has avoided weighing himself for several weeks due to fear of the number and concern that it will further decrease his motivation. The patient noted an improvement in gastrointestinal symptoms since discontinuing Zepbound; however, his appetite has returned. Objective: The patient attended the follow-up session via Telehealth. He was engaged and forthcoming during the session. Together, we processed recent challenges contributing to non-adherence, including unplanned events and emotional stress. Interventions included: * Use of CBT to explore the difference between motivation and discipline * Discussed the importance of daily self-commitment * Explored strategies to involve his family for increased support and sustainability * Reframed his view of weight loss from a temporary goal to a sustainable lifestyle change * Brainstormed practical strategies for managing unplanned events, including keeping staple ingredients on hand, preparing pre-made meals, and having go-to easy recipes Assessment/Response: * Mental status: alert and oriented ?3, cooperative, good eye contact, mood mildly anxious and discouraged, affect congruent with mood. * Risk reported/identified: None Food/Weight/Diet Expectations of change Initial goal is to lose at least 2-3 lbs per week, and about 145 pounds before surgery. . PT reports he needs to be at 400 lbs to be considered for surgery. He started on 04/22/2024 at 545Lbs and his most recent weight is 501Lbs as of 08/02/2024. weight as of 10/27/2024: 484 Lbs Weight 11/10/24: 483Lbs Weight 11/17/24: 486Lbs Weight 11/26/24: 479Lbs Weight 12/23/2024: 481Lbs. . Meal plan: a combination of shakes and 1 meal per day. * started today again. Exercise: attending the gym 3-4 days a week. Assessment & Plan Assessment & Plan (1) Adjustment disorder with anxious mood: Code(s): F43.22 - Adjustment disorder with anxiety (2) ADHD (attention deficit hyperactivity disorder): Code(s): F90.9 - Attention-deficit hyperactivity disorder, unspecified type Plan Homework assigned: Begin identifying early signs of slipping from the plan (?falling off the wagon?) to allow for early intervention and course correction. Continue behavioral health support with focus on developing sustainable habits, managing stress, and increasing accountability. Patient to implement meal planning strategies and identify early signs of disengagement. Follow-up session scheduled in 2 weeks. Next brown: 01/25/2025 at 11am, Telehealth. Telehealth Telehealth Telehealth Platform: [facility] Location of provider rendering services: other Location of patient: address on file Patient Identification confirmed using: Name, : Yes Telehealth method: video Patient verbally consented to treatment: Yes Patient verbally consented to billing insurance company: Yes Patient informed of any privacy concerns related to visit: Yes Minutes spent on Phone/Video with Pt.: 50 Coding Level of Care Code Established Pt Tele Psytx 45 mins ([id number]) Patient Type Established Diagnoses Adjustment disorder with anxious mood F43.22 ADHD (attention deficit hyperactivity disorder) F90.9 Time Spent (min) 50
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
--- OUTSIDE RECORDS SUMMARY | 2025-01-11 13:40 | XMS_ITS | Clinical Summary ---
Author Organization [facility] Address [address] [place] [address] Care Team Providers Care Manager Travel Name Role Phone Kevin Lake MD Primary [...] age to complete this topic Care Teams Manager Travel Relationship Specialty Start Date End Date Kevin Lake MD [address] [place] [id number] PCP - General Hospitalist Medicine 04/27/24
--- OUTSIDE RECORDS SUMMARY | 2025-01-11 13:40 | XMS_ITS ---
Author Organization Brody Willis MD Address [address] [facility] [address] [place] [address] Care Team Providers Care Ehs Teacher Name Role Phone Brody Willis Unavailable [phone] REASON FOR VISIT JONESTay PADILLA Encounters Encounter Location Date Provider Diagnosis Brody Willis MD [address] [facility] [place] [address] [place] [address] 11/02/2024 Brody Willis PLAN OF TREATMENT No Information
--- OUTSIDE RECORDS SUMMARY | 2025-01-11 13:40 | XMS_ITS | Patient Health Record ---
Author Organization Brody Willis MD Address [address] [facility] [address] [place] [address] Care Team Providers Care National Park Ranger Name Role Phone Brody Willis Unavailable [phone] REASON FOR REFERRAL No Information Encounters Encounter Location Date Provider Diagnosis Brody Willis MD [address] [facility] [place] [address] [place] [address] 11/02/2024 Brody Willis PLAN OF TREATMENT No Information
== END 2025-01-11 13:08 | disposition home or self-care (01) ==
LOC: HO.HBST 12:17
PROVIDERS: PCP Internal Medicine; Visit Provider Counselor Mental Health
DX: F43.22 Adjustment disorder with anxiety (principal); F90.9 Attention-deficit hyperactivity disorder, unspecified type
CPT/HCPCS: 90834

== ENCOUNTER 2025-01-25 11:21 | Outpatient (AMB) | payer OTHER, SELFPAY ==
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
--- OUTSIDE RECORDS SUMMARY | 2025-01-25 12:40 | XMS_ITS | Patient Health Record ---
Author Organization Brody Willis MD Address [address] [facility] [address] [place] [address] Care Team Providers Care Soil Science Professor Name Role Phone Brody Willis Unavailable [phone] REASON FOR REFERRAL No Information Encounters Encounter Location Date Provider Diagnosis Brody Willis MD [address] [facility] [place] [address] [place] [address] 11/02/2024 Brody Willis PLAN OF TREATMENT No Information
--- OUTSIDE RECORDS SUMMARY | 2025-01-25 12:40 | XMS_ITS ---
Author Organization Brody Willis MD Address [address] [facility] [address] [place] [address] Care Team Providers Care Marketing Underwriter Name Role Phone Brody Willis Unavailable [phone] REASON FOR VISIT JONESTay PADILLA Encounters Encounter Location Date Provider Diagnosis Brody Willis MD [address] [facility] [place] [address] [place] [address] 11/02/2024 Brody Willis PLAN OF TREATMENT No Information
--- OUTSIDE RECORDS SUMMARY | 2025-01-25 12:40 | XMS_ITS | Clinical Summary ---
Author Organization [facility] Address [address] [place] [address] Care Team Providers Care Billing Department Supervisor Name Role Phone Kevin Lake MD [...] age to complete this topic Care Teams Billing Department Supervisor Relationship Specialty Start Date End Date Kevin Lake MD [address] [place] [id number] PCP - General Hospitalist Medicine 04/27/24
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
== END 2025-01-25 12:40 | disposition home or self-care (01) ==
LOC: HO.HBST 11:21
PROVIDERS: PCP Internal Medicine; Visit Provider Counselor Mental Health
DX: F43.22 Adjustment disorder with anxiety (principal); F90.9 Attention-deficit hyperactivity disorder, unspecified type
CPT/HCPCS: 90834

== ENCOUNTER 2025-03-04 23:09 | Emergency (ER) | payer OTHER, SELFPAY ==
--- NOTE | ~2025-03-04 | US_ITS ---
CLINICAL HISTORY: RT FLANK PAIN; Gallbladder and right kidney US abdomen limited Indication: Right flank pain Comparison: None provided Findings: There is limited evaluation of the pancreas due to overlying bowel gas. The liver is normal in size and echotexture. There is no intrahepatic bile duct dilatation. The common duct is 0.4 mm in diameter. The gallbladder is normal. Gallbladder wall measures 0.2 cm. No pericholecystic fluid. The main portal vein is antegrade. The right kidney is 13.8 x 6.9 x 6.5 cm cm in length. No ascites. IMPRESSION: 1. Normal limited abdominal ultrasound. 2. No evidence of cholecystitis or choledocholithiasis. This document has been electronically signed by: Crow Abraham III, MD PHD on 03/05/2025 03:12:03
[2025-03-04 23:15] VITALS: BP 138/106; PULSE 75; RESP 18; TEMP 36.6; O2SAT 97; BMI 61.6
[2025-03-04 23:26] VITALS: BP 138/106; PULSE 75; RESP 18; TEMP 36.6; O2SAT 97
[2025-03-05 00:28] LABS: Basophils Percent Auto 0.3 % (0-2); Eosinophils Absolute Auto 0.3 X10*3/uL (0.0-0.4); Eosinophils Percent Auto 2.3 % (0-4); Hematocrit 34.7 % (42.0-52.0); Hemoglobin 11.4 g/dl (14.0-18.0); Imm Gran Abs Auto 0.06 X10*3/uL (0.00-0.03); Imm Gran Pct Auto 0.5 % (0.0-0.4); Lymphocytes Absolute Auto 2.4 X10*3/uL (1.2-4.9); Lymphocytes Percent Auto 20.5 % (20-40); MANUAL DIFF FLAG NO; Mean Corpuscular HGB Conc 32.9 g/dl (31.0-36.0); Mean Corpuscular Volume 85.3 fL (80.0-98.0); Mean Platelet Volume 9.4 fL (9.4-12.4); Monocytes Absolute Auto 0.8 X10*3/uL (0.1-1.2); Monocytes Percent Auto 6.4 % (2-11); Neutrophils Absolute Auto 8.2 x10*3/uL (2.0-8.3); Platelet Count 287 X10*3/uL (160-400); Red Blood Count 4.07 X10*6/uL (4.60-5.80); Red Cell Distribution Width 14.8 % (11.0-16.0); White Blood Count 11.8 X10*3/uL (4.8-10.8)
--- NOTE | 2025-03-05 00:52 | ED.ABDPAIN ---
HPI - Abdominal Pain General Chief Complaint: Abdominal Pain Stated Complaint: R Kidney stone pain Time Seen by Provider: 03/04/25 23:21 History of Present Illness HPI narrative: Patient is a 39-year-old male presents today with having right flank pain. Pain is 10/10. Very sharp. Sudden in onset. On the right side associated with some nausea. Patient is larger in size. He is 6 ft 2. He weighs about 220 kg. Patient complained that he had had previous pain on the left side documented to have a kidney stone on the left. No coughing or congestion or upper respiratory symptoms. Patient is from home. Pain is very similar to previous bouts. Related Data Home Medications ?Medication ?Instructions ?Recorded ?Confirmed albuterol sulfate 2.5 mg/3 mL 1 vial inhalation Q4H PRN wheezing 09/07/22 08/02/24 (0.083 %) solution for nebulization albuterol sulfate 90 mcg/actuation 2 puff inhalation Q4-6H PRN 09/07/22 08/02/24 aerosol inhaler (ProAir HFA) Shortness Of Breath Or Wheezing omeprazole 40 mg capsule,delayed 1 cap PO DAILY@0630 PRN Heartburn 09/07/22 08/02/24 release alclometasone 0.05 % topical cream 1 appl topical DAILY 11/12/22 08/02/24 folic acid 1 mg tablet 1 tab PO DAILY 11/12/22 08/02/24 loratadine 10 mg tablet 1 tab PO DAILY PRN Allergy Symptoms 11/12/22 08/02/24 triamcinolone acetonide 0.1 % 1 appl topical DAILY 11/12/22 08/02/24 topical cream bupropion HCl 150 mg 24 hr tablet, 150 mg PO QAM depressive disorder 01/05/24 08/02/24 extended release clonidine HCl 0.1 mg tablet 0.1 mg PO BID anxiety 01/05/24 08/02/24 cyclobenzaprine 5 mg tablet 10 mg PO BID PRN muscle spasm 01/05/24 08/02/24 dicyclomine 10 mg capsule 10 mg PO TID PRN abdominal pain 01/05/24 08/02/24 ergocalciferol (vitamin D2) 1,250 1,250 mcg PO QWEEK 01/05/24 08/02/24 mcg (50,000 unit) capsule hydroxyzine HCl 25 mg tablet 12.5 - 25 mg PO BID PRN anxiety 01/05/24 08/02/24 lidocaine 5 % topical patch 1 patch topical DIRECTED 01/05/24 08/02/24 meclizine 25 mg tablet 25 mg PO BID PRN dizziness 01/05/24 08/02/24 melatonin 5 mg tablet 5 mg PO BEDTIME PRN insomnia 01/05/24 08/02/24 sennosides 8.6 mg-docusate sodium 1 tab PO BID PRN constipation 01/05/24 08/02/24 50 mg tablet (Senexon-S) dexamethasone 4 mg tablet 4 mg PO DAILY 03/10/24 08/02/24 famotidine 20 mg tablet 20 mg PO DAILY 03/10/24 08/02/24 hydrochlorothiazide 12.5 mg tablet 12.5 mg PO DAILY 03/10/24 08/02/24 metoprolol succinate 25 mg 25 mg PO DAILY 03/10/24 08/02/24 tablet,extended release 24 hr acetaminophen 650 mg 650 mg PO TID 09/15/24 tablet,extended release amitriptyline 10 mg tablet mg PO 09/15/24 dextroamphetamine-amphetamine ER 1 cap PO QAM 09/15/24 30 mg 24hr capsule,extend release (Adderall XR) ixekizumab 80 mg/mL subcutaneous mg subcut 09/15/24 auto-injector ([email or web address] Autoinjector) oxycodone 5 mg tablet 5 mg PO BID PRN 09/15/24 dextroamphetamine-amphetamine 10 15 mg PO DAILY 11/04/24 mg tablet (Adderall) diazepam 2 mg tablet 2 mg PO DAILY PRN 11/10/24 Previous Rx's ?Medication ?Instructions ?Recorded zinc gluconate 30 mg tablet 30 mg PO DAILY #90 tabs 04/28/24 tirzepatide (weight loss) 2.5 2.5 mg (0.5 mL) subcut QWEEK #2 mL 08/02/24 mg/0.5 mL subcutaneous pen injector (Zepbound) diltiazem HCl 240 mg 240 mg PO DAILY #90 caps 08/30/24 capsule,extended release 24 hr tirzepatide (weight loss) 5 mg/0.5 5 mg (0.5 mL) subcut QWEEK #2 mL 09/18/24 mL subcutaneous pen injector (Zepbound) cholecalciferol (vitamin D3) 125 125 mcg PO DAILY #90 caps 10/14/24 mcg (5,000 unit) capsule cyclobenzaprine 10 mg tablet 10 mg PO TID PRN muscle spasm #14 10/22/24 tabs tirzepatide (weight loss) 7.5 7.5 mg (0.5 mL) subcut QWEEK #2 mL 10/27/24 mg/0.5 mL subcutaneous pen injector (Zepbound) ferrous sulfate 325 mg (65 mg 325 mg PO DAILY 90 days #90 tabs 12/13/24 iron) tablet cyclobenzaprine 10 mg tablet 10 mg PO TID PRN muscle spasm #20 12/29/24 tabs dexamethasone 4 mg tablet 4 mg PO BID #6 tabs 12/29/24 ondansetron HCl 4 mg tablet 4 mg PO Q6H PRN nausea and 03/05/25 vomiting #10 tabs oxycodone 5 mg tablet 5 mg PO BID PRN pain #10 tabs 03/05/25 tamsulosin 0.4 mg capsule 0.4 mg PO DAILY #20 caps 03/05/25 Allergies Allergy/AdvReac Type Severity Reaction Status Date / Time gabapentin Allergy Mild Unknown Verified 03/04/25 23:18 pregabalin Allergy Mild Hives Verified 03/04/25 23:18 ibuprofen (From Advil) Allergy Shortness Verified 03/04/25 23:18 of Breath aspirin AdvReac Headache Verified 03/04/25 23:18 etanercept (From Enbrel) AdvReac Dizziness Verified 03/04/25 23:18 NSAIDS (Non-Steroidal AdvReac Palpitation Verified 03/04/25 23:18 Anti-Inflamma s Review of Systems Review of Systems Positive right flank pain Yes all other systems are reviewed and are negative PMFSH Past Medical History Attestation statement: The following information was validated with the patient. Medical History Severe obesity (BMI >= 40) New onset a-fib Hx of fracture of femur Sleep apnea Habitual snoring Asthma Renal and ureteric calculus Obesity Surgical History History of surgery on lower extremity S/P cystoscopy with ureteral stent placement History of cystoscopy [place] teeth extracted Family History Family History Mother Family history of thyroid problem Social History Social History Household Members: Spouse and Family Housing: House Are you a primary healthcare translator to a significant other at home: No Do you presently have visiting nurse or other home services: No Alcohol intake: never Patient Tobacco Use Status: Former Tobacco user Tobacco use type: Cigarette Cigarette Packs Per Day: 1 Cigarettes Per Day: 20.0 e-Cigarette/Vaping Use: Former Use service: No Current occupational status: employed Physical Exam ED Vital Signs: Vital Signs - 24 hr 03/04/25 23:15 03/04/25 23:26 03/05/25 01:10 Temperature 97.9 F 97.9 F 98.7 F Pulse Rate 75 75 69 Respiratory Rate 18 18 20 Blood Pressure 138/106 H 138/106 H 160/76 H Pulse Oximetry 97 97 99 Oxygen Delivery Method Room Air Room Air Room Air 03/05/25 03:45 03/05/25 04:39 Temperature 97.7 F 97.9 F Pulse Rate 66 61 Respiratory Rate 18 16 Blood Pressure 149/66 H 138/65 Pulse Oximetry 98 97 Oxygen Delivery Method Room Air Room Air BMI result Body Mass Index 63.8 Appearance: Alert. Oriented X3. No acute distress. Eyes: Pupils equal, round and reactive to light. ENT: Pharynx normal. Neck: Normal inspection. Neck supple. No lymph nodes noted. No crepitus CVS: Normal heart rate and rhythm. Pulses normal. Normal S1 and S2 Respiratory: No respiratory distress. Breath sounds normal. No Wheezing. No rales Abdomen: Soft and nontender. No rigidity. No distention. good BS x4 Skin: Skin warm and dry. Normal skin color. Normal skin turgor. Extremities: No lower extremity edema. Neurovascular intact to all extremities. No Lacerations. No Rash Neuro: Oriented X 3. No motor deficit. No sensory deficit. Moving all extermities. No slurred speech Procedures Procedure Narrative Procedure Narrative: Ultrasound-guided IV 20 gauge 1.16 in IV placed in left AC. Adequate blood return, flushes well, secured with Tegaderm. Performed by Yoli Fermin PA-C Medical Decision Making Medical Decision Making [facility] Narrative: We wait patient. He turns out to be 496 lb. Over the weight limit at [place] of 440. Will get patient an ultrasound of the kidney. Ultrasound of the right upper quadrant if possible. Pain medication given. I received sign-out from my colleague Dr. Hirsch Ultrasound did not show any significant acute abnormality, ultrasound reported as normal limited abdominal ultrasound, no evidence of cholecystitis or choledocholithiasis. Patient was given an additional dose of morphine. According to the archives technician, due to patient's body habitus, this was a difficult exam. Overall patient feeling better. Patient instructed to follow-up with urology. Patient's urinalysis is positive for blood, no UTI, patient's BUN and creatinine within normal limits. Obstruction is not suspected Differential Diagnosis Differential Diagnoses: The differential diagnosis associated with the presentation includes Kidney stone, gallbladder issue, UTI Admission/Observation Consideration of admission/observation: Escalation of care including admission/observation considered Lab Data [facility] Lab Attestation statement: I reviewed the patient's lab results. 03/05/25 00:24 03/05/25 00:24 Labs: Lab Results 03/05/25 03/05/25 Range/Units 00:24 01:01 WBC 11.8 H (4.8-10.8) X10*3/uL RBC 4.07 L (4.60-5.80) X10*6/uL Hgb 11.4 L (14.0-18.0) g/dl Hct 34.7 L (42.0-52.0) % MCV 85.3 (80.0-98.0) fL MCH 28.0 (27.0-33.0) pg MCHC 32.9 (31.0-36.0) g/dl RDW 14.8 (11.0-16.0) % Plt Count 287 (160-400) X10*3/uL MPV 9.4 (9.4-12.4) fL Immature Gran % (Auto) 0.5 H (0.0-0.4) % Neut % (Auto) 70.0 (45-73) % Lymph % (Auto) 20.5 (20-40) % [place] % (Auto) 6.4 (2-11) % Eos % (Auto) 2.3 (0-4) % Baso % (Auto) 0.3 (0-2) % Lymph # (Auto) 2.4 (1.2-4.9) X10*3/uL [place] # (Auto) 0.8 (0.1-1.2) X10*3/uL Eos # (Auto) 0.3 (0.0-0.4) X10*3/uL Baso # (Auto) 0.0 (0.0-0.2) X10*3/uL Abs Immat Gran (auto) 0.06 H (0.00-0.03) X10*3/uL Absolute Neuts (auto) 8.2 (2.0-8.3) x10*3/uL Absolute Nucleated RBC 0.000 (0.0-0.012) X10*3/uL Nucleated RBC % (auto) 0.0 (0.0-0.2) /100WBC Sodium 142 (135-145) mmol/L Potassium 3.9 (3.3-5.1) mmol/L Chloride 110 H (96-108) mmol/L Carbon Dioxide 27 (22-29) mmol/L Anion Gap 9 L (12-20) BUN 17 H (9-16) mg/dL Creatinine 0.87 (0.5-1.4) mg/dL Estim Creat Clear Calc 224.3 Estimated GFR > 60 Random Glucose 103 (60-115) mg/dL Calcium 8.7 D (8.4-10.2) mg/dL Magnesium 2.1 (1.6-2.6) mg/dL Total Bilirubin 0.5 (0.0-1.0) mg/dL Direct Bilirubin 0.2 (0.0-0.5) mg/dL AST 22 (5-37) U/L ALT 20 (0-40) U/L Alkaline Phosphatase 74 (39-117) U/L Total Protein 6.7 (6.5-8.0) g/dL Albumin 3.6 (3.5-5.0) g/dL Lipase 8 (8-78) U/L Urine Color Yellow Urine Appearance Clear Urine pH 5.5 (5.0-9.0) Ur Specific [place] 1.015 (1.005-1.025) Urine Protein Negative (Neg-Trace) mg/dL Urine Glucose (UA) Negative (Negative) mg/dL Urine Ketones Negative (Negative) mg/dL Urine Blood Large (3+) H (Negative) Urine Nitrite Negative (Negative) Ur Leukocyte Esterase Negative (Negative) Urine RBC >20 H (0-2) /HPF Urine WBC 0-5 (0-5) /HPF Ur Squamous Epith Cells 0-2 (0-2) /HPF Urine Bacteria None Seen (None Seen) Hyaline Casts 0-2 (0-2) /LPF Medications Administered Discontinued Medications Generic Name Dose Route Start Last Admin Trade Name Freq PRN Reason Stop Dose Admin Hydromorphone HCl 0.5 mg 03/05/25 01:00 03/05/25 01:48 Hydromorphone Hcl 0.5 Mg/0.5 Ml Syringe IVPUSH 03/05/25 01:01 0.5 mg ONCE ONE Administration Protocol Sodium Chloride 1,000 mls @ 999 mls/hr 03/05/25 01:00 03/05/25 04:35 Ns IV 03/05/25 02:00 Infused .Q1H1M SHANNA Infusion Morphine Sulfate 4 mg 03/05/25 03:39 03/05/25 03:52 Morphine Sulfate 4 Mg/Ml Cartridge IVPUSH 03/05/25 03:40 4 mg ONCE ONE Administration Protocol Ondansetron HCl 4 mg 03/05/25 01:00 03/05/25 01:48 Ondansetron Hcl 4 Mg/2 Ml Vial IVPUSH 03/05/25 01:01 4 mg ONCE ONE Administration Discharge Plan Discharge Clinical Impression: Acute right flank pain Patient Disposition: Home, Self-Care Instructions: Flank Pain (ED) Additional Instructions: Please follow-up with your primary care physician tomorrow. If you have any worsening or new symptoms, please return to the emergency room or call 911 Prescriptions: New oxycodone 5 mg tablet 5 mg PO BID PRN (Reason: pain) Qty: 10 0RF Rx Instructions: Partial Fill upon patient request. ondansetron HCl 4 mg tablet 4 mg PO Q6H PRN (Reason: nausea and vomiting) Qty: 10 0RF tamsulosin 0.4 mg capsule 0.4 mg PO DAILY Qty: 20 0RF No Action zinc gluconate 30 mg tablet 30 mg PO DAILY Qty: 90 0RF diltiazem HCl 240 mg capsule,extended release 24hr 240 mg PO DAILY Qty: 90 3RF Zepbound 5 mg/0.5 mL pen injector 5 mg subcut QWEEK Qty: 2 0RF cholecalciferol (vitamin D3) 125 mcg (5,000 unit) capsule 125 mcg PO DAILY Qty: 90 1RF Zepbound 7.5 mg/0.5 mL pen injector 7.5 mg subcut QWEEK Qty: 2 0RF ferrous sulfate 325 mg (65 mg iron) tablet 325 mg PO DAILY 90 Days Qty: 90 0RF omeprazole 40 mg capsule,delayed release(DR/EC) 1 cap PO DAILY@0630 PRN (Reason: Heartburn) albuterol sulfate 2.5 mg /3 mL (0.083 %) solution for nebulization 1 vial inhalation Q4H PRN (Reason: wheezing) albuterol sulfate [ProAir HFA] 90 mcg/actuation HFA aerosol inhaler 2 puff INHALATION Q4-6H PRN (Reason: Shortness Of Breath Or Wheezing) folic acid 1 mg tablet 1 tab PO DAILY alclometasone 0.05 % cream 1 appl topical DAILY triamcinolone acetonide 0.1 % cream 1 appl topical DAILY loratadine 10 mg tablet 1 tab PO DAILY PRN (Reason: Allergy Symptoms) dexamethasone 4 mg tablet 4 mg PO BID Qty: 6 0RF cyclobenzaprine 10 mg tablet 10 mg PO TID PRN (Reason: muscle spasm) Qty: 20 0RF cyclobenzaprine 10 mg tablet 10 mg PO TID PRN (Reason: muscle spasm) Qty: 14 0RF Zepbound 2.5 mg/0.5 mL pen injector 2.5 mg subcut QWEEK Qty: 2 0RF Rx Instructions: for 4 weeks hydroxyzine HCl 25 mg tablet 12.5 - 25 mg PO BID PRN (Reason: anxiety) clonidine HCl 0.1 mg tablet 0.1 mg PO BID cyclobenzaprine 5 mg tablet 10 mg PO BID PRN (Reason: muscle spasm) dicyclomine 10 mg capsule 10 mg PO TID PRN (Reason: abdominal pain) meclizine 25 mg tablet 25 mg PO BID PRN (Reason: dizziness) melatonin 5 mg tablet 5 mg PO BEDTIME PRN (Reason: insomnia) sennosides-docusate sodium [Senexon-S] 8.6-50 mg tablet 1 tab PO BID PRN (Reason: constipation) ergocalciferol (vitamin D2) 1,250 mcg (50,000 unit) capsule 1,250 mcg PO QWEEK bupropion HCl 150 mg tablet extended release 24 hr 150 mg PO QAM lidocaine 5 % adhesive patch,medicated 1 patch topical DIRECTED dexamethasone 4 mg tablet 4 mg PO DAILY hydrochlorothiazide 12.5 mg tablet 12.5 mg PO DAILY famotidine 20 mg tablet 20 mg PO DAILY metoprolol succinate 25 mg tablet extended release 24 hr 25 mg PO DAILY dextroamphetamine-amphetamine [Adderall] 10 mg tablet 15 mg PO DAILY dextroamphetamine-amphetamine [Adderall XR] 30 mg capsule,extended release 24hr 1 cap PO QAM oxycodone 5 mg tablet 5 mg PO BID PRN [place] Autoinjector 80 mg/mL auto-injector subcut amitriptyline 10 mg tablet PO acetaminophen 650 mg tablet extended release 650 mg PO TID diazepam 2 mg tablet 2 mg PO DAILY PRN Referrals: Nirav Juarez MD [Physician, Urology] Interventions: ED Discharge Assessment Last Done: 03/05/25 04:39 Discharge Date/Time: 03/05/25 04:40 Print Language: Uz[place]
[2025-03-05 01:04] LABS: Alanine Aminotransferase 20 U/L (0-40); Albumin Level 3.6 g/dL (3.5-5.0); Alkaline Phosphatase 74 U/L (39-117); Anion Gap 9 (12-20); Aspartate Amino Transferase 22 U/L (5-37); Bilirubin Direct 0.2 mg/dL (0.0-0.5); Bilirubin Total 0.5 mg/dL (0.0-1.0); Blood Urea Nitrogen 17 mg/dL (9-16); Calcium 8.7 mg/dL (8.4-10.2); Carbon Dioxide 27 mmol/L (22-29); Chloride 110 mmol/L (96-108); Creatinine Clr Calc Pharmacy 224.3; Estimated Glomerular Filt Rate > 60; Glucose Random 103 mg/dL (60-115); Lipase 8 U/L (8-78); Magnesium 2.1 mg/dL (1.6-2.6); Potassium 3.9 mmol/L (3.3-5.1); Sodium 142 mmol/L (135-145); Total Protein 6.7 g/dL (6.5-8.0)
[2025-03-05 01:07] LABS: Appearance Urine Clear; Color Urine Yellow; Glucose Urine UA Negative (Negative); Leukocyte Esterase Urine Negative (Negative); Nitrite Urine Negative (Negative); PH 5.5 (5.0-9.0); Specific Gravity - Urine 1.015 (1.005-1.025); UMIC TRIGGER UACC YES; Urine Blood Large (3+) (Negative); Urine Ketones Negative (Negative); Urine Protein Negative (Neg-Trace)
[2025-03-05 01:09] LABS: Bacteria Urine None Seen (None Seen); Hyaline Casts Urine 0-2 /LPF (0-2); RBC Urine >20 /HPF (0-2); Squamous Epithelial Cell Urine 0-2 /HPF (0-2); WBC Urine 0-5 /HPF (0-5)
[2025-03-05 01:10] VITALS: BP 160/76; PULSE 69; RESP 20; TEMP 37.1; O2SAT 99
[2025-03-05 01:40] VITALS: BMI 63.8
[2025-03-05] MEDS: HYDROmorphone HCl 0.5 MG/0.5 ML SYRINGE IVPUSH (01:48)
[2025-03-05] MEDS: 0.9 % Sodium Chloride 1,000 ML 999 ML IV (01:48)
[2025-03-05] MEDS: ondansetron HCL 4 MG/2 ML VIAL IVPUSH (01:48)
[2025-03-05 03:45] VITALS: BP 149/66; PULSE 66; RESP 18; TEMP 36.5; O2SAT 98
[2025-03-05] MEDS: Morphine Sulfate 4 MG/ML CARTRIDGE IVPUSH (03:52)
[2025-03-05 04:39] VITALS: BP 138/65; PULSE 61; RESP 16; TEMP 36.6; O2SAT 97
== END 2025-03-05 04:40 | disposition home or self-care (01) ==
PROVIDERS: Emergency Medicine Emergency Medical Services; Emergency Provider Emergency Medicine
DX: R10.9 Unspecified abdominal pain (principal); I48.0 Paroxysmal atrial fibrillation; I10 Essential (primary) hypertension; E66.01 Morbid (severe) obesity due to excess calories; Z68.44 Body mass index [BMI] 60.0-69.9, adult; Z87.891 Personal history of nicotine dependence
CPT/HCPCS: 36415; 76705; 80053; 80076; 81001; 82248; 83690; 83735; 85025; 96361; 96374; 96375; 99284; J1171; J2270; J2405

== ENCOUNTER → 2025-03-05 00:56 | Outpatient (BNV) | payer OTHER, SELFPAY | PROVIDERS: Emergency Provider Emergency Medicine; Visit Provider Radiology Diagnostic Radiology | DX: R10.9 Unspecified abdominal pain (principal) | CPT/HCPCS: 76705 ==

== ENCOUNTER 2025-03-05 22:45 | Emergency (ER) | payer OTHER, SELFPAY ==
[2025-03-05 22:50] VITALS: BP 152/65; BP 180/100; PULSE 61; PULSE 63; RESP 20; TEMP 36.6; O2SAT 97; O2SAT 98; BMI 77.7
--- NOTE | 2025-03-05 22:50 | ED.ABDPAIN ---
HPI - Abdominal Pain General Chief Complaint: Abdominal Pain Stated Complaint: abd pain, kidney stone diagnosis , peeing blood Time Seen by Provider: 03/05/25 22:50 Source: patient Mode of arrival: EMS Limitations: no limitations History of Present Illness ED Provider: HPI narrative: Patient is morbidly obese weighing 496 lb with history of kidney stones last time patient has had lithotripsy was 2022 comes here with the pain in the right flank started yesterday was seen here last night ultrasound of the abdomen was done which was not very clear at it was not a deep ultrasound kidney of normal size. Patient went home woke up at 21:00 with increased pain in the right flank area now radiating to the front with nausea no vomiting no fever area we could not do the CT scan of the abdomen because of his girth which is 76 in Related Data Home Medications ?Medication ?Instructions ?Recorded ?Confirmed albuterol sulfate 2.5 mg/3 mL 1 vial inhalation Q4H PRN wheezing 09/07/22 08/02/24 (0.083 %) solution for nebulization albuterol sulfate 90 mcg/actuation 2 puff inhalation Q4-6H PRN 09/07/22 08/02/24 aerosol inhaler (ProAir HFA) Shortness Of Breath Or Wheezing omeprazole 40 mg capsule,delayed 1 cap PO DAILY@0630 PRN Heartburn 09/07/22 08/02/24 release alclometasone 0.05 % topical cream 1 appl topical DAILY 11/12/22 08/02/24 folic acid 1 mg tablet 1 tab PO DAILY 11/12/22 08/02/24 loratadine 10 mg tablet 1 tab PO DAILY PRN Allergy Symptoms 11/12/22 08/02/24 triamcinolone acetonide 0.1 % 1 appl topical DAILY 11/12/22 08/02/24 topical cream bupropion HCl 150 mg 24 hr tablet, 150 mg PO QAM depressive disorder 01/05/24 08/02/24 extended release clonidine HCl 0.1 mg tablet 0.1 mg PO BID anxiety 01/05/24 08/02/24 cyclobenzaprine 5 mg tablet 10 mg PO BID PRN muscle spasm 01/05/24 08/02/24 dicyclomine 10 mg capsule 10 mg PO TID PRN abdominal pain 01/05/24 08/02/24 ergocalciferol (vitamin D2) 1,250 1,250 mcg PO QWEEK 01/05/24 08/02/24 mcg (50,000 unit) capsule hydroxyzine HCl 25 mg tablet 12.5 - 25 mg PO BID PRN anxiety 01/05/24 08/02/24 lidocaine 5 % topical patch 1 patch topical DIRECTED 01/05/24 08/02/24 meclizine 25 mg tablet 25 mg PO BID PRN dizziness 01/05/24 08/02/24 melatonin 5 mg tablet 5 mg PO BEDTIME PRN insomnia 01/05/24 08/02/24 sennosides 8.6 mg-docusate sodium 1 tab PO BID PRN constipation 01/05/24 08/02/24 50 mg tablet (Senexon-S) dexamethasone 4 mg tablet 4 mg PO DAILY 03/10/24 08/02/24 famotidine 20 mg tablet 20 mg PO DAILY 03/10/24 08/02/24 hydrochlorothiazide 12.5 mg tablet 12.5 mg PO DAILY 03/10/24 08/02/24 metoprolol succinate 25 mg 25 mg PO DAILY 03/10/24 08/02/24 tablet,extended release 24 hr acetaminophen 650 mg 650 mg PO TID 09/15/24 tablet,extended release amitriptyline 10 mg tablet mg PO 09/15/24 dextroamphetamine-amphetamine ER 1 cap PO QAM 09/15/24 30 mg 24hr capsule,extend release (Adderall XR) ixekizumab 80 mg/mL subcutaneous mg subcut 09/15/24 auto-injector (Taltz Autoinjector) oxycodone 5 mg tablet 5 mg PO BID PRN 09/15/24 dextroamphetamine-amphetamine 10 15 mg PO DAILY 11/04/24 mg tablet (Adderall) diazepam 2 mg tablet 2 mg PO DAILY PRN 11/10/24 Previous Rx's ?Medication ?Instructions ?Recorded zinc gluconate 30 mg tablet 30 mg PO DAILY #90 tabs 04/28/24 tirzepatide (weight loss) 2.5 2.5 mg (0.5 mL) subcut QWEEK #2 mL 08/02/24 mg/0.5 mL subcutaneous pen injector (Zepbound) diltiazem HCl 240 mg 240 mg PO DAILY #90 caps 08/30/24 capsule,extended release 24 hr tirzepatide (weight loss) 5 mg/0.5 5 mg (0.5 mL) subcut QWEEK #2 mL 09/18/24 mL subcutaneous pen injector (Zepbound) cholecalciferol (vitamin D3) 125 125 mcg PO DAILY #90 caps 10/14/24 mcg (5,000 unit) capsule cyclobenzaprine 10 mg tablet 10 mg PO TID PRN muscle spasm #14 10/22/24 tabs tirzepatide (weight loss) 7.5 7.5 mg (0.5 mL) subcut QWEEK #2 mL 10/27/24 mg/0.5 mL subcutaneous pen injector (Zepbound) ferrous sulfate 325 mg (65 mg 325 mg PO DAILY 90 days #90 tabs 12/13/24 iron) tablet cyclobenzaprine 10 mg tablet 10 mg PO TID PRN muscle spasm #20 12/29/24 tabs dexamethasone 4 mg tablet 4 mg PO BID #6 tabs 12/29/24 ondansetron HCl 4 mg tablet 4 mg PO Q6H PRN nausea and 03/05/25 vomiting #10 tabs oxycodone 5 mg tablet 5 mg PO BID PRN pain #10 tabs 03/05/25 tamsulosin 0.4 mg capsule 0.4 mg PO DAILY #20 caps 03/05/25 Allergies Allergy/AdvReac Type Severity Reaction Status Date / Time gabapentin Allergy Mild Unknown Verified 03/05/25 22:57 pregabalin Allergy Mild Hives Verified 03/05/25 22:57 ibuprofen (From Advil) Allergy Shortness Verified 03/05/25 22:57 of Breath aspirin AdvReac Headache Verified 03/05/25 22:57 etanercept (From Enbrel) AdvReac Dizziness Verified 03/05/25 22:57 NSAIDS (Non-Steroidal AdvReac Palpitation Verified 03/05/25 22:57 Anti-Inflamma s Review of Systems Review of Systems Yes all other systems are reviewed and are negative PMFSH Past Medical History Medical History Severe obesity (BMI >= 40) New onset a-fib Hx of fracture of femur Sleep apnea Habitual snoring Asthma Renal and ureteric calculus Obesity Surgical History History of surgery on lower extremity S/P cystoscopy with ureteral stent placement History of cystoscopy Levering teeth extracted Family History Family History Mother Family history of thyroid problem Social History Social History Household Members: Spouse and Family Housing: House Are you a primary congregational care pastor to a significant other at home: No Do you presently have visiting nurse or other home services: No Alcohol intake: never Patient Tobacco Use Status: Former Tobacco user Tobacco use type: Cigarette Cigarette Packs Per Day: 1 Cigarettes Per Day: 20.0 e-Cigarette/Vaping Use: Former Use Advance Directives: No Advance Directives Information Provided: Yes service: No Current occupational status: employed Physical Exam ED Vital Signs: Vital Signs - 24 hr 03/05/25 22:50 03/06/25 00:58 03/06/25 01:23 Temperature 98 F 97.5 F 97.5 F Pulse Rate 63 71 71 Respiratory Rate 20 18 18 Blood Pressure 152/65 H 136/73 136/73 Pulse Oximetry 98 97 97 Oxygen Delivery Method Room Air Room Air Room Air BMI result Body Mass Index 77.7 Appearance: Alert. Oriented X3. Moderate distress Eyes: PERRLA, No Nystagmus ENT: Pharynx normal. Oral Mucosa moist Neck: Normal inspection. Neck supple. CVS: Normal heart rate and rhythm. Pulses normal. Respiratory: No respiratory distress. Equal air entry bilateral, no wheezing/rales/rhonchi Abdomen: Soft and nontender. Bowel sounds are present, no mass palpable, right CVA tenderness Skin: Skin warm and dry. Normal skin color. Normal skin turgor. Extremities: No lower extremity edema. No calf tenderness Neuro: Oriented X 3. No motor deficit. No sensory deficit.No cerebellar signs , cranial nerves II-XII intact Medical Decision Making Medical Decision Making MDM Narrative: Patient with right renal colic with history of kidney stone UA positive for RBCs was seen him yesterday here in the ER ,ultrasound was done but was not deep enough to see other details but there was no hydro patient come back with increased pain in the right flank area now radiating to the right lower abdomen patient's has a lithotripsy in 2022 for similar kidney stone patient's weight is 496 lb width of the shoulder is 72 cm with raised both arms it is 64 cm and at the pelvis is 65.5 cm case discussed with [facility] ER accepted the patient for transfer as there CT scan machine can do the CT scan of the abdomen Medications Administered Discontinued Medications Generic Name Dose Route Start Last Admin Trade Name Freq PRN Reason Stop Dose Admin Hydromorphone HCl 2 mg 03/06/25 00:23 03/06/25 00:23 Hydromorphone Hcl 2 Mg/Ml Vial IVPUSH 03/06/25 00:24 2 mg ONCE ONE Administration Protocol Sodium Chloride 1,000 mls @ 999 mls/hr 03/06/25 00:23 03/06/25 02:22 Ns IV 03/06/25 01:23 Infused .Q1H1M ONE Infusion Morphine Sulfate 4 mg 03/05/25 23:13 03/05/25 23:35 Morphine Sulfate 4 Mg/Ml Cartridge IM 03/05/25 23:14 4 mg ONCE ONE Administration Protocol Ondansetron HCl 4 mg 03/05/25 23:13 03/05/25 23:35 Ondansetron Odt 4 Mg Tab.Rapdis TRANSLINGU 03/05/25 23:14 4 mg ONCE ONE Administration Discharge Plan Discharge Clinical Impression: Renal colic on right side, Severe obesity (BMI >= 40) Patient Disposition: [facility] Transfer Details: [facility] ED Dr. solorzano Prescriptions: No Action zinc gluconate 30 mg tablet 30 mg PO DAILY Qty: 90 0RF diltiazem HCl 240 mg capsule,extended release 24hr 240 mg PO DAILY Qty: 90 3RF Zepbound 5 mg/0.5 mL pen injector 5 mg subcut QWEEK Qty: 2 0RF cholecalciferol (vitamin D3) 125 mcg (5,000 unit) capsule 125 mcg PO DAILY Qty: 90 1RF Zepbound 7.5 mg/0.5 mL pen injector 7.5 mg subcut QWEEK Qty: 2 0RF ferrous sulfate 325 mg (65 mg iron) tablet 325 mg PO DAILY 90 Days Qty: 90 0RF omeprazole 40 mg capsule,delayed release(DR/EC) 1 cap PO DAILY@0630 PRN (Reason: Heartburn) albuterol sulfate 2.5 mg /3 mL (0.083 %) solution for nebulization 1 vial inhalation Q4H PRN (Reason: wheezing) albuterol sulfate [ProAir HFA] 90 mcg/actuation HFA aerosol inhaler 2 puff INHALATION Q4-6H PRN (Reason: Shortness Of Breath Or Wheezing) folic acid 1 mg tablet 1 tab PO DAILY alclometasone 0.05 % cream 1 appl topical DAILY triamcinolone acetonide 0.1 % cream 1 appl topical DAILY loratadine 10 mg tablet 1 tab PO DAILY PRN (Reason: Allergy Symptoms) dexamethasone 4 mg tablet 4 mg PO BID Qty: 6 0RF cyclobenzaprine 10 mg tablet 10 mg PO TID PRN (Reason: muscle spasm) Qty: 20 0RF oxycodone 5 mg tablet 5 mg PO BID PRN (Reason: pain) Qty: 10 0RF Rx Instructions: Partial Fill upon patient request. ondansetron HCl 4 mg tablet 4 mg PO Q6H PRN (Reason: nausea and vomiting) Qty: 10 0RF tamsulosin 0.4 mg capsule 0.4 mg PO DAILY Qty: 20 0RF cyclobenzaprine 10 mg tablet 10 mg PO TID PRN (Reason: muscle spasm) Qty: 14 0RF Zepbound 2.5 mg/0.5 mL pen injector 2.5 mg subcut QWEEK Qty: 2 0RF Rx Instructions: for 4 weeks hydroxyzine HCl 25 mg tablet 12.5 - 25 mg PO BID PRN (Reason: anxiety) clonidine HCl 0.1 mg tablet 0.1 mg PO BID cyclobenzaprine 5 mg tablet 10 mg PO BID PRN (Reason: muscle spasm) dicyclomine 10 mg capsule 10 mg PO TID PRN (Reason: abdominal pain) meclizine 25 mg tablet 25 mg PO BID PRN (Reason: dizziness) melatonin 5 mg tablet 5 mg PO BEDTIME PRN (Reason: insomnia) sennosides-docusate sodium [Senexon-S] 8.6-50 mg tablet 1 tab PO BID PRN (Reason: constipation) ergocalciferol (vitamin D2) 1,250 mcg (50,000 unit) capsule 1,250 mcg PO QWEEK bupropion HCl 150 mg tablet extended release 24 hr 150 mg PO QAM lidocaine 5 % adhesive patch,medicated 1 patch topical DIRECTED dexamethasone 4 mg tablet 4 mg PO DAILY hydrochlorothiazide 12.5 mg tablet 12.5 mg PO DAILY famotidine 20 mg tablet 20 mg PO DAILY metoprolol succinate 25 mg tablet extended release 24 hr 25 mg PO DAILY dextroamphetamine-amphetamine [Adderall] 10 mg tablet 15 mg PO DAILY dextroamphetamine-amphetamine [Adderall XR] 30 mg capsule,extended release 24hr 1 cap PO QAM oxycodone 5 mg tablet 5 mg PO BID PRN Taltz Autoinjector 80 mg/mL auto-injector subcut amitriptyline 10 mg tablet PO acetaminophen 650 mg tablet extended release 650 mg PO TID diazepam 2 mg tablet 2 mg PO DAILY PRN Interventions: Acute Care Transfer Worksheet (ED) Last Done: 03/06/25 01:23 Discharge Date/Time: 03/06/25 02:24 Print Language: Ukrainian
[2025-03-05] MEDS: Ondansetron ODT 4 MG TAB.RAPDIS TRANSLINGU (23:35)
[2025-03-05] MEDS: Morphine Sulfate 4 MG/ML CARTRIDGE IM (23:35)
[2025-03-06] MEDS: HYDROmorphone HCl 2 MG/ML VIAL IVPUSH (00:23)
[2025-03-06] MEDS: 0.9 % Sodium Chloride 1,000 ML 999 ML IV (00:25)
--- NOTE | 2025-03-06 00:52 | PC.NURSE ---
nurse to nurse report given to ro in [facility] ed awaiting transport at this time
[2025-03-06 00:58] VITALS: BP 136/73; PULSE 71; RESP 18; TEMP 36.4; O2SAT 97
[2025-03-06 01:23] VITALS: BP 136/73; PULSE 71; RESP 18; TEMP 36.4; O2SAT 97
== END 2025-03-06 02:24 | disposition short-term general hospital (02) ==
PROVIDERS: Emergency Provider Internal Medicine
DX: N23 Unspecified renal colic (principal); R11.0 Nausea; I48.91 Unspecified atrial fibrillation; E66.01 Morbid (severe) obesity due to excess calories; Z68.44 Body mass index [BMI] 60.0-69.9, adult; Z79.899 Other long term (current) drug therapy
CPT/HCPCS: 96361; 96372; 96374; 99285; J1171; J2270

== ENCOUNTER 2025-03-22 11:34 | Outpatient (AMB) | payer OTHER, SELFPAY ==
--- OUTSIDE RECORDS SUMMARY | 2024-11-02 07:00 | XMS_ITS ---
Author Organization Brody Willis MD Address [address] [facility] [address] [place] [address] Care Team Providers Care Orchid Superintendent Name Role Phone Brody Willis Unavailable [phone] REASON FOR VISIT JONES PADILLA Encounters Encounter Location Date Provider Diagnosis Brody Willis MD [address] [facility] [address] [place] [address] 11/02/2024 Brody Willis PLAN OF TREATMENT No Information
--- OUTSIDE RECORDS SUMMARY | 2025-03-17 09:30 | XMS_ITS | Encounter Summary ---
Author Organization [employer] Address [address] [place] [address] Care Team Providers Care Mangle Press Catcher Name Role Phone Kevin Lake MD Primary Care Provider [phone] Reason for Visit * Reason Comments Hospital Follow-up Encounter Details Date Type Department Care Team (Late st Contact Info) Description 03/17/2025 9:30 AM EDT Office Visit Adult Medicine [address] [address] Kevin Lake MD [address] [place] [id number] Hospital discharge follow-up (Primary Dx); Right flank pain; Right ureteral stone; Renal calculus, bilateral; Anemia, unspecified type; Chronic pain syndrome Social History Tobacco Use Types Packs/Day Years [...] for your loved ones. For example, child care worker or elderly care for an older adult? [...] Sign Reading Time Taken Comments Blood Pressure 153/94 03/17/2025 9:32 AM EDT provider will recheck Pulse 51 03/17/2025 9:32 AM EDT Temperature 35.9 C (96.7 F) 03/17/2025 9:32 AM EDT Respiratory Rate - - Oxygen Saturation - - Inhaled Oxygen Concentration - - Weight - - Height 188 cm (6' 2 ) 03/17/2025 9:32 AM EDT Body Mass Index - - documented in this encounter Ordered Prescriptions Prescription Sig Dispense Quantity Refills Last Filled Start Date End Date phenazopyridine (PYRIDIUM) 100 mg tablet Take 1 tablet (100 mg total) by mouth 3 (three) times a day with meals. 30 tablet 03/17/2025 tamsulosin (FLOMAX) 0.4 mg 24 hr capsule Take 1 capsule (0.4 mg total) by mouth 1 (one) time each day. Capsules should be taken 30 minutes following the same meal each day. 30 each 03/17/2025 Senexon-S 8.6-50 mg per tablet Take 1 tablet by mouth 2 (two) times a day if needed for constipation. 180 tablet 1 03/17/2025 folic acid (FOLVITE) 1 mg tablet Take 1 tablet (1,000 mcg total) by mouth 1 (one) time each day. 90 tablet 1 03/17/2025 ferrous sulfate 325 mg (65 mg elemental iron) tablet Take 1 tablet (325 mg total) by mouth 1 (one) time each day. 90 tablet 1 03/17/2025 documented in this encounter Progress Notes * Kevin Lake MD - 03/17/2025 9:30 AM EDT CHIEF COMPLAINT: Hospital Follow-up IDENTIFIER: Michael Ramirez is a 39 y.o. old male. HPI: Patient presents for follow-up after hospitalization at [facility] from 03/06/2025 until 03/09/2025. Information was extracted from the discharge notes from [facility]. The history was reviewed for accuracy and confirmed by myself. I have reconciled the current and discharge meds. 39-year-old male patient with past medical history of morbid obesity, obstructive sleep apnea on CPAP therapy, asthma, hypertension, renal calculi, left renal cyst, GERD, cholelithiasis, seasonal allergies,bilateral carpal tunnel syndrome, bilateral knee pain, chronic backache, cervical DJD, psoriatic arthritis, psoriasis, chronic anemia, ADHD, anxiety and depression, who is seen here for hospital discharge follow-up exam. Patient was initially evaluated at [facility] emergency roomthen transferred to [facility]. He was admitted there for right flank pain and CAT scan abdominal pelvis showed 6 mm right ureteric stone. He was given IV fluids, opiate pain meds and consulted urology. Patient underwent ureteric stent placement. Patient was seen by urologist Dr. Jim. He was discharged on oxycodone 10 mg 3 times daily. Urine exam did not show any any evidence of urinary tract infection. He is scheduled for urethropexy next week to remove the right-sided ureteric stone. At present pain levels are tolerable and currently he is on oxycodone 5 mg twice daily. He has some dysuria, I will order biotoxin and I will continue Flomax. ROS: GENERAL: No malaise, significant weight loss or fever HEENT: No changes in hearing or vision, nose bleeds or other nasal problems NECK: No lumps RESPIRATORY: No cough, wheezing or shortness of breath CARDIOVASCULAR: No chest pain, or palpitations GI: No abdominal pain, hematochezia, melena : Dysuria and right flank pain MUSCULOSKELETAL: Chronic backache SKIN: No lesions, rash or itching NEURO: No persistent headache, syncope, seizures, weakness or numbness PAST MEDICAL HISTORY: Patient Active Problem List Diagnosis Date Noted Renal calculus, bilateral 03/17/2025 Right ureteral stone 03/16/2025 Hypertrophy of breast 12/01/2024 Chronic pain syndrome [...] intermittent asthma without complication 10/22/2023 Psoriatic arthritis ([facility] V24, [facility] V28) 10/01/2022 Left knee pain 11/13/2021 Left carpal tunnel syndrome 11/13/2021 History of COVID-19 09/14/2020 DJD (degenerative joint disease), lumbar 08/17/2018 Psoriasis 08/08/2017 Allergic rhinitis 05/16/2014 Asthma 05/16/2014 Right carpal tunnel syndrome 12/16/2013 Impaired fasting glucose 11/17/2013 ZAINA on CPAP 11/09/2013 Primary hypertension 09/09/2012 Morbid obesity ([facility] V24, [facility] V28) 05/19/2012 Past Surgical History: Procedure Laterality Date OTHER SURGICAL HISTORY PROCEDURE: [place] OSTEOT INTERTRCHNTRIC/SUBTRCHNTRIC W/INT/XTRNL; COMMENT: childhood OTHER SURGICAL HISTORY 11/2015 PROCEDURE: TX CIRCUMCISION AGE >28 DAYS WISDOM TOOTH EXTRACTION 09/20/2004 PROCEDURE: HISTORICAL WISDOM TEETH EXTRACTION SOCIAL HISTORY: Social History Tobacco Use Smoking status: Former Current packs/day: 0.00 Types: Cigarettes Quit date: 11/03/2012 Years since quittin.3 Smokeless tobacco: Never Substance Use Topics Alcohol [...] Medications Discontinued During This Encounter Medication Reason Senexon-S 8.6-50 mg per tablet Reorder ferrous sulfate 325 mg (65 mg elemental iron) tablet Reorder folic acid (FOLVITE) 1 mg tablet Reorder ACTIVE MEDICATIONS: Outpatient Medications Marked as Taking for the 03/17/25 encounter (Office Visit) with Kevin Lake MD Medication Sig Dispense Refill acetaminophen (TYLENOL 8 HOUR) 650 mg 8 hr tablet Take 1 tablet (650 mg total) by mouth every 8 (eight) hours if needed. for pain albuterol 2.5 mg /3 mL (0.083 %) nebulizer solution Take 3 mL (2.5 mg total) by nebulization every 6 (six) hours if needed for wheezing. alclomethasone (ACLOVATE) 0.05 % cream amitriptyline (ELAVIL) 10 mg tablet Sig - Route: Take 1 Tablet by mouth at bedtime. amphetamine-dextroamphetamine (AdderalL) 10 mg tablet Take 2 tablets (20 mg total) by mouth 1 (one)time each day. amphetamine-dextroamphetamine XR (Adderall XR) 30 mg 24 hr capsule bimekizumab-bkzx (Bimzelx) 160 mg/mL syringe Inject 160 mg under the skin every 30 (thirty) days. bisacodyL (DULCOLAX) 5 mg EC tablet Take 2 tablets by mouth right before your first dose of liquid prep. cholecalciferol (VITAMIN D-3) 50 mcg (2,000 unit) tablet Take 1 tablet (2,000 Units total) by mouth1 (one) time each day. cloNIDine (CATAPRES) 0.1 mg tablet Sig - Route: Take 1 Tablet by mouth 2 times daily. cyclobenzaprine (FLEXERIL) 10 mg tablet TAKE 1 TABLET BY MOUTH AT BEDTIME NEEDED FOR MUSCLE SPASMS 30 tablet 3 dicyclomine (BENTYL) 10 mg [...] by mouth 1 (one) time each day. 90 tablet 1 folic acid (FOLVITE) 1 mg tablet Take 1 tablet (1,000 mcg total) by mouth 1 (one) time each day. 90tablet 1 hydroCHLOROthiazide 12.5 mg tablet Take 1 tablet (12.5 mg total) by mouth 1 (one) time each day. hydrOXYzine HCL (ATARAX) 25 mg tablet meclizine (ANTIVERT) 25 mg tablet Sig - Route: Take 1 Tablet by mouth 2 times daily as needed (dizziness). melatonin 5 mg tablet Sig - Route: Take 1 Tablet by mouth at bedtime as needed (insominia). metoprolol succinate (TOPROL-XL) 25 mg 24 hr tablet TAKE 1 TABLET BY MOUTH EVERY DAY 90 tablet 1 miscellaneous medical supply misc Inhale by mouth. CPAP Historical (HISTORICAL CPAP)- Inhale into the lungs at bedtime. Via full face mask, Janae ondansetron ODT (ZOFRAN-ODT) 4 mg disintegrating tablet Take 1 tablet (4 mg total) by mouth. oxyCODONE (ROXICODONE) 5 mg immediate release tablet Take 1 tablet (5 mg total) by mouth 2 (two) times a day. Max Daily Amount: 10 mg 56 tablet 0 Senexon-S 8.6-50 mg per tablet Take 1 tablet by mouth 2 (two) times a day if needed for constipation. 180 tablet 1 triamcinolone (KENALOG) 0.1 % cream PLEASE SEE ATTACHED FOR DETAILED DIRECTIONS Ventolin HFA 90 mcg/actuation inhaler INHALE 2 PUFFS INTO THE LUNGS EVERY 4 HOURS NEEDED FOR COUGH OR WHEEZING. 18 each 3 zinc gluconate 30 mg tablet Sig: TAKE 1 TABLET BY MOUTH EVERY DAY *NC* [DISCONTINUED] ferrous sulfate 325 mg (65 mg elemental iron) tablet Take 1 tablet (325 mg total) bymouth 1 (one) time each day. [DISCONTINUED] folic acid (FOLVITE) 1 mg tablet Take 1 tablet (1,000 mcg total) by mouth 1 (one) time each day. [DISCONTINUED] Senexon-S 8.6-50 mg per tablet Take 1 tablet by mouth 2 (two) times a day if needed for constipation. ALLERGIES: Allergies Allergen Reactions Adhesive Tape-Silicones Rash Aspirin Dexamethasone Rash Gabapentin Gabapentin (phn) House Dust House Dust Mite Latex Mite Extract Naproxen Trouble breathing, palpitations Other Seasonal PHYSICAL EXAM: Visit Vitals BP (!) 153/94 Comment: provider will recheck Pulse 51 Temp 35.9 ??C (96.7 ??F) (Temporal) Ht 1.88 m (74 ) BMI 63.81 kg/m?? Smoking Status Former BSA 3.2 m?? Body mass index is Body mass index is 63.81 kg/m??. APPEARANCE: Alert and in no acute distress EYES: PERRLA, conjunctiva and sclera normal. EARS: External ears normal. NOSE/SINUS: Nares normal. MOUTH/THROAT: no erythema or exudates HEART: RRR with normal S1 and S2, no murmurs LUNG: clear to auscultation, no wheezing ABDOMEN: Bowel sounds normoactive, soft, non-tender and no palpable masses. : Right-sided CVA tenderness present BACK: No pain to palpation EXTREMITIES: No edema NEURO: Awake, alert and oriented x 3. No focal neurological deficits SKIN: No rashes LABS: WBC 11.7, hemoglobin 9.6, hemoglobin 0.3, Platelet Count 305 Sodium 139, potassium 4.7, chloride 104, bicarbonate 25, BUN 13, creatinine 1.06 and calcium 9.1. LFTs are within normal limits Urine exam was negative for urinary tract infection IMAGING: CAT scan abdominal pelvis-partially obstructing proximal right ureteral calculus measuring 6 mm with mild resultant hydroureteronephrosis and moderate perinephric stranding. Nonobstructive bilateral renal calculi present. IMPRESSION: 1. Hospital discharge follow-up 2. Right flank pain 3. Right ureteral stone 4. Renal calculus, bilateral 5. Anemia, unspecified type 6. Chronic pain syndrome PLAN: Hospital discharge summary, neurology consult, operative note, labs, CAT scan results, discharge meds are reviewed and meds are reconciled. Patient was initially evaluated at [facility] emergency room then transferred to [facility]. He was admitted there for right flank pain and CAT scan abdominal pelvis showed 6mm right ureteric stone. He was given IV fluids, opiate pain meds and consulted urology. Patient underwent ureteric stent placement. Patient was seen by urologist Dr. Jim. He was discharged on oxycodone 10 mg 3 times daily. Urine exam did not show any any evidence of urinary tract infection. He is scheduled for urethropexy next week to remove the right-sided ureteric stone. At present pain levels are tolerable and currently he is on oxycodone 5 mg twice daily. He has some dysuria, I will order biotoxin and I will continue Flomax. He has chronic anemia, he was seen by the allocation analyst and he is up-to-date for colonoscopy. No hematuria. Continue iron and folic acid and repeat CBC. He has history of chronic pain syndrome and he is on oxycodone contract. Continue oxycodone 5 mg twice daily as needed. I reminded him the rules of controlled substance contract. Labs ordered including CBC and BMP Medication and lab orders: Orders Placed This Encounter Procedures Basic metabolic panel CBC and differential Other orders: None @ESIG@ documented in this encounter Plan of Treatment Upcoming Encounters Date Type Department Care Team (Late st Contact Info) Description 05/13/2025 11:00 AM EDT Office Visit [address] [address] Kevin Lake MD [address] [place] [id number] Scheduled Orders Name Type Priority Associated Diagnoses Orde r Schedule Basic metabolic panel Lab Routine Hospital discharge follow-up Right flank pain Right ureteral stone Renal calculus, bilateral Anemia, unspecified type Chronic pain syndrome 1 Occurrences starting 03/17/2025 until 03/17/2026 CBC and differential Lab Routine Hospital discharge follow-up Right flank pain Right ureteral stone Renal calculus, bilateral Anemia, unspecified type Chronic pain syndrome 1 Occurrences starting 03/17/2025 until 03/17/2026 documented as of this encounter Visit Diagnoses Diagnosis Hospital discharge follow-up- Primary Other follow-up examination Right flank pain Abdominal pain, unspecified site Right ureteral stone Renal calculus, bilateral Calculus of kidney Anemia, unspecified type Chronic pain syndrome documented in this encounter Discontinued Medications Medication Sig Discontinue Reason Start Date End Da te Senexon-S 8.6-50 mg per tablet Take 1 tablet by mouth 2 (two) times a day if needed for constipation. Reorder 03/17/2025 ferrous sulfate 325 mg (65 mg elemental iron) tablet Take 1 tablet (325 mg total) by mouth 1 (one) time each day. Reorder 03/17/2025 folic acid (FOLVITE) 1 mg tablet Take 1 tablet (1,000 mcg total) by mouth 1 (one) time each day. Reorder 03/17/2025 documented as of this encounter Historical Medications * This list may reflect changes made after this encounter. ondansetron ODT (ZOFRAN-ODT) 4 mg disintegrating tablet Take 1 tablet (4 mg total) by mouth. 03/09/2025 added in this encounter Additional Health Concerns Assessment Noted Time PHQ-9 Depression Total Score: 0 09/02/20 24 9:44 AM EST documented as of this encounter Care Teams Mangle Press Catcher Relationship Specialty Start Date End Date Kevin Lake MD [address] [place] [address] PCP - General Internal Medicine 11/16/21 documented as of this encounter
--- NOTE | 2025-03-22 11:25 | A.OFFWM_ITS ---
Intake Intake Visit Reasons: VIDEO BH F/U Allergies gabapentin Allergy (Mild, Verified 03/05/25 22:57) Unknown pregabalin Allergy (Mild, Verified 03/05/25 22:57) Hives ibuprofen (From Advil) Allergy (Verified 03/05/25 22:57) Shortness of Breath aspirin Adverse Reaction (Verified 03/05/25 22:57) Headache etanercept (From Enbrel) Adverse Reaction (Verified 03/05/25 22:57) Dizziness NSAIDS (Non-Steroidal Anti-Inflamma Adverse Reaction (Verified 03/05/25 22:57) Palpitations PFSH Medical History Severe obesity (BMI >= 40) New onset a-fib Hx of fracture of femur Sleep apnea Habitual snoring Asthma Renal and ureteric calculus Obesity Surgical History History of surgery on lower extremity S/P cystoscopy with ureteral stent placement History of cystoscopy [place] teeth extracted Family History Mother Family history of thyroid problem Social History Household Members: Spouse and Family Housing: House Are you a primary personal carer to a significant other at home: No Do you presently have visiting nurse or other home services: No Alcohol intake: never Patient Tobacco Use Status: Former Tobacco user Tobacco use type: Cigarette Cigarette Packs Per Day: 1 Cigarettes Per Day: 20.0 e-Cigarette/Vaping Use: Former Use service: No Current occupational status: employed Behavioral Health Assessment Weight Management Therapy Therapy Notes Details Subjective: The patient reports ongoing medical issues related to kidney stones. He was recently evaluated in the emergency room and subsequently admitted to [facility] for several days. He is scheduled for kidney stone removal surgery today. Due to his medical situation, he had to discontinue several medications and reports disrupted sleep as a result. Despite ongoing pain and physical discomfort, he denies emotional eating, overeating, or experiencing significant anxiety. He presented for a weight check on 03/17/25, with a reported weight of 481 lbs; his previous weight check was in December. The patient is not currently following a structured meal plan, as his primary focus has been on managing his kidney issues. He expressed intent to resume exercise, return to his meal plan, and set up bi-weekly weight checks once his health stabilizes. Objective: * Session limited to 30 minutes due to patient?s upcoming procedure. * Reviewed current medical status and impact on weight management efforts. * Provided psychoeducation on the importance of self-care and gradual re- engagement with the weight loss program post-recovery. * Explored coping skills for managing pain and stress without resorting to maladaptive eating behaviors. * Encouraged patient to identify small, achievable goals for self-care during recovery. * Coordinated with nursing staff to ensure follow-up weight checks are scheduled. * Reinforced the importance of communication with the care team regarding medication changes and recovery progress. Assessment/Response: * Mental status: alert, oriented, cooperative, and engaged. Mood is mildly frustrated due to ongoing health issues but remains motivated to resume weight management efforts. * Risk reported/identified: None. Assessment & Plan Assessment & Plan (1) Adjustment disorder with anxious mood: Code(s): F43.22 - Adjustment disorder with anxiety (2) ADHD (attention deficit hyperactivity disorder): Code(s): F90.9 - Attention-deficit hyperactivity disorder, unspecified type Plan -Follow up in 2 weeks to reassess medical status and readiness to re-engage with the weight loss program. * Next appointment scheduled for 04/07/2025 at 8:00 AM (telehealth). -Patient to contact the office if there are significant changes in medical status or if additional support is needed prior to the next visit. -Will discuss reactivation in the program and update behavioral health clearance as appropriate once medically stable. Telehealth Telehealth Telehealth Platform: [employer] Location of provider rendering services: other (Home office. [place], [place]) Location of patient: address on file Patient Identification confirmed using: Name, : Yes Telehealth method: voice only Patient verbally consented to treatment: Yes Patient verbally consented to billing insurance company: Yes Patient informed of any privacy concerns related to visit: Yes Minutes spent on Phone/Video with Pt.: 30 Coding Level of Care Code Established Pt Tele Psytx 30 mins ([id number]) Patient Type Established Diagnoses Adjustment disorder with anxious mood F43.22 ADHD (attention deficit hyperactivity disorder) F90.9 Time Spent (min) 30
--- OUTSIDE RECORDS SUMMARY | 2025-03-22 12:55 | XMS_ITS | Patient Health Record ---
Author Organization Brody Willis MD Address [address] [facility] [address] [place] [address] Care Team Providers Care Hooker Inspector Name Role Phone Brody Willis Unavailable [phone] REASON FOR REFERRAL No Information Encounters Encounter Location Date Provider Diagnosis Brody Willis MD [address] [facility] [address] [place] [address] 11/02/2024 Brody Willis PLAN OF TREATMENT No Information
--- OUTSIDE RECORDS SUMMARY | 2025-03-22 12:55 | XMS_ITS | Clinical Summary ---
Author Organization [facility] Address [address] [place] [address] Care Team Providers Care Concrete Pump Operator Helper Name Role Phone Kevin Lake MD Primary [...] 70 06/04/2024 9:44 AM EDT Temperature 36.6 C (97.9 F) 06/04/2024 9:44 AM EDT Respiratory Rate - - Oxygen Saturation 99% [...] 08/08/1988, Additional history exists Influenza Vaccine (#1) 2025 08/08/2017 Hepatitis B Vaccines Completed 09/04/1998, 04/12/1998, 02/14/1998 Pneumococcal Vaccine Aged Out 08/08/2017 No long er eligible based on patient's age to complete this topic RSV Ped < 20 months Aged Out No longe r eligible based on patient's age to complete this topic Care Teams Concrete Pump Operator Helper Relationship Specialty Start Date End Date Kevin Lake MD [address] [place] [id number] PCP - General Hospitalist Medicine 04/27/24
== END 2025-03-22 12:36 | disposition home or self-care (01) ==
LOC: HO.HBST 11:34
PROVIDERS: Visit Provider Counselor Mental Health
DX: F43.22 Adjustment disorder with anxiety (principal); F90.9 Attention-deficit hyperactivity disorder, unspecified type
CPT/HCPCS: 90832

== ENCOUNTER 2025-04-07 08:17 | Outpatient (AMB) | payer OTHER, SELFPAY ==
--- OUTSIDE RECORDS SUMMARY | 2024-11-02 07:00 | XMS_ITS ---
Author Organization Brody Willis MD Address [address] [facility] [address] [place] [address] Care Team Providers Care Pmp Certified Project Manager Name Role Phone Brody Willis Unavailable [phone] REASON FOR VISIT JONES PADILLA Encounters Encounter Location Date Provider Diagnosis Brody Willis MD [address] [facility] [address] [place] [address] 11/02/2024 Brody Willis PLAN OF TREATMENT No Information
--- NOTE | 2025-04-07 08:00 | A.OFFWM_ITS ---
Intake Intake Visit Reasons: VIDEO BH F/U Allergies gabapentin Allergy (Mild, Verified 03/05/25 22:57) Unknown pregabalin Allergy (Mild, Verified 03/05/25 22:57) Hives ibuprofen (From Advil) Allergy (Verified 03/05/25 22:57) Shortness of Breath aspirin Adverse Reaction (Verified 03/05/25 22:57) Headache etanercept (From Enbrel) Adverse Reaction (Verified 03/05/25 22:57) Dizziness NSAIDS (Non-Steroidal Anti-Inflamma Adverse Reaction (Verified 03/05/25 22:57) Palpitations PFSH Medical History Severe obesity (BMI >= 40) New onset a-fib Hx of fracture of femur Sleep apnea Habitual snoring Asthma Renal and ureteric calculus Obesity Surgical History History of surgery on lower extremity S/P cystoscopy with ureteral stent placement History of cystoscopy [place] teeth extracted Family History Mother Family history of thyroid problem Social History Household Members: Spouse and Family Housing: House Are you a primary health and social care teacher to a significant other at home: No Do you presently have visiting nurse or other home services: No Alcohol intake: never Patient Tobacco Use Status: Former Tobacco user Tobacco use type: Cigarette Cigarette Packs Per Day: 1 Cigarettes Per Day: 20.0 e-Cigarette/Vaping Use: Former Use service: No Current occupational status: employed Behavioral Health Assessment Weight Management Therapy Therapy Notes Details Subjective: The patient reports that his kidney stone removal procedure, originally scheduled for 03/22/2025, was delayed until 04/01/2025 due to weight-related operating room limitations; the OR was not equipped to accommodate his weight on the initial date. His most recent weight at [facility] on 04/01/2025 was 477 lbs. He describes ongoing high levels of pain and frustration, particularly regarding his interactions with healthcare providers. He feels he has been mistreated and stigmatized for his pain management needs and is currently seeking a new provider. The patient is not prioritizing weight loss at this time, citing pain and physical limitations as significant barriers. Additionally, he was advised by his kidney specialist to discontinue protein shakes. Despite these challenges, he remains engaged in care and is open to discussing strategies for moving forward. Objective: Session was conducted via phone. The patient?s recent healthcare experiences and emotional responses were explored, with validation of his frustration and anger. Psychoeducation was provided regarding patient rights and advocacy. Interventions included reframing negative experiences as motivation for future weight loss, discussing alternative nutrition options given the discontinuation of protein shakes, and reviewing non-pharmacological pain management strategies. The patient was encouraged to set small, achievable self-care goals and to maintain communication with the care team regarding his progress and any provider changes. Assessment/Response: * Mental status: Alert, oriented, mood frustrated but engaged, no safety concerns. * Risk reported/identified: none Assessment & Plan Assessment & Plan (1) Adjustment disorder with anxious mood: Code(s): F43.22 - Adjustment disorder with anxiety (2) ADHD (attention deficit hyperactivity disorder): Code(s): F90.9 - Attention-deficit hyperactivity disorder, unspecified type Plan Follow up in 1 month to reassess medical and emotional status, and to support re-engagement with the weight loss program as appropriate. * Next appointment scheduled for 05/05/2025 at 8:00 AM (telehealth). Telehealth Telehealth Telehealth Platform: [employer] Location of provider rendering services: other (Home office. [place], [place]) Location of patient: address on file Patient Identification confirmed using: Name, : Yes Telehealth method: voice only Patient verbally consented to treatment: Yes Patient verbally consented to billing insurance company: Yes Patient informed of any privacy concerns related to visit: Yes Minutes spent on Phone/Video with Pt.: 45 Coding Level of Care Code Established Pt Tele Psytx 45 mins ([id number]) Patient Type Established Diagnoses Adjustment disorder with anxious mood F43.22 ADHD (attention deficit hyperactivity disorder) F90.9 Time Spent (min) 45
--- OUTSIDE RECORDS SUMMARY | 2025-04-07 08:24 | XMS_ITS | Clinical Summary ---
[facility] Organization [facility] Address [address] [place] [address] Care Team Providers Care Skein Winding Operator Name Role Phone Kevin Lake MD Primary [...] age to complete this topic Care Teams Skein Winding Operator Relationship Specialty Start Date End Date Kevin Lake MD [address] [place] [id number] PCP - General Hospitalist Medicine 04/27/24
--- OUTSIDE RECORDS SUMMARY | 2025-04-07 08:24 | XMS_ITS | Clinical Summary ---
Author Organization [facility] Address [address] [facility] [address] [place] [address] Phone Care Team Providers Care Roller Maker Name Role Phone Kevin Lake MD Primary Care Provider Social History Tobacco Use Types Packs/Day Years Used Date Smoking Tobacco: Never Assessed Education Answer Date Recorded Are you interested in more education? Not on shakeel e 12/22/2024 Are you concerned about learning? Not on file 12/22/2024 No 12/22/2024 No 12/22/2024 Digital Access Answer Date Recorded No 12/22/2024 No 12/22/2024 Reliable internet access at home? Not on file 12/22/2024 Device with a working camera? Not on file Sex and Gender Information Value Date Recorded Sex Assigned at Not on file Legal Sex Male 3:34 PM EST Gender Identity Not on file Sexual Orientation Not on file Plan of Treatment Upcoming Encounters Date Type Department Care Team (Late st Contact Info) Description 02/20/2026 1:00 PM EDT Office Visit [facility] Rheumatology [address] [place] [address] Cyndee Roger MD [address], [address] [place] [address] [email or web address] Health Maintenance Due Date Last Done Comments Adult Td,Tdap Booster 1987 LIPID PANEL 1987 DEPRESSION SCREENING 1999 SMOKING Hx and SMOKELESS TOB ACCO SCREENING 2000 HEPATITIS C SCREENING 2005 HIV ONE-TIME SCREENING (18-6 5 YEARS) 2005 COVID-19 VACCINE (2023-2 5 season) 2024 HEPATITIS A VACCINES Aged Out No long er eligible based on patient's age to complete this topic HIB VACCINES Aged Out No longer eligi ble based on patient's age to complete this topic MENINGOCOCCAL VACCINES (ACWY) Aged Out No longer eligible based on patient's age to complete this topic MENINGOCOCCAL VACCINES (B) Aged Out N o longer eligible based on patient's age to complete this topic PNEUMOCOCCAL VACCINES (0-49 years) Aged Out No longer eligible based on patient's age to complete this topic Medical Devices Not on file Insurance [employer] [facility] [employer] [facility] [employer] [facility] [place] [id number] Care Teams Roller Maker Relationship Specialty Start Date End Date Kevin Lake MD PCP - General Internal Medicine 11/10/24 Additional Source Comments The information contained in this document represents components of the legal health record. It is not the complete legal health record.[facility]
--- OUTSIDE RECORDS SUMMARY | 2025-04-07 08:25 | XMS_ITS | Patient Health Record ---
Author Organization Brody Willis MD Address [address] [facility] [address] [place] [address] Care Team Providers Care Potato Peeling Machine Operator Name Role Phone Brody Willis Unavailable [phone] REASON FOR REFERRAL No Information Encounters Encounter Location Date Provider Diagnosis Brody Willis MD [address] [facility] [place] [address] [place] [address] 11/02/2024 Brody Willis PLAN OF TREATMENT No Information
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
== END 2025-04-07 09:17 | disposition home or self-care (01) ==
LOC: HO.HBST 08:17
PROVIDERS: Visit Provider Counselor Mental Health
DX: F43.22 Adjustment disorder with anxiety (principal); F90.9 Attention-deficit hyperactivity disorder, unspecified type
CPT/HCPCS: 90834

== ENCOUNTER 2025-05-05 09:56 | Outpatient (AMB) | payer OTHER, SELFPAY ==
--- OUTSIDE RECORDS SUMMARY | 2024-11-02 07:00 | XMS_ITS ---
Author Organization Brody Willis MD Address [address] [facility] [address] [place] [address] Care Team Providers Care Geriatric Assistant Name Role Phone Brody Willis Unavailable [phone] REASON FOR VISIT JONES PADILLA Encounters Encounter Location Date Provider Diagnosis Brody Willis MD [address] [facility] [address] [place] [address] 11/02/2024 Brody Willis PLAN OF TREATMENT No Information
--- NOTE | 2025-05-05 09:50 | MHC.WMTHER ---
Intake Intake Visit Reasons: TV BH F/U Allergies gabapentin Allergy (Mild, Verified 03/05/25 22:57) Unknown pregabalin Allergy (Mild, Verified 03/05/25 22:57) Hives ibuprofen (From Advil) Allergy (Verified 03/05/25 22:57) Shortness of Breath aspirin Adverse Reaction (Verified 03/05/25 22:57) Headache etanercept (From Enbrel) Adverse Reaction (Verified 03/05/25 22:57) Dizziness NSAIDS (Non-Steroidal Anti-Inflamma Adverse Reaction (Verified 03/05/25 22:57) Palpitations PFSH Medical History Severe obesity (BMI >= 40) New onset a-fib Hx of fracture of femur Sleep apnea Habitual snoring Asthma Renal and ureteric calculus Obesity Surgical History History of surgery on lower extremity S/P cystoscopy with ureteral stent placement History of cystoscopy [place] teeth extracted Family History Mother Family history of thyroid problem Social History Household Members: Spouse and Family Housing: House Are you a primary health care sanitary technician to a significant other at home: No Do you presently have visiting nurse or other home services: No Alcohol intake: never Patient Tobacco Use Status: Former Tobacco user Tobacco use type: Cigarette Cigarette Packs Per Day: 1 Cigarettes Per Day: 20.0 e-Cigarette/Vaping Use: Former Use service: No Current occupational status: employed Behavioral Health Assessment Weight Management Therapy Therapy Notes Details Subjective: The patient reports ongoing skin issues and increased pain following surgery for kidney stones, which have contributed to significant frustration. He describes a pattern of persistent health problems that have interfered with his ability to follow the weight loss program as planned. As a result, his focus has shifted toward managing these medical concerns rather than weight loss. Despite these challenges, he expresses a desire to remain in the program and is motivated to get back on track by mid-May. He acknowledges difficulty maintaining focus on weight loss when other health issues arise. His most recent recorded weight, from a physician visit two weeks ago, was 487 lbs. Objective: The patient participated in a follow-up visit via phone. Functioning and ongoing challenges were discussed in detail. Cognitive strategies were employed to help the patient identify factors within and outside of his control, reframe negative self-talk, and use current barriers as opportunities for goal setting. Program expectations and requirements were reviewed to clarify the steps needed to remain active in the program and eligible for weight loss surgery. A plan was developed to support his goal of re-engagement with the program. Assessment/Response: Mental status: The patient appears discouraged but remains engaged. Risk reported/identified: No risk factors for self-harm or harm to others were identified or reported.No risk factors for self-harm or harm to others were identified or reported. Assessment & Plan Assessment & Plan (1) Adjustment disorder with anxious mood: Code(s): F43.22 - Adjustment disorder with anxiety (2) ADHD (attention deficit hyperactivity disorder): Code(s): F90.9 - Attention-deficit hyperactivity disorder, unspecified type Plan No further appointments will be scheduled with this provider until the patient is active in the program again. The patient is advised to contact the office when ready to resume participation and to arrange weight checks with the RN. Once re-engaged, he may schedule additional behavioral health visits as needed. Upon return, a re-assessment will be required for behavioral health clearance, as he is not currently cleared for surgery. Telehealth Telehealth Telehealth Platform: [employer] Location of provider rendering services: other (Home office. [place], [place]) Location of patient: address on file Patient Identification confirmed using: Name, : Yes Telehealth method: voice only Patient verbally consented to treatment: Yes Patient verbally consented to billing insurance company: Yes Patient informed of any privacy concerns related to visit: Yes Minutes spent on Phone/Video with Pt.: 25 Coding Level of Care Code Established Pt Tele Psytx 30 mins (26593) Patient Type Established Diagnoses Adjustment disorder with anxious mood F43.22 ADHD (attention deficit hyperactivity disorder) F90.9 Time Spent (min) 25 Comment start time: 9:50 am - End time: 10:15 am
--- OUTSIDE RECORDS SUMMARY | 2025-05-05 11:06 | XMS_ITS | Clinical Summary ---
Author Organization [facility] Address [address] [place] [address] Phone Care Team Providers Care Teacher Preschool Name Role Phone Kevin Lake MD Primary [...] Description 02/20/2026 1:00 PM EDT Office Visit [facility] Rheumatology [address] [place] [address] yCndee Roger MD [address], [address] [place] [address] [email or web address] Health Maintenance Due Date Last Done Comments [...] topic Medical Devices Not on file Insurance [employer] ACO [facility] [employer] [facility] [employer] [facility] A[facility] [place] [id number] Care Teams Teacher Preschool Relationship Specialty Start Date End Date Kevin Lake MD PCP - General Internal Medicine 11/10/24 Additional Source Comments The information contained in this document represents components of the legal health record. It is not the complete legal health record.[facility]
--- OUTSIDE RECORDS SUMMARY | 2025-05-05 11:06 | XMS_ITS | Clinical Summary ---
[facility] Organization [facility] Address [address] [place] [address] Care Team Providers Care Cable Ferryboat Operator Name Role Phone Kevin Lake MD [...] age to complete this topic Care Teams Cable Ferryboat Operator Relationship Specialty Start Date End Date Kevin Lake MD [address] [place] [id number] PCP - General Hospitalist Medicine 04/27/24
--- OUTSIDE RECORDS SUMMARY | 2025-05-05 11:06 | XMS_ITS | Encounter Summary ---
Author Organization [facility] Address [address] [place] [address] Care Team Providers Care Cylinder Valve Repairer Name Role Phone Kevin Lake MD Primary Care Provider [phone] Encounter Details Date Type Department Care Team ([facility] Contact Info) Description 04/28/2025 Telephone Adult Medicine [address] [phone] Kevin Lake MD [address] [place] [id number] Social History Tobacco Use Types Packs/Day Years [...] for your loved ones. For example, child study team director or elderly care for an older adult? [...] as of this encounter Progress Notes * Brooklynn Swann - 04/28/2025 2:51 PM EDT PRIOR AUT ALREADY THE COMPUTER. documented in this encounter Plan of Treatment Upcoming Encounters Date Type Department Care Team (Late st Contact Info) Description 05/13/2025 11:00 AM EDT Office Visit Adult Medicine [facility] [address] [place] [phone] Kevin Lake MD [address] [place] [phone] documented as of this encounter Visit Diagnoses Not on filedocumented in this encounter Additional Health Concerns Assessment Noted Time PHQ-9 Depression Total Score: 0 09/02/20 24 9:44 AM EST documented as of this encounter Care Teams Cylinder Valve Repairer Relationship Specialty Start Date End Date Kevin Lake MD [address] [place] [address] PCP - General Internal Medicine 11/16/21 documented as of this encounter
--- OUTSIDE RECORDS SUMMARY | 2025-05-05 11:06 | XMS_ITS | Clinical Summary ---
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 Active meclizine (ANTIVERT) 25 mg tablet Sig - Route: Take 1 Tablet by mouth 2 times daily as needed (dizziness). 024 Active melatonin 5 mg tablet Sig - Route: Take 1 Tablet by mouth at bedtime as needed (insominia). Active acetaminophen (TYLENOL 8 HOUR) 650 mg [...] daily. Active alclomethasone (ACLOVATE) 0.05 % cream Active triamcinolone (KENALOG) 0.1 % cream PLEASE SEE ATTACHED FOR DETAILED DIRECTIONS Active bisacodyL (DULCOLAX) 5 mg EC tablet Take 2 tablets by mouth right before your first dose of liquid prep. Active hydrOXYzine HCL (ATARAX) 25 mg tablet Active amphetamine-dextr oamphetamine (AdderalL) 10 mg tablet Take 2 tablets (20 mg total) by mouth 1 (one) time each day. Active amphetamine-dextr oamphetamine XR (Adderall XR) 30 mg 24 hr capsule Active miscellaneous medical supply misc Inhale by mouth. CPAP Historical (HISTORICAL CPAP)- Inhale into the lungs at bedtime. Via full face mask, [employer] Active Ventolin HFA 90 mcg/actuation inhaler INHALE 2 PUFFS INTO THE LUNGS EVERY 4 HOURS NEEDED FOR COUGH OR WHEEZING. 18 each 3 Active hydroCHLOROthiazi de 12.5 mg tablet Take 1 tablet (12.5 mg total) by mouth 1 (one) time each day. Active metoprolol succinate (TOPROL-XL) 25 mg 24 hr tablet TAKE 1 TABLET BY MOUTH EVERY DAY 90 tablet 1 Active famotidine (PEPCID) 20 mg tablet TAKE 1 TABLET BY MOUTH EVERYDAY AT BEDTIME 90 tablet 1 Active cyclobenzaprine (FLEXERIL) 10 mg tablet TAKE 1 TABLET BY MOUTH AT BEDTIME NEEDED FOR MUSCLE SPASMS 30 tablet 3 06/04/2 025 Active bimekizumab-bkzx (Bimzelx) 160 mg/mL syringe Inject 160 mg under the skin every 30 (thirty) days. Active ondansetron ODT (ZOFRAN-ODT) 4 mg disintegrating tablet Take 1 tablet (4 mg total) by mouth. 025 Active ferrous sulfate 325 mg (65 mg elemental iron) tablet Take 1 tablet (325 mg total) by mouth 1 (one) time each day. 90 tablet 1 025 Active folic acid (FOLVITE) 1 mg tablet Take 1 tablet (1,000 mcg total) by mouth 1 (one) time each day. 90 tablet 1 025 Active Senexon-S 8.6-50 mg per tablet Take 1 tablet by mouth 2 (two) times a day if needed for constipation. 180 tablet 1 025 Active phenazopyridine (PYRIDIUM) 100 mg tablet Take 1 tablet (100 mg total) by mouth 3 (three) times a day with meals. 30 tablet 025 Active albuterol 2.5 mg /3 mL (0.083 %) nebulizer solution Take 3 mL (2.5 mg total) by nebulization every 6 (six) hours if needed for wheezing. 150 mL 1 025 Active oxyCODONE (ROXICODONE) 5 mg immediate release tabletIndications :Chronic pain syndrome,Chronic bilateral low back pain with bilateral sciatica,Chronic pain of left knee Take 1 tablet (5 mg total) by mouth 2 (two) times a day. Max Daily Amount: 10 mg 56 tablet 025 Active tamsulosin (FLOMAX) 0.4 mg 24 hr capsule TAKE 1 CAPSULE (0.4 MG TOTAL) BY MOUTH 30 MINUTES AFTER SAME MEAL DAILY 90 capsule 1 025 Active oxyCODONE (ROXICODONE) 5 mg immediate release tabletIndications :Chronic pain syndrome,Chronic bilateral low back pain with bilateral sciatica,Chronic pain of left knee Take 1 tablet (5 mg total) by mouth 2 (two) times a day. Max Daily Amount: 10 mg 56 tablet 025 2024 Discontinued(R eorder) tamsulosin (FLOMAX) 0.4 mg 24 hr capsule Take 1 capsule (0.4 mg total) by mouth 1 (one) time each day. Capsules should be taken 30 minutes following the same meal each day. 30 each 025 2024 Discontinued Active Problems Problem Noted Date Diagnosed Date [...] Mild intermittent asthma without complication Psoriatic arthritis ([facility] V24, [facility] V28) 0 10/01/2022 Left knee pain 11/13/2021 Left carpal tunnel syndrome 11/13/2021 History of COVID-19 09/14/2020 Overview (12/01/2024): Tested positive on 08/18/2020 at [facility] (degenerative joint disease), lumbar 018 Overview [...] AHI 30.5. Primary hypertension 09/09/2012 Morbid obesity ([facility] V24, [facility] V28) 2011 Encounters Date Type Department Care Team Description 04/28/2025 Telephone Adult Medicine [address] [phone] Kevin Lake MD 04/14/2025 Telephone Adult Medicine [address] [phone] Kevin Lake MD 04/08/2025 10:30 AM EDT Office Visit Adult [address] [phone] Kevin Lake MD Right ureteral stone (Primary Dx); Status post laser lithotripsy of ureteral calculus; S/P cystoscopy; Chronic pain syndrome 03/17/2025 9:30 AM EDT Office Visit Adult [address] [phone] Kevin Lake MD Hospital discharge follow-up (Primary Dx); Right flank pain; Right ureteral stone; Renal calculus, bilateral; Anemia, unspecified type; Chronic pain syndrome 02/11/2025 Telephone Adult [address] [phone] Bebe Mcdaniel [place] 02/10/2025 9:15 AM EDT Office Visit Adult [address] [phone] Kevin Lake MD Chronic pain syndrome (Primary Dx); Chronic bilateral low back pain with bilateral sciatica; Chronic pain of left knee; Morbid obesity (CMS/HCC V24, CMS/HCC V28); ZAINA on CPAP; Mild intermittent asthma without complication; Primary hypertension; Psoriatic arthritis (CMS/HCC V24, CMS/HCC V28); Psoriasis; Anxiety and depression 02/10/2025 Telephone Adult Medicine [address] [phone] Kevin Lake MD 02/09/2025 Telephone Adult [address] [phone] Dunia Carias RN 02/03/2025 Telephone Adult [address] [phone] Annalisa Best LPN from Last 3 Months Immunizations Name Administration Dates Next Due DTP 10/24/1992, 8,02/02/1988,12/03 [id number] (Pentacel) 2mo to less than 5yo 08/08/1988 [...] WISDOM TEETH EXTRACTION OTHER SURGICAL HISTORY PROCEDURE: NE OSTEOT INTERTRCHNTRIC/SUBTRCHNTRIC W/INT/XTRNL; COMMENT: childhood OTHER SURGICAL HISTORY 11/2015 PROCEDURE: NE CIRCUMCISION AGE >28 DAYS Medical History Medical History Date Comments Chronic bilateral low back p ain without sciatica 08/17/2018 DX:Chronic bilateral low hilaria k pain without sciatica Morbid obesity with BMI of 6 0.0-69.9, adult ([facility] V24, [facility] V28) 05/19/2012 DX:Morbid obesity wit h BMI of 60.0-69.9, adult ([facility]) ZAINA on CPAP DX:ZAINA on CPAP [...] for your loved ones. For example, attendant child activity or elderly care for an older adult? [...] Sign Reading Time Taken Comments Blood Pressure 125/83 04/08/2025 11:00 AM EDT Pulse 67 04/08/2025 10:26 AM EDT Temperature 35.8 C (96.5 F) 04/08/2025 10:26 AM EDT Respiratory Rate 16 02/10/2025 9:18 AM EDT Oxygen Saturation 99% 12/03/2024 10:11 AM EDT Inhaled Oxygen Concentration - - Weight 226 kg (498 lb) 04/08/2025 10:26 AM EDT Height 188 cm (6' 2 ) 04/08/2025 10:26 AM EDT Body Mass Index 63.94 04/08/2025 10:26 AM EDT Plan of Treatment Upcoming Encounters Date Type Department Care Team (Late st Contact Info) Description 05/13/2025 11:00 AM EDT Office Visit Adult Medicine [address] [phone] Kevin Lake MD [address] [place] [phone] Health Maintenance Due Date Last Done Comments [...] type Morbid obesity (CMS/HCC V24, CMS/HCC V28) HM DEPRESSION SCREENING Routine 04/06/2024 COLONOSCOPY Routine 02/09/2024 LIPID PANEL Routine 10/01/2022 from Last 3 Months or Most Recently Relevant to Health Maintenance Results * Drug abuse screen expanded with reflex confirmation, urine (02/10/2025 10:01 AM EDT) Amphetamine Screen, Ur Negative Negative LAB CHEMISTRY METHOD 02/10/2025 12:38 PM EDT [facility] Comment:Certain OTC medicati ons containing ephedrine, phenylephrine, pseudoephedrine and phenylpropanolamine can cause false positive results. Barbiturate Screen, Ur Negative Negative LAB CHEMISTRY METHOD 02/10[facility]2025 [facility] Benzodiazepine Screen, Ur Negative Negative LAB CHEMISTRY METHOD 02/10/2025 12:38 PM [facility] Cocaine Screen, Ur Negative Negative LAB CHEMISTRY METHOD 02/10/2025 12:38 PM [facility] Opiate Screen, Ur Negative Negative LAB CHEMISTRY METHOD 02/10/2025 12:38 PM [facility] Cannabinoid (THC) Screen, Ur Negative Negative LAB CHEMISTRY METHOD 02/10/2025 12:38 PM [facility] Comment:Specimens from patie nts taking pantoprazole sodium (Protonix) have been shown to produce false positive results. Fentanyl, Ur Negative Negative LAB CHEMISTRY METHOD 02/10/2025 12:38 [facility] Oxycodone Screen, Ur Negative Negative LAB CHEMISTRY METHOD 02/10/2025 12:38 PM [facility] Urine Urine specimen obtained by clean catch procedure / Unknown Non-blood Collection / Unknown 02/10/2025 10:01 AM EDT 02/10/2025 10:01 AM EDT [facility] - 02/10/2025 12:38 PM EDT Assay [...] Lake MD LAB URINE ORDERABLES Final Result [facility] [address] [place] [address], [place] [phone] * (ABNORMAL) Basic metabolic panel (12/03/2024 10:46 AM EDT) Sodium 142 133 - 145 mmol/L LAB CHEMISTRY METHOD 12/03/2024 12:20 PM [facility] Potassium 3.9 3.5 - 5.5 mmol/L LAB CHEMISTRY METHOD 12/03/2024 12:20 PM [facility] Chloride 109 96 - 110 mmol/L LAB CHEMISTRY METHOD 12/03/2024 12:20 PM [facility] CO2 28 21 - 32 mmol/L LAB CHEMISTRY METHOD 12/03/2024 12:20 PM [facility] Anion Gap 5 3 - 11 LAB CHEMISTRY METHOD 12/03/2024 12:20 PM [facility] Glucose 92 70 - 100 mg/dL LAB CHEMISTRY METHOD 12/03/2024 12:20 PM [facility] BUN 13 5 - 25 mg/dL LAB CHEMISTRY METHOD 12/03/2024 12:20 PM [facility] Creatinine 0.66(L) 0.70 - 1.30 mg/dL LAB CHEMISTRY METHOD 12/03/2024 12:20 PM [facility] eGFR 124 >=60 mL/min/1. 73m2 LAB CHEMISTRY METHOD 12/03/2024 12:20 PM EDT [facility] Comment:Calculation based on the Chronic Kidney Disease Epidemiology Collaboration (CKD-EPI) equation refit without adjustment for race. BUN/Creatinine Ratio 19.7 LAB CHEMISTRY METHOD 12/03/2024 12:20 PM EDT [facility] Calcium 8.9 8.5 - 10.5 mg/dL LAB CHEMISTRY METHOD 12/03/2024 12:20 PM EDT [facility] Blood Venous blood specimen / Unknown Venipuncture / Unknown 12/03/2024 10:46 AM EDT 12/03/2024 11:37 AM EDT Danitza FARFAN LAB BLOOD ORDERABLES Final Re sult [facility] [address] [place] [address], * Depression Screening (04/06/2024) Pathologist [facility] Depression Screening abstracted Historical Provider HEALTH MAINTENANCE Final Result * Colonoscopy (02/09/2024) [facility] Colonoscopy no interpretation , abstracted Anatomical Region Laterality Modality Other Historical Provider HEALTH MAINTENANCE Final Result * (ABNORMAL) Lipid panel (10/01/2022) [facility] LDL/HDL Ratio 4 0 - 4 Triglycerides 92 0 - 150 mg/dL Cholesterol 73 0 - 200 mg/dL HDL 50 >=40 mg/dL LDL Cholesterol 105(A) 0 - 100 mg/dL Blood Venous blood specimen / Unknown Historical Provider LAB BLOOD ORDERABLES Veronica l Result from Last 3 Months or Most Recently Relevant [place] [id number] [facility] [employer] [facility] [employer] Care Teams 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
--- OUTSIDE RECORDS SUMMARY | 2025-05-05 11:06 | XMS_ITS | Patient Health Record ---
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
== END 2025-05-05 10:20 | disposition home or self-care (01) ==
LOC: HO.HBST 09:56
PROVIDERS: Visit Provider Counselor Mental Health
DX: F43.22 Adjustment disorder with anxiety (principal); F90.9 Attention-deficit hyperactivity disorder, unspecified type
CPT/HCPCS: 90832

== ENCOUNTER 2025-07-05 09:28 | Emergency (ER) | payer OTHER, SELFPAY ==
--- OUTSIDE RECORDS SUMMARY | 2024-11-02 07:00 | XMS_ITS ---
Author Organization Brody Willis MD Address [address] [facility] [address] [place] [address] Care Team Providers Care Product Assembler Name Role Phone Brody Willis Unavailable [phone] REASON FOR VISIT JONES PADILLA Encounters Encounter Location Date Provider Diagnosis Brody Willis MD [address] [facility] [address] [place] [address] 11/02/2024 Brody Willis PLAN OF TREATMENT No Information
--- NOTE | ~2025-07-05 | XR_ITS ---
EXAMINATION: XR CHEST CLINICAL INFORMATION: chest pain COMPARISON: January 03, 2025 TECHNIQUE: AP and lateral views FINDINGS: Pulmonary reticular pattern. No hyperinflation. No consolidation, pleural effusion or pneumothorax. Cardiomediastinal silhouette size is normal. Osseous structures are grossly intact. Patient's large body habitus/obesity. XR/XR chest 2V IMPRESSION: Probable old chronic interstitial lung disease versus acute small airway inflammatory process. Electronically signed by: Wai Howard MD 07/05/2025 11:03 AM EDT
--- NOTE | 2025-07-05 09:32 | ECG_ITS ---
Test Reason : cp Blood Pressure : */* mmHG Vent. Rate : 63 BPM Atrial Rate : 63 BPM P-R Int : 134 ms QRS Dur : 82 ms QT Int : 392 ms P-R-T Axes : 70 50 61 degrees QTcB Int : 401 ms Normal sinus rhythm Possible Left atrial enlargement Borderline ECG When compared with ECG of 03-Jan-2025 22:47, No significant change was found Referred By: Generic ED Physician Electronically Signed By: SAE MORGAN
[2025-07-05 09:35] VITALS: BP 144/79; PULSE 63; O2SAT 99
[2025-07-05 09:41] VITALS: BP 128/63; PULSE 66; RESP 16; TEMP 36.8; O2SAT 96; BMI 67.2
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
--- NOTE | 2025-07-05 09:48 | PC.NURSE ---
Pt roomed and placed on full monitor-NSR no ectopy- c/o intermittent CP and low back pain left side. States has psoriasis which is associated with his hx of arthritis. States last time I was here they gave me a steroid that helped but then the pills they gave me at homemade my face numb and I had to come back because I was allergic to it- Med (pednisone ) listed as allergy now per pt request. A&O X4 VSS awaiting provider.
[2025-07-05 11:09] LABS: Hematocrit 37.1 % (42.0-52.0); Hemoglobin 11.7 g/dl (14.0-18.0); Imm Gran Abs Auto 0.05 X10*3/uL (0.00-0.03); Imm Gran Pct Auto 0.5 % (0.0-0.4); Lymphocytes Absolute Auto 2.4 X10*3/uL (1.2-4.9); MANUAL DIFF FLAG NO; Mean Corpuscular HGB Conc 31.5 g/dl (31.0-36.0); Mean Corpuscular Hemoglobin 27.9 pg (27.0-33.0); Mean Corpuscular Volume 88.3 fL (80.0-98.0); NRBC Abs Auto 0.000 X10*3/uL (0.0-0.012); NRBC Pct Auto 0.0 /100WBC (0.0-0.2); Platelet Count 280 X10*3/uL (160-400); Red Blood Count 4.20 X10*6/uL (4.60-5.80); White Blood Count 10.8 X10*3/uL (4.8-10.8)
[2025-07-05 11:27] LABS: Alanine Aminotransferase 26 U/L (0-40); Albumin Level 3.8 g/dL (3.5-5.0); Alkaline Phosphatase 81 U/L (39-117); Anion Gap 10 (12-20); Aspartate Amino Transferase 23 U/L (5-37); Blood Urea Nitrogen 20 mg/dL (9-16); Calcium 9.1 mg/dL (8.4-10.2); Carbon Dioxide 25 mmol/L (22-29); Chloride 110 mmol/L (96-108); Creatinine Clr Calc Pharmacy 322.6; Estimated Glomerular Filt Rate > 60; Magnesium 2.1 mg/dL (1.6-2.6); Potassium 4.4 mmol/L (3.3-5.1); Sodium 141 mmol/L (135-145); Total Protein 6.9 g/dL (6.5-8.0)
[2025-07-05 11:38] LABS: Troponin-I High Sensitivity < 2.7 ng/L (<3.5-35.0)
[2025-07-05 11:42] VITALS: RESP 16
--- OUTSIDE RECORDS SUMMARY | 2025-07-05 12:16 | XMS_ITS | Clinical Summary ---
Author Organization [facility] Address [address] [place] [address] Phone Care Team Providers Care Cone Sewer Name Role Phone Kevin Lake MD Primary Care Provider [phone] Allergies Active Allergy Reactions Criticality Noted Date [...] EVERYDAY AT BEDTIME 90 tablet 1 Active bimekizumab-bkzx (Bimzelx) 160 mg/mL syringe Inject 160 mg under the skin every 30 (thirty) days. Active ondansetron ODT (ZOFRAN-ODT) 4 mg disintegrating tablet Take 1 tablet (4 mg total) by mouth. Active ferrous sulfate 325 mg (65 mg elemental iron) tablet Take 1 tablet (325 mg total) by mouth 1 (one) time each day. 90 tablet 1 Active folic acid (FOLVITE) 1 mg tablet Take 1 tablet (1,000 mcg total) by mouth 1 (one) time each day. 90 tablet 1 Active Senexon-S 8.6-50 mg per tablet Take 1 tablet by mouth 2 (two) times a day if needed for constipation. 180 tablet 1 Active phenazopyridine (PYRIDIUM) 100 mg tablet Take 1 tablet (100 mg total) by mouth 3 (three) times a day with meals. 30 tablet Active albuterol 2.5 mg /3 mL (0.083 %) nebulizer solution Take 3 mL (2.5 mg total) by nebulization every 6 (six) hours if needed for wheezing. 150 mL 1 Active tamsulosin (FLOMAX) 0.4 mg 24 hr capsule TAKE 1 CAPSULE (0.4 MG TOTAL) BY MOUTH 30 MINUTES AFTER SAME MEAL DAILY 90 capsule 1 Active oxyCODONE (ROXICODONE) 5 mg immediate release tabletIndications :Chronic pain syndrome,Chronic bilateral low back pain with bilateral sciatica,Chronic pain of left knee Take 1 tablet (5 mg total) by mouth 2 (two) times a day. Max Daily Amount: 10 mg 56 tablet Active cyclobenzaprine (FLEXERIL) 10 mg tablet TAKE 1 TABLET BY MOUTH AT BEDTIME NEEDED FOR MUSCLE SPASMS. 30 tablet 1 025 Active cyclobenzaprine (FLEXERIL) 10 mg tablet TAKE 1 TABLET BY MOUTH AT BEDTIME NEEDED FOR MUSCLE SPASMS 30 tablet 3 2024 Discontinued Active Problems Problem Noted Date [...] AHI 30.5. Primary hypertension 09/09/2012 Morbid obesity ([facility] V24, [facility] V28) 2011 Encounters Date Type Department Care Team Description 05/26/2025 Telephone Adult Medicine [address] [phone] Kevin Lake MD 05/24/2025 10:00 AM EDT Office Visit Adult Medicine [address] [phone] Jnae Fernandez MD Chronic pain syndrome (Primary Dx) 05/23/2025 Telephone Adult Medicine [address] [phone] Latha Marks MA 05/13/2025 11:00 AM EDT Office Visit Adult Medicine [address] [phone] Kevin Lake MD Chronic pain syndrome (Primary Dx); Chronic bilateral low back pain with bilateral sciatica; Chronic pain of left knee; Psoriasis; Primary hypertension; ZAINA on CPAP; Morbid obesity ([facility] V24, [facility] V28); Mild intermittent asthma without complication; Anxiety and depression 04/28/2025 Telephone Adult Medicine [address] [phone] Kevin Lake MD 04/14/2025 Telephone Adult Medicine [address] [phone] Kevin Lake MD 04/08/2025 10:30 AM EDT Office Visit [address] [phone] Kevin Lake MD Right ureteral stone (Primary Dx); Status post laser lithotripsy of ureteral calculus; S/P cystoscopy; Chronic pain syndrome from Last 3 Months Immunizations Immunization Administration Dates Next Due DTP 10/24/1992, 8,02/02/1988,12/03 [id number] (Pentacel) 2mo to less than 5yo 08/08/1988 [...] WISDOM TEETH EXTRACTION OTHER SURGICAL HISTORY PROCEDURE: IN OSTEOT INTERTRCHNTRIC/SUBTRCHNTRIC W/INT/XTRNL; COMMENT: childhood OTHER SURGICAL HISTORY 11/2015 PROCEDURE: IN CIRCUMCISION AGE >28 DAYS Medical History Medical History Date Comments Chronic bilateral low back p ain without sciatica 08/17/2018 DX:Chronic bilateral low hilaria k pain without sciatica Morbid obesity with BMI of 6 0.0-69.9, adult ([facility] V24, [facility] V28) 05/19/2012 DX:Morbid obesity wit h BMI of 60.0-69.9, adult ([facility]) ZAINA on CPAP DX:ZAINA on CPAP [...] for your loved ones. For example, child and youth program assistant or elderly care for an older [...] Date Recorded What is your living situation? Unrecognized valu e 12/01/2024 Sex and Gender Information Value Date Recorded Sex Assigned at Not on file Legal Sex Male 1:46 AM EST Gender Identity Not on file Sexual Orientation Not on file Obstetrics History Last Filed Vital Signs Vital Sign Reading Time Taken Comments Blood Pressure 133/76 05/13/2025 11:08 AM EDT Pulse 80 05/13/2025 10:47 AM EDT Temperature 36.3 C (97.3 F) 05/13/2025 10:47 AM EDT Respiratory Rate 16 02/10/2025 9:18 AM EDT Oxygen Saturation 99% 12/03/2024 10:11 AM EDT Inhaled Oxygen Concentration - - Weight 226 kg (498 lb) 04/08/2025 10:26 AM EDT Height 188 cm (6' 2 ) 05/13/2025 10:47 AM EDT Body Mass Index 63.94 04/08/2025 10:26 AM EDT Plan of Treatment Upcoming Encounters Date Type Department Care Team (Late st Contact Info) Description 08/12/2025 1:30 PM EST Office Visit Adult Medicine [facility] [address] [place], [place] [phone] Kevin Lake MD [address] [place] [address] Health Maintenance Due Date Last Done Comments IPV Vaccines (2 of 3 - 4-dose series) 09/05/1988 08/08/1988 HPV Vaccines (1 - 3-dose SCDM series) 2014 Pneumococcal Vaccine: Pediatrics (0 to 5 Years) and At-Risk Patients (6 to 49 Years) (2 of 2 - PCV) 08/08/2018 08/08/2017 HIV Screening 08/17/2022 Hepatitis C Screening 08/17/2022 Depression Screening 09/08/2024 09/02/2024, 04/06/20 24 COVID-19 Vaccine ( season) 2025 Social Influencers of Health Screening 12/01/2025 12/01/2024 Hypertension/CHF/CAD Annual BMP Blood Test 05/13/2026 05/13/2025, 12/03/2024, 04/06/2024, Additional history exists Cholesterol Screening (Lipid Panel) 10/01/2027 10/01/2022 Colorectal Cancer Screening: Colonoscopy 02/08/2029 02/09/2024 DTaP,Tdap,and Td Vaccines (7 - Td or Tdap) 12/03/2034 12/03/2024, 12/16/2013, 10/24/1992, Additional history exists RSV Immunization Adult Patients (1 - 1-dose 75+ series) 2062 HIB Vaccines Aged Out 08/08/1988, 08/08/1988 No lo nger eligible based on patient's age to complete this topic MMR Vaccines Completed 06/20/1998, 12/07, 05/24/1988 Hepatitis B Vaccines Completed 09/04/1998, 04/12/1998, 02/14/1998 Influenza Vaccine Discontinued 08/08/2017, , 06/27/1999, Additional history exists Hepatitis A Vaccines Aged Out No long [...] SCREEN EXPANDED WITH REFLEX CONFIRMATION, URINE Routine 05/24/2025 3:19 PM EDT Encounter for long-term (current) use of high-risk medication CBC WITH AUTO DIFFERENTIAL Routine 05/13/2025 11:31 AM EDT Hospital discharge follow-up Right flank pain Right ureteral stone Renal calculus, bilateral Anemia, unspecified type Chronic pain syndrome BASIC METABOLIC PANEL Routine 05/13/2025 11:31 AM EDT Hospital discharge follow-up Right flank pain Right ureteral stone Renal calculus, bilateral Anemia, unspecified type Chronic pain syndrome CBC AND DIFFERENTIAL Routine 05/13/2025 11:31 AM EDT Hospital discharge follow-up Right flank pain Right ureteral stone Renal calculus, bilateral Anemia, unspecified type Chronic pain syndrome DRUG ABUSE SCREEN EXPANDED WITH REFLEX CONFIRMATION, URINE Routine 05/13/2025 11:31 AM EDT Chronic pain syndrome HM DEPRESSION SCREENING Routine 04/06/2024 HM COLONOSCOPY Routine 02/09/2024 LIPID PANEL Routine 10/01/2022 from Last 3 Months or Most Recently Relevant to Health Maintenance Results * Drug abuse screen expanded with reflex confirmation, urine (05/24/2025 3:19 PM EDT) Only the most recent of2 resultswithin the time period is included. Amphetamine Screen, Ur Negative Negative LAB CHEMISTRY METHOD 05/24/2025 5:01 PM [facility] Comment:Certain OTC medicati ons containing ephedrine, phenylephrine, pseudoephedrine and phenylpropanolamine can cause false positive results. Barbiturate Screen, Ur Negative Negative LAB CHEMISTR[facility] Benzodiazepine Screen, Ur Negative Negative LAB CHEMISTRY METHOD 05/24/2025 5:01 PM [facility] Cocaine Screen, Ur Negative Negative LAB CHEMISTRY METHOD 05/24/2025 5:01 PM [facility] Opiate Screen, Ur Negative Negative LAB CHEMISTRY METHOD 05/24/2025 5:01 PM [facility] Cannabinoid (THC) Screen, Ur Negative Negative LAB CHEMISTRY METHOD 05/24/2025 5:01 PM [facility] Comment:Specimens from patie nts taking pantoprazole sodium (Protonix) have been shown to produce false positive results. Fentanyl, Ur Negative Negative LAB CHEMISTRY METHOD 05/24/2025 5:01 PM [facility] Oxycodone Screen, Ur Negative Negative LAB CHEMISTRY METHOD 05/24/2025 5:01 PM [facility] Urine Urine specimen obtained by clean catch procedure / Unknown Non-blood Collection / Unknown 05/24/2025 3:19 PM EDT 05/24/2025 3:19 PM EDT [facility] - 05/24/2025 5:01 PM EDT Assay cutoffs: Amphetamines 1000 ng/mL Barbiturates 200 ng/mL Benzodiazepines 200 ng/mL Cocaine 300 ng/mL Fentanyl 1 ng/mL Opiates 300 ng/mL Oxycodone 100 ng/mL THC 50 ng/mL Semi-quantitative assay for screening purposes only. Unconfirmed screening result should not be used for non-medical purposes. *POSITIVE RESULTS ARE AUTOMATICALLY SENT FOR ALTERNATE METHOD CONFIRMATION* Kevin Lake MD LAB URINE ORDERABLES Final Result [facility] [address] [place] [address], * (ABNORMAL) CBC auto differential (05/13/2025 11:31 AM EDT) WBC 11.8(H) 4.8 - 10.8 K/mcL LAB HEMETOLOGY METHOD [facility] RBC 4.10(L) 4.50 - 5.50 M/mcL LAB HEMETOLOGY METHOD 05/13/2025 [facility] Hemoglobin 11.3(L) 13.5 - 17.5 g/dL LAB HEMETOLOGY METHOD 05/13/2025 [facility] Hematocrit 35.7(L) 42.0 - 54.0 % LAB HEMETOLOGY METHOD 05/13/2025 2:02 PM [facility] MCV 87.1 79.0 - 98.0 FL LAB HEMETOLOGY METHOD 05/13/2025 [facility] MCH 27.6 27.0 - 32.0 pcg LAB HEMETOLOGY METHOD 05/13/2025 2:02 PM [facility] MCHC 31.7(L) 32.0 - 37.0 g/dL LAB HEMETOLOGY METHOD 05/13/2025 2:02 PM [facility] RDW 15.5(H) 11.0 - 15.0 % LAB HEMETOLOGY METHOD 05/13[facility]2025 [facility] Platelets 310 130 - 400 K/mcL LAB HEMETOLOGY METHOD 05/13/2025 2:02 PM [facility] MPV 10.2 7.0 - 11.0 FL LAB HEMETOLOGY METHOD 05/13/2025 2:02 PM [facility] NRBC 0.0 <1.0 % LAB HEMETOLOGY METHOD 05/13/2025 2:02 PM [facility] NRBC Absolute 0.00 <0.10 K/mcL LAB HEMETOLOGY METHOD 05/13/2025 2:02 PM [facility] Neutrophils Relative 68.3 % LAB HEMETOLOGY METHOD 05/13/2025 2:02 PM [facility] Lymphocytes Relative 21.2 % LAB HEMETOLOGY METHOD 05/13/2025 2:02 PM [facility] Monocytes Relative 6.9 % LAB HEMETOLOGY METHOD 05/13/2025 2:02 PM [facility] Eosinophils Relative 2.6 % LAB HEMETOLOGY METHOD 05/13/2025 2:02 PM [facility] Basophils Relative 0.3 % LAB HEMETOLOGY METHOD 05/13/2025 2:02 PM [facility] Immature Granulocytes Relative 0.7 % LAB HEMETOLOGY METHOD 05/13/2025 2:02 PM [facility] Neutrophils Absolute 8.03(H) 1.50 - 7.00 K/mcL LAB HEMETOLOGY METHOD 05/13/2025 2:02 PM [facility] Lymphocytes Absolute 2.49 1.00 - 5.00 K/mcL LAB HEMETOLOGY METHOD 05/13/2025 2:02 PM [facility] Monocytes Absolute 0.81 0.20 - 1.00 K/mcL LAB HEMETOLOGY METHOD 05/13/2025 2:[address] [facility] Eosinophils Absolute 0.30 0.00 - 0.50 K/mcL LAB HEMETOLOGY METHOD 05/13/2025 2:[address] [facility] Basophils Absolute 0.04 0.00 - 0.20 K/mcL LAB HEMETOLOGY METHOD 05/13/2025 2:02 PM [facility] Immature Granulocytes Absolute 0.08(H) 0.00 - 0.03 K/mcL LAB HEMETOLOGY METHOD 05/13/2025 2:02 PM [facility] Blood Venous blood specimen / Unknown Venipuncture / Unknown 05/13/2025 11:31 AM EDT 05/13/2025 11:31 AM EDT us Kevin Lake MD LAB BLOOD ORDERABLES Final Result [facility] [address] [place] [address], [place] [phone] * Basic metabolic panel (05/13/2025 11:31 AM EDT) Sodium 140 133 - 145 mmol/L LAB CHEMISTRY METHOD 05/13/2025 5:09 PM [facility] Potassium 4.0 3.5 - 5.5 mmol/L LAB CHEMISTRY METHOD 05/13/2025 5:09 PM [facility] Comment:Hemolysis present Chloride 107 96 - 110 mmol/L LAB CHEMISTRY METHOD 05/13/2025 5:09 PM [facility] CO2 30 21 - 32 mmol/L LAB CHEMISTRY METHOD 05/13/2025 5:09 PM [facility] Anion Gap 3 3 - 11 LAB CHEMISTRY METHOD 05/13/2025 5:09 PM [facility] Glucose 99 70 - 100 mg/dL LAB CHEMISTRY METHOD 05/13/2025 5:09 PM [facility] BUN 12 5 - 25 mg/dL LAB CHEMISTRY METHOD 05/13/2025 5:[address] [facility] Creatinine 0.73 0.70 - 1.30 mg/dL LAB CHEMISTRY METHOD 05/13/2025 5:[address] [facility] eGFR 120 >=60 mL/min/1. 73m2 LAB CHEMISTRY METHOD 05/13/2025 5:[address] [facility] Comment:Calculation based on the Chronic Kidney Disease Epidemiology Collaboration (CKD-EPI) equation refit without adjustment for race. BUN/Creatinine Ratio 16.4 LAB CHEMISTRY METHOD 05/13/2025 5:[address] [facility] Calcium 9.1 8.5 - 10.5 mg/dL LAB CHEMISTRY METHOD 05/13/2025 5:[address] [facility] Blood Venous blood specimen / Unknown Venipuncture / Unknown 05/13/2025 11:31 AM EDT 05/13/2025 11:31 AM EDT Kevin Lake MD LAB BLOOD ORDERABLES Final Result [facility] [address] [place] [address], * Depression Screening (04/06/2024) Pathologist [facility] Depression Screening abstracted Historical Provider HEALTH MAINTENANCE Final Result * Colonoscopy (02/09/2024) Pathologist [facility] Colonoscopy no interpretation , abstracted Anatomical Region Laterality Modality Other Historical Provider HEALTH MAINTENANCE Final Result * (ABNORMAL) Lipid panel (10/01/2022) Pathologist [facility] LDL/HDL Ratio 4 0 - 4 Triglycerides 92 0 - 150 mg/dL Cholesterol 73 0 - 200 mg/dL HDL 50 >=40 mg/dL LDL Cholesterol 105(A) 0 - 100 mg/dL Blood Venous blood specimen / Unknown us Historical Provider LAB BLOOD ORDERABLES Veronica l Result from Last 3 Months or Most Recently Relevant to Health Maintenance [facility] [employer] Care Teams Cone Sewer Relationship Specialty Start Date End Date Kevin Lake MD [address] [place] [address] PCP - General Internal Medicine 11/16/21
--- OUTSIDE RECORDS SUMMARY | 2025-07-05 12:16 | XMS_ITS | Clinical Summary ---
Author Organization [facility] Address [address] [place] [address] Care Team Providers Care Ecological Risk Assessor Name Role Phone Kevin Lake MD Primary [...] age to complete this topic Care Teams Ecological Risk Assessor Relationship Specialty Start Date End Date Kevin Lake MD [address] [place] [id number] PCP - General Hospitalist Medicine 04/27/24
--- OUTSIDE RECORDS SUMMARY | 2025-07-05 12:16 | XMS_ITS | Clinical Summary ---
Author Organization [facility] Address [address] [place] [address] Phone Care Team Providers Care Glass Sagger Name Role Phone Kevin Lake MD Primary [...] Description 02/20/2026 1:00 PM EDT Office Visit [facility] Rheumatology [address] [place] [address] Cyndee Roger MD [address], [address] [place] [address] [email or web address] Health Maintenance Due Date Last Done Comments Adult Td,Tdap Booster 1987 LIPID PANEL 1987 DEPRESSION SCREENING 1999 SMOKING Hx and SMOKELESS TOB ACCO SCREENING 2000 HEPATITIS C SCREENING 2005 HIV ONE-TIME SCREENING (18-6 5 YEARS) 2005 INFLUENZA VACCINE (#1) 2025 COVID-19 VACCINE (2024-2 6 season) 2025 HEPATITIS A VACCINES Aged Out No long [...] topic Medical Devices Not on file Insurance [employer] [place] [address] [place] [address] [employer] [place] [address] [place] [address] [employer] [address] [place], [place] [address] Care Teams Glass Sagger Relationship Specialty Start Date End Date Kevin Lake MD PCP - General Internal Medicine 11/10/24 Additional Source Comments The information contained in this document represents components of the legal health record. It is not the complete legal health record.[facility]
--- OUTSIDE RECORDS SUMMARY | 2025-07-05 12:17 | XMS_ITS | Patient Health Record ---
Author Organization Brody Willis MD Address [address] [address] [address] [place] [address] Care Team Providers Care Motor Coach Operator Name Role Phone Brody Wilils Unavailable [phone] REASON FOR REFERRAL No Information Encounters Encounter Location Date Provider Diagnosis Brody Willis MD [address] [facility] [place] [address] [place] [address] 11/02/2024 Brody Willis PLAN OF TREATMENT No Information
[2025-07-05 12:45] LABS: Troponin-I High Sensitivity < 2.7 ng/L (<3.5-35.0)
[2025-07-05 13:19] VITALS: BP 146/66; PULSE 63; RESP 12; O2SAT 98
[2025-07-05 13:34] LABS: Appearance Urine Clear; Glucose Urine UA Negative (Negative); PH 5.5 (5.0-9.0); Specific Gravity - Urine 1.025 (1.005-1.025)
[2025-07-05 14:05] VITALS: RESP 14
[2025-07-05 14:38] VITALS: BP 146/66; PULSE 65; RESP 14; TEMP 36.4; O2SAT 99
== END 2025-07-05 14:22 | disposition home or self-care (01) ==
PROVIDERS: Emergency Provider Emergency Medicine; PCP Internal Medicine
DX: M54.16 Radiculopathy, lumbar region (principal); R07.9 Chest pain, unspecified; I10 Essential (primary) hypertension; E66.01 Morbid (severe) obesity due to excess calories; G47.00 Insomnia, unspecified; R94.31 Abnormal electrocardiogram [ECG] [EKG]
CPT/HCPCS: 36415; 71046; 80053; 81003; 83735; 84484; 85025; 93005; 96365; 96375; 96376; 99284; 99285; J0131; J2270

== ENCOUNTER → 2025-07-05 09:32 | Outpatient (BNV) | payer OTHER, SELFPAY | PROVIDERS: Emergency Provider Emergency Medicine; PCP Internal Medicine; Visit Provider Internal Medicine | DX: R07.9 Chest pain, unspecified (principal) | CPT/HCPCS: 93010 ==

== ENCOUNTER → 2025-07-05 10:46 | Outpatient (BNV) | payer OTHER, SELFPAY | PROVIDERS: Emergency Provider Emergency Medicine; PCP Internal Medicine; Visit Provider Radiology Diagnostic Radiology | DX: R07.9 Chest pain, unspecified (principal) | CPT/HCPCS: 71046 ==

== ENCOUNTER 2025-08-02 09:28 | Outpatient (AMB) | payer OTHER, SELFPAY ==
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
[2025-08-02 09:37] VITALS: BP 192/86; PULSE 70; O2SAT 97; BMI 61.6
--- OUTSIDE RECORDS SUMMARY | 2025-08-02 10:50 | XMS_ITS | Clinical Summary ---
[facility] Organization [facility] Address [address] [place] [address] Care Team Providers Care It Risk Analyst Name Role Phone Kevin Lake MD [...] age to complete this topic Care Teams It Risk Analyst Relationship Specialty Start Date End Date Kevin Lake MD [address] [place] [id number] PCP - General Hospitalist Medicine 04/27/24
--- OUTSIDE RECORDS SUMMARY | 2025-08-02 10:50 | XMS_ITS | Clinical Summary ---
Author Organization [facility] Address [address] [place] [address] Phone Care Team Providers Care Garment Steamer Name Role Phone Kevin Lake MD Primary Care Provider [phone] Allergies Active Allergy Reactions Criticality Noted Date [...] bedtime. Via full face mask, [employer] Active metoprolol succinate (TOPROL-XL) 25 mg 24 [...] SAME MEAL DAILY 90 capsule 1 Active cyclobenzaprine (FLEXERIL) 10 mg tablet TAKE 1 TABLET BY MOUTH AT BEDTIME NEEDED FOR MUSCLE SPASMS. 30 tablet 1 Active lidocaine (LIDODERM) 5 % patch Apply 1 patch topically 1 (one) time each day. Remove & discard patch within 12 hours or as directed by MD. 30 patch 3 Active losartan-hydroCHL OROthiazide (Hyzaar) 50-12.5 mg per tablet Take 1 tablet by mouth 1 (one) time each day. 90 each 1 Active albuterol HFA (Ventolin HFA) 90 mcg/actuation inhaler Inhale 2 puffs by mouth every 4 (four) hours if needed for wheezing. 18 each 3 Active Ventolin HFA 90 mcg/actuation inhaler INHALE 2 PUFFS INTO THE LUNGS EVERY 4 HOURS NEEDED FOR COUGH OR WHEEZING. 18 each 3 025 2024 Discontinued(R eorder) hydroCHLOROthiazi de 12.5 mg tablet Take 1 tablet (12.5 mg total) by mouth 1 (one) time each day. 2024 Discontinued oxyCODONE (ROXICODONE) 5 mg immediate release tabletIndications :Chronic pain syndrome,Chronic bilateral low back pain with bilateral sciatica,Chronic pain of left knee Take 1 tablet (5 mg total) by mouth 2 (two) times a day. Max Daily Amount: 10 mg 56 tablet 025 2024 Discontinued(T herapy completed) Active Problems Problem Noted Date Diagnosed Date [...] Mild intermittent asthma without complication Psoriatic arthritis ([facility] V24, [facility] V28) 0 10/01/2022 Left knee pain 11/13/2021 Left carpal tunnel syndrome 11/13/2021 History of COVID-19 09/14/2020 Overview (12/01/2024): Tested positive on 08/18/2020 at [facility] (degenerative joint disease), lumbar 018 Overview [...] AHI 30.5. Primary hypertension 09/09/2012 Morbid obesity ([facility] V24, [facility] V28) 2011 Encounters Date Type Department Care Team Description 07/08/2025 2:45 PM EDT Office Visit Adult Medicine [address] [phone] Kevin Lake MD Chronic pain syndrome (Primary Dx); Chronic bilateral low back pain with bilateral sciatica; Chronic pain of left knee; Primary hypertension; Chronic anemia 07/05/2025 Telephone Adult Medicine [address] [phone] Kevin Lake MD 05/26/2025 Telephone Adult Medicine [address] [phone] Kevin Lake MD 05/24/2025 10:00 AM EDT Office Visit Adult Medicine [address] [phone] Jane Fernandez MD Chronic pain syndrome (Primary Dx) 05/23/2025 Telephone Adult [address] [phone] Latha Marks MA 05/13/2025 11:00 AM EDT Office Visit Adult Medicine [address] [phone] Kevin Lake MD Chronic pain syndrome (Primary Dx); Chronic bilateral low back pain with bilateral sciatica; Chronic pain of left knee; Psoriasis; Primary hypertension; ZAINA on CPAP; Morbid obesity (CMS/HCC V24, CMS/HCC V28); Mild intermittent asthma without complication; Anxiety and depression from Last 3 Months Immunizations Immunization Administration Dates Next Due DTP 10/24/1992, 8,02/02/1988,12/03 [id number] (Pentacel) 2mo to less than 5yo 08/08/1988 [...] obesity with BMI of 6 0.0-69.9, adult ([facility] V24, [facility] V28) 05/19/2012 DX:Morbid obesity wit h BMI of 60.0-69.9, adult ([facility]) ZAINA on CPAP DX:ZAINA on [...] care for your loved ones. For example, early childhood associate or elderly care for an older adult? [...] Sign Reading Time Taken Comments Blood Pressure 160/101 07/08/2025 3:19 PM EDT Pulse 73 07/08/2025 2:51 PM EDT Temperature 36.3 C (97.3 F) 07/08/2025 2:51 PM EDT Respiratory Rate 16 02/10/2025 9:18 AM EDT Oxygen Saturation 99% 12/03/2024 10:11 AM EDT Inhaled Oxygen Concentration - - Weight 226 kg (498 lb) 04/08/2025 10:26 AM EDT Height 188 cm (6' 2 ) 07/08/2025 2:51 PM EDT Body Mass Index 63.94 04/08/2025 10:26 AM EDT Plan of Treatment Upcoming Encounters Date Type Department Care Team (Late st Contact Info) Description 08/12/2025 1:30 PM EST Office Visit Adult Medicine [address] [phone] Kevin Lake MD [address] [place] [address] Health Maintenance Due Date Last Done Comments IPV Vaccines (2 of 3 - 4-dose series) 09/05/1988 08/08/1988 HPV Vaccines (1 - 3-dose SCDM series) 2014 Pneumococcal Vaccine: Pediatrics (0 to 5 Years) and At-Risk Patients (6 to 49 Years) (2 of 2 - PCV) 08/08/2018 08/08/2017 HIV Screening 08/17/2022 Hepatitis C Screening 08/17/2022 COVID-19 Vaccine ( season) 2025 Social Influencers [...] Discontinued 08/08/2017, , 06/27/1999, Additional history exists Depression Screening Completed 07/08/2025, 04/06/20 Hepatitis A Vaccines Aged Out No long [...] Procedure Name Priority Date/Time Associated Diagnosis Comments ECG 12-LEAD Routine 07/22/2025 4:11 PM EST EXTERNAL XRAY REPORT 07/05/2025 EXTERNAL XRAY REPORT 07/05/2025 DRUG ABUSE SCREEN EXPANDED WITH REFLEX CONFIRMATION, [...] 05/13/2025 11:31 AM EDT Chronic pain syndrome DEPRESSION SCREENING Routine 04/06/2024 COLONOSCOPY Routine 02/09/2024 LIPID PANEL Routine 10/01/2022 from Last 3 Months or Most Recently Relevant to Health Maintenance Results * ECG 12 lead (07/22/2025 4:11 PM EST) us Historical Provider ECG ORDERABLES Final Res ult * External Xray Report (07/05/2025) Only the most recent of2 resultswithin the time period is included. Anatomical Region Laterality Modality Radiographic Suzanne ging us Provider [facility] XR PROCEDURES Final Result * Drug abuse screen expanded with reflex confirmation, urine (05/24/2025 3:19 PM EDT) Only the most recent of2 resultswithin the time period is included. Amphetamine Screen, Ur Negative Negative LAB CHEMISTRY METHOD 05/24/2025 5:01 PM [facility] Comment:Certain OTC medicati ons containing ephedrine, phenylephrine, pseudoephedrine and phenylpropanolamine can cause false positive results. Barbiturate Screen, Ur Negative Negative LAB CHEMISTRY METHOD [facility]/24[facility]2025 5:[facility] Benzodiazepine Screen, Ur Negative Negative LAB CHEMISTRY METHOD 05/24/2025 5:01 PM [facility] Cocaine Screen, Ur Negative Negative LAB CHEMISTRY METHOD 05/24/2025 5:01 PM [facility] Opiate Screen, Ur Negative Negative LAB CHEMISTRY METHOD 05/24/2025 5:01 PM [facility] Cannabinoid (THC) Screen, Ur Negative Negative LAB CHEMISTRY METHOD 05/24/2025 5:[address] [facility] Comment:Specimens from patie nts taking pantoprazole sodium (Protonix) have been shown to produce false positive results. Fentanyl, Ur Negative Negative LAB CHEMISTRY METHOD 05/24/2025 5:[address] [facility] Oxycodone Screen, Ur Negative Negative LAB CHEMISTRY METHOD 05/24/2025 5:[address] [facility] Urine Urine specimen obtained by clean catch procedure / Unknown Non-blood Collection / Unknown 05/24/2025 3:19 PM EDT 05/24/2025 3:19 PM EDT [facility] - 05/24/2025 5:01 PM [...] Lake MD LAB URINE ORDERABLES Final Result [facility] [address] [place] [address], * (ABNORMAL) CBC auto differential (05/13/2025 11:31 AM EDT) WBC 11.8(H) 4.8 - 10.8 K/mcL LAB HEMETOLOGY METHOD 05/13/2025 2:[address] [facility] RBC 4.10(L) 4.50 - 5.50 M/mcL LAB HEMETOLOGY METHOD 05/13/2025 2:[address] [facility] Hemoglobin 11.3(L) 13.5 - 17.5 g/dL LAB HEMETOLOGY METHOD 05/13/2025 2:[address] [facility] Hematocrit 35.7(L) 42.0 - 54.0 % LAB HEMETOLOGY METHOD 05/13/2025 2:02 [facility] MCV 87.1 79.0 - 98.0 FL LAB HEMETOLOGY METHOD 05/13/2025 2:02 PM [facility] MCH 27.6 27.0 - 32.0 pcg LAB HEMETOLOGY METHOD 05/13/2025 2:02 PM [facility] MCHC 31.7(L) 32.0 - 37.0 g/dL LAB HEMETOLOGY METHOD 05/13/2025 2:02 PM [facility] RDW 15.5(H) 11.0 - 15.0 % LAB HEMETOLOGY METHOD 05/13/2025 2:02 PM [facility] Platelets 310 130 - 400 K/mcL LAB HEMETOLOGY METHOD 05/13/2025 2:02 PM [facility] MPV 10.2 7.0 - 11.0 FL LAB HEMETOLOGY METHOD 05/13/2025 2:02 PM [facility] NRBC 0.0 <1.0 % LAB HEMETOLOGY METHOD 05/13/2025 2:02 PM [facility] NRBC Absolute 0.00 <0.10 K/mcL LAB HEMETOLOGY METHOD 05/13/2025 2:02 PM [facility] Neutrophils Relative 68.3 % LAB HEMETOLOGY METHOD 05/13/2025 2:02 PM [facility] Lymphocytes Relative 21.2 % LAB HEMETOLOGY METHOD 05/13/2025 2:02 PM [facility] Monocytes Relative 6.9 % LAB HEMETOLOGY METHOD 05/13/2025 2:02 PM [facility] Eosinophils Relative 2.6 % LAB HEMETOLOGY METHOD 05/13/2025 2:[address] [facility] Basophils Relative 0.3 % LAB HEMETOLOGY METHOD 05/13/2025 2:02 PM [facility] Immature Granulocytes Relative 0.7 % LAB HEMETOLOGY METHOD 05/13/2025 2:[address] [facility] Neutrophils Absolute 8.03(H) 1.50 - 7.00 K/mcL LAB HEMETOLOGY METHOD 05/13/2025 2:[address] [facility] Lymphocytes Absolute 2.49 1.00 - 5.00 K/mcL LAB HEMETOLOGY METHOD 05/13/2025 2:02 PM [facility] Monocytes Absolute 0.81 0.20 - 1.00 K/mcL LAB HEMETOLOGY METHOD 05/13/2025 2:02 PM [facility] Eosinophils Absolute 0.30 0.00 - 0.50 K/mcL LAB HEMETOLOGY METHOD 05/13/2025 2:[address] [facility] Basophils Absolute 0.04 0.00 - 0.20 K/mcL LAB HEMETOLOGY METHOD 05/13/2025 2:02 PM [facility] Immature Granulocytes Absolute 0.08(H) 0.00 - 0.03 K/mcL LAB HEMETOLOGY METHOD 05/13/2025 2:02 PM [facility] Blood Venous blood specimen / Unknown Venipuncture / Unknown 05/13/2025 11:31 AM EDT 05/13/2025 11:31 AM EDT us Kevin Lake MD LAB BLOOD ORDERABLES Final Result [facility] [address] [place] [address], * Basic metabolic panel (05/13/2025 11:31 AM EDT) Sodium 140 133 - 145 mmol/L LAB CHEMISTRY METHOD 05/13/2025 5:09 PM [facility] Potassium 4.0 3.5 - 5.5 mmol/L LAB CHEMISTRY METHOD 05/13/2025 5:09 PM [facility] Comment:Hemolysis present Chloride 107 96 - 110 mmol/L LAB CHEMISTRY METHOD 05/13/2025 5:09 PM [facility] CO2 30 21 - 32 mmol/L LAB CHEMISTRY METHOD 05/13/2025 5:09 PM [facility] Anion Gap 3 3 - 11 LAB CHEMISTRY METHOD 05/13/2025 5:09 PM [facility] Glucose 99 70 - 100 mg/dL LAB CHEMISTRY METHOD 05/13/2025 5:09 PM [facility] BUN 12 5 - 25 mg/dL LAB CHEMISTRY METHOD 05/13/2025 5:09 PM [facility] Creatinine 0.73 0.70 - 1.30 mg/dL LAB CHEMISTRY METHOD 05/13/2025 5:09 PM [facility] eGFR 120 >=60 mL/min/1. 73m2 LAB CHEMISTRY METHOD 05/13/2025 5:09 PM [facility] Comment:Calculation based on the Chronic Kidney Disease Epidemiology Collaboration (CKD-EPI) equation refit without adjustment for race. BUN/Creatinine Ratio 16.4 LAB CHEMISTRY METHOD 05/13/2025 5:09 PM [facility] Calcium 9.1 8.5 - 10.5 mg/dL LAB CHEMISTRY METHOD 05/13/2025 5:09 PM [facility] Blood Venous blood specimen / Unknown Venipuncture / Unknown 05/13/2025 11:31 AM EDT 05/13/2025 11:31 AM EDT us Kevin Lake MD LAB BLOOD ORDERABLES Final Result [facility] [address] [place] [address], * Depression Screening (04/06/2024) Depression Screening abstracted Historical Provider HEALTH MAINTENANCE Final Result * Colonoscopy (02/09/2024) Colonoscopy no interpretation , abstracted Anatomical Region Laterality Modality Other Historical Provider HEALTH MAINTENANCE Final Result * (ABNORMAL) Lipid panel (10/01/2022) [facility] LDL/HDL Ratio 4 0 - 4 Triglycerides 92 0 - 150 mg/dL Cholesterol 73 0 - 200 mg/dL HDL 50 >=40 mg/dL LDL Cholesterol 105(A) 0 - 100 mg/dL Blood Venous blood specimen / Unknown Historical Provider LAB BLOOD ORDERABLES Veronica l Result from Last 3 Months or Most Recently Relevant to Health Maintenance Insurance [facility] [employer] [facility] Care Teams Garment Steamer Relationship Specialty Start Date End Date Kevin Lake MD [address] [place] [address] PCP - General Internal Medicine 11/16/21
--- OUTSIDE RECORDS SUMMARY | 2025-08-02 10:50 | XMS_ITS | Clinical Summary ---
Author Organization [facility] Address [address] [place] [address] Phone Care Team Providers Care Syrup Maker Cook Name Role Phone Kevin Lake MD Primary [...] Description 02/20/2026 1:00 PM EDT Office Visit [facility] Rheumatology [address] [place] [address] Cyndee Roger MD [address], [address] [place] [address] [email or web address] Health Maintenance Due Date Last Done Comments [...] topic Medical Devices Not on file Insurance [employer] [place] [address] [employer] [place] [address] [employer] [address] [place], [place] [address] Care Teams Syrup Maker Cook Relationship Specialty Start Date End Date Kevin Lake MD PCP - General Internal Medicine 11/10/24 Additional Source Comments The information contained in this document represents components of the legal health record. It is not the complete legal health record.[facility]
--- OUTSIDE RECORDS SUMMARY | 2025-08-02 10:51 | XMS_ITS | Encounter Summary ---
Author Organization [facility] Address [address] [place] [address] Care Team Providers Care Board Turner Name Role Phone Kevin Lake MD Primary Care Provider [phone] Reason for Visit * Reason Onset Date Comments returning call back 07/05/2025 Encounter Details Date Type Department Care Team ([facility] st Contact Info) Description 07/05/2025 Telephone Adult Medicine [address] [phone] Kevin Lake MD [address] [place] [address] Social History Tobacco Use Types Packs/Day Years [...] your loved ones. For example, child and adolescent psychiatrist or elderly care for an older adult? [...] as of this encounter Progress Notes * Tiffanie Bowen RN - 07/05/2025 4:58 PM EDT Call to pt. Left message for pt to call triage * Sandy Em - 07/05/2025 4:06 PM EDT Patient is returning a call back. [phone] documented in this encounter Plan of Treatment Upcoming Encounters Date Type Department Care Team (Late st Contact Info) Description 08/12/2025 1:30 PM EST Office Visit Adult Medicine [address] [phone] Kevin Lake MD [address] [place] [address] documented as of this encounter Visit Diagnoses Not on filedocumented in this encounter Additional Health Concerns Assessment Noted Time PHQ-9 Depression Total Score: 0 09/02/20 24 9:44 AM EST documented as of this encounter Care Teams Board Turner Relationship Specialty Start Date End Date Kevin Lake MD [address] [place] [address] PCP - General Internal Medicine 11/16/21 documented as of this encounter
== END 2025-08-02 10:15 | disposition home or self-care (01) ==
PROVIDERS: PCP Internal Medicine; Visit Provider Nurse Practitioner Family
DX: E66.01 Morbid (severe) obesity due to excess calories (principal); Z68.44 Body mass index [BMI] 60.0-69.9, adult; M47.816 Spondylosis without myelopathy or radiculopathy, lumbar region; M51.16 Intervertebral disc disorders with radiculopathy, lumbar region; G89.4 Chronic pain syndrome
CPT/HCPCS: 99204

== ENCOUNTER → 2025-08-02 09:28 | Outpatient (BNVA) | payer OTHER, SELFPAY | PROVIDERS: PCP Internal Medicine; Visit Provider Nurse Practitioner Family | DX: G89.4 Chronic pain syndrome (principal); M47.26 Other spondylosis with radiculopathy, lumbar region; M51.16 Intervertebral disc disorders with radiculopathy, lumbar region; E66.01 Morbid (severe) obesity due to excess calories; Z68.44 Body mass index [BMI] 60.0-69.9, adult | CPT/HCPCS: 99202 ==

== ENCOUNTER 2025-08-04 01:31 | Emergency (ER) | payer OTHER, SELFPAY ==
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
[2025-08-04 01:39] VITALS: BP 146/70; BP 151/70; PULSE 80; PULSE 81; RESP 18; TEMP 36.4; O2SAT 98; BMI 68.0
--- NOTE | 2025-08-04 01:48 | ED.BACK ---
HPI - Back Pain/Injury General Chief Complaint: Back Pain/Injury Stated Complaint: left leg and hip pain Time Seen by Provider: 08/04/25 01:37 Source: patient and EMS Mode of arrival: EMS Limitations: no limitations History of Present Illness ED Provider: Dr. Capri Adamson HPI Narrative: Patient comes to the emergency room complaining of chronic back pain since 2022. Patient denies any changes in pain, symptoms constant for couple of years. Patient states that he has been seen multiple times by his PCP, has a physical therapy, has been seen by spine surgery and recently, 2 days ago was seen by pain medicine. Patient denies urinary/fecal incontinence/retention. Patient states that the pain is unchanged. Patient states that the only thing that helps is oxycodone Patient is allergic to gabapentin, pregabalin, Decadron, naproxen, ibuprofen, aspirin, NSAIDs and Tylenol does not work Related Data Home Medications ?Medication ?Instructions ?Recorded ?Confirmed albuterol sulfate 2.5 mg/3 mL 1 vial inhalation Q4H PRN wheezing 09/07/22 08/02/24 (0.083 %) solution for nebulization albuterol sulfate 90 mcg/actuation 2 puff inhalation Q4-6H PRN 09/07/22 08/02/24 aerosol inhaler (ProAir HFA) Shortness Of Breath Or Wheezing alclometasone 0.05 % topical cream 1 appl topical DAILY 11/12/22 08/02/24 folic acid 1 mg tablet 1 tab PO DAILY 11/12/22 08/02/24 triamcinolone acetonide 0.1 % 1 appl topical DAILY 11/12/22 08/02/24 topical cream clonidine HCl 0.1 mg tablet 0.1 mg PO BID anxiety 01/05/24 08/02/24 dicyclomine 10 mg capsule 10 mg PO TID PRN abdominal pain 01/05/24 08/02/24 lidocaine 5 % topical patch 1 patch topical DIRECTED 01/05/24 08/02/24 meclizine 25 mg tablet 25 mg PO BID PRN dizziness 01/05/24 08/02/24 melatonin 5 mg tablet 5 mg PO BEDTIME PRN insomnia 01/05/24 08/02/24 sennosides 8.6 mg-docusate sodium 1 tab PO BID PRN constipation 01/05/24 08/02/24 50 mg tablet (Senexon-S) famotidine 20 mg tablet 20 mg PO DAILY 03/10/24 08/02/24 metoprolol succinate 25 mg 25 mg PO DAILY 03/10/24 08/02/24 tablet,extended release 24 hr acetaminophen 650 mg 650 mg PO TID 09/15/24 tablet,extended release amitriptyline 10 mg tablet mg PO 09/15/24 dextroamphetamine-amphetamine ER 1 cap PO QAM 09/15/24 30 mg 24hr capsule,extend release (Adderall XR) oxycodone 5 mg tablet 5 mg PO BID PRN 09/15/24 amitriptyline 25 mg tablet mg PO 08/02/25 bimekizumab-bkzx 320 mg/2 mL mg subcut Q4W 08/02/25 subcutaneous auto-injector (Bimzelx Autoinjector) dextroamphetamine-amphetamine ER 1 cap PO QAM 08/02/25 15 mg 24hr capsule,extend release (Adderall XR) hydroxyzine HCl 50 mg tablet 50 mg PO BID 08/02/25 naloxone 4 mg/actuation nasal spray intranasal 08/02/25 potassium citrate 15 mEq (1,620 15 meq PO BID 08/02/25 mg) tablet,extended release Previous Rx's ?Medication ?Instructions ?Recorded zinc gluconate 30 mg tablet 30 mg PO DAILY #90 tabs 04/28/24 diltiazem HCl 240 mg 240 mg PO DAILY #90 caps 08/30/24 capsule,extended release 24 hr cholecalciferol (vitamin D3) 125 125 mcg PO DAILY #90 caps 10/14/24 mcg (5,000 unit) capsule tirzepatide (weight loss) 7.5 7.5 mg (0.5 mL) subcut QWEEK #2 mL 10/27/24 mg/0.5 mL subcutaneous pen injector (Zepbound) cyclobenzaprine 10 mg tablet 10 mg PO TID PRN muscle spasm #20 12/29/24 tabs ondansetron HCl 4 mg tablet 4 mg PO Q6H PRN nausea and 03/05/25 vomiting #10 tabs oxycodone 5 mg tablet 5 mg PO BID PRN pain #10 tabs 03/05/25 tamsulosin 0.4 mg capsule 0.4 mg PO DAILY #20 caps 06/28/25 ferrous sulfate 325 mg (65 mg 325 mg PO DAILY 90 days #90 tabs 03/14/25 iron) tablet oxycodone 5 mg tablet 5 mg PO BID PRN pain 3 days #6 tabs 07/05/25 baclofen 10 mg tablet 10 mg PO TID PRN muscle spasm #20 08/04/25 tabs Allergies Allergy/AdvReac Type Severity Reaction Status Date / Time gabapentin Allergy Mild Unknown Verified 08/04/25 01:41 pregabalin Allergy Mild Hives Verified 08/04/25 01:41 adhesive tape Allergy Unknown Rash Verified 08/04/25 01:41 dexamethasone Allergy Unknown Rash Verified 08/04/25 01:41 latex Allergy Unknown Unknown Verified 08/04/25 01:41 naproxen Allergy Unknown Unknown Verified 08/04/25 01:41 ibuprofen (From Advil) Allergy Shortness Verified 08/04/25 01:41 of Breath aspirin AdvReac Headache Verified 08/04/25 01:41 etanercept (From Enbrel) AdvReac Dizziness Verified 08/04/25 01:41 NSAIDS (Non-Steroidal AdvReac Palpitation Verified 08/04/25 01:41 Anti-Inflamma s prednisolone AdvReac Numbness Verified 08/04/25 01:41 Review of Systems Review of Systems: Constitutional : No Weight loss, No Fever, No Chills, No Night Sweats, No Fatigue, No Malaise ENT/Mouth : No Hearing loss, No Ear Pain, No Nasal Congestion, No Sinus Pain, No Hoarseness, No sore throat, No Rhinorrhea, No Swallowing Difficulty Eyes: No Eye Pain, No Swelling, No Redness, No Foreign Body, No Discharge, No Vision Changes Cardiovascular : No Chest Pain, No SOB, No Dyspnea on Exertion, No Orthopnea, No Edema, No Palpitations Respiratory : No Cough, No Sputum, No Wheezing, No Smoke Exposure, No Dyspnea Gastrointestinal : No Nausea, No Vomiting, No Diarrhea, No Constipation, No abdominal Pain, No Hematochezia, No Melena Genitourinary : no irregular bleeding, No Dysuria, No Urinary Frequency, No Hematuria, No Urinary Incontinence, No Urgency, No Flank Pain, No Urinary Flow Changes, No Hesitancy Musculoskeletal : Complaining of chronic back pain radiating towards his left leg, unchanged for the last 3 years, No Myalgias, No Joint Swelling Skin : No Skin Lesions, No rash Neuro : No Weakness, No Numbness, No Paresthesias, No Loss of Consciousness, No Dizziness, No Headache Psych : No Anxiety/Panic, No Depression, No SI/HI/AH/VH, No Social Issues, Heme/Lymph: No Bruising, No Bleeding,No Lymphadenopathy Endocrine : No Polyuria, No Polydipsia, No Temperature Intolerance [facility] Past Medical History Medical History Psoriasis Osteoarthritis of cervical spine Lumbar disc herniation with radiculopathy Vitamin D deficiency Left hip pain Left carpal tunnel syndrome Iron deficiency anemia Hypertrophy of breast GERD with stricture without esophagitis DJD (degenerative joint disease), lumbar Chronic pain syndrome Chronic anemia ADHD (attention deficit hyperactivity disorder) Anxiety and depression Allergic rhinitis Severe obesity (BMI >= 40) New onset a-fib Hx of fracture of femur Sleep apnea Habitual snoring Asthma Renal and ureteric calculus Obesity Surgical History History of surgery on lower extremity S/P cystoscopy with ureteral stent placement History of cystoscopy [place] teeth extracted Family History Family History Mother Family history of thyroid problem Social History Social History Household Members: Spouse and Family Housing: House Are you a primary rn palliative care to a significant other at home: No Do you presently have visiting nurse or other home services: No Alcohol intake: never Patient Tobacco Use Status: Former Tobacco user Tobacco use type: Cigarette Cigarette Packs Per Day: 1 Cigarettes Per Day: 20.0 e-Cigarette/Vaping Use: Former Use Advance Directives: No Advance Directives Information Provided: Yes Do you have a plan to hurt others: No Plan service: No Current occupational status: employed Physical Exam Exam: Exam: Appearance: Alert. Oriented X3. No acute distress. Patient is morbidly obese Eyes: Pupils equal, round and reactive to light. ENT: Pharynx normal. Neck: Normal inspection. Neck supple. No lymph nodes noted. No crepitus CVS: Normal heart rate and rhythm. Pulses normal. Normal S1 and S2 Respiratory: No respiratory distress. Breath sounds normal. No Wheezing. No rales Abdomen: Soft and nontender. No rigidity. No distention. Back: No pain to palpation over the cervical/lumbar/thoracic spine. Positive straight leg raise test on the left Skin: Skin warm and dry. Normal skin color. Normal skin turgor. Extremities: No lower extremity edema. No Lacerations. No Rash Neuro: Oriented X 3. No motor deficit. No sensory deficit. Moving all extremities. No slurred speech. CN 2 through 12 grossly intact Psych: calm, cooperative, normal affect Vital Signs: Vital Signs: Last Vital Signs Temp 97.6 F 08/04/25 01:39 Pulse 80 08/04/25 01:39 Resp 18 08/04/25 01:39 BP 151/70 H 08/04/25 01:39 Pulse Ox 98 08/04/25 01:39 O2 Del Method Room Air 08/04/25 01:39 BMI result Body Mass Index 68.0 Medications Administered Discontinued Medications Generic Name Dose Route Start Last Admin Trade Name Bernyq PRN Reason Stop Dose Admin Tramadol HCl 50 mg 08/04/25 01:46 08/04/25 01:59 Tramadol Hcl 50 Mg Tablet PO 08/04/25 01:47 50 mg ONCE ONE Administration Medical Decision Making Medical Decision Making MDM Narrative: I reviewed patient's notes from the pain clinic from 2 days ago. Patient requested the pain medications for chronic pain management which was declined. Patient was informed that in the pain clinic they do not offer opiate programs. Patient was offered an alternative or intrathecal pain pump with known opiate medications and SCS trial Today, patient does not have any acute symptoms. Given patient's allergies, patient was given a dose of tramadol. Patient claims to be allergic to steroids as well Patient denies any difficulty walking, lower extremity weakness, denies urinary/fecal incontinence or retention. At this time, there are no concerns for cauda equina syndrome. Patient instructed to follow-up with his PCP and the specialist for chronic pain At the time of discharge, patient told his nurse that he came here to get oxycodone or morphine. Patient states that if we discharge him, he is going to check back in and demand oxycodone or morphine. As mentioned above, patient was given p.o. tramadol. Patient wants something stronger. Patient's request for oxycodone or morphine has been declined. Discharge Plan Discharge Clinical Impression: Chronic pain Patient Disposition: Home, Self-Care Instructions: Chronic Pain (ED) Additional Instructions: Please follow-up with your primary care physician tomorrow. If you have any worsening or new symptoms, please return to the emergency room or call 911 Prescriptions: New baclofen 10 mg tablet 10 mg PO TID PRN (Reason: muscle spasm) Qty: 20 0RF No Action zinc gluconate 30 mg tablet 30 mg PO DAILY Qty: 90 0RF diltiazem HCl 240 mg capsule,extended release 24hr 240 mg PO DAILY Qty: 90 3RF cholecalciferol (vitamin D3) 125 mcg (5,000 unit) capsule 125 mcg PO DAILY Qty: 90 1RF Zepbound 7.5 mg/0.5 mL pen injector 7.5 mg subcut QWEEK Qty: 2 0RF ferrous sulfate 325 mg (65 mg iron) tablet 325 mg PO DAILY 90 Days Qty: 90 0RF albuterol sulfate 2.5 mg /3 mL (0.083 %) solution for nebulization 1 vial inhalation Q4H PRN (Reason: wheezing) albuterol sulfate [ProAir HFA] 90 mcg/actuation HFA aerosol inhaler 2 puff INHALATION Q4-6H PRN (Reason: Shortness Of Breath Or Wheezing) folic acid 1 mg tablet 1 tab PO DAILY alclometasone 0.05 % cream 1 appl topical DAILY triamcinolone acetonide 0.1 % cream 1 appl topical DAILY cyclobenzaprine 10 mg tablet 10 mg PO TID PRN (Reason: muscle spasm) Qty: 20 0RF oxycodone 5 mg tablet 5 mg PO BID PRN (Reason: pain) Qty: 10 0RF Rx Instructions: Partial Fill upon patient request. ondansetron HCl 4 mg tablet 4 mg PO Q6H PRN (Reason: nausea and vomiting) Qty: 10 0RF tamsulosin 0.4 mg capsule 0.4 mg PO DAILY Qty: 20 0RF oxycodone 5 mg tablet 5 mg PO BID PRN (Reason: pain) 3 Days Qty: 6 0RF Rx Instructions: Partial Fill upon patient request. dextroamphetamine-amphetamine [Adderall XR] 15 mg capsule,extended release 24hr 1 cap PO QAM Bimzelx Autoinjector 320 mg/2 mL auto-injector subcut Q4W amitriptyline 25 mg tablet PO hydroxyzine HCl 50 mg tablet 50 mg PO BID potassium citrate 15 mEq tablet extended release 15 meq PO BID naloxone 4 mg/actuation spray,non-aerosol intranasal clonidine HCl 0.1 mg tablet 0.1 mg PO BID dicyclomine 10 mg capsule 10 mg PO TID PRN (Reason: abdominal pain) meclizine 25 mg tablet 25 mg PO BID PRN (Reason: dizziness) melatonin 5 mg tablet 5 mg PO BEDTIME PRN (Reason: insomnia) sennosides-docusate sodium [Senexon-S] 8.6-50 mg tablet 1 tab PO BID PRN (Reason: constipation) lidocaine 5 % adhesive patch,medicated 1 patch topical DIRECTED famotidine 20 mg tablet 20 mg PO DAILY metoprolol succinate 25 mg tablet extended release 24 hr 25 mg PO DAILY dextroamphetamine-amphetamine [Adderall XR] 30 mg capsule,extended release 24hr 1 cap PO QAM oxycodone 5 mg tablet 5 mg PO BID PRN amitriptyline 10 mg tablet PO acetaminophen 650 mg tablet extended release 650 mg PO TID Print Language: Swazi
--- OUTSIDE RECORDS SUMMARY | 2025-08-04 01:48 | XMS_ITS | Clinical Summary ---
Author Organization [facility] Address [address] [place] [address] Care Team Providers Care Box Blank Machine Operator Helper Name Role Phone Kevin Lake [...] age to complete this topic Care Teams Box Blank Machine Operator Helper Relationship Specialty Start Date End Date Kevin Lake MD [address] [place] [id number] PCP - General Hospitalist Medicine 04/27/24
--- OUTSIDE RECORDS SUMMARY | 2025-08-04 01:48 | XMS_ITS | Clinical Summary ---
Author Organization [facility] Address [address] [place] [address] Phone Care Team Providers Care Molecular Modeler Name Role Phone Kevin Lake MD Primary Care Provider [phone] Allergies Active Allergy Reactions Criticality Noted Date [...] Mild intermittent asthma without complication Psoriatic arthritis ([facility] V24, [facility] V28) 0 10/01/2022 Left knee pain 11/13/2021 Left carpal tunnel syndrome 11/13/2021 History of COVID-19 09/14/2020 Overview (12/01/2024): Tested positive on 08/18/2020 at [facility] DJD (degenerative joint disease), lumbar 018 Overview [...] AHI 30.5. Primary hypertension 09/09/2012 Morbid obesity ([facility] V24, [facility] V28) 2011 Encounters Date Type Department Care Team Description 07/08/2025 2:45 PM EDT Office Visit Adult Medicine [address] [phone] Kevin Lake MD Chronic pain syndrome (Primary Dx); Chronic bilateral low back pain with bilateral sciatica; Chronic pain of left knee; Primary hypertension; Chronic anemia 07/05/2025 Telephone Adult Medicine [address] [phone] Kevin Lake MD 05/26/2025 Telephone Adult Medicine [address] [phone] Kevin Lake MD 05/24/2025 10:00 AM EDT Office Visit Adult Medicine [address] [phone] Jane Fernandez MD Chronic pain syndrome (Primary Dx) 05/23/2025 Telephone Adult [address] [phone] Latha Marks [place] 05/13/2025 11:00 AM EDT Office Visit Adult Medicine [address] [phone] Kevin Lake MD Chronic pain syndrome (Primary Dx); Chronic bilateral low back pain with bilateral sciatica; Chronic pain of left knee; Psoriasis; Primary hypertension; ZAINA on CPAP; Morbid obesity (CMS/HCC V24, CMS/HCC V28); Mild intermittent asthma without complication; Anxiety and depression from Last 3 Months Immunizations Immunization Administration Dates Next Due DTP 10/24/1992, 8,02/02/1988,12/03 [id number] (Pentacel) 2mo to less than 5yo 08/08/1988 [...] WISDOM TEETH EXTRACTION OTHER SURGICAL HISTORY PROCEDURE: MS OSTEOT INTERTRCHNTRIC/SUBTRCHNTRIC W/INT/XTRNL; COMMENT: childhood OTHER SURGICAL HISTORY 11/2015 PROCEDURE: MS CIRCUMCISION AGE >28 DAYS Medical History Medical History Date Comments Chronic bilateral low back p ain without sciatica 08/17/2018 DX:Chronic bilateral low hilaria k pain without sciatica Morbid obesity with BMI of 6 0.0-69.9, adult ([facility] V24, [facility] V28) 05/19/2012 DX:Morbid obesity wit h BMI of 60.0-69.9, adult ([facility]) ZAINA on CPAP DX:ZAINA on CPAP Psoriasis [...] your loved ones. For example, child welfare manager or elderly care for an older adult? [...] 1:30 PM EST Office Visit Adult Medicine [address] [phone] Kevin Lake MD [address] [place] [address] Health Maintenance Due Date Last Done Comments [...] Negative LAB CHEMISTRY METHOD 05/24/2025 5:01 PM [facility] Comment:Certain OTC medicati ons containing ephedrine, phenylephrine, pseudoephedrine and phenylpropanolamine can cause false positive results. Barbiturate Screen, Ur Negative Negative LAB CHEMISTR[facility] Benzodiazepine Screen, Ur Negative Negative LAB CHEMISTRY METHOD 05/24/2025 5:01 PM [facility] Cocaine Screen, Ur Negative Negative LAB CHEMISTRY METHOD 05/24/2025 5:01 PM [facility] Opiate Screen, Ur Negative Negative LAB CHEMISTRY METHOD 05/24/2025 5:01 PM [facility] Cannabinoid (THC) Screen, Ur Negative Negative LAB CHEMISTRY METHOD 05/24/2025 5:01 PM EDT [facility] Comment:Specimens from patie nts taking pantoprazole sodium (Protonix) have been shown to produce false positive results. Fentanyl, Ur Negative Negative LAB CHEMISTRY METHOD 05/24/2025 5:01 PM EDT [facility] Oxycodone Screen, Ur Negative Negative LAB CHEMISTRY METHOD 05/24/2025 5:01 PM EDT [facility] Urine Urine specimen obtained by clean catch procedure / Unknown Non-blood Collection / Unknown 05/24/2025 3:19 PM EDT 05/24/2025 3:19 PM EDT [facility] - 05/24/2025 5:01 PM EDT [...] Lake MD LAB URINE ORDERABLES Final Result [facility] [address] [place] [address], * (ABNORMAL) CBC auto differential (05/13/2025 11:31 AM EDT) WBC 11.8(H) 4.8 - 10.8 K/mcL LAB HEMETOLOGY METHOD 05/13/2025 2:02 PM EDT [facility] RBC 4.10(L) 4.50 - 5.50 M/mcL LAB HEMETOLOGY METHOD 05/13/2025 2:02 PM EDT [facility] Hemoglobin 11.3(L) 13.5 - 17.5 g/dL LAB HEMETOLOGY METHOD 05/13/2025 2:02 PM EDT [facility] Hematocrit 35.7(L) 42.0 - 54.0 % LAB HEMETOLOGY METHOD 05/13[facility]2025 [facility] MCV 87.1 79.0 - 98.0 FL LAB HEMETOLOGY METHOD 05/13/2025 2:02 PM [facility] MCH 27.6 27.0 - 32.0 pcg LAB HEMETOLOGY METHOD 05/13/2025 2:02 PM [facility] MCHC 31.7(L) 32.0 - 37.0 g/dL LAB HEMETOLOGY METHOD 05/13/2025 2:02 PM [facility] RDW 15.5(H) 11.0 - 15.0 % LAB HEMETOLOGY METHOD 05/13/2025 2:02 PM [facility] Platelets 310 130 - 400 K/mcL LAB HEMETOLOGY METHOD 05/13/2025 2:02 PM [facility] MPV 10.2 7.0 - 11.0 FL LAB HEMETOLOGY METHOD 05/13/2025 2:02 PM [facility] NRBC 0.0 <1.0 % LAB HEMETOLOGY METHOD 05/13/2025 2:02 PM [facility] NRBC Absolute 0.00 <0.10 K/mcL LAB HEMETOLOGY METHOD 05/13/2025 2:02 PM [facility] Neutrophils Relative 68.3 % LAB HEMETOLOGY METHOD 05/13/2025 2:02 PM [facility] Lymphocytes Relative 21.2 % LAB HEMETOLOGY METHOD 05/13/2025 2:02 PM [facility] Monocytes Relative 6.9 % LAB HEMETOLOGY METHOD 05/13/2025 2:02 PM [facility] Eosinophils Relative 2.6 % LAB HEMETOLOGY METHOD 05/13/2025 2:02 PM EDT [facility] Basophils Relative 0.3 % LAB HEMETOLOGY METHOD 05/13/2025 2:[facility] Immature Granulocytes Relative 0.7 % LAB HEMETOLOGY METHOD 05/13/2025 2:02 PM EDT [facility] Neutrophils Absolute 8.03(H) 1.50 - 7.00 K/mcL LAB HEMETOLOGY METHOD 05/13/2025 2:02 PM EDT [facility] Lymphocytes Absolute 2.49 1.00 - 5.00 K/mcL LAB HEMETOLOGY METHOD 05/13/2025 2:[facility] Monocytes Absolute 0.81 0.20 - 1.00 K/mcL LAB HEMETOLOGY METHOD 05/13/2025 2:02 PM [facility] Eosinophils Absolute 0.30 0.00 - 0.50 K/mcL LAB HEMETOLOGY METHOD 05/13/2025 2:02 PM T [facility] Basophils Absolute 0.04 0.00 - 0.20 K/mcL LAB HEMETOLOGY METHOD 05/13/2025 2:02 PM [facility] Immature Granulocytes Absolute 0.08(H) 0.00 - 0.03 K/mcL LAB HEMETOLOGY METHOD 05/13/2025 2:02 PM [facility] Blood Venous blood specimen / Unknown Venipuncture / Unknown 05/13/2025 11:31 AM EDT 05/13/2025 11:31 AM EDT us Kevin Lake MD LAB BLOOD ORDERABLES Final Result [facility] [address] [place] [address], * Basic metabolic panel (05/13/2025 11:31 AM EDT) Sodium 140 133 - 145 mmol/L LAB CHEMISTRY METHOD 05/13/2025 5:09 PM [facility] Potassium 4.0 3.5 - 5.5 mmol/L LAB CHEMISTRY METHOD 05/13/2025 5:09 PM [facility] Comment:Hemolysis present Chloride 107 96 - 110 mmol/L LAB CHEMISTRY METHOD 05/13/2025 5:09 PM [facility] CO2 30 21 - 32 mmol/L LAB CHEMISTRY METHOD 05/13/2025 5:09 PM [facility] Anion Gap 3 3 - 11 LAB CHEMISTRY METHOD 05/13/2025 5:09 PM [facility] Glucose 99 70 - 100 mg/dL LAB CHEMISTRY METHOD 05/13/2025 5:09 PM [facility] BUN 12 5 - 25 mg/dL LAB CHEMISTRY METHOD 05/13/2025 5:09 PM [facility] Creatinine 0.73 0.70 - 1.30 mg/dL LAB CHEMISTRY METHOD 05/13/2025 5:09 PM [facility] eGFR 120 >=60 mL/min/1. 73m2 LAB CHEMISTRY METHOD 05/13/2025 5:09 PM [facility] Comment:Calculation based on the Chronic Kidney Disease Epidemiology Collaboration (CKD-EPI) equation refit without adjustment for race. BUN/Creatinine Ratio 16.4 LAB CHEMISTRY METHOD 05/13/2025 5:09 PM [facility] Calcium 9.1 8.5 - 10.5 mg/dL LAB CHEMISTRY METHOD 05/13/2025 5:09 PM [facility] Blood Venous blood specimen / Unknown Venipuncture / Unknown 05/13/2025 11:31 AM EDT 05/13/2025 11:31 AM EDT us Kevin Lake MD LAB BLOOD ORDERABLES Final Result [facility] [address] [place] [address], * Depression Screening (04/06/2024) Depression Screening abstracted Historical Provider HEALTH MAINTENANCE Final Result * Colonoscopy (02/09/2024) Colonoscopy no interpretation , abstracted Anatomical Region Laterality Modality Other Historical Provider HEALTH MAINTENANCE Final Result * (ABNORMAL) Lipid panel (10/01/2022) [facility] LDL/HDL Ratio 4 0 - 4 Triglycerides 92 0 - 150 mg/dL Cholesterol 73 0 - 200 mg/dL HDL 50 >=40 mg/dL LDL Cholesterol 105(A) 0 - 100 mg/dL Blood Venous blood specimen / Unknown Historical Provider LAB BLOOD ORDERABLES Veronica l Result from Last 3 Months or Most Recently Relevant to Health Maintenance Insurance [facility] Care Teams Molecular Modeler Relationship Specialty Start Date End Date Kevin Laek MD [address] [place] [address] PCP - General Internal Medicine 11/16/21
--- OUTSIDE RECORDS SUMMARY | 2025-08-04 01:48 | XMS_ITS | Clinical Summary ---
Author Organization [facility] Address [address] [place] [address] Phone Care Team Providers Care Legal Librarian Name Role Phone Kevin Lake MD Primary [...] Description 02/20/2026 1:00 PM EDT Office Visit [facility] [address] [place] [address] Cyndee Roger MD [address], [address] [place] [address] [email or web address] Health Maintenance Due Date Last Done Comments [...] topic Medical Devices Not on file Insurance [employer] [place] [address] [employer] [place] [address] [employer] [address] [place], [place] [address] Care Teams Legal Librarian Relationship Specialty Start Date End Date Kevin Lake MD PCP - General Internal Medicine 11/10/24 Additional Source Comments The information contained in this document represents components of the legal health record. It is not the complete legal health record.[facility]
--- OUTSIDE RECORDS SUMMARY | 2025-08-04 01:49 | XMS_ITS | Patient Health Record ---
Author Organization Brody Willis MD Address [address] [place] [address] Care Team Providers Care Solar Energy Engineer Name Role Phone Brody Willis Unavailable [phone] Reason For Referral No Information Encounters Encounter Location Date Provider Diagnosis Brody Willis MD [address] [facility] [place] [place] [address] 11/02/2024 Brody Willis Plan Of Treatment No Information
--- OUTSIDE RECORDS SUMMARY | 2025-08-04 01:49 | XMS_ITS | Encounter Summary ---
Author Organization [facility] Address [address] [place] [address] Care Team Providers Care Clinical Science Liaison Name Role Phone Kevin Lake MD Primary Care Provider [phone] Reason for Visit * Reason Onset Date Comments returning call back 07/05/2025 Encounter Details Date Type Department Care Team ([facility] st Contact Info) Description 07/05/2025 Telephone Adult Medicine [address] [phone] Kevin Lake MD [address] [place] [address] Social History Tobacco Use Types Packs/Day Years [...] your loved ones. For example, child care sitter or elderly care for an older adult? [...] EDT Patient is returning a call back. [phone] documented in this encounter Plan of Treatment Upcoming Encounters Date Type Department Care Team (Late st Contact Info) Description 08/12/2025 1:30 PM EST Office Visit Adult Medicine [address] [phone] Kevin Lake MD [address] [place] [address] documented as of this encounter Visit Diagnoses Not on filedocumented in this encounter Additional Health Concerns Assessment Noted Time PHQ-9 Depression Total Score: 0 09/02/20 24 9:44 AM EST documented as of this encounter Care Teams Clinical Science Liaison Relationship Specialty Start Date End Date Kevin Lake MD [address] [place] [address] PCP - General Internal Medicine 11/16/21 documented as of this encounter
--- NOTE | 2025-08-04 02:05 | PC.NURSE ---
Addendum entered by Kim Herndon RN 08/04/25 02:14: pt escorted out of department by security via wheelchair that pt ambulated to himself. Addendum entered by Kim Herndon RN 08/04/25 02:08: pt did take his discharge papers. refused to sign. Original Note: patient took the tramadol i gave him and MD Adamson ordered then proceeded to state that tramadol will not help his pain. educated him on discharge instruction for baclofen MD wants him to take instead of his usual flexeril. patient stated he will be coming back in 10 minutes unless the MD gives him morphine or oxycodone. MD Adamson made aware and stated she will not be ordering these medications. pt refused discharge and requested to speak with Charge. firearms instructorCHANELL Garcia and security at bedside now.
[2025-08-04 02:07] VITALS: BP 151/70; PULSE 80; RESP 18; TEMP 36.4; O2SAT 98
== END 2025-08-04 02:14 | disposition home or self-care (01) ==
PROVIDERS: Emergency Provider Emergency Medicine; PCP Internal Medicine
DX: M54.50 Low back pain, unspecified (principal); G89.29 Other chronic pain; M62.830 Muscle spasm of back; Z87.891 Personal history of nicotine dependence
CPT/HCPCS: 99283